=== PATIENT | male | born 1930 ===

== ENCOUNTER 2017-05-12 16:31 | Inpatient (IN) | payer MEDICARE ==
[2017-05-12 17:29] LABS: BASO # 0.1 K/uL (0.0-0.2); BASO % 0.6 % (0.0-2.0); EOS # 0.1 K/uL (0.0-0.7); EOS % 1.2 % (0.0-4.0); HEMATOCRIT 42.5 % (35.0-51.0); LYMPH % 18.2 % (20.0-40.0); MEAN CELL VOLUME 87.8 fl (80.0-94.0); MEAN CORPUSCULAR HEMOGLOBIN 28.8 pg (27.0-31.0); MEAN CORPUSCULAR HGB CONC 32.8 g/dL (33.0-37.0); MEAN PLATELET VOLUME 8.8 fl (7.2-11.7); MONO # 0.7 K/uL (0.0-0.8); MONO % 6.7 % (0.0-10.0); NEUT # 7.9 K/uL (1.8-7.0); NEUT % 73.3 % (50.0-75.0); NRBC % 0.1 % (0.0-0.0); RED CELL DISTRIBUTION WIDTH 15.3 % (11.5-14.5); WHITE BLOOD COUNT 10.7 K/uL (4.8-10.8)
[2017-05-12 17:32] LABS: VENOUS BLOOD GAS BASE EXCESS 6.4 mmol/L (0.0-2.0); VENOUS BLOOD GAS PCO2 77 mmHg (40-60); VENOUS BLOOD PH 7.28 (7.32-7.43)
[2017-05-12] MEDS ORDERED: Albuterol-Ipratrop 3 mg / 0.5 (3 ml) UD INH STA (17:35)
[2017-05-12 17:36] LABS: ALB/GLOB RATIO 1.1 (1.0-2.1); ALKALINE PHOSPHATASE 103 U/L (38-126); ALT/SGPT 26 U/L (21-72); AST/SGOT 34 U/L (17-59); BILIRUBIN,TOTAL 0.4 mg/dl (0.2-1.3); BLOOD UREA NITROGEN 18 mg/dl (9-20); CALCIUM 9.4 mg/dL (8.4-10.2); CARBON DIOXIDE 30 mmol/L (22-30); CHLORIDE 100 mmol/L (98-107); GFR AFRICAN-AMERICAN > 60; GLUCOSE,RANDOM 176 mg/dL (75-110); MAGNESIUM 1.8 MG/DL (1.6-2.3); PHOSPHOROUS 4.4 mg/dl (2.5-4.5); POTASSIUM 4.2 MMOL/L (3.6-5.0); SODIUM 139 mmol/l (132-148); TOTAL PROTEIN 8.5 G/DL (6.3-8.2)
--- NOTE | 2017-05-12 17:43 | ED PDOC ---
HPI: SOB/CHF/COPD Time Seen by Provider: 05/12/17 16:41 Chief Complaint (Nursing): Shortness Of Breath Chief Complaint (Provider): Shortness of Breath History Per: Patient History/Exam Limitations: no limitations Onset/Duration Of Symptoms: Days (x2 weeks) Current Symptoms Are (Timing): Still Present Associated Symptoms: denies: Fever, Chills Additional Complaint(s): Carroll Robertson, an 86 year old male, with a past medical history of chronic obstructive pulmonary disorder, pneumonia and anemia presents to the ED complaining of shortness of breath. Patient denies outright chest pain but does complain of chest tightness. The patient reports that his symptoms began this morning while he was out for a walk. Patient also states that he has had a cough (no hemoptysis) productive of white phlegm for 2 weeks. denies fever and chills but does note some malaise and fatigue. Patient does not see a regular doctor. Past Medical History Reviewed: Historical Data, Nursing Documentation, Vital Signs Vital Signs: Last Vital Signs Temp 99.1 F 05/13/17 12:23 Pulse 67 05/13/17 12:23 Resp 27 H 05/13/17 12:23 BP 124/51 L 05/13/17 12:23 Pulse Ox 98 05/13/17 12:23 - Medical History PMH: Anemia, COPD, Pneumonia - Surgical History Surgical History: No Surg Hx - Family History Family History: States: Unknown Family Hx - Social History Current smoker - smoking cessation education provided: Yes (smokes regularly) Ex-Smoker (has not smoked in the last 12 months): Yes Alcohol: None Drugs: Denies - Home Medications Home Medications: Ambulatory Orders Medication Instructions Recorded No Known Home Med 05/12/17 - Allergies Allergies/Adverse Reactions: Allergies Allergy/AdvReac Type Severity Reaction Status Date / Time No Known Allergies Allergy Verified 05/12/17 16:37 Review of Systems ROS Statement: Except As Marked, All Systems Reviewed And Found Negative Constitutional: Positive for: Malaise, Other (fatigue). Negative for: Fever, Chills Cardiovascular: Negative for: Chest Pain (no chest pain but does note some chest tightness) Respiratory: Positive for: Cough (produtive of white phlegm), Shortness of Breath. Negative for: Hemoptysis Physical Exam - Reviewed Nursing Documentation Reviewed: Yes Vital Signs Reviewed: Yes - Physical Exam Appears: Positive for: Non-toxic, No Acute Distress (appears cachectic and chronically ill) Head Exam: Positive for: ATRAUMATIC, NORMOCEPHALIC Skin: Positive for: Warm, Dry Eye Exam: Positive for: EOMI, PERRL ENT: Positive for: Other (tacky mucus membranes) Neck: Positive for: Painless ROM, Supple Cardiovascular/Chest: Positive for: Chest Non Tender, Tachycardia. Negative for : Murmur Respiratory: Positive for: Decreased Breath Sounds (bilaterally). Negative for : Respiratory Distress Gastrointestinal/Abdominal: Positive for: Soft. Negative for: Tenderness Back: Positive for: Normal Inspection. Negative for: Decreased ROM Extremity: Positive for: Normal ROM. Negative for: Deformity Lymphatic: Negative for: Adenopathy Neurologic/Psych: Positive for: Alert. Negative for: Motor/Sensory Deficits - Laboratory Results Result Diagrams: 05/13/17 04:20 05/13/17 04:20 - ECG ECG Rhythm: Positive for: Normal QRS, Normal ST Segment, Sinus Tachycardia O2 Sat by Pulse Oximetry: 98 (RA) Pulse Ox Interpretation: Normal - Radiology X-Ray Interpretation: Pnemothorax - Progress Re-evaluation Time: 18:30 Condition: Improving,but remains with symptoms (Pt reports that he feels fine, as long as he is not walking.) - Critical Care Total Time (In Min): 30 Documented Critical Care: Time excludes all time spent performint seperately billable procedures Medical Decision Making Medical Decision Makin Initial Impression 86 year old male presenting with shortness of breath Differential: Pneumonia, Bronchitis, COPD exacerbation, PE, Acute coronary syndrome Initial Plan: * Type and Screen * ABG * VBG shock panel * EKG * B-type natriuretic * CMP * Magnesium * Phosphorous * Troponin I * Udip * CBC * PT * PTT * CXR * Albuterol 9ml INH * Solumefrol 125mg IVP * Blood Cu;ture * Peak Flow Pre/Post * Influenza A B * Reevaluation EKG performed: * Sinus Tachycardia at 103bpm * Normal QRS * Normal ST segments Large RIGHT pneumothorax on chest xray. Previous CT (2011) demonstrated apical blebs bilaterally only. NELIDA pt and family findings. Pt continues to report feeling comfortable. NRBM 100 % placed. No signs of tension pneumothorax. NELIDA vice president payer and thoracostomy considered. NELIDA [facility] resident. NELIDA Arnold Hospitalist for intensive care. vice president payer performed RIGHT thoracostomy in ER under my supervision. Pt given IV Versed as anxiolytic. Postprocedure xray demonstrates reinflation of RIGHT lung. - Scribe Attestation Documented by Kendy Lancaster acting as a scribe for Akanksha Gary MD. Provider Attestation: All medical record entries made by the Scribe were at my direction and personally dictated by me. I have reviewed the chart and agree that the record accurately reflects my personal performance of the history, physical exam, medical decision making, and the department course for this patient. I have also personally directed, reviewed, and agree with the discharge instructions and disposition. Disposition - Clinical Impression Clinical Impression: COPD (chronic obstructive pulmonary disease) with acute bronchitis, Pneumothorax Counseled Patient/Family Regarding: Studies Performed, Diagnosis - Disposition Disposition Time: 17:00 Condition: CRITICAL - Pt Status Changed To: Hospital Disposition Of: Inpatient - Admit Certification Admit to Inpatient:: After my assessment, the patient will require hospitalization for at least two midnights. This is because of the severity of symptoms shown, intensity of services needed, and/or the medical risk in this patient being treated as an outpatient. - POA Present On Arrival: None
[2017-05-12 18:10] LABS: PARTIAL THROMBOPLASTIN TIME 35.2 Seconds (25.6-37.1)
--- NOTE | 2017-05-12 18:31 | CP.PCM.HP ---
History of Present Illness - History of Present Illness History of Present Illness: 86yo M with no PMHx admitted for pneumothorax. SOB x1 day, started 11AM, no inciting event. Denies wheezing, chest pain, [place]. Stopped smoking 4 years ago. PMHx: NC FHx: NC Meds: checked in [facility] Social hx: ex smoker, denies EtOH/drugs Surgeries: denies Allergies: NKDA PCP: [facility] ED course: * Type and Screen * ABG * VBG shock panel * EKG * B-type natriuretic * CMP * Magnesium * Phosphorous * Troponin I * Udip * CBC * PT * PTT * CXR * Albuterol 9ml INH * Solumefrol 125mg IVP * Blood Cu;ture * Peak Flow Pre/Post * Influenza A B Present on Admission - Present on Admission Any Indicators Present on Admission: No Review of Systems - Review of Systems All systems: reviewed and no additional remarkable complaints except - Respiratory Respiratory: Dyspnea Past Patient History - Past Social History Alcohol: None Drugs: Denies - PULMONARY Hx Chronic Obstructive Pulmonary Disease (COPD): Yes Hx Pneumonia: Yes - HEMATOLOGICAL/ONCOLOGICAL Hx Anemia: Yes - INTEGUMENTARY Other/Comment: shingles a month ago - PSYCHIATRIC Hx Substance Use: No - SURGICAL HISTORY Hx Surgeries: No - ANESTHESIA Hx Anesthesia: No Meds Allergies/Adverse Reactions: Allergies Allergy/AdvReac Type Severity Reaction Status Date / Time No Known Allergies Allergy Verified 05/12/17 16:37 Physical Exam - Constitutional Appears: Non-toxic, No Acute Distress - Head Exam Head Exam: ATRAUMATIC, NORMOCEPHALIC - Eye Exam Eye Exam: Normal appearance - ENT Exam ENT Exam: Mucous Membranes Moist - Neck Exam Neck exam: Positive for: Full Rom, Normal Inspection - Respiratory Exam Respiratory Exam: Decreased Breath Sounds (right side) - Cardiovascular Exam Cardiovascular Exam: REGULAR RHYTHM. absent: Systolic Murmur - GI/Abdominal Exam GI & Abdominal Exam: Normal Bowel Sounds, Soft - Extremities Exam Extremities exam: Positive for: normal inspection. Negative for: pedal edema - Back Exam Back exam: NORMAL INSPECTION. absent: vertebral tenderness - Neurological Exam Neurological exam: Alert, Oriented x3 - Skin Skin Exam: Dry, Warm Results - Vital Signs Recent Vital Signs: Last Vital Signs Temp 99.0 F 05/12/17 16:37 Pulse 96 H 05/12/17 17:46 Resp 26 H 05/12/17 17:46 BP 166/83 H 05/12/17 17:46 Pulse Ox 98 05/12/17 17:55 - Labs Result Diagrams: 05/12/17 17:15 05/12/17 17:00 Labs: Laboratory Results - last 24 hr 05/12/17 05/12/17 05/12/17 17:00 17:00 17:00 WBC RBC Hgb Hct MCV MCH MCHC RDW Plt Count MPV Neut % (Auto) Lymph % (Auto) [place] % (Auto) Eos % (Auto) Baso % (Auto) Neut # Lymph # [place] # Eos # Baso # PT INR APTT pO2 VBG pH VBG pCO2 VBG HCO3 VBG Total CO2 VBG O2 Sat (Calc) VBG Base Excess VBG Potassium Glucose Lactate FiO2 Crit Value Called To Crit Value Called By Crit Value Read Back Blood Gas Notified Time Sodium 139 Potassium 4.2 Chloride 100 Carbon Dioxide 30 Anion Gap 13 BUN 18 Creatinine 0.8 Est GFR ( Amer) > 60 Est GFR (Non-Af Amer) > 60 Random Glucose 176 H Calcium 9.4 Phosphorus 4.4 Magnesium 1.8 Total Bilirubin 0.4 AST 34 ALT 26 Alkaline Phosphatase 103 Troponin I < 0.0120 NT-Pro-B Natriuret Pep 316 Total Protein 8.5 H Albumin 4.5 Globulin 4.1 H Albumin/Globulin Ratio 1.1 Venous Blood Potassium Influenza Typ A,B (EIA) Negative for flu a/b Blood Type O POSITIVE Antibody Screen Negative BBK History Checked No verified bt 05/12/17 05/12/17 05/12/17 17:15 17:15 17:26 WBC 10.7 RBC 4.85 Hgb 13.9 Hct 42.5 MCV 87.8 MCH 28.8 MCHC 32.8 L RDW 15.3 H Plt Count 219 MPV 8.8 Neut % (Auto) 73.3 Lymph % (Auto) 18.2 L [place] % (Auto) 6.7 Eos % (Auto) 1.2 Baso % (Auto) 0.6 Neut # 7.9 H Lymph # 2.0 [place] # 0.7 Eos # 0.1 Baso # 0.1 PT 11.1 INR 1.0 APTT 35.2 pO2 27 L VBG pH 7.28 L VBG pCO2 77 H* VBG HCO3 28.5 VBG Total CO2 38.6 H VBG O2 Sat (Calc) 51.0 VBG Base Excess 6.4 H VBG Potassium 4.7 Glucose 188 H Lactate 2.1 FiO2 40.0 Crit Value Called To Dr shakir pagan Crit Value Called By Onofre Crit Value Read Back Y Blood Gas Notified Time 1730 Sodium 141.0 Potassium Chloride 103.0 Carbon Dioxide Anion Gap BUN Creatinine Est GFR ( Amer) Est GFR (Non-Af Amer) Random Glucose Calcium Phosphorus Magnesium Total Bilirubin AST ALT Alkaline Phosphatase Troponin I NT-Pro-B Natriuret Pep Total Protein Albumin Globulin Albumin/Globulin Ratio Venous Blood Potassium 4.7 Influenza Typ A,B (EIA) Blood Type Antibody Screen BBK History Checked Assessment & Plan - Assessment and Plan (Free Text) Assessment: 86yo M with no PMHx admitted for pneumothorax. pneumothorax CT chest - right tension PTX surgery on board, appreciate input DVT ppx start lovenox 24hr after surgical procedure SCDs for now Decision To Admit - Pt Status Changed To: Hospital Disposition Of: Inpatient - Admit Certification Admit to Inpatient:: After my assessment, the patient will require hospitalization for at least two midnights. This is because of the severity of symptoms shown, intensity of services needed, and/or the medical risk in this patient being treated as an outpatient. - . Bed Request Type: Telemetry Admitting Physician: Adriana Sepulveda
--- NOTE | 2017-05-12 19:42 | CT ---
EXAM: CT Chest Without Intravenous Contrast EXAM DATE/TIME: 05/12/2017 5:51 PM CLINICAL HISTORY: 86 years old, male; Signs and symptoms; Shortness of breath; Additional info: Right sided pneumothorax vs bleb TECHNIQUE: Axial computed tomography images of the chest without intravenous contrast. All CT scans at this facility use one or more dose reduction techniques, viz.: automated exposure control; ma/kV adjustment per patient size (including targeted exams where dose is matched to indication; i.e. head); or iterative reconstruction technique. Coronal and sagittal reformatted images were created and reviewed. COMPARISON: CT CHEST W/CONT 2012-03-25 09:12 FINDINGS: Lungs and pleural spaces: Trachea and main bronchi are patent. There are diffuse emphysematous changes bilaterally. Appearance suggests both paraseptal and centrilobular changes. There is a right tension pneumothorax. There is partial collapse of the right lung. There are areas of pleural-parenchymal scarring in the middle and lower lobes. Partial atelectasis limits evaluation of right lung parenchyma.There is apical pleural-parenchymal thickening bilaterally right greater than left, increased since the prior study. There is an 11 x 5 mm left apical nodular opacity increased since the prior study, image 52 series 601, image 57 series 601. There is medial right upper lobe nodular opacity 3 x 2 cm, image 51 series 601. There is no focal consolidation on the left. There are no effusions. Heart and vasculature: There is mild shift of heart and mediastinal structures to the left. Heart size is normal. There are coronary artery calcifications. There are calcifications in the aorta and great vessels.Aorta and main pulmonary artery are normal in caliber. Thyroid: Thyroid is only partially imaged. Bones/joints: Bony structures are osteopenic. There are degenerative changes. Soft tissues: unremarkable Mediastinum: There are shotty mediastinal nodes.there is an 8 x 10 mm precarinal node. [place] are not optimally evaluated without contrast material. The esophagus is partially distended with air. There is a small hiatal hernia. Upper abdomen: There are no acute abnormalities in the visualized portion of the abdomen. There is a right renal cyst. Pancreas is atrophic with multiple coarse calcifications. There is bilateral adrenal thickening. IMPRESSION: Right tension pneumothorax with partial collapse of the right lung; diffuse emphysematous changes bilaterally, interval increase in size of a left apical nodule; right apical opacity, scarring versus mass, evaluation limited by pneumothorax and partial right lung collapse Additional findings as described above. Preliminary findings were discussed with Akanksha Cruz at 7:28 PM EDT on 05/12/2017.
[2017-05-12] MEDS ORDERED: Midazolam 2 MG/2 ML VIAL IV STA (20:25)
[2017-05-12] MEDS ORDERED: Lidocaine 2% w Epi 1:100,000 Inj IJ ONE (20:25)
--- NOTE | 2017-05-12 20:44 | CP.PCM.HP ---
History of Present Illness - History of Present Illness History of Present Illness: CC: SOB, Chest tightness History via adult daughter translated from [place] HPI: This is an 86 y/o male without any diagnosed medical conditions, but with long Hx of smoking and undiagnosed COPD. Per daughter, he has been having increased coughing for the past several weeks which some increased white sputum. He has also been having worsening SOB. This AM, the symptom of chest tightness and SOB became worse, and nothing seemed to relieve them, so he came in to the ER. He was found to have a R PTX on CXR. Patient denies f/c/n/v/d. Patient has some level of worsening tiredness. ROS: 14 systems reviewed, no findings MHx: COPD, PTX SHx: None Allergies: NKDA Medications: None Family Hx: Patient cannot provide any relevant findings Social Hx: Lives alone, but daughter nearby, still smokes, no EtOH Surrogate: Daughter, listed in chart Present on Admission - Present on Admission Any Indicators Present on Admission: No Past Patient History - Past Social History Alcohol: None Drugs: Denies - PULMONARY Hx Chronic Obstructive Pulmonary Disease (COPD): Yes Hx Pneumonia: Yes - HEMATOLOGICAL/ONCOLOGICAL Hx Anemia: Yes - INTEGUMENTARY Other/Comment: shingles a month ago - PSYCHIATRIC Hx Substance Use: No - SURGICAL HISTORY Hx Surgeries: No - ANESTHESIA Hx Anesthesia: No Meds Allergies/Adverse Reactions: Allergies Allergy/AdvReac Type Severity Reaction Status Date / Time No Known Allergies Allergy Verified 05/12/17 16:37 Physical Exam - Constitutional Appears: No Acute Distress - Head Exam Head Exam: ATRAUMATIC, NORMOCEPHALIC - Eye Exam Eye Exam: EOMI - ENT Exam ENT Exam: Mucous Membranes Moist - Neck Exam Neck exam: Positive for: Full Rom - Respiratory Exam Respiratory Exam: Decreased Breath Sounds, NORMAL BREATHING PATTERN Additional comments: Diminished b/s in R base - Cardiovascular Exam Cardiovascular Exam: REGULAR RHYTHM, +S1, +S2 - GI/Abdominal Exam GI & Abdominal Exam: Normal Bowel Sounds, Soft - Extremities Exam Extremities exam: Positive for: full ROM, normal inspection - Neurological Exam Neurological exam: Alert, CN II-XII Intact, Oriented x3 - Psychiatric Exam Psychiatric exam: Normal Affect, Normal Mood - Skin Skin Exam: Dry, Warm Results - Vital Signs Recent Vital Signs: Last Vital Signs Temp 97.6 F 05/12/17 19:07 Pulse 101 H 05/12/17 19:54 Resp 20 05/12/17 19:54 BP 156/78 H 05/12/17 19:54 Pulse Ox 98 05/12/17 20:25 - Labs Result Diagrams: 05/12/17 17:15 05/12/17 17:00 Labs: Laboratory Results - last 24 hr 05/12/17 05/12/17 05/12/17 17:00 17:00 17:00 WBC RBC Hgb Hct MCV MCH MCHC RDW Plt Count MPV Neut % (Auto) Lymph % (Auto) [place] % (Auto) Eos % (Auto) Baso % (Auto) Neut # Lymph # [place] # Eos # Baso # PT INR APTT pO2 VBG pH VBG pCO2 VBG HCO3 VBG Total CO2 VBG O2 Sat (Calc) VBG Base Excess VBG Potassium Glucose Lactate FiO2 Crit Value Called To Crit Value Called By Crit Value Read Back Blood Gas Notified Time Sodium 139 Potassium 4.2 Chloride 100 Carbon Dioxide 30 Anion Gap 13 BUN 18 Creatinine 0.8 Est GFR ( Amer) > 60 Est GFR (Non-Af Amer) > 60 Random Glucose 176 H Calcium 9.4 Phosphorus 4.4 Magnesium 1.8 Total Bilirubin 0.4 AST 34 ALT 26 Alkaline Phosphatase 103 Troponin I < 0.0120 NT-Pro-B Natriuret Pep 316 Total Protein 8.5 H Albumin 4.5 Globulin 4.1 H Albumin/Globulin Ratio 1.1 Venous Blood Potassium Influenza Typ A,B (EIA) Negative for flu a/b Blood Type O POSITIVE Antibody Screen Negative BBK History Checked No verified bt 05/12/17 05/12/17 05/12/17 17:15 17:15 17:26 WBC 10.7 RBC 4.85 Hgb 13.9 Hct 42.5 MCV 87.8 MCH 28.8 MCHC 32.8 L RDW 15.3 H Plt Count 219 MPV 8.8 Neut % (Auto) 73.3 Lymph % (Auto) 18.2 L [place] % (Auto) 6.7 Eos % (Auto) 1.2 Baso % (Auto) 0.6 Neut # 7.9 H Lymph # 2.0 [place] # 0.7 Eos # 0.1 Baso # 0.1 PT 11.1 INR 1.0 APTT 35.2 pO2 27 L VBG pH 7.28 L VBG pCO2 77 H* VBG HCO3 28.5 VBG Total CO2 38.6 H VBG O2 Sat (Calc) 51.0 VBG Base Excess 6.4 H VBG Potassium 4.7 Glucose 188 H Lactate 2.1 FiO2 40.0 Crit Value Called To Dr shakir pagan Crit Value Called By Onofre Crit Value Read Back Y Blood Gas Notified Time 1730 Sodium 141.0 Potassium Chloride 103.0 Carbon Dioxide Anion Gap BUN Creatinine Est GFR ( Amer) Est GFR (Non-Af Amer) Random Glucose Calcium Phosphorus Magnesium Total Bilirubin AST ALT Alkaline Phosphatase Troponin I NT-Pro-B Natriuret Pep Total Protein Albumin Globulin Albumin/Globulin Ratio Venous Blood Potassium 4.7 Influenza Typ A,B (EIA) Blood Type Antibody Screen BBK History Checked - Imaging and Cardiology Chest x-ray Status: Image reviewed by me, Report reviewed by me Additional comment: R sided PTX CT scan - chest Status: Image reviewed by me, Report reviewed by me (R PTx, evidence of COPD) Assessment & Plan (1) Pneumothorax Assessment and Plan: 86 y/o male with previously undiagnosed COPD who comes in with a R PTX in setting increased coughing/likely COPD exac. -Will admit to ICU -Surgical consult for possible chest tube placement -Given increasing cough/sputum, will cover with azithromycin IV at least for now -Can consider steroids if worsening symptoms of COPD, duonebs as necessary -SCDs for DVT prophylaxis Status: Acute (2) COPD (chronic obstructive pulmonary disease) with acute bronchitis Status: Acute (3) DVT prophylaxis Status: Acute
--- NOTE | 2017-05-12 20:47 | RAD ---
HISTORY: Shortness of breath. COMPARISON: May 12, 2017. FINDINGS: LUNGS: Collapse right lung. PLEURA: Large right pneumothorax without significant shift of mediastinal structures to the contralateral side of tension pneumothorax. CARDIOVASCULAR: No radiographic findings to suggest acute or significant cardiovascular disease. OSSEOUS STRUCTURES: No significant abnormalities. VISUALIZED UPPER ABDOMEN: Normal. OTHER FINDINGS: None. IMPRESSION: Large state pneumothorax at least 50% of right lung volume. No appreciable shift of mediastinal structures. Pneumothorax better appreciated on recent CT completed at 18:46.
[2017-05-12] MEDS ORDERED: Azithromycin 500 MG in Sodium Chloride 0.9% 250 ML IVPB STA (21:02)
[2017-05-12] MEDS ORDERED: Azithromycin 500 MG IV IVPB ONE (21:25)
[2017-05-12] MEDS ORDERED: Influenza Vaccine 18yr & older 0.5 ML/45 MCG SYR IM ONE (23:34)
[2017-05-12 23:38] VITALS: BMI 15.6
[2017-05-12] MEDS ORDERED: Pneumococcal 23-Valent Vaccine IM ONE (23:45)
--- NOTE | 2017-05-13 05:14 | CP.PCM.CON ---
History of Present Illness - History of Present Illness History of Present Illness: Cardiothoracic surgery consult for Dr. Mcclendon Consulted for: right pneumothorax Patient is a poor historian with history of poor clinical follow up Patient is an 86M with PMH of emphysematous disease as seen on CT scan from 2017 who presented to the ED with acute worsening of SOB in past 24 hours. Patient states that he has been having symptoms of a respiratory flu and non- productive cough for pas few months and that yesterday patient had acute worsening of SOB. Patient denies any chest pain, back pain, fevers, chills, abdominal pain, nausea, or vomiting. Patient denies any falls or trauma to the right chest. Patient denies any PMH of lung disease or any home medications and does not follow up with a primary doctor. Patient lives in a [facility] Review of Systems - Review of Systems Review of Systems: 12 point ROS reviewed and no significant findings except as stated in the HPI - Constitutional Constitutional: As Per HPI - Cardiovascular Cardiovascular: As Per HPI, Dyspnea - Respiratory Respiratory: As Per HPI. absent: Hemoptysis - Gastrointestinal Gastrointestinal: As Per HPI. absent: Abdominal Pain, Cramping, Diarrhea, Nausea, Vomiting - Genitourinary Genitourinary: absent: Change in Urinary Stream, Difficulty Urinating, Dysuria - Integumentary Integumentary: Rash, Skin Pain (hip) Past Patient History - Past Medical History & Family History Past Medical History?: Yes - Past Social History Smoking Status: 2 cigarett Drugs: Denies - CARDIAC Hx Cardiac Disorders: No - PULMONARY Hx Respiratory Disorders: Yes Hx Chronic Obstructive Pulmonary Disease (COPD): Yes Hx Pneumonia: Yes - NEUROLOGICAL Hx Neurological Disorder: No - HEENT Hx HEENT Problems: No - RENAL Hx Chronic Kidney Disease: No - ENDOCRINE/METABOLIC Hx Endocrine Disorders: No - HEMATOLOGICAL/ONCOLOGICAL Hx Blood Disorders: Yes Hx AIDS: No Hx Anemia: Yes Hx Human Immunodeficiency Virus (HIV): No - INTEGUMENTARY Hx Dermatological Problems: Yes Other/Comment: shingles a month ago - MUSCULOSKELETAL/RHEUMATOLOGICAL Hx Musculoskeletal Disorders: No Hx Falls: No - GASTROINTESTINAL Hx Gastrointestinal Disorders: No Other/Comment: never had surgery - GENITOURINARY/GYNECOLOGICAL Hx Genitourinary Disorders: No - PSYCHIATRIC Hx Psychophysiologic Disorder: No Hx Substance Use: No - SURGICAL HISTORY Hx Surgeries: No - ANESTHESIA Hx Anesthesia: No Meds Allergies/Adverse Reactions: Allergies Allergy/AdvReac Type Severity Reaction Status Date / Time No Known Allergies Allergy Verified 05/12/17 16:37 - Medications Medications: Current Medications Azithromycin 500 mg/ Sodium (Chloride) 250 mls @ 250 mls/hr IVPB DAILY HEIDY PRN Reason: Protocol Morphine Sulfate (Morphine) 4 mg IVP Q4 PRN PRN Reason: Pain, severe (8-10) Morphine Sulfate (Morphine) 2 mg IVP Q4 PRN PRN Reason: Pain, moderate (4-7) Physical Exam - Constitutional Appears: Non-toxic, No Acute Distress - Head Exam Head Exam: ATRAUMATIC, NORMOCEPHALIC - Eye Exam Eye Exam: Normal appearance. absent: Conjunctival injection, Scleral icterus - ENT Exam ENT Exam: Mucous Membranes Moist, Normal Oropharynx - Respiratory Exam Respiratory Exam: Accessory Muscle Use, Decreased Breath Sounds (right lung all burgess). absent: Chest Wall Tenderness, Rales, Rhonchi, Wheezes, Respiratory Distress Additional comments: decreased chest wall expansion on the right - Cardiovascular Exam Cardiovascular Exam: Tachycardia - GI/Abdominal Exam GI & Abdominal Exam: Soft. absent: Distended, Tenderness - Extremities Exam Extremities exam: Positive for: pedal pulses present. Negative for: calf tenderness, pedal edema - Back Exam Back exam: absent: CVA tenderness (L), CVA tenderness (R) - Neurological Exam Neurological exam: Alert, Oriented x3 - Psychiatric Exam Psychiatric exam: Normal Affect, Normal Mood - Skin Skin Exam: Dry, Normal Color, Warm Results - Vital Signs Recent Vital Signs: Last Vital Signs Temp 98.3 F 05/13/17 00:00 Pulse 73 05/13/17 02:00 Resp 21 05/13/17 02:00 BP 136/68 05/13/17 02:00 Pulse Ox 100 05/13/17 02:00 - Labs Result Diagrams: 05/12/17 17:15 05/12/17 17:00 Labs: Laboratory Results - last 24 hr 05/12/17 05/12/17 05/12/17 17:00 17:00 17:00 WBC RBC Hgb Hct MCV MCH MCHC RDW Plt Count MPV Neut % (Auto) Lymph % (Auto) [place] % (Auto) Eos % (Auto) Baso % (Auto) Neut # Lymph # [place] # Eos # Baso # PT INR APTT pO2 VBG pH VBG pCO2 VBG HCO3 VBG Total CO2 VBG O2 Sat (Calc) VBG Base Excess VBG Potassium Glucose Lactate FiO2 Crit Value Called To Crit Value Called By Crit Value Read Back Blood Gas Notified Time Sodium 139 Potassium 4.2 Chloride 100 Carbon Dioxide 30 Anion Gap 13 BUN 18 Creatinine 0.8 Est GFR ( Amer) > 60 Est GFR (Non-Af Amer) > 60 Random Glucose 176 H Calcium 9.4 Phosphorus 4.4 Magnesium 1.8 Total Bilirubin 0.4 AST 34 ALT 26 Alkaline Phosphatase 103 Troponin I < 0.0120 NT-Pro-B Natriuret Pep 316 Total Protein 8.5 H Albumin 4.5 Globulin 4.1 H Albumin/Globulin Ratio 1.1 Venous Blood Potassium Influenza Typ A,B (EIA) Negative for flu a/b Blood Type O POSITIVE Antibody Screen Negative BBK History Checked No verified bt 05/12/17 05/12/17 05/12/17 17:15 17:15 17:26 WBC 10.7 RBC 4.85 Hgb 13.9 Hct 42.5 MCV 87.8 MCH 28.8 MCHC 32.8 L RDW 15.3 H Plt Count 219 MPV 8.8 Neut % (Auto) 73.3 Lymph % (Auto) 18.2 L [place] % (Auto) 6.7 Eos % (Auto) 1.2 Baso % (Auto) 0.6 Neut # 7.9 H Lymph # 2.0 [place] # 0.7 Eos # 0.1 Baso # 0.1 PT 11.1 INR 1.0 APTT 35.2 pO2 27 L VBG pH 7.28 L VBG pCO2 77 H* VBG HCO3 28.5 VBG Total CO2 38.6 H VBG O2 Sat (Calc) 51.0 VBG Base Excess 6.4 H VBG Potassium 4.7 Glucose 188 H Lactate 2.1 FiO2 40.0 Crit Value Called To Dr shakir pagan Crit Value Called By Onofre Crit Value Read Back Y Blood Gas Notified Time 1730 Sodium 141.0 Potassium Chloride 103.0 Carbon Dioxide Anion Gap BUN Creatinine Est GFR ( Amer) Est GFR (Non-Af Amer) Random Glucose Calcium Phosphorus Magnesium Total Bilirubin AST ALT Alkaline Phosphatase Troponin I NT-Pro-B Natriuret Pep Total Protein Albumin Globulin Albumin/Globulin Ratio Venous Blood Potassium 4.7 Influenza Typ A,B (EIA) Blood Type Antibody Screen BBK History Checked - Imaging and Cardiology CT scan - chest Status: Image reviewed by me, Report reviewed by me Assessment & Plan - Assessment and Plan (Free Text) Assessment: 86M with right pneumothorax Plan: -right large bore chest tube placed in the ED with no fluid drainage. Proper position and re-expansion of the lung demonstrated on CXR. Small air leak present. Patient tolerated well -CT chest with IV contrast in the AM to re-evaluate for pulmonary pathology -repeat CBC/CMP/ABG in the AM -Admit to ICU for further monitoring -Strict I's and O's -IV abx -Regular diet -Serial exams -Out of bed to chair Discussed with Dr. Mcclendon, further recommendations per him Debbie Brock PGY2 Chest Tube Insertion - Chest Tube Placement Indication: Pneumothorax Consent Obtained: Written Procedural Sedation: Midazolam Procedure Description: Prepped W/Betadine (prepped with chloroprep), Sterile Drape Applied, Local Anes Used: (1% lidocaine with epi) Incision Completed And Tube Inserted At: rib 4-5 intercostal space right anterior axillary line Post Insertion Procedure(s): Tube Sutured To Chest Wall, CXR Completed To Confirm Placement, Tube Connected To Suction (mild air leak noted)
[2017-05-13 05:38] LABS: HEMATOCRIT 36.5 % (35.0-51.0); MEAN CELL VOLUME 87.5 fl (80.0-94.0); MEAN CORPUSCULAR HEMOGLOBIN 28.3 pg (27.0-31.0); MEAN CORPUSCULAR HGB CONC 32.4 g/dL (33.0-37.0); RED CELL DISTRIBUTION WIDTH 14.9 % (11.5-14.5); WHITE BLOOD COUNT 13.4 K/uL (4.8-10.8)
[2017-05-13 05:48] LABS: ALB/GLOB RATIO 1.1 (1.0-2.1); ALKALINE PHOSPHATASE 97 U/L (38-126); ALT/SGPT 28 U/L (21-72); AST/SGOT 33 U/L (17-59); BILIRUBIN,TOTAL 0.5 mg/dl (0.2-1.3); BLOOD UREA NITROGEN 18 mg/dl (9-20); CALCIUM 9.1 mg/dL (8.4-10.2); CARBON DIOXIDE 31 mmol/L (22-30); CHLORIDE 105 mmol/L (98-107); GFR AFRICAN-AMERICAN > 60; GLUCOSE,RANDOM 128 mg/dL (75-110); POTASSIUM 4.7 MMOL/L (3.6-5.0); SODIUM 142 mmol/l (132-148); TOTAL PROTEIN 7.4 G/DL (6.3-8.2)
--- NOTE | 2017-05-13 07:00 | RAD ---
HISTORY: post thorocostomy COMPARISON: No prior. FINDINGS: LUNGS: Re-expanded right lung. PLEURA: Trace pneumothorax. CARDIOVASCULAR: Normal. OSSEOUS STRUCTURES: No significant abnormalities. VISUALIZED UPPER ABDOMEN: Normal. OTHER FINDINGS: None. IMPRESSION: Near complete re-expansion of the right lung. Chest tube in satisfactory position in the right pleural space.
--- NOTE | 2017-05-13 07:08 | RAD ---
HISTORY: Chest tube placement. Technique: Single view portable semi erect @ 05:26. COMPARISON: No prior. FINDINGS: LUNGS: No active pulmonary disease. PLEURA: No appreciable pneumothorax. Stable position of chest tube in the right pleural space. CARDIOVASCULAR: No radiographic findings to suggest acute or significant cardiovascular disease. OSSEOUS STRUCTURES: No significant abnormalities. VISUALIZED UPPER ABDOMEN: Normal. OTHER FINDINGS: New subcutaneous emphysema identified. IMPRESSION: Satisfactory position of chest tube within the right pleural space. No demonstrable pneumothorax. New subcutaneous emphysema.
[2017-05-13] MEDS: Azithromycin 500 MG in Sodium Chloride 0.9% 250 ML IVPB SCH (08:45)
[2017-05-13 09:01] LABS: ABG ALLEN TEST YES; ARTERIAL BLOOD GAS HCO3 29.7 mmol/L (21-28); ARTERIAL BLOOD GAS O2 CAPACITY 16.7 mL/dL (16-24); ARTERIAL BLOOD GAS O2 CONTENT 16.5 ML/dL (15-23); ARTERIAL BLOOD GAS PH 7.42 (7.35-7.45); ARTERIAL BLOOD GAS PO2 85 mm/Hg (80-100); ARTERIAL BLOOD HGB O2 SAT 95.2 % (95.0-98.0); CARBOXYHEMOGLOBIN 1.9 % (0.5-1.5); METHEMOGLOBIN 1.9 % (0.0-3.0)
--- NOTE | 2017-05-13 09:08 | CP.PCM.PN ---
Subjective - Date & Time of Evaluation Date of Evaluation: 05/13/17 Time of Evaluation: 09:06 - Subjective Subjective: 86 YO Male admitted for R pneumothorax on chest Xray S: Pt was admitted yesterday, s/p chest tube placement in R thorax. No acute overnight events. Pt breathing comfortably with 2L NC. Pt states that he feels alot better then when he came to the hospital. He no longer has the chest tightness and SOB. He endorses pain around the chest tube site. Denies chest pain, dyspnea, palpitations, chills, fever, n/v/d/c. Idea[employer] used for translation, [id number] Objective - Vital Signs/Intake and Output Vital Signs (last 24 hours): Temp Pulse Resp BP Pulse Ox 99.1 F 67 27 H 126/57 L 99 05/13/17 08:27 05/13/17 08:27 05/13/17 08:27 05/13/17 08:27 05/13/17 08:27 Intake and Output: 05/13/17 05/13/17 06:59 18:59 Intake Total 250 250 Output Total 400 Balance -150 250 - Medications Medications: Current Medications Azithromycin 500 mg/ Sodium (Chloride) 250 mls @ 250 mls/hr IVPB DAILY HEIDY PRN Reason: Protocol Last Admin: 05/13/17 08:45 Dose: 250 mls/hr Morphine Sulfate (Morphine) 4 mg IVP Q4 PRN PRN Reason: Pain, severe (8-10) Morphine Sulfate (Morphine) 2 mg IVP Q4 PRN PRN Reason: Pain, moderate (4-7) - Labs Labs: 05/13/17 04:20 05/13/17 04:20 PT 11.1 Seconds (9.8-13.1) 05/12/17 17:15 INR 1.0 (0.9-1.2) 05/12/17 17:15 APTT 35.2 Seconds (25.6-37.1) 05/12/17 17:15 - Constitutional Appears: No Acute Distress, Cachectic, Other (looks his age) - Head Exam Head Exam: ATRAUMATIC, NORMAL INSPECTION - Eye Exam Eye Exam: EOMI, Normal appearance - Neck Exam Neck Exam: Full ROM - Respiratory Exam Respiratory Exam: Clear to Ausculation Bilateral, Rhonchi (b/l ), Wheezes ( inspiratory wheezing b/l on lower lobes), NORMAL BREATHING PATTERN - Cardiovascular Exam Cardiovascular Exam: REGULAR RHYTHM, +S1, +S2 Additional comments: chest tube site is clean and intact. No drainage noted. There is subcutaneous emphysema noted in area around the chest tube insertion site. - GI/Abdominal Exam GI & Abdominal Exam: Soft, Normal Bowel Sounds. absent: Tenderness - Extremities Exam Extremities Exam: Full ROM, Normal Inspection. absent: Calf Tenderness - Neurological Exam Neurological Exam: Awake, Oriented x3 - Psychiatric Exam Psychiatric exam: Normal Affect, Normal Mood - Skin Skin Exam: Dry, Intact, Normal Color Assessment and Plan - Assessment and Plan (Free Text) Assessment: 86 YO male with hx of COPD and anemia is admitted for Rt pneumothorax on chest xray. 1. Rt Pneumothorax -Chest Xray in ED showed large right sided pneumothorax >50% volume with no shift of mediastinum. Finding was confirmed by CT. -s/p chest tube placement -xray confirms placement of chest tube, and re-expansion of the Rt lung chest xray 05/13, satisfactory position of chest tube within right pleural space. No demonstrable pneumothorax. New subcutaneous emphysema. -will keep chest tube in place, on suction -continue morphine for pain -follow surgery recs for chest tube management -continue to monitor 2. Acute COPD exacerbation -extensive smoking hx, 70+yrs with 2ppd -2L nc, pt breathing comfortably 100% O2 -continue azithromycin per ICU -douneb treatment as needed -nicotine patch -continue to monitor 3. Leukocytosis -10.7-->13.4 -acute phase reactant, likely 2/2 steroid administration in ED -on abx, afebrile -continue to monitor 4. Normocytic Anemia -stable -no identifiable source of bleeding -continue to monitor 5. DVT prop -lovonox sc -scds
--- NOTE | 2017-05-13 09:16 | CP.PCM.PN ---
Subjective - Date & Time of Evaluation Date of Evaluation: 05/13/17 Time of Evaluation: 08:00 - Subjective Subjective: CT Surgery Pt S&E, NAEO. Pt denies pain and SOB. no other complaints. Objective - Vital Signs/Intake and Output Vital Signs (last 24 hours): Temp Pulse Resp BP Pulse Ox 99.1 F 67 27 H 126/57 L 99 05/13/17 08:27 05/13/17 08:27 05/13/17 08:27 05/13/17 08:27 05/13/17 08:27 Intake and Output: 05/13/17 05/13/17 06:59 18:59 Intake Total 250 250 Output Total 400 Balance -150 250 - Medications Medications: Current Medications Azithromycin 500 mg/ Sodium (Chloride) 250 mls @ 250 mls/hr IVPB DAILY HEIDY PRN Reason: Protocol Last Admin: 05/13/17 08:45 Dose: 250 mls/hr Morphine Sulfate (Morphine) 4 mg IVP Q4 PRN PRN Reason: Pain, severe (8-10) Morphine Sulfate (Morphine) 2 mg IVP Q4 PRN PRN Reason: Pain, moderate (4-7) - Labs Labs: 05/13/17 04:20 05/13/17 04:20 PT 11.1 Seconds (9.8-13.1) 05/12/17 17:15 INR 1.0 (0.9-1.2) 05/12/17 17:15 APTT 35.2 Seconds (25.6-37.1) 05/12/17 17:15 - Constitutional Appears: Non-toxic, No Acute Distress - Head Exam Head Exam: ATRAUMATIC, NORMOCEPHALIC - Eye Exam Eye Exam: EOMI. absent: Scleral icterus - Respiratory Exam Respiratory Exam: NORMAL BREATHING PATTERN. absent: Respiratory Distress Additional comments: Chest tube in place, + air leak, no liquid drainage - GI/Abdominal Exam GI & Abdominal Exam: Soft. absent: Distended - Neurological Exam Neurological Exam: Alert, Awake - Skin Skin Exam: Dry, Warm Assessment and Plan - Assessment and Plan (Free Text) Assessment: 86M with right pneumothorax, s/p chest tube Plan: Follow up CT Continue chest tube to suction, monitor outputs. OOB to Chair as able. Monitor Subcutaneous emphysema D/W Dr. Delphine Downs PGy4
--- NOTE | 2017-05-13 10:35 | CP.CCUPN ---
<Iam Gan - Last Filed: 05/13/17 11:48> CCU Subjective - Physician Review Subjective (Free Text): 05/13/17 10:32 Patient seen and examined at bedside. Patient NAD, denies pain, and laying in bed comfortably. Physical therapy saw patient. Patient tolerating PO and voiding freely. Patient has right sided chest tube that is on suction with nothing draining. Patient feels better and denies headaches, chest pain, SOB, abdominal pain, nausea, vomiting, calf pain, or fever. Critical Care Time Spent (in minutes): 35 CCU Objective - Vital Signs / Intake & Output Vital Signs (Last 4 hours): Vital Signs Temp Pulse Resp BP Pulse Ox 05/13/17 08:27 99.1 F 67 27 H 126/57 L 99 Intake and Output (Last 8hrs): Intake & Output 05/12/17 05/13/17 05/13/17 22:59 06:59 14:59 Intake Total 250 250 Output Total 400 Balance 250 -400 250 Weight 100 lb 91 lb Intake: Intake, Piggyback 250 250 Oral 0 Output: Chest Tube Drainage 0 Right Mid-Axillary Chest 0 Urine 400 Urine, Voided 400 Other: # Voids Urine, Voided 2 - Physical Exam Head: Positive for: Atraumatic, Normocephalic Pupils: Positive for: PERRL Extroacular Muscles: Positive for: EOMI Conjunctiva: Positive for: Normal Neck: Positive for: Normal Range of Motion Respiratory/Chest: Positive for: Wheezes, Rhonchi. Negative for: Respiratory Distress, Accessory Muscle Use Cardiovascular: Positive for: Regular Rate and Rhythm, Normal S1, S2. Negative for: Tachycardic Abdomen: Positive for: Normal Bowel Sounds. Negative for: Tenderness, Distention Upper Extremity: Positive for: Normal ROM. Negative for: Edema, Tenderness Lower Extremity: Negative for: Edema, CALF TENDERNESS, Tenderness Neurological: Positive for: GCS=15, CN II-XII Intact, Speech Normal Skin: Positive for: Warm, Dry, Normal Color. Negative for: Rashes Psychiatric: Positive for: Alert, Oriented x 3 - Medications Active Medications: Active Medications Generic Name Dose Route Start Last Admin Trade Name Freq PRN Reason Stop Dose Admin Enoxaparin Sodium 40 mg 05/13/17 09:30 Lovenox SC DAILY HEIDY Protocol Azithromycin 500 mg/ Sodium 250 mls @ 250 mls/hr 05/13/17 09:00 05/13/17 08: 45 Chloride IVPB 250 mls/hr DAILY HEIDY Administration Protocol Morphine Sulfate 4 mg 05/12/17 21:41 Morphine IVP Q4 PRN Pain, severe (8-10) Morphine Sulfate 2 mg 05/12/17 21:41 Morphine IVP Q4 PRN Pain, moderate (4-7) Nicotine 1 patch 05/13/17 10:15 Nicoderm Cq TD DAILY HEIDY - Patient Studies Lab Studies: Lab Studies 05/13/17 05/13/17 05/13/17 Range/Units 08:50 04:20 04:20 WBC 13.4 H (4.8-10.8) K/uL RBC 4.17 L (4.40-5.90) Mil/uL Hgb 11.8 L D (12.0-18.0) g/dL Hct 36.5 (35.0-51.0) % MCV 87.5 (80.0-94.0) fl MCH 28.3 (27.0-31.0) pg MCHC 32.4 L (33.0-37.0) g/dL RDW 14.9 H (11.5-14.5) % Plt Count 182 (130-400) K/uL MPV (7.2-11.7) fl Neut % (Auto) (50.0-75.0) % Lymph % (Auto) (20.0-40.0) % Whitley % (Auto) (0.0-10.0) % Eos % (Auto) (0.0-4.0) % Baso % (Auto) (0.0-2.0) % Neut # (1.8-7.0) K/uL Lymph # (1.0-4.3) K/uL Whitley # (0.0-0.8) K/uL Eos # (0.0-0.7) K/uL Baso # (0.0-0.2) K/uL PT (9.8-13.1) Seconds INR (0.9-1.2) APTT (25.6-37.1) Seconds pCO2 49 H (35-45) mm/Hg pO2 85 (30-55) mm/Hg HCO3 29.7 H (21-28) mmol/L ABG pH 7.42 (7.35-7.45) ABG Total CO2 33.3 H (22-28) mmol/L ABG O2 Saturation 99.0 H (95-98) % ABG O2 Content 16.5 (15-23) ML/dL ABG Base Excess 6.2 H (-2.0-3.0) mmol/L ABG Hemoglobin 12.3 (11.7-17.4) g/dL ABG Carboxyhemoglobin 1.9 H (0.5-1.5) % POC ABG HHb (Measured) 1.0 (0.0-5.0) % ABG Methemoglobin 1.9 (0.0-3.0) % ABG O2 Capacity 16.7 (16-24) mL/dL Az Test Yes VBG pH (7.32-7.43) VBG pCO2 (40-60) mmHg VBG HCO3 mmol/L VBG Total CO2 (22-28) mmol/L VBG O2 Sat (Calc) (40-65) % VBG Base Excess (0.0-2.0) mmol/L VBG Potassium (3.6-5.2) mmol/L A-a O2 Difference 53.0 mm/Hg Hgb O2 Saturation 95.2 (95.0-98.0) % Glucose (75-110) mg/dL Lactate (0.7-2.1) mmol/L FiO2 28.0 % Crit Value Called To Crit Value Called By Crit Value Read Back Blood Gas Notified Time Sodium 142 (132-148) mmol/l Potassium 4.7 (3.6-5.0) MMOL/L Chloride 105 (98-107) mmol/L Carbon Dioxide 31 H (22-30) mmol/L Anion Gap 11 (10-20) BUN 18 (9-20) mg/dl Creatinine 0.8 (0.8-1.5) mg/dL Est GFR ( Amer) > 60 Est GFR (Non-Af Amer) > 60 POC Glucose (mg/dL) (65-110) mg/dL Random Glucose 128 H (75-110) mg/dL Calcium 9.1 (8.4-10.2) mg/dL Phosphorus (2.5-4.5) mg/dl Magnesium (1.6-2.3) MG/DL Total Bilirubin 0.5 (0.2-1.3) mg/dl AST 33 (17-59) U/L ALT 28 (21-72) U/L Alkaline Phosphatase 97 (38-126) U/L Troponin I (0.00-0.120) ng/mL NT-Pro-B Natriuret Pep (0-900) pg/ml Total Protein 7.4 (6.3-8.2) G/DL Albumin 3.8 (3.5-5.0) g/dL Globulin 3.6 (2.2-3.9) gm/dL Albumin/Globulin Ratio 1.1 (1.0-2.1) Venous Blood Potassium (3.6-5.2) mmol/L Influenza Typ A,B (EIA) (NEGATIVE) Blood Type Antibody Screen BBK History Checked 05/12/17 05/12/17 05/12/17 Range/Units 17:26 17:15 17:15 WBC 10.7 (4.8-10.8) K/uL RBC 4.85 (4.40-5.90) Mil/uL Hgb 13.9 (12.0-18.0) g/dL Hct 42.5 (35.0-51.0) % MCV 87.8 (80.0-94.0) fl MCH 28.8 (27.0-31.0) pg MCHC 32.8 L (33.0-37.0) g/dL RDW 15.3 H (11.5-14.5) % Plt Count 219 (130-400) K/uL MPV 8.8 (7.2-11.7) fl Neut % (Auto) 73.3 (50.0-75.0) % Lymph % (Auto) 18.2 L (20.0-40.0) % Whitley % (Auto) 6.7 (0.0-10.0) % Eos % (Auto) 1.2 (0.0-4.0) % Baso % (Auto) 0.6 (0.0-2.0) % Neut # 7.9 H (1.8-7.0) K/uL Lymph # 2.0 (1.0-4.3) K/uL Whitley # 0.7 (0.0-0.8) K/uL Eos # 0.1 (0.0-0.7) K/uL Baso # 0.1 (0.0-0.2) K/uL PT 11.1 (9.8-13.1) Seconds INR 1.0 (0.9-1.2) APTT 35.2 (25.6-37.1) Seconds pCO2 (35-45) mm/Hg pO2 27 L (30-55) mm/Hg HCO3 (21-28) mmol/L ABG pH (7.35-7.45) ABG Total CO2 (22-28) mmol/L ABG O2 Saturation (95-98) % ABG O2 Content (15-23) ML/dL ABG Base Excess (-2.0-3.0) mmol/L ABG Hemoglobin (11.7-17.4) g/dL ABG Carboxyhemoglobin (0.5-1.5) % POC ABG HHb (Measured) (0.0-5.0) % ABG Methemoglobin (0.0-3.0) % ABG O2 Capacity (16-24) mL/dL Az Test VBG pH 7.28 L (7.32-7.43) VBG pCO2 77 H* (40-60) mmHg VBG HCO3 28.5 mmol/L VBG Total CO2 38.6 H (22-28) mmol/L VBG O2 Sat (Calc) 51.0 (40-65) % VBG Base Excess 6.4 H (0.0-2.0) mmol/L VBG Potassium 4.7 (3.6-5.2) mmol/L A-a O2 Difference mm/Hg Hgb O2 Saturation (95.0-98.0) % Glucose 188 H (75-110) mg/dL Lactate 2.1 (0.7-2.1) mmol/L FiO2 40.0 % Crit Value Called To Dr shakir pagan Crit Value Called By Onofre Crit Value Read Back Y Blood Gas Notified Time 1730 Sodium 141.0 (132-148) mmol/l Potassium (3.6-5.0) MMOL/L Chloride 103.0 (98-107) mmol/L Carbon Dioxide (22-30) mmol/L Anion Gap (10-20) BUN (9-20) mg/dl Creatinine (0.8-1.5) mg/dL Est GFR ( Amer) Est GFR (Non-Af Amer) POC Glucose (mg/dL) (65-110) mg/dL Random Glucose (75-110) mg/dL Calcium (8.4-10.2) mg/dL Phosphorus (2.5-4.5) mg/dl Magnesium (1.6-2.3) MG/DL Total Bilirubin (0.2-1.3) mg/dl AST (17-59) U/L ALT (21-72) U/L Alkaline Phosphatase (38-126) U/L Troponin I (0.00-0.120) ng/mL NT-Pro-B Natriuret Pep (0-900) pg/ml Total Protein (6.3-8.2) G/DL Albumin (3.5-5.0) g/dL Globulin (2.2-3.9) gm/dL Albumin/Globulin Ratio (1.0-2.1) Venous Blood Potassium 4.7 (3.6-5.2) mmol/L Influenza Typ A,B (EIA) (NEGATIVE) Blood Type Antibody Screen BBK History Checked 05/12/17 05/12/17 05/12/17 Range/Units 17:00 17:00 17:00 WBC (4.8-10.8) K/uL RBC (4.40-5.90) Mil/uL Hgb (12.0-18.0) g/dL Hct (35.0-51.0) % MCV (80.0-94.0) fl MCH (27.0-31.0) pg MCHC (33.0-37.0) g/dL RDW (11.5-14.5) % Plt Count (130-400) K/uL MPV (7.2-11.7) fl Neut % (Auto) (50.0-75.0) % Lymph % (Auto) (20.0-40.0) % Whitley % (Auto) (0.0-10.0) % Eos % (Auto) (0.0-4.0) % Baso % (Auto) (0.0-2.0) % Neut # (1.8-7.0) K/uL Lymph # (1.0-4.3) K/uL Whitley # (0.0-0.8) K/uL Eos # (0.0-0.7) K/uL Baso # (0.0-0.2) K/uL PT (9.8-13.1) Seconds INR (0.9-1.2) APTT (25.6-37.1) Seconds pCO2 (35-45) mm/Hg pO2 (30-55) mm/Hg HCO3 (21-28) mmol/L ABG pH (7.35-7.45) ABG Total CO2 (22-28) mmol/L ABG O2 Saturation (95-98) % ABG O2 Content (15-23) ML/dL ABG Base Excess (-2.0-3.0) mmol/L ABG Hemoglobin (11.7-17.4) g/dL ABG Carboxyhemoglobin (0.5-1.5) % POC ABG HHb (Measured) (0.0-5.0) % ABG Methemoglobin (0.0-3.0) % ABG O2 Capacity (16-24) mL/dL Az Test VBG pH (7.32-7.43) VBG pCO2 (40-60) mmHg VBG HCO3 mmol/L VBG Total CO2 (22-28) mmol/L VBG O2 Sat (Calc) (40-65) % VBG Base Excess (0.0-2.0) mmol/L VBG Potassium (3.6-5.2) mmol/L A-a O2 Difference mm/Hg Hgb O2 Saturation (95.0-98.0) % Glucose (75-110) mg/dL Lactate (0.7-2.1) mmol/L FiO2 % Crit Value Called To Crit Value Called By Crit Value Read Back Blood Gas Notified Time Sodium 139 (132-148) mmol/l Potassium 4.2 (3.6-5.0) MMOL/L Chloride 100 (98-107) mmol/L Carbon Dioxide 30 (22-30) mmol/L Anion Gap 13 (10-20) BUN 18 (9-20) mg/dl Creatinine 0.8 (0.8-1.5) mg/dL Est GFR ( Amer) > 60 Est GFR (Non-Af Amer) > 60 POC Glucose (mg/dL) (65-110) mg/dL Random Glucose 176 H (75-110) mg/dL Calcium 9.4 (8.4-10.2) mg/dL Phosphorus 4.4 (2.5-4.5) mg/dl Magnesium 1.8 (1.6-2.3) MG/DL Total Bilirubin 0.4 (0.2-1.3) mg/dl AST 34 (17-59) U/L ALT 26 (21-72) U/L Alkaline Phosphatase 103 (38-126) U/L Troponin I < 0.0120 (0.00-0.120) ng/mL NT-Pro-B Natriuret Pep 316 (0-900) pg/ml Total Protein 8.5 H (6.3-8.2) G/DL Albumin 4.5 (3.5-5.0) g/dL Globulin 4.1 H (2.2-3.9) gm/dL Albumin/Globulin Ratio 1.1 (1.0-2.1) Venous Blood Potassium (3.6-5.2) mmol/L Influenza Typ A,B (EIA) Negative for flu a/b (NEGATIVE) Blood Type O POSITIVE Antibody Screen Negative BBK History Checked No verified bt 05/12/17 Range/Units 16:52 WBC (4.8-10.8) K/uL RBC (4.40-5.90) Mil/uL Hgb (12.0-18.0) g/dL Hct (35.0-51.0) % MCV (80.0-94.0) fl MCH (27.0-31.0) pg MCHC (33.0-37.0) g/dL RDW (11.5-14.5) % Plt Count (130-400) K/uL MPV (7.2-11.7) fl Neut % (Auto) (50.0-75.0) % Lymph % (Auto) (20.0-40.0) % Whitley % (Auto) (0.0-10.0) % Eos % (Auto) (0.0-4.0) % Baso % (Auto) (0.0-2.0) % Neut # (1.8-7.0) K/uL Lymph # (1.0-4.3) K/uL Whitley # (0.0-0.8) K/uL Eos # (0.0-0.7) K/uL Baso # (0.0-0.2) K/uL PT (9.8-13.1) Seconds INR (0.9-1.2) APTT (25.6-37.1) Seconds pCO2 (35-45) mm/Hg pO2 (30-55) mm/Hg HCO3 (21-28) mmol/L ABG pH (7.35-7.45) ABG Total CO2 (22-28) mmol/L ABG O2 Saturation (95-98) % ABG O2 Content (15-23) ML/dL ABG Base Excess (-2.0-3.0) mmol/L ABG Hemoglobin (11.7-17.4) g/dL ABG Carboxyhemoglobin (0.5-1.5) % POC ABG HHb (Measured) (0.0-5.0) % ABG Methemoglobin (0.0-3.0) % ABG O2 Capacity (16-24) mL/dL Az Test VBG pH (7.32-7.43) VBG pCO2 (40-60) mmHg VBG HCO3 mmol/L VBG Total CO2 (22-28) mmol/L VBG O2 Sat (Calc) (40-65) % VBG Base Excess (0.0-2.0) mmol/L VBG Potassium (3.6-5.2) mmol/L A-a O2 Difference mm/Hg Hgb O2 Saturation (95.0-98.0) % Glucose (75-110) mg/dL Lactate (0.7-2.1) mmol/L FiO2 % Crit Value Called To Crit Value Called By Crit Value Read Back Blood Gas Notified Time Sodium (132-148) mmol/l Potassium (3.6-5.0) MMOL/L Chloride (98-107) mmol/L Carbon Dioxide (22-30) mmol/L Anion Gap (10-20) BUN (9-20) mg/dl Creatinine (0.8-1.5) mg/dL Est GFR ( Amer) Est GFR (Non-Af Amer) POC Glucose (mg/dL) 168 H (65-110) mg/dL Random Glucose (75-110) mg/dL Calcium (8.4-10.2) mg/dL Phosphorus (2.5-4.5) mg/dl Magnesium (1.6-2.3) MG/DL Total Bilirubin (0.2-1.3) mg/dl AST (17-59) U/L ALT (21-72) U/L Alkaline Phosphatase (38-126) U/L Troponin I (0.00-0.120) ng/mL NT-Pro-B Natriuret Pep (0-900) pg/ml Total Protein (6.3-8.2) G/DL Albumin (3.5-5.0) g/dL Globulin (2.2-3.9) gm/dL Albumin/Globulin Ratio (1.0-2.1) Venous Blood Potassium (3.6-5.2) mmol/L Influenza Typ A,B (EIA) (NEGATIVE) Blood Type Antibody Screen BBK History Checked Laboratory Results - last 24 hr 05/12/17 05/12/17 05/12/17 16:52 17:00 17:00 WBC RBC Hgb Hct MCV MCH MCHC RDW Plt Count MPV Neut % (Auto) Lymph % (Auto) Whitley % (Auto) Eos % (Auto) Baso % (Auto) Neut # Lymph # Whitley # Eos # Baso # PT INR APTT pCO2 pO2 HCO3 ABG pH ABG Total CO2 ABG O2 Saturation ABG O2 Content ABG Base Excess ABG Hemoglobin ABG Carboxyhemoglobin POC ABG HHb (Measured) ABG Methemoglobin ABG O2 Capacity Az Test VBG pH VBG pCO2 VBG HCO3 VBG Total CO2 VBG O2 Sat (Calc) VBG Base Excess VBG Potassium A-a O2 Difference Hgb O2 Saturation Glucose Lactate FiO2 Crit Value Called To Crit Value Called By Crit Value Read Back Blood Gas Notified Time Sodium 139 Potassium 4.2 Chloride 100 Carbon Dioxide 30 Anion Gap 13 BUN 18 Creatinine 0.8 Est GFR ( Amer) > 60 Est GFR (Non-Af Amer) > 60 POC Glucose (mg/dL) 168 H Random Glucose 176 H Calcium 9.4 Phosphorus 4.4 Magnesium 1.8 Total Bilirubin 0.4 AST 34 ALT 26 Alkaline Phosphatase 103 Troponin I < 0.0120 NT-Pro-B Natriuret Pep 316 Total Protein 8.5 H Albumin 4.5 Globulin 4.1 H Albumin/Globulin Ratio 1.1 Venous Blood Potassium Influenza Typ A,B (EIA) Negative for flu a/b Blood Type Antibody Screen BBK History Checked 05/12/17 05/12/17 05/12/17 17:00 17:15 17:15 WBC 10.7 RBC 4.85 Hgb 13.9 Hct 42.5 MCV 87.8 MCH 28.8 MCHC 32.8 L RDW 15.3 H Plt Count 219 MPV 8.8 Neut % (Auto) 73.3 Lymph % (Auto) 18.2 L Whitley % (Auto) 6.7 Eos % (Auto) 1.2 Baso % (Auto) 0.6 Neut # 7.9 H Lymph # 2.0 Whitley # 0.7 Eos # 0.1 Baso # 0.1 PT 11.1 INR 1.0 APTT 35.2 pCO2 pO2 HCO3 ABG pH ABG Total CO2 ABG O2 Saturation ABG O2 Content ABG Base Excess ABG Hemoglobin ABG Carboxyhemoglobin POC ABG HHb (Measured) ABG Methemoglobin ABG O2 Capacity Az Test VBG pH VBG pCO2 VBG HCO3 VBG Total CO2 VBG O2 Sat (Calc) VBG Base Excess VBG Potassium A-a O2 Difference Hgb O2 Saturation Glucose Lactate FiO2 Crit Value Called To Crit Value Called By Crit Value Read Back Blood Gas Notified Time Sodium Potassium Chloride Carbon Dioxide Anion Gap BUN Creatinine Est GFR ( Amer) Est GFR (Non-Af Amer) POC Glucose (mg/dL) Random Glucose Calcium Phosphorus Magnesium Total Bilirubin AST ALT Alkaline Phosphatase Troponin I NT-Pro-B Natriuret Pep Total Protein Albumin Globulin Albumin/Globulin Ratio Venous Blood Potassium Influenza Typ A,B (EIA) Blood Type O POSITIVE Antibody Screen Negative BBK History Checked No verified bt 05/12/17 05/13/17 05/13/17 17:26 04:20 04:20 WBC 13.4 H RBC 4.17 L Hgb 11.8 L D Hct 36.5 MCV 87.5 MCH 28.3 MCHC 32.4 L RDW 14.9 H Plt Count 182 MPV Neut % (Auto) Lymph % (Auto) Whitley % (Auto) Eos % (Auto) Baso % (Auto) Neut # Lymph # Whitley # Eos # Baso # PT INR APTT pCO2 pO2 27 L HCO3 ABG pH ABG Total CO2 ABG O2 Saturation ABG O2 Content ABG Base Excess ABG Hemoglobin ABG Carboxyhemoglobin POC ABG HHb (Measured) ABG Methemoglobin ABG O2 Capacity Az Test VBG pH 7.28 L VBG pCO2 77 H* VBG HCO3 28.5 VBG Total CO2 38.6 H VBG O2 Sat (Calc) 51.0 VBG Base Excess 6.4 H VBG Potassium 4.7 A-a O2 Difference Hgb O2 Saturation Glucose 188 H Lactate 2.1 FiO2 40.0 Crit Value Called To Dr shakir pagan Crit Value Called By Onofre Crit Value Read Back Y Blood Gas Notified Time 1730 Sodium 141.0 142 Potassium 4.7 Chloride 103.0 105 Carbon Dioxide 31 H Anion Gap 11 BUN 18 Creatinine 0.8 Est GFR ( Amer) > 60 Est GFR (Non-Af Amer) > 60 POC Glucose (mg/dL) Random Glucose 128 H Calcium 9.1 Phosphorus Magnesium Total Bilirubin 0.5 AST 33 ALT 28 Alkaline Phosphatase 97 Troponin I NT-Pro-B Natriuret Pep Total Protein 7.4 Albumin 3.8 Globulin 3.6 Albumin/Globulin Ratio 1.1 Venous Blood Potassium 4.7 Influenza Typ A,B (EIA) Blood Type Antibody Screen BBK History Checked 05/13/17 08:50 WBC RBC Hgb Hct MCV MCH MCHC RDW Plt Count MPV Neut % (Auto) Lymph % (Auto) Whitley % (Auto) Eos % (Auto) Baso % (Auto) Neut # Lymph # Whitley # Eos # Baso # PT INR APTT pCO2 49 H pO2 85 HCO3 29.7 H ABG pH 7.42 ABG Total CO2 33.3 H ABG O2 Saturation 99.0 H ABG O2 Content 16.5 ABG Base Excess 6.2 H ABG Hemoglobin 12.3 ABG Carboxyhemoglobin 1.9 H POC ABG HHb (Measured) 1.0 ABG Methemoglobin 1.9 ABG O2 Capacity 16.7 Az Test Yes VBG pH VBG pCO2 VBG HCO3 VBG Total CO2 VBG O2 Sat (Calc) VBG Base Excess VBG Potassium A-a O2 Difference 53.0 Hgb O2 Saturation 95.2 Glucose Lactate FiO2 28.0 Crit Value Called To Crit Value Called By Crit Value Read Back Blood Gas Notified Time Sodium Potassium Chloride Carbon Dioxide Anion Gap BUN Creatinine Est GFR ( Amer) Est GFR (Non-Af Amer) POC Glucose (mg/dL) Random Glucose Calcium Phosphorus Magnesium Total Bilirubin AST ALT Alkaline Phosphatase Troponin I NT-Pro-B Natriuret Pep Total Protein Albumin Globulin Albumin/Globulin Ratio Venous Blood Potassium Influenza Typ A,B (EIA) Blood Type Antibody Screen BBK History Checked EKG/Cardiology Studies: Cardiology / EKG Studies 05/12/17 16:52 ELECTROCARDIOGRAM Stat Comment: Mode Of Transportation: Reason For Exam: sob Review of Systems - Review of Systems All systems: reviewed and no additional remarkable complaints except - Constitutional Constitutional: absent: Fever, Chills, Sweats - EENT Eyes: absent: Change in Vision - Cardiovascular Cardiovascular: absent: Chest Pain, Dyspnea, Edema, Palpitations - Respiratory Respiratory: absent: Cough, Dyspnea, Hemoptysis, Wheezing - Gastrointestinal Gastrointestinal: absent: Abdominal Pain, Nausea, Vomiting - Genitourinary Genitourinary: absent: Dysuria - Musculoskeletal Musculoskeletal: absent: Numbness, Tingling - Integumentary Integumentary: absent: Rash - Neurological Neurological: absent: Dizziness, Headaches Critical Care Progress Note - Nutrition Nutrition: Nutrition Category Date Time Status Regular Diet [DIET] Diets 05/13/17 Breakfast Active Assessment/Plan - Assessment and Plan (Free Text) Assessment: 86 y/o man w/ pmh of COPD and anemia presented w/ SOB. Patient in ICU for right pneumothorax. Plan: Right Pneumothorax - presented w/ SOB and chest tightness - in ED CXR showed large right sided pneumothorax >50% volume but no shift of mediastinum - CXR findings better appreciated and confirmed on chest CT w/o contrast - s/p chest tube placement - repeat CXR confirms placement, and re-expansion of the right lung - CXR this AM 05/13: satisfactory position of chest tube within right pleural space. No demonstrable pneumothorax. New subcutaneous emphysema. - maintain chest tube in place, currently on suction - follow up repeat chest CT w/o contrast - c/w morphine 2mg Q4 IV prn for moderate pain - c/w morphine 4mg Q4 IV prn for severe pain - surgery consult, Dr. Akers, recommendations appreciated - continue to monitor Acute COPD exacerbation - continues to smoke - extensive smoking hx, 70+yrs with 2ppd - saturating 98% on 2L NC - breathing comfortably - azithromycin 500 mg IV daily day 1 - douneb 3mL INH Q4 prn - Nicoderm CQ 1 patch TID daily - continue to monitor Leukocytosis - WBC 10.7-->13.4 - acute phase reactant, likely 2/2 steroid administration in ED - on azithromycin - afebrile - continue to monitor Normocytic Anemia - stable - denies hemoptysis, hematuria, hematochezia, or melena - continue to monitor prophylactic measures - lovonox 40 mg SC daily - scds <[email or web address] M - Last Filed: 05/13/17 14:43> CCU Objective - Vital Signs / Intake & Output Vital Signs (Last 4 hours): Vital Signs Temp Pulse Resp BP Pulse Ox 05/13/17 13:40 98 05/13/17 12:23 99.1 F 67 27 H 124/51 L 98 Intake and Output (Last 8hrs): Intake & Output 05/12/17 05/13/17 05/13/17 22:59 06:59 14:59 Intake Total 250 250 Output Total 400 300 Balance 250 -400 -50 Weight 100 lb 91 lb Intake: Intake, Piggyback 250 250 Oral 0 Output: Chest Tube Drainage 0 Right Mid-Axillary Chest 0 Urine 400 300 Urine, Voided 400 300 Other: # Voids Urine, Voided 2 - Medications Active Medications: Active Medications Generic Name Dose Route Start Last Admin Trade Name Freq PRN Reason Stop Dose Admin Albuterol/Ipratropium 3 ml 05/13/17 10:55 Duoneb 3 Mg/0.5 Mg (3 Ml) Ud INH RQ4 PRN Shortness of Breath Enoxaparin Sodium 40 mg 05/13/17 09:30 Lovenox SC DAILY HEIDY Protocol Azithromycin 500 mg/ Sodium 250 mls @ 250 mls/hr 05/13/17 09:00 05/13/17 08: 45 Chloride IVPB 250 mls/hr DAILY HEIDY Administration Protocol Morphine Sulfate 4 mg 05/12/17 21:41 Morphine IVP Q4 PRN Pain, severe (8-10) Morphine Sulfate 2 mg 05/12/17 21:41 Morphine IVP Q4 PRN Pain, moderate (4-7) Nicotine 1 patch 05/13/17 10:15 05/13/17 12:03 Nicoderm Cq TD 1 patch DAILY HEIDY Administration - Patient Studies Lab Studies: Lab Studies 05/13/17 05/13/17 05/13/17 Range/Units 08:50 07:30 04:20 WBC (4.8-10.8) K/uL RBC (4.40-5.90) Mil/uL Hgb (12.0-18.0) g/dL Hct (35.0-51.0) % MCV (80.0-94.0) fl MCH (27.0-31.0) pg MCHC (33.0-37.0) g/dL RDW (11.5-14.5) % Plt Count (130-400) K/uL MPV (7.2-11.7) fl Neut % (Auto) (50.0-75.0) % Lymph % (Auto) (20.0-40.0) % Whitley % (Auto) (0.0-10.0) % Eos % (Auto) (0.0-4.0) % Baso % (Auto) (0.0-2.0) % Neut # (1.8-7.0) K/uL Lymph # (1.0-4.3) K/uL Whitley # (0.0-0.8) K/uL Eos # (0.0-0.7) K/uL Baso # (0.0-0.2) K/uL PT (9.8-13.1) Seconds INR (0.9-1.2) APTT (25.6-37.1) Seconds pCO2 49 H (35-45) mm/Hg pO2 85 (30-55) mm/Hg HCO3 29.7 H (21-28) mmol/L ABG pH 7.42 (7.35-7.45) ABG Total CO2 33.3 H (22-28) mmol/L ABG O2 Saturation 99.0 H (95-98) % ABG O2 Content 16.5 (15-23) ML/dL ABG Base Excess 6.2 H (-2.0-3.0) mmol/L ABG Hemoglobin 12.3 (11.7-17.4) g/dL ABG Carboxyhemoglobin 1.9 H (0.5-1.5) % POC ABG HHb (Measured) 1.0 (0.0-5.0) % ABG Methemoglobin 1.9 (0.0-3.0) % ABG O2 Capacity 16.7 (16-24) mL/dL Az Test Yes VBG pH (7.32-7.43) VBG pCO2 (40-60) mmHg VBG HCO3 mmol/L VBG Total CO2 (22-28) mmol/L VBG O2 Sat (Calc) (40-65) % VBG Base Excess (0.0-2.0) mmol/L VBG Potassium (3.6-5.2) mmol/L A-a O2 Difference 53.0 mm/Hg Hgb O2 Saturation 95.2 (95.0-98.0) % Glucose (75-110) mg/dL Lactate (0.7-2.1) mmol/L FiO2 28.0 % Crit Value Called To Crit Value Called By Crit Value Read Back Blood Gas Notified Time Sodium 142 (132-148) mmol/l Potassium 4.7 (3.6-5.0) MMOL/L Chloride 105 (98-107) mmol/L Carbon Dioxide 31 H (22-30) mmol/L Anion Gap 11 (10-20) BUN 18 (9-20) mg/dl Creatinine 0.8 (0.8-1.5) mg/dL Est GFR ( Amer) > 60 Est GFR (Non-Af Amer) > 60 POC Glucose (mg/dL) (65-110) mg/dL Random Glucose 128 H (75-110) mg/dL Calcium 9.1 (8.4-10.2) mg/dL Phosphorus (2.5-4.5) mg/dl Magnesium (1.6-2.3) MG/DL Total Bilirubin 0.5 (0.2-1.3) mg/dl AST 33 (17-59) U/L ALT 28 (21-72) U/L Alkaline Phosphatase 97 (38-126) U/L Troponin I (0.00-0.120) ng/mL NT-Pro-B Natriuret Pep (0-900) pg/ml Total Protein 7.4 (6.3-8.2) G/DL Albumin 3.8 (3.5-5.0) g/dL Globulin 3.6 (2.2-3.9) gm/dL Albumin/Globulin Ratio 1.1 (1.0-2.1) Venous Blood Potassium (3.6-5.2) mmol/L Influenza Typ A,B (EIA) (NEGATIVE) Blood Type Blood Type Confirm O POSITIVE Antibody Screen BBK History Checked 05/13/17 05/12/17 05/12/17 Range/Units 04:20 17:26 17:15 WBC 13.4 H 10.7 (4.8-10.8) K/uL RBC 4.17 L 4.85 (4.40-5.90) Mil/uL Hgb 11.8 L D 13.9 (12.0-18.0) g/dL Hct 36.5 42.5 (35.0-51.0) % MCV 87.5 87.8 (80.0-94.0) fl MCH 28.3 28.8 (27.0-31.0) pg MCHC 32.4 L 32.8 L (33.0-37.0) g/dL RDW 14.9 H 15.3 H (11.5-14.5) % Plt Count 182 219 (130-400) K/uL MPV 8.8 (7.2-11.7) fl Neut % (Auto) 73.3 (50.0-75.0) % Lymph % (Auto) 18.2 L (20.0-40.0) % Whitley % (Auto) 6.7 (0.0-10.0) % Eos % (Auto) 1.2 (0.0-4.0) % Baso % (Auto) 0.6 (0.0-2.0) % Neut # 7.9 H (1.8-7.0) K/uL Lymph # 2.0 (1.0-4.3) K/uL Whitley # 0.7 (0.0-0.8) K/uL Eos # 0.1 (0.0-0.7) K/uL Baso # 0.1 (0.0-0.2) K/uL PT (9.8-13.1) Seconds INR (0.9-1.2) APTT (25.6-37.1) Seconds pCO2 (35-45) mm/Hg pO2 27 L (30-55) mm/Hg HCO3 (21-28) mmol/L ABG pH (7.35-7.45) ABG Total CO2 (22-28) mmol/L ABG O2 Saturation (95-98) % ABG O2 Content (15-23) ML/dL ABG Base Excess (-2.0-3.0) mmol/L ABG Hemoglobin (11.7-17.4) g/dL ABG Carboxyhemoglobin (0.5-1.5) % POC ABG HHb (Measured) (0.0-5.0) % ABG Methemoglobin (0.0-3.0) % ABG O2 Capacity (16-24) mL/dL Az Test VBG pH 7.28 L (7.32-7.43) VBG pCO2 77 H* (40-60) mmHg VBG HCO3 28.5 mmol/L VBG Total CO2 38.6 H (22-28) mmol/L VBG O2 Sat (Calc) 51.0 (40-65) % VBG Base Excess 6.4 H (0.0-2.0) mmol/L VBG Potassium 4.7 (3.6-5.2) mmol/L A-a O2 Difference mm/Hg Hgb O2 Saturation (95.0-98.0) % Glucose 188 H (75-110) mg/dL Lactate 2.1 (0.7-2.1) mmol/L FiO2 40.0 % Crit Value Called To Dr shakir pagan Crit Value Called By Crit Value Read Back Y Blood Gas Notified Time 1730 Sodium 141.0 (132-148) mmol/l Potassium (3.6-5.0) MMOL/L Chloride 103.0 (98-107) mmol/L Carbon Dioxide (22-30) mmol/L Anion Gap (10-20) BUN (9-20) mg/dl Creatinine (0.8-1.5) mg/dL Est GFR ( Amer) Est GFR (Non-Af Amer) POC Glucose (mg/dL) (65-110) mg/dL Random Glucose (75-110) mg/dL Calcium (8.4-10.2) mg/dL Phosphorus (2.5-4.5) mg/dl Magnesium (1.6-2.3) MG/DL Total Bilirubin (0.2-1.3) mg/dl AST (17-59) U/L ALT (21-72) U/L Alkaline Phosphatase (38-126) U/L Troponin I (0.00-0.120) ng/mL NT-Pro-B Natriuret Pep (0-900) pg/ml Total Protein (6.3-8.2) G/DL Albumin (3.5-5.0) g/dL Globulin (2.2-3.9) gm/dL Albumin/Globulin Ratio (1.0-2.1) Venous Blood Potassium 4.7 (3.6-5.2) mmol/L Influenza Typ A,B (EIA) (NEGATIVE) Blood Type Blood Type Confirm Antibody Screen BBK History Checked 05/12/17 05/12/17 05/12/17 Range/Units 17:15 17:00 17:00 WBC (4.8-10.8) K/uL RBC (4.40-5.90) Mil/uL Hgb (12.0-18.0) g/dL Hct (35.0-51.0) % MCV (80.0-94.0) fl MCH (27.0-31.0) pg MCHC (33.0-37.0) g/dL RDW (11.5-14.5) % Plt Count (130-400) K/uL MPV (7.2-11.7) fl Neut % (Auto) (50.0-75.0) % Lymph % (Auto) (20.0-40.0) % [place] % (Auto) (0.0-10.0) % Eos % (Auto) (0.0-4.0) % Baso % (Auto) (0.0-2.0) % Neut # (1.8-7.0) K/uL Lymph # (1.0-4.3) K/uL [place] # (0.0-0.8) K/uL Eos # (0.0-0.7) K/uL Baso # (0.0-0.2) K/uL PT 11.1 (9.8-13.1) Seconds INR 1.0 (0.9-1.2) APTT 35.2 (25.6-37.1) Seconds pCO2 (35-45) mm/Hg pO2 (30-55) mm/Hg HCO3 (21-28) mmol/L ABG pH (7.35-7.45) ABG Total CO2 (22-28) mmol/L ABG O2 Saturation (95-98) % ABG O2 Content (15-23) ML/dL ABG Base Excess (-2.0-3.0) mmol/L ABG Hemoglobin (11.7-17.4) g/dL ABG Carboxyhemoglobin (0.5-1.5) % POC ABG HHb (Measured) (0.0-5.0) % ABG Methemoglobin (0.0-3.0) % ABG O2 Capacity (16-24) mL/dL Az Test VBG pH (7.32-7.43) VBG pCO2 (40-60) mmHg VBG HCO3 mmol/L VBG Total CO2 (22-28) mmol/L VBG O2 Sat (Calc) (40-65) % VBG Base Excess (0.0-2.0) mmol/L VBG Potassium (3.6-5.2) mmol/L A-a O2 Difference mm/Hg Hgb O2 Saturation (95.0-98.0) % Glucose (75-110) mg/dL Lactate (0.7-2.1) mmol/L FiO2 % Crit Value Called To Crit Value Called By Crit Value Read Back Blood Gas Notified Time Sodium (132-148) mmol/l Potassium (3.6-5.0) MMOL/L Chloride (98-107) mmol/L Carbon Dioxide (22-30) mmol/L Anion Gap (10-20) BUN (9-20) mg/dl Creatinine (0.8-1.5) mg/dL Est GFR ( Amer) Est GFR (Non-Af Amer) POC Glucose (mg/dL) (65-110) mg/dL Random Glucose (75-110) mg/dL Calcium (8.4-10.2) mg/dL Phosphorus (2.5-4.5) mg/dl Magnesium (1.6-2.3) MG/DL Total Bilirubin (0.2-1.3) mg/dl AST (17-59) U/L ALT (21-72) U/L Alkaline Phosphatase (38-126) U/L Troponin I (0.00-0.120) ng/mL NT-Pro-B Natriuret Pep (0-900) pg/ml Total Protein (6.3-8.2) G/DL Albumin (3.5-5.0) g/dL Globulin (2.2-3.9) gm/dL Albumin/Globulin Ratio (1.0-2.1) Venous Blood Potassium (3.6-5.2) mmol/L Influenza Typ A,B (EIA) Negative for flu a/b (NEGATIVE) Blood Type O POSITIVE Blood Type Confirm Antibody Screen Negative BBK History Checked No verified bt 05/12/17 05/12/17 Range/Units 17:00 16:52 WBC (4.8-10.8) K/uL RBC (4.40-5.90) Mil/uL Hgb (12.0-18.0) g/dL Hct (35.0-51.0) % MCV (80.0-94.0) fl MCH (27.0-31.0) pg MCHC (33.0-37.0) g/dL RDW (11.5-14.5) % Plt Count (130-400) K/uL MPV (7.2-11.7) fl Neut % (Auto) (50.0-75.0) % Lymph % (Auto) (20.0-40.0) % [place] % (Auto) (0.0-10.0) % Eos % (Auto) (0.0-4.0) % Baso % (Auto) (0.0-2.0) % Neut # (1.8-7.0) K/uL Lymph # (1.0-4.3) K/uL [place] # (0.0-0.8) K/uL Eos # (0.0-0.7) K/uL Baso # (0.0-0.2) K/uL PT (9.8-13.1) Seconds INR (0.9-1.2) APTT (25.6-37.1) Seconds pCO2 (35-45) mm/Hg pO2 (30-55) mm/Hg HCO3 (21-28) mmol/L ABG pH (7.35-7.45) ABG Total CO2 (22-28) mmol/L ABG O2 Saturation (95-98) % ABG O2 Content (15-23) ML/dL ABG Base Excess (-2.0-3.0) mmol/L ABG Hemoglobin (11.7-17.4) g/dL ABG Carboxyhemoglobin (0.5-1.5) % POC ABG HHb (Measured) (0.0-5.0) % ABG Methemoglobin (0.0-3.0) % ABG O2 Capacity (16-24) mL/dL Az Test VBG pH (7.32-7.43) VBG pCO2 (40-60) mmHg VBG HCO3 mmol/L VBG Total CO2 (22-28) mmol/L VBG O2 Sat (Calc) (40-65) % VBG Base Excess (0.0-2.0) mmol/L VBG Potassium (3.6-5.2) mmol/L A-a O2 Difference mm/Hg Hgb O2 Saturation (95.0-98.0) % Glucose (75-110) mg/dL Lactate (0.7-2.1) mmol/L FiO2 % Crit Value Called To Crit Value Called By Crit Value Read Back Blood Gas Notified Time Sodium 139 (132-148) mmol/l Potassium 4.2 (3.6-5.0) MMOL/L Chloride 100 (98-107) mmol/L Carbon Dioxide 30 (22-30) mmol/L Anion Gap 13 (10-20) BUN 18 (9-20) mg/dl Creatinine 0.8 (0.8-1.5) mg/dL Est GFR ( Amer) > 60 Est GFR (Non-Af Amer) > 60 POC Glucose (mg/dL) 168 H (65-110) mg/dL Random Glucose 176 H (75-110) mg/dL Calcium 9.4 (8.4-10.2) mg/dL Phosphorus 4.4 (2.5-4.5) mg/dl Magnesium 1.8 (1.6-2.3) MG/DL Total Bilirubin 0.4 (0.2-1.3) mg/dl AST 34 (17-59) U/L ALT 26 (21-72) U/L Alkaline Phosphatase 103 (38-126) U/L Troponin I < 0.0120 (0.00-0.120) ng/mL NT-Pro-B Natriuret Pep 316 (0-900) pg/ml Total Protein 8.5 H (6.3-8.2) G/DL Albumin 4.5 (3.5-5.0) g/dL Globulin 4.1 H (2.2-3.9) gm/dL Albumin/Globulin Ratio 1.1 (1.0-2.1) Venous Blood Potassium (3.6-5.2) mmol/L Influenza Typ A,B (EIA) (NEGATIVE) Blood Type Blood Type Confirm Antibody Screen BBK History Checked Laboratory Results - last 24 hr 05/12/17 05/12/17 05/12/17 16:52 17:00 17:00 WBC RBC Hgb Hct MCV MCH MCHC RDW Plt Count MPV Neut % (Auto) Lymph % (Auto) [place] % (Auto) Eos % (Auto) Baso % (Auto) Neut # Lymph # [place] # Eos # Baso # PT INR APTT pCO2 pO2 HCO3 ABG pH ABG Total CO2 ABG O2 Saturation ABG O2 Content ABG Base Excess ABG Hemoglobin ABG Carboxyhemoglobin POC ABG HHb (Measured) ABG Methemoglobin ABG O2 Capacity Az Test VBG pH VBG pCO2 VBG HCO3 VBG Total CO2 VBG O2 Sat (Calc) VBG Base Excess VBG Potassium A-a O2 Difference Hgb O2 Saturation Glucose Lactate FiO2 Crit Value Called To Crit Value Called By Crit Value Read Back Blood Gas Notified Time Sodium 139 Potassium 4.2 Chloride 100 Carbon Dioxide 30 Anion Gap 13 BUN 18 Creatinine 0.8 Est GFR ( Amer) > 60 Est GFR (Non-Af Amer) > 60 POC Glucose (mg/dL) 168 H Random Glucose 176 H Calcium 9.4 Phosphorus 4.4 Magnesium 1.8 Total Bilirubin 0.4 AST 34 ALT 26 Alkaline Phosphatase 103 Troponin I < 0.0120 NT-Pro-B Natriuret Pep 316 Total Protein 8.5 H Albumin 4.5 Globulin 4.1 H Albumin/Globulin Ratio 1.1 Venous Blood Potassium Influenza Typ A,B (EIA) Negative for flu a/b Blood Type Blood Type Confirm Antibody Screen BBK History Checked 05/12/17 05/12/17 05/12/17 17:00 17:15 17:15 WBC 10.7 RBC 4.85 Hgb 13.9 Hct 42.5 MCV 87.8 MCH 28.8 MCHC 32.8 L RDW 15.3 H Plt Count 219 MPV 8.8 Neut % (Auto) 73.3 Lymph % (Auto) 18.2 L [place] % (Auto) 6.7 Eos % (Auto) 1.2 Baso % (Auto) 0.6 Neut # 7.9 H Lymph # 2.0 [place] # 0.7 Eos # 0.1 Baso # 0.1 PT 11.1 INR 1.0 APTT 35.2 pCO2 pO2 HCO3 ABG pH ABG Total CO2 ABG O2 Saturation ABG O2 Content ABG Base Excess ABG Hemoglobin ABG Carboxyhemoglobin POC ABG HHb (Measured) ABG Methemoglobin ABG O2 Capacity Az Test VBG pH VBG pCO2 VBG HCO3 VBG Total CO2 VBG O2 Sat (Calc) VBG Base Excess VBG Potassium A-a O2 Difference Hgb O2 Saturation Glucose Lactate FiO2 Crit Value Called To Crit Value Called By Crit Value Read Back Blood Gas Notified Time Sodium Potassium Chloride Carbon Dioxide Anion Gap BUN Creatinine Est GFR ( Amer) Est GFR (Non-Af Amer) POC Glucose (mg/dL) Random Glucose Calcium Phosphorus Magnesium Total Bilirubin AST ALT Alkaline Phosphatase Troponin I NT-Pro-B Natriuret Pep Total Protein Albumin Globulin Albumin/Globulin Ratio Venous Blood Potassium Influenza Typ A,B (EIA) Blood Type O POSITIVE Blood Type Confirm Antibody Screen Negative BBK History Checked No verified bt 05/12/17 05/13/17 05/13/17 17:26 04:20 04:20 WBC 13.4 H RBC 4.17 L Hgb 11.8 L D Hct 36.5 MCV 87.5 MCH 28.3 MCHC 32.4 L RDW 14.9 H Plt Count 182 MPV Neut % (Auto) Lymph % (Auto) [place] % (Auto) Eos % (Auto) Baso % (Auto) Neut # Lymph # [place] # Eos # Baso # PT INR APTT pCO2 pO2 27 L HCO3 ABG pH ABG Total CO2 ABG O2 Saturation ABG O2 Content ABG Base Excess ABG Hemoglobin ABG Carboxyhemoglobin POC ABG HHb (Measured) ABG Methemoglobin ABG O2 Capacity Az Test VBG pH 7.28 L VBG pCO2 77 H* VBG HCO3 28.5 VBG Total CO2 38.6 H VBG O2 Sat (Calc) 51.0 VBG Base Excess 6.4 H VBG Potassium 4.7 A-a O2 Difference Hgb O2 Saturation Glucose 188 H Lactate 2.1 FiO2 40.0 Crit Value Called To Dr shakir pagan Crit Value Called By Onofre Crit Value Read Back Y Blood Gas Notified Time 1730 Sodium 141.0 142 Potassium 4.7 Chloride 103.0 105 Carbon Dioxide 31 H Anion Gap 11 BUN 18 Creatinine 0.8 Est GFR ( Amer) > 60 Est GFR (Non-Af Amer) > 60 POC Glucose (mg/dL) Random Glucose 128 H Calcium 9.1 Phosphorus Magnesium Total Bilirubin 0.5 AST 33 ALT 28 Alkaline Phosphatase 97 Troponin I NT-Pro-B Natriuret Pep Total Protein 7.4 Albumin 3.8 Globulin 3.6 Albumin/Globulin Ratio 1.1 Venous Blood Potassium 4.7 Influenza Typ A,B (EIA) Blood Type Blood Type Confirm Antibody Screen BBK History Checked 05/13/17 05/13/17 07:30 08:50 WBC RBC Hgb Hct MCV MCH MCHC RDW Plt Count MPV Neut % (Auto) Lymph % (Auto) [place] % (Auto) Eos % (Auto) Baso % (Auto) Neut # Lymph # [place] # Eos # Baso # PT INR APTT pCO2 49 H pO2 85 HCO3 29.7 H ABG pH 7.42 ABG Total CO2 33.3 H ABG O2 Saturation 99.0 H ABG O2 Content 16.5 ABG Base Excess 6.2 H ABG Hemoglobin 12.3 ABG Carboxyhemoglobin 1.9 H POC ABG HHb (Measured) 1.0 ABG Methemoglobin 1.9 ABG O2 Capacity 16.7 Az Test Yes VBG pH VBG pCO2 VBG HCO3 VBG Total CO2 VBG O2 Sat (Calc) VBG Base Excess VBG Potassium A-a O2 Difference 53.0 Hgb O2 Saturation 95.2 Glucose Lactate FiO2 28.0 Crit Value Called To Crit Value Called By Crit Value Read Back Blood Gas Notified Time Sodium Potassium Chloride Carbon Dioxide Anion Gap BUN Creatinine Est GFR ( Amer) Est GFR (Non-Af Amer) POC Glucose (mg/dL) Random Glucose Calcium Phosphorus Magnesium Total Bilirubin AST ALT Alkaline Phosphatase Troponin I NT-Pro-B Natriuret Pep Total Protein Albumin Globulin Albumin/Globulin Ratio Venous Blood Potassium Influenza Typ A,B (EIA) Blood Type Blood Type Confirm O POSITIVE Antibody Screen BBK History Checked EKG/Cardiology Studies: Cardiology / EKG Studies 05/12/17 16:52 ELECTROCARDIOGRAM Stat Comment: Mode Of Transportation: Reason For Exam: sob Critical Care Progress Note - Nutrition Nutrition: Nutrition Category Date Time Status Regular Diet [DIET] Diets 05/13/17 Breakfast Active Attending/Attestation - Attestation I have personally seen and examined this patient.: Yes I have fully participated in the care of the patient.: Yes I have reviewed all pertinent clinical information: Yes Notes (Text): 05/13/17 14:24 The patient was Seen/interviewed and examined by me at the bedside during ICU round, Medical records reviewed and Management issues were discussed and formulated with the house staff. I have reviewed all the relevant clinical, laboratory, hemodynamic, radiographic data and medications Pain issues, skin care, head of the bed elevation, glycemic control were addressed. I concur with resident's assessment and plan of care as transcribed in Dr. Gan note. Mr Carroll Robertson is 86 years old active smoker male with PMHx of chronic obstructive pulmonary disorder, pneumonia and anemia who presents to the Emergency department 05/12 with complaint of shortness of breath and chest tigtness. Found to have spontaneous Right Pneumothorax, now S/p chest tube placement, Continue current management, CT to suction, pain management with PRN morphine, BD nebs, PO Zithromax PFT, ABG on RA, DVT PPX with Lovenox Full code Scheduled for Chest CT with contrast today. 05/13/17 14:41
--- NOTE | 2017-05-13 10:54 | CARD ---
APPROVED REPORT EKG Measurement Heart [id number] <Conclusion> Sinus tachycardia with premature atrial complexes Otherwise normal ECG
[2017-05-13] MEDS ORDERED: Albuterol-Ipratrop 3 mg / 0.5 (3 ml) UD INH PRN (10:55)
[2017-05-13] MEDS: Enoxaparin 40 mg Syringe SC SCH (12:03)
--- NOTE | 2017-05-13 12:57 | CP.PCM.CON ---
History of Present Illness - History of Present Illness History of Present Illness: Reason for consultation: Right pneumothorax. Requested by Dr. Brock. Pt s/e. Progress note reviewed. No able to review imaging studies due to technical glitch. 86 yo male retired [employer], smoker(1/2ppd from 6 to 71), hx of one block dyspnea and emphysema, presented to ER on Friday because of an increased to sob. Imaging studies showed right pneumothorax. A chest tube was inserted in the ER, stabilized the pt clinically, and followup cxr showed a complete reexpansion of the right lung, initially some air leak but air leak has since stopped. Asymptomatic and appears comfortable now. He is scheduled for a dedicated ct of chest with contrast to assess pathology and establish a future plan for treatment. For now, continue chest tube to continuous suction at 20cm H2O. a/p: 1. Right pneumothorax . 2. Emphysema. 3. Chest tube to continuous suction at 20 cm H2O. [address] with contrast today. 5. PFTs and ABG on room air. 6. Daily cxr. Past Patient History - Past Medical History & Family History Past Medical History?: Yes - Past Social History Smoking Status: 2 cigarett Drugs: Denies - CARDIAC Hx Cardiac Disorders: No - PULMONARY Hx Respiratory Disorders: Yes Hx Chronic Obstructive Pulmonary Disease (COPD): Yes Hx Pneumonia: Yes - NEUROLOGICAL Hx Neurological Disorder: No - HEENT Hx HEENT Problems: No - RENAL Hx Chronic Kidney Disease: No - ENDOCRINE/METABOLIC Hx Endocrine Disorders: No - HEMATOLOGICAL/ONCOLOGICAL Hx Blood Disorders: Yes Hx AIDS: No Hx Anemia: Yes Hx Human Immunodeficiency Virus (HIV): No - INTEGUMENTARY Hx Dermatological Problems: Yes Other/Comment: shingles a month ago - MUSCULOSKELETAL/RHEUMATOLOGICAL Hx Musculoskeletal Disorders: No Hx Falls: No - GASTROINTESTINAL Hx Gastrointestinal Disorders: No Other/Comment: never had surgery - GENITOURINARY/GYNECOLOGICAL Hx Genitourinary Disorders: No - PSYCHIATRIC Hx Psychophysiologic Disorder: No Hx Substance Use: No - SURGICAL HISTORY Hx Surgeries: No - ANESTHESIA Hx Anesthesia: No Meds Allergies/Adverse Reactions: Allergies Allergy/AdvReac Type Severity Reaction Status Date / Time No Known Allergies Allergy Verified 05/12/17 16:37 - Medications Medications: Current Medications Albuterol/Ipratropium (Duoneb 3 Mg/0.5 Mg (3 Ml) Ud) 3 ml INH RQ4 PRN PRN Reason: Shortness of Breath Enoxaparin Sodium (Lovenox) 40 mg SC DAILY HEIDY PRN Reason: Protocol Azithromycin 500 mg/ Sodium (Chloride) 250 mls @ 250 mls/hr IVPB DAILY HEIDY PRN Reason: Protocol Last Admin: 05/13/17 08:45 Dose: 250 mls/hr Morphine Sulfate (Morphine) 4 mg IVP Q4 PRN PRN Reason: Pain, severe (8-10) Morphine Sulfate (Morphine) 2 mg IVP Q4 PRN PRN Reason: Pain, moderate (4-7) Nicotine (Nicoderm Cq) 1 patch TD DAILY [facility] Last Admin: 05/13/17 12:03 Dose: 1 patch Results - Vital Signs Recent Vital Signs: Last Vital Signs Temp 99.1 F 05/13/17 12:23 Pulse 67 05/13/17 12:23 Resp 27 H 05/13/17 12:23 BP 124/51 L 05/13/17 12:23 Pulse Ox 98 05/13/17 12:23 - Labs Result Diagrams: 05/14/17 04:35 05/14/17 04:35 Labs: Laboratory Results - last 24 hr 05/12/17 05/12/17 05/12/17 16:52 17:00 17:00 WBC RBC Hgb Hct MCV MCH MCHC RDW Plt Count MPV Neut % (Auto) Lymph % (Auto) [place] % (Auto) Eos % (Auto) Baso % (Auto) Neut # Lymph # [place] # Eos # Baso # PT INR APTT pCO2 pO2 HCO3 ABG pH ABG Total CO2 ABG O2 Saturation ABG O2 Content ABG Base Excess ABG Hemoglobin ABG Carboxyhemoglobin POC ABG HHb (Measured) ABG Methemoglobin ABG O2 Capacity Az Test VBG pH VBG pCO2 VBG HCO3 VBG Total CO2 VBG O2 Sat (Calc) VBG Base Excess VBG Potassium A-a O2 Difference Hgb O2 Saturation Glucose Lactate FiO2 Crit Value Called To Crit Value Called By Crit Value Read Back Blood Gas Notified Time Sodium 139 Potassium 4.2 Chloride 100 Carbon Dioxide 30 Anion Gap 13 BUN 18 Creatinine 0.8 Est GFR ( Amer) > 60 Est GFR (Non-Af Amer) > 60 POC Glucose (mg/dL) 168 H Random Glucose 176 H Calcium 9.4 Phosphorus 4.4 Magnesium 1.8 Total Bilirubin 0.4 AST 34 ALT 26 Alkaline Phosphatase 103 Troponin I < 0.0120 NT-Pro-B Natriuret Pep 316 Total Protein 8.5 H Albumin 4.5 Globulin 4.1 H Albumin/Globulin Ratio 1.1 Venous Blood Potassium Influenza Typ A,B (EIA) Negative for flu a/b Blood Type Blood Type Confirm Antibody Screen BBK History Checked 05/12/17 05/12/17 05/12/17 17:00 17:15 17:15 WBC 10.7 RBC 4.85 Hgb 13.9 Hct 42.5 MCV 87.8 MCH 28.8 MCHC 32.8 L RDW 15.3 H Plt Count 219 MPV 8.8 Neut % (Auto) 73.3 Lymph % (Auto) 18.2 L [place] % (Auto) 6.7 Eos % (Auto) 1.2 Baso % (Auto) 0.6 Neut # 7.9 H Lymph # 2.0 [place] # 0.7 Eos # 0.1 Baso # 0.1 PT 11.1 INR 1.0 APTT 35.2 pCO2 pO2 HCO3 ABG pH ABG Total CO2 ABG O2 Saturation ABG O2 Content ABG Base Excess ABG Hemoglobin ABG Carboxyhemoglobin POC ABG HHb (Measured) ABG Methemoglobin ABG O2 Capacity Az Test VBG pH VBG pCO2 VBG HCO3 VBG Total CO2 VBG O2 Sat (Calc) VBG Base Excess VBG Potassium A-a O2 Difference Hgb O2 Saturation Glucose Lactate FiO2 Crit Value Called To Crit Value Called By Crit Value Read Back Blood Gas Notified Time Sodium Potassium Chloride Carbon Dioxide Anion Gap BUN Creatinine Est GFR ( Amer) Est GFR (Non-Af Amer) POC Glucose (mg/dL) Random Glucose Calcium Phosphorus Magnesium Total Bilirubin AST ALT Alkaline Phosphatase Troponin I NT-Pro-B Natriuret Pep Total Protein Albumin Globulin Albumin/Globulin Ratio Venous Blood Potassium Influenza Typ A,B (EIA) Blood Type O POSITIVE Blood Type Confirm Antibody Screen Negative BBK History Checked No verified bt 05/12/17 05/13/17 05/13/17 17:26 04:20 04:20 WBC 13.4 H RBC 4.17 L Hgb 11.8 L D Hct 36.5 MCV 87.5 MCH 28.3 MCHC 32.4 L RDW 14.9 H Plt Count 182 MPV Neut % (Auto) Lymph % (Auto) [place] % (Auto) Eos % (Auto) Baso % (Auto) Neut # Lymph # [place] # Eos # Baso # PT INR APTT pCO2 pO2 27 L HCO3 ABG pH ABG Total CO2 ABG O2 Saturation ABG O2 Content ABG Base Excess ABG Hemoglobin ABG Carboxyhemoglobin POC ABG HHb (Measured) ABG Methemoglobin ABG O2 Capacity Az Test VBG pH 7.28 L VBG pCO2 77 H* VBG HCO3 28.5 VBG Total CO2 38.6 H VBG O2 Sat (Calc) 51.0 VBG Base Excess 6.4 H VBG Potassium 4.7 A-a O2 Difference Hgb O2 Saturation Glucose 188 H Lactate 2.1 FiO2 40.0 Crit Value Called To Dr shakir pagan Crit Value Called By Onofre Crit Value Read Back Y Blood Gas Notified Time 1730 Sodium 141.0 142 Potassium 4.7 Chloride 103.0 105 Carbon Dioxide 31 H Anion Gap 11 BUN 18 Creatinine 0.8 Est GFR ( Amer) > 60 Est GFR (Non-Af Amer) > 60 POC Glucose (mg/dL) Random Glucose 128 H Calcium 9.1 Phosphorus Magnesium Total Bilirubin 0.5 AST 33 ALT 28 Alkaline Phosphatase 97 Troponin I NT-Pro-B Natriuret Pep Total Protein 7.4 Albumin 3.8 Globulin 3.6 Albumin/Globulin Ratio 1.1 Venous Blood Potassium 4.7 Influenza Typ A,B (EIA) Blood Type Blood Type Confirm Antibody Screen BBK History Checked 05/13/17 05/13/17 07:30 08:50 WBC RBC Hgb Hct MCV MCH MCHC RDW Plt Count MPV Neut % (Auto) Lymph % (Auto) [place] % (Auto) Eos % (Auto) Baso % (Auto) Neut # Lymph # [place] # Eos # Baso # PT INR APTT pCO2 49 H pO2 85 HCO3 29.7 H ABG pH 7.42 ABG Total CO2 33.3 H ABG O2 Saturation 99.0 H ABG O2 Content 16.5 ABG Base Excess 6.2 H ABG Hemoglobin 12.3 ABG Carboxyhemoglobin 1.9 H POC ABG HHb (Measured) 1.0 ABG Methemoglobin 1.9 ABG O2 Capacity 16.7 Az Test Yes VBG pH VBG pCO2 VBG HCO3 VBG Total CO2 VBG O2 Sat (Calc) VBG Base Excess VBG Potassium A-a O2 Difference 53.0 Hgb O2 Saturation 95.2 Glucose Lactate FiO2 28.0 Crit Value Called To Crit Value Called By Crit Value Read Back Blood Gas Notified Time Sodium Potassium Chloride Carbon Dioxide Anion Gap BUN Creatinine Est GFR ( Amer) Est GFR (Non-Af Amer) POC Glucose (mg/dL) Random Glucose Calcium Phosphorus Magnesium Total Bilirubin AST ALT Alkaline Phosphatase Troponin I NT-Pro-B Natriuret Pep Total Protein Albumin Globulin Albumin/Globulin Ratio Venous Blood Potassium Influenza Typ A,B (EIA) Blood Type Blood Type Confirm O POSITIVE Antibody Screen BBK History Checked
[2017-05-13] MEDS ORDERED: Sodium Chloride 0.9% 50 ML IV ONE (14:20)
[2017-05-13] MEDS ORDERED: Iohexol 300 100 ML IJ ONE (14:20)
--- NOTE | 2017-05-13 15:28 | CT ---
PROCEDURE: CT Chest with contrast HISTORY: emphysema, s/p right chest tube for pneumothorax COMPARISON: May 12, 2017. CT thorax performed 18:49 TECHNIQUE: Contiguous axial images were obtained through the chest with intravenous contrast enhancement. Sagittal and coronal reconstructions were performed. IV contrast: 95 cc Omnipaque 300 Radiation dose (DLP): 144.77 mGy-cm. This CT exam was performed using one or more of the following dose reduction techniques: Automated exposure control, adjustment of the mA and/or kV according to patient size, and/or use of iterative reconstruction technique. FINDINGS: LUNGS: Near complete re-expansion of the right lung following chest tube placement for tension pneumothorax. Severe underlying emphysematous changes and biapical scarring and associated underlying bullous change MEDIASTINUM: Unremarkable thoracic aorta. No aneurysm or dissection. Normal sized heart. Main pulmonary artery unremarkable. No vascular congestion. No lymphadenopathy. PLEURA: Residual basilar pneumothorax. Trace right apical pneumothorax. BONES: No fracture. No destructive lesion. UPPER ABDOMEN: Grossly unremarkable. OTHER FINDINGS: 1. Status post chest tube placement with near complete re-expansion of the right lung and only tiny basilar pneumothorax and apical pneumothorax. Re-expanded right lung reveals the extent and severity of underlying emphysematous changes, biapical scarring and a masslike process in the right upper lobe. 2. Mild subcutaneous emphysematous change. IMPRESSION: Unremarkable contrast enhanced CT of the chest.
[2017-05-13 15:50] LABS: ABG ALLEN TEST YES; ARTERIAL BLOOD GAS HCO3 30.5 mmol/L (21-28); ARTERIAL BLOOD GAS O2 CAPACITY 15.5 mL/dL (16-24); ARTERIAL BLOOD GAS O2 CONTENT 15.4 ML/dL (15-23); ARTERIAL BLOOD GAS PO2 89 mm/Hg (80-100); ARTERIAL BLOOD HGB O2 SAT 95.5 % (95.0-98.0); CARBOXYHEMOGLOBIN 1.9 % (0.5-1.5); HHB 0.9 % (0.0-5.0); METHEMOGLOBIN 1.8 % (0.0-3.0)
[2017-05-14 05:20] LABS: BLOOD UREA NITROGEN 18 mg/dl (9-20); CALCIUM 8.9 mg/dL (8.4-10.2); CARBON DIOXIDE 32 mmol/L (22-30); CHLORIDE 101 mmol/L (98-107); GFR AFRICAN-AMERICAN > 60; GLUCOSE,RANDOM 89 mg/dL (75-110); POTASSIUM 4.2 MMOL/L (3.6-5.0); SODIUM 138 mmol/l (132-148)
[2017-05-14 05:28] LABS: HEMATOCRIT 35.7 % (35.0-51.0); MEAN CELL VOLUME 87.1 fl (80.0-94.0); MEAN CORPUSCULAR HEMOGLOBIN 28.5 pg (27.0-31.0); MEAN CORPUSCULAR HGB CONC 32.7 g/dL (33.0-37.0); WHITE BLOOD COUNT 10.8 K/uL (4.8-10.8)
--- NOTE | 2017-05-14 08:33 | RAD ---
HISTORY: f/u pneumothorax COMPARISON: Multiple serial examinations preceding the most recent study: May 13, 2017. FINDINGS: LUNGS: Near complete re-expansion of the right lung. PLEURA: Stable position of chest tube in the right pleural space. CARDIOVASCULAR: No radiographic findings to suggest acute or significant cardiovascular disease. OSSEOUS STRUCTURES: No significant abnormalities. VISUALIZED UPPER ABDOMEN: Normal. OTHER FINDINGS: Stable subcutaneous emphysema. IMPRESSION: No significant interval change compared to the prior examination(s).
[2017-05-14] MEDS: Enoxaparin 40 mg Syringe SC SCH (08:55)
[2017-05-14] MEDS: Azithromycin 500 MG in Sodium Chloride 0.9% 250 ML IVPB SCH (08:56)
--- NOTE | 2017-05-14 09:29 | CP.PCM.PN ---
Subjective - Date & Time of Evaluation Date of Evaluation: 05/14/17 Time of Evaluation: 08:30 - Subjective Subjective: S: Patient seen and examined today sitting en chair breathing comfortably with 2L NC, s/p chest tube placement in R thorax. No acute overnight events. He states feeling well, no longer has the chest tightness and SOB, only states pain around the chest tube site. Denies chest pain, dyspnea, palpitations, chills, fever, n/v/d/c. Objective - Vital Signs/Intake and Output Vital Signs (last 24 hours): Temp Pulse Resp BP Pulse Ox 98.3 F 79 27 H 123/66 100 05/14/17 08:00 05/14/17 08:00 05/14/17 08:00 05/14/17 08:00 05/14/17 08:00 Intake and Output: 05/14/17 05/14/17 06:59 18:59 Intake Total 520 Output Total 670 Balance -150 - Medications Medications: Current Medications Albuterol/Ipratropium (Duoneb 3 Mg/0.5 Mg (3 Ml) Ud) 3 ml INH RQ4 PRN PRN Reason: Shortness of Breath Enoxaparin Sodium (Lovenox) 40 mg SC DAILY [facility]IDY PRN Reason: Protocol Last Admin: 05/14/17 08:55 Dose: 40 mg Azithromycin 500 mg/ Sodium (Chloride) 250 mls @ 250 mls/hr IVPB DAILY [facility]IDY PRN Reason: Protocol Last Admin: 05/14/17 08:56 Dose: 250 mls/hr Morphine Sulfate (Morphine) 4 mg IVP Q4 PRN PRN Reason: Pain, severe (8-10) Morphine Sulfate (Morphine) 2 mg IVP Q4 PRN PRN Reason: Pain, moderate (4-7) Nicotine (Nicoderm Cq) 1 patch TD DAILY [facility] Last Admin: 05/14/17 08:56 Dose: 1 patch - Labs Labs: 05/14/17 04:35 05/14/17 04:35 PT 11.1 Seconds (9.8-13.1) 05/12/17 17:15 INR 1.0 (0.9-1.2) 05/12/17 17:15 APTT 35.2 Seconds (25.6-37.1) 05/12/17 17:15 - Constitutional Appears: No Acute Distress, Cachectic - Head Exam Head Exam: NORMAL INSPECTION - Eye Exam Eye Exam: Normal appearance - Neck Exam Neck Exam: Normal Inspection - Respiratory Exam Respiratory Exam: absent: Accessory Muscle Use, Chest Wall Tenderness Additional comments: Rhonchi B/L, chest tube site clean, subcutaneous emphysema noted around chest tube site. - Cardiovascular Exam Cardiovascular Exam: REGULAR RHYTHM, +S1, +S2. absent: Murmur - GI/Abdominal Exam GI & Abdominal Exam: Soft, Normal Bowel Sounds. absent: Tenderness - Neurological Exam Neurological Exam: Alert, Awake, Oriented x3 Assessment and Plan - Assessment and Plan (Free Text) Assessment: Assessment: 86 YO male with hx of COPD and anemia is admitted for Rt pneumothorax on chest xray. S/p chest tube placement. 1. Rt Pneumothorax -s/p chest tube placement -xray confirms placement of chest tube, and near complete re-expansion of the Rt lung. chest xray 05/14, stable position of chest tube within right pleural space. near complete re-expansion R lung pneumothorax. Stable subcutaneous emphysema. -keep chest tube in place, on suction -c/ morphine for pain -follow surgery recommens for chest tube management -PFT pending -Echocardiogram ordered -continue to monitor 2. Acute COPD exacerbation -smoker 70+yrs with 2ppd -100% O2 2L nc -c/ azithromycin per ICU -douneb prn -nicotine patch -continue monitor 3. Leukocytosis -improving 10.8 -afebrile -continue monitor 4. Normocytic Anemia -stable, Hbg 11.7 -continue monitor 5. DVT prop -lovonox sc -scds
--- NOTE | 2017-05-14 12:19 | CP.PCM.PN ---
Subjective - Date & Time of Evaluation Date of Evaluation: 05/14/17 Time of Evaluation: 12:10 - Subjective Subjective: Pt s/e. No c/o - wants to go home. chest tube- intermittent tiny pneumothorax. Virtually no drainage. ct chest(05-13-17); small basilar and apical pneumothraces. Needs PFTs, ABGs, and abbreviated CPET ie walking a fligt of stairs to establish strategy for further care and rx, d/w ICU attending and staff. Objective - Vital Signs/Intake and Output Vital Signs (last 24 hours): Temp Pulse Resp BP Pulse Ox 98.3 F 79 27 H 123/66 100 05/14/17 08:00 05/14/17 08:00 05/14/17 08:00 05/14/17 08:00 05/14/17 08:00 Intake and Output: 05/14/17 05/14/17 06:59 18:59 Intake Total 520 Output Total 670 Balance -150 - Medications Medications: Current Medications Albuterol/Ipratropium (Duoneb 3 Mg/0.5 Mg (3 Ml) Ud) 3 ml INH RQ4 PRN PRN Reason: Shortness of Breath Enoxaparin Sodium (Lovenox) 40 mg SC DAILY [facility]IDY PRN Reason: Protocol Last Admin: 05/14/17 08:55 Dose: 40 mg Azithromycin 500 mg/ Sodium (Chloride) 250 mls @ 250 mls/hr IVPB DAILY [facility]Y PRN Reason: Protocol Last Admin: 05/14/17 08:56 Dose: 250 mls/hr Morphine Sulfate (Morphine) 4 mg IVP Q4 PRN PRN Reason: Pain, severe (8-10) Morphine Sulfate (Morphine) 2 mg IVP Q4 PRN PRN Reason: Pain, moderate (4-7) Nicotine (Nicoderm Cq) 1 patch TD DAILY [facility] Last Admin: 05/14/17 08:56 Dose: 1 patch - Labs Labs: 05/14/17 04:35 05/14/17 04:35 PT 11.1 Seconds (9.8-13.1) 05/12/17 17:15 INR 1.0 (0.9-1.2) 05/12/17 17:15 APTT 35.2 Seconds (25.6-37.1) 05/12/17 17:15
--- NOTE | 2017-05-14 13:49 | CP.CCUPN ---
CCU Subjective - Physician Review Subjective (Free Text): Awake and responsive this AM, no overall distress. No fever spikes. Sitting OOB in chair, CT intact to low continuous suction at neg 20 cm, minor air leak noted. Denies any dyspnea at rest, admits to poor appetite and chronic weight loss. Other vitals and I/O's reviewed. ROS: No other pertinent negs or positives on 10+ system review. PMSFH: All Nursing and physician documentation reviewed to date; no new pertinent info noted relevant to current medical problems. CXR: R CT intact, no visible PTX, mild increase in interstitial markings R lung compared to L lung ( my interp). MAJOR PROBLEMS: 1. Acute resp insuff 2 Sponataneous PTX and Bullous Lung Disease and mild chronic hypercarbia 2. Chronic disease anemia 3. Chronic Weight loss/ Anorexia / Failure to thrive. PLAN: 1. Thor Surg team to assess for tolerance to lung reduction surgery given advanced age and cachexia. 2. CT management as per TSurg. 3. PFTs when feasible, check ABG. 4. Stable for transfer to [facility] bed. CCU Objective - Vital Signs / Intake & Output Vital Signs (Last 4 hours): Vital Signs Temp Pulse Resp BP Pulse Ox 05/14/17 12:00 98.1 F 81 27 H 113/76 99 Intake and Output (Last 8hrs): Intake & Output 05/13/17 05/14/17 05/14/17 22:59 06:59 14:59 Intake Total 320 200 Output Total 460 215 Balance -140 -15 Intake: IV 30 Oral 320 170 Output: Chest Tube Drainage 10 15 Right Mid-Axillary Chest 10 15 Urine 450 200 Urine, Voided 450 200 - Physical Exam Head: Positive for: Atraumatic, Normocephalic Pupils: Positive for: PERRL Extroacular Muscles: Positive for: EOMI Conjunctiva: Positive for: Normal Mouth: Positive for: Moist Mucous Membranes Neck: Positive for: Trachea Midline. Negative for: JVD Respiratory/Chest: Positive for: Clear to Auscultation. Negative for: Accessory Muscle Use, Wheezes, Rhonchi Cardiovascular: Positive for: Regular Rate and Rhythm, Normal S1, S2. Negative for: Tachycardic Abdomen: Positive for: Normal Bowel Sounds. Negative for: Tenderness, Distention Upper Extremity: Positive for: Normal ROM. Negative for: Edema, Tenderness Lower Extremity: Negative for: Edema, CALF TENDERNESS, Tenderness Neurological: Positive for: GCS=15, CN II-XII Intact, Speech Normal Skin: Positive for: Warm, Dry, Normal Color. Negative for: Rashes Psychiatric: Positive for: Alert, Oriented x 3 - Medications Active Medications: Active Medications Generic Name Dose Route Start Last Admin Trade Name Freq PRN Reason Stop Dose Admin Albuterol/Ipratropium 3 ml 05/13/17 10:55 Duoneb 3 Mg/0.5 Mg (3 Ml) Ud INH RQ4 PRN Shortness of Breath Enoxaparin Sodium 40 mg 05/13/17 09:30 05/14/17 08:55 Lovenox SC 40 mg DAILY [facility]IDY Administration Protocol Azithromycin 500 mg/ Sodium 250 mls @ 250 mls/hr 05/13/17 09:00 05/14/17 08: 56 Chloride IVPB 250 mls/hr DAILY [facility]IDY Administration Protocol Morphine Sulfate 4 mg 05/12/17 21:41 Morphine IVP Q4 PRN Pain, severe (8-10) Morphine Sulfate 2 mg 05/12/17 21:41 Morphine IVP Q4 PRN Pain, moderate (4-7) Nicotine 1 patch 05/13/17 10:15 05/14/17 08:56 Nicoderm Cq TD 1 patch DAILY HEIDY Administration - Patient Studies Lab Studies: Microbiology Studies 05/12/17 17:00 Blood Culture - Preliminary Blood NO GROWTH AFTER 24 HOURS 05/12/17 16:55 Blood Culture - Preliminary Blood NO GROWTH AFTER 24 HOURS Lab Studies 05/14/17 05/14/17 05/13/17 Range/Units 04:35 04:35 15:43 WBC 10.8 (4.8-10.8) K/uL RBC 4.10 L (4.40-5.90) Mil/uL Hgb 11.7 L (12.0-18.0) g/dL Hct 35.7 (35.0-51.0) % MCV 87.1 (80.0-94.0) fl MCH 28.5 (27.0-31.0) pg MCHC 32.7 L (33.0-37.0) g/dL RDW 15.0 H (11.5-14.5) % Plt Count 172 (130-400) K/uL pCO2 54 H (35-45) mm/Hg pO2 89 (80-100) mm/Hg HCO3 30.5 H (21-28) mmol/L ABG pH 7.40 (7.35-7.45) ABG Total CO2 35.1 H (22-28) mmol/L ABG O2 Saturation 99.1 H (95-98) % ABG O2 Content 15.4 (15-23) ML/dL ABG Base Excess 7.2 H (-2.0-3.0) mmol/L ABG Hemoglobin 11.4 L (11.7-17.4) g/dL ABG Carboxyhemoglobin 1.9 H (0.5-1.5) % POC ABG HHb (Measured) 0.9 (0.0-5.0) % ABG Methemoglobin 1.8 (0.0-3.0) % ABG O2 Capacity 15.5 L (16-24) mL/dL Az Test Yes A-a O2 Difference 43.0 mm/Hg Hgb O2 Saturation 95.5 (95.0-98.0) % FiO2 28.0 % Sodium 138 (132-148) mmol/l Potassium 4.2 (3.6-5.0) MMOL/L Chloride 101 (98-107) mmol/L Carbon Dioxide 32 H (22-30) mmol/L Anion Gap 9 L (10-20) BUN 18 (9-20) mg/dl Creatinine 0.7 L (0.8-1.5) mg/dL Est GFR ( Amer) > 60 Est GFR (Non-Af Amer) > 60 Random Glucose 89 (75-110) mg/dL Calcium 8.9 (8.4-10.2) mg/dL Laboratory Results - last 24 hr 05/13/17 05/14/17 05/14/17 15:43 04:35 04:35 WBC 10.8 RBC 4.10 L Hgb 11.7 L Hct 35.7 MCV 87.1 MCH 28.5 MCHC 32.7 L RDW 15.0 H Plt Count 172 pCO2 54 H pO2 89 HCO3 30.5 H ABG pH 7.40 ABG Total CO2 35.1 H ABG O2 Saturation 99.1 H ABG O2 Content 15.4 ABG Base Excess 7.2 H ABG Hemoglobin 11.4 L ABG Carboxyhemoglobin 1.9 H POC ABG HHb (Measured) 0.9 ABG Methemoglobin 1.8 ABG O2 Capacity 15.5 L Az Test Yes A-a O2 Difference 43.0 Hgb O2 Saturation 95.5 FiO2 28.0 Sodium 138 Potassium 4.2 Chloride 101 Carbon Dioxide 32 H Anion Gap 9 L BUN 18 Creatinine 0.7 L Est GFR ( Amer) > 60 Est GFR (Non-Af Amer) > 60 Random Glucose 89 Calcium 8.9 Review of Systems - Review of Systems All systems: reviewed and no additional remarkable complaints except (as above) Critical Care Progress Note - Nutrition Nutrition: Nutrition Category Date Time Status Regular Diet [DIET] Diets 05/13/17 Breakfast Active
[2017-05-14] MEDS ORDERED: Albuterol 0.083% Inhal Sol (2.5 mg/3 mL) UD ONE (17:34)
[2017-05-14] MEDS ORDERED: Oxycodone/Acetaminophen 5/325 mg Tab PO PRN (18:57)
[2017-05-15 05:17] LABS: HEMATOCRIT 37.3 % (35.0-51.0); MEAN CELL VOLUME 87.3 fl (80.0-94.0); MEAN CORPUSCULAR HEMOGLOBIN 27.8 pg (27.0-31.0); MEAN CORPUSCULAR HGB CONC 31.9 g/dL (33.0-37.0); RED CELL DISTRIBUTION WIDTH 15.1 % (11.5-14.5); WHITE BLOOD COUNT 15.8 K/uL (4.8-10.8)
--- NOTE | 2017-05-15 07:52 | CP.PCM.PN ---
Subjective - Date & Time of Evaluation Date of Evaluation: 05/15/17 Time of Evaluation: 06:45 - Subjective Subjective: Thoracic Surgery Dr. Akers Pt S&E @bedside. NAEO. little to no drainage from CT overnight. Pt has no complaints this AM. tolerating diet. Objective - Vital Signs/Intake and Output Vital Signs (last 24 hours): Temp Pulse Resp BP Pulse Ox 98.3 F 74 17 115/57 L 98 05/15/17 04:00 05/15/17 06:00 05/15/17 06:00 05/15/17 06:00 05/15/17 06:00 Intake and Output: 05/15/17 05/15/17 06:59 18:59 Intake Total 290 Output Total 217 Balance 73 Selected Entries 05/14/17 05/15/17 19:00 06:00 Output, Chest 10 6 Tube Drainage Amount [Right Mid-Axillary Chest] - Medications Medications: Current Medications Albuterol/Ipratropium (Duoneb 3 Mg/0.5 Mg (3 Ml) Ud) 3 ml INH RQ4 PRN PRN Reason: Shortness of Breath Enoxaparin Sodium (Lovenox) 40 mg SC DAILY [facility]IDY PRN Reason: Protocol Last Admin: 05/14/17 08:55 Dose: 40 mg Azithromycin 500 mg/ Sodium (Chloride) 250 mls @ 250 mls/hr IVPB DAILY [facility]IDY PRN Reason: Protocol Last Admin: 05/14/17 08:56 Dose: 250 mls/hr Morphine Sulfate (Morphine) 4 mg IVP Q4 PRN PRN Reason: Pain, severe (8-10) Morphine Sulfate (Morphine) 2 mg IVP Q4 PRN PRN Reason: Pain, moderate (4-7) Nicotine (Nicoderm Cq) 1 patch TD DAILY [facility] Last Admin: 05/14/17 08:56 Dose: 1 patch Oxycodone/Acetaminophen (Percocet 5/325 Mg Tab) 1 tab PO Q6 PRN PRN Reason: Pain, moderate (4-7) Stop: 05/17/17 18:58 Last Admin: 05/15/17 01:21 Dose: 1 tab Sennosides (Senokot Tab) 17.2 mg PO HS [facility] Last Admin: 05/15/17 07:16 Dose: Not Given - Labs Labs: 05/15/17 04:30 05/14/17 04:35 PT 11.1 Seconds (9.8-13.1) 05/12/17 17:15 INR 1.0 (0.9-1.2) 05/12/17 17:15 APTT 35.2 Seconds (25.6-37.1) 05/12/17 17:15 - Constitutional Appears: Non-toxic, No Acute Distress - Head Exam Head Exam: NORMAL INSPECTION - Eye Exam Eye Exam: Normal appearance - ENT Exam ENT Exam: Mucous Membranes Moist - Respiratory Exam Respiratory Exam: NORMAL BREATHING PATTERN. absent: Accessory Muscle Use, Respiratory Distress Additional comments: RCT in place dressing stained subQ emphysema present - Cardiovascular Exam Cardiovascular Exam: absent: Bradycardia, Tachycardia - GI/Abdominal Exam GI & Abdominal Exam: Soft. absent: Distended, Tenderness - Neurological Exam Neurological Exam: Alert, Awake, Oriented x3 - Psychiatric Exam Psychiatric exam: Normal Affect, Normal Mood - Skin Skin Exam: Dry, Normal Color, Warm Assessment and Plan - Assessment and Plan (Free Text) Assessment: 86 y/o M w/ spontaneous pneumothorax POD# 3 s/p bedside Right chest tube place - PFT performed yesterday revealed severe restrictive ventilatory and diffusion defect - AM CXR w/ negative pneumothorax - keep CT to suction - cont daily CXR - likely bedside drainage of subQ air today - talc pleurodesis vs VATS vs Thoracotomy - pt will need cardiopulmonary stress test prior to surgical decision Pt discussed w/ Dr. Delphine Coyle DO PGY2
--- NOTE | 2017-05-15 08:38 | RAD ---
HISTORY: f/u pneumothorax COMPARISON: 05/14/2017 FINDINGS: LUNGS: No infiltrate. PLEURA: No pneumothorax. Right apical chest tube, unchanged. Subcutaneous emphysema seen over both chest henley extending towards neck, right greater than left. No evidence of pleural effusion CARDIOVASCULAR: Normal. OSSEOUS STRUCTURES: No significant abnormalities. VISUALIZED UPPER ABDOMEN: Normal. OTHER FINDINGS: None. IMPRESSION: Right apical chest tube. No pneumothorax. Subcutaneous emphysema.
[2017-05-15] MEDS: Enoxaparin 40 mg Syringe SC SCH (09:40)
[2017-05-15] MEDS: Azithromycin 500 MG in Sodium Chloride 0.9% 250 ML IVPB SCH (09:40)
[2017-05-15 09:52] LABS: BLOOD UREA NITROGEN 21 mg/dl (9-20); CALCIUM 8.7 mg/dL (8.4-10.2); CARBON DIOXIDE 35 mmol/L (22-30); CHLORIDE 100 mmol/L (98-107); GFR AFRICAN-AMERICAN > 60; GLUCOSE,RANDOM 140 mg/dL (75-110); POTASSIUM 4.2 MMOL/L (3.6-5.0); SODIUM 141 mmol/l (132-148)
--- NOTE | 2017-05-15 09:54 | RAD ---
HISTORY: reevaluate penuothorax; COMPARISON: 05/14/2017 at 4:31 a.m. FINDINGS: LUNGS: No infiltrate. Lungs are hyperinflated with flattening of the diaphragm. PLEURA: Right apical chest tube unchanged in position. No pneumothorax identified. Subcutaneous emphysema seen about the right lateral chest wall extending into the right side of the neck. CARDIOVASCULAR: Normal. OSSEOUS STRUCTURES: No significant abnormalities. VISUALIZED UPPER ABDOMEN: Normal. OTHER FINDINGS: None. IMPRESSION: Right apical chest tube. No pneumothorax. Subcutaneous emphysema over right lateral chest wall. Pulmonary hyperinflation.
--- NOTE | 2017-05-15 10:36 | CP.CCUPN ---
CCU Subjective - Physician Review Subjective (Free Text): Awake and responsive this AM, no overall distress. No fever spikes. had complained of wound pain and given Percocet @4AM overnight, otherwise no distress. CT intact, on suction, + air leak noted and MOUNTER [employer] INSTRUMENTS now prominent over R chest / abdomen and spreading to left chest. Denies any dyspnea, palpitations, or anginal pain. Other vitals and I/O's reviewed. ROS: No other pertinent negs or positives on 10+ system review. PMSFH: All Nursing and physician documentation reviewed to date; no new pertinent info noted relevant to current medical problems. CXR: + MOUNTER [employer] INSTRUMENTS; R CT intact, no visible PTX, increase in interstitial markings R lung compared to L lung ( my interp). MAJOR PROBLEMS: 1. Acute resp insuff 2 Spontaneous PTX and Bullous Lung Disease and mild chronic hypercarbia 2. Chronic disease anemia 3. Chronic Weight loss/ Anorexia / Failure to thrive. PLAN: 1. Thor Surg team to assess for tolerance to lung reduction surgery given advanced age and cachexia. He did undergo PFT testing yesterday and limited exercise tolerance testing by walking the entire length of the ICU hallway twice with fair tolerance. 2. CT management as per TSurg. 3. Last ABGs done on 05/13/17 reflect mild, compensated Hypercarbia. 4. Leukocytosis noted today, on no abx coverage. Discuss with primary team and TSurg regarding empiric coverage CCU Objective - Vital Signs / Intake & Output Vital Signs (Last 4 hours): Vital Signs Temp Pulse Resp BP Pulse Ox 05/15/17 08:16 98.0 F 75 22 116/64 97 Intake and Output (Last 8hrs): Intake & Output 05/14/17 05/15/17 05/15/17 22:59 06:59 14:59 Intake Total 180 110 Output Total 411 206 Balance -231 -96 Intake: IV 10 10 Oral 170 100 Output: Chest Tube Drainage 10 6 Right Mid-Axillary Chest 10 6 Urine 400 200 Urine, Voided 400 200 Urine/Stool Mix 1 Other: # Bowel Movements 1 - Physical Exam Head: Positive for: Atraumatic, Normocephalic Pupils: Positive for: PERRL Extroacular Muscles: Positive for: EOMI Conjunctiva: Positive for: Normal Mouth: Positive for: Moist Mucous Membranes Neck: Positive for: Trachea Midline. Negative for: JVD Respiratory/Chest: Positive for: Clear to Auscultation. Negative for: Accessory Muscle Use, Wheezes, Rhonchi Cardiovascular: Positive for: Regular Rate and Rhythm, Normal S1, S2. Negative for: Tachycardic Abdomen: Positive for: Normal Bowel Sounds. Negative for: Tenderness, Distention Upper Extremity: Positive for: Normal ROM. Negative for: Edema, Tenderness Lower Extremity: Negative for: Edema, CALF TENDERNESS, Tenderness Neurological: Positive for: GCS=15, CN II-XII Intact, Speech Normal Skin: Positive for: Warm, Dry, Normal Color. Negative for: Rashes Psychiatric: Positive for: Alert, Oriented x 3 - Medications Active Medications: Active Medications Generic Name Dose Route Start Last Admin Trade Name Freq PRN Reason Stop Dose Admin Albuterol/Ipratropium 3 ml 05/13/17 10:55 Duoneb 3 Mg/0.5 Mg (3 Ml) Ud INH RQ4 PRN Shortness of Breath Enoxaparin Sodium 40 mg 05/13/17 09:30 05/15/17 09:40 Lovenox SC 40 mg DAILY [facility]IDY Administration Protocol Azithromycin 500 mg/ Sodium 250 mls @ 250 mls/hr 05/13/17 09:00 05/15/17 09: 40 Chloride IVPB 250 mls/hr DAILY [facility]IDY Administration Protocol Morphine Sulfate 4 mg 05/12/17 21:41 Morphine IVP Q4 PRN Pain, severe (8-10) Morphine Sulfate 2 mg 05/12/17 21:41 Morphine IVP Q4 PRN Pain, moderate (4-7) Nicotine 1 patch 05/13/17 10:15 05/15/17 09:40 Nicoderm Cq TD 1 patch DAILY HEIDY Administration Oxycodone/Acetaminophen 1 tab 05/14/17 18:57 05/15/17 01:21 Percocet 5/325 Mg Tab PO 05/17/17 18:58 1 tab Q6 PRN Administration Pain, moderate (4-7) Sennosides 17.2 mg 05/14/17 22:00 05/15/17 07:16 Senokot Tab PO Not Given HS HEIDY - Patient Studies Lab Studies: Microbiology Studies 05/12/17 17:00 Blood Culture - Preliminary Blood NO GROWTH AFTER 48 HOURS 05/12/17 16:55 Blood Culture - Preliminary Blood NO GROWTH AFTER 48 HOURS 05/12/17 03:45 MRSA Culture (Admit) - Final Nose MRSA NOT DETECTED Lab Studies 05/15/17 05/15/17 Range/Units 09:15 04:30 WBC 15.8 H (4.8-10.8) K/uL RBC 4.27 L (4.40-5.90) Mil/uL Hgb 11.9 L (12.0-18.0) g/dL Hct 37.3 (35.0-51.0) % MCV 87.3 (80.0-94.0) fl MCH 27.8 (27.0-31.0) pg MCHC 31.9 L (33.0-37.0) g/dL RDW 15.1 H (11.5-14.5) % Plt Count 178 (130-400) K/uL Sodium 141 (132-148) mmol/l Potassium 4.2 (3.6-5.0) MMOL/L Chloride 100 (98-107) mmol/L Carbon Dioxide 35 H (22-30) mmol/L Anion Gap 10 (10-20) BUN 21 H (9-20) mg/dl Creatinine 0.7 L (0.8-1.5) mg/dL Est GFR ( Amer) > 60 Est GFR (Non-Af Amer) > 60 Random Glucose 140 H (75-110) mg/dL Calcium 8.7 (8.4-10.2) mg/dL Laboratory Results - last 24 hr 05/15/17 05/15/17 04:30 09:15 WBC 15.8 H RBC 4.27 L Hgb 11.9 L Hct 37.3 MCV 87.3 MCH 27.8 MCHC 31.9 L RDW 15.1 H Plt Count 178 Sodium 141 Potassium 4.2 Chloride 100 Carbon Dioxide 35 H Anion Gap 10 BUN 21 H Creatinine 0.7 L Est GFR ( Amer) > 60 Est GFR (Non-Af Amer) > 60 Random Glucose 140 H Calcium 8.7 Review of Systems - Review of Systems All systems: reviewed and no additional remarkable complaints except (as above.) Critical Care Progress Note - Nutrition Nutrition: Nutrition Category Date Time Status Regular Diet [DIET] Diets 05/13/17 Breakfast Active
[2017-05-15] MEDS ORDERED: Albuterol 0.083% Inhal Sol (2.5 mg/3 mL) UD INH PRN (12:18)
--- NOTE | 2017-05-15 12:42 | CP.PCM.PN ---
Subjective - Date & Time of Evaluation Date of Evaluation: 05/15/17 Time of Evaluation: 08:00 - Subjective Subjective: Patient seen and examined today at bed side breathing comfortably with 2L NC. Reports severe pain last night around chest tube site, pain resolves with pain meds. Today he states feeling well, no longer has chest pain, also reports low appetite which he said is a normal pattern on him. Today denies chest pain, dyspnea, palpitations, chills, fever, nausea, vomiting. Had BM this morning. Objective - Vital Signs/Intake and Output Vital Signs (last 24 hours): Temp Pulse Resp BP Pulse Ox 98.6 F 98 H 22 106/51 L 97 05/15/17 12:00 05/15/17 12:00 05/15/17 12:00 05/15/17 12:00 05/15/17 12:00 Intake and Output: 05/15/17 05/15/17 06:59 18:59 Intake Total 290 Output Total 217 Balance 73 - Medications Medications: Current Medications Albuterol Sulfate (Albuterol 0.083% Inhal Magdalene (2.5 Mg/3 Ml) Ud) 2.5 mg INH RQ4 PRN PRN Reason: Shortness of Breath Albuterol/Ipratropium (Duoneb 3 Mg/0.5 Mg (3 Ml) Ud) 3 ml INH RQID HEIDY Enoxaparin Sodium (Lovenox) 40 mg SC DAILY [facility]IDY PRN Reason: Protocol Last Admin: 05/15/17 09:40 Dose: 40 mg Azithromycin 500 mg/ Sodium (Chloride) 250 mls @ 250 mls/hr IVPB DAILY [facility]IDY PRN Reason: Protocol Last Admin: 05/15/17 09:40 Dose: 250 mls/hr Morphine Sulfate (Morphine) 4 mg IVP Q4 PRN PRN Reason: Pain, severe (8-10) Morphine Sulfate (Morphine) 2 mg IVP Q4 PRN PRN Reason: Pain, moderate (4-7) Nicotine (Nicoderm Cq) 1 patch TD DAILY [facility] Last Admin: 05/15/17 09:40 Dose: 1 patch Oxycodone/Acetaminophen (Percocet 5/325 Mg Tab) 1 tab PO Q6 PRN PRN Reason: Pain, moderate (4-7) Stop: 05/17/17 18:58 Last Admin: 05/15/17 01:21 Dose: 1 tab Sennosides (Senokot Tab) 17.2 mg PO HS [facility]IDY Last Admin: 05/15/17 07:16 Dose: Not Given - Labs Labs: 05/15/17 04:30 05/15/17 09:15 PT 11.1 Seconds (9.8-13.1) 05/12/17 17:15 INR 1.0 (0.9-1.2) 05/12/17 17:15 APTT 35.2 Seconds (25.6-37.1) 05/12/17 17:15 - Constitutional Appears: No Acute Distress, Cachectic - Head Exam Head Exam: NORMAL INSPECTION - Eye Exam Eye Exam: Normal appearance - Respiratory Exam Respiratory Exam: absent: Accessory Muscle Use Additional comments: B/L scattered rhonchi, Chest tube site dressing clean, subcutaneous emphysema extending towards both chest henley and neck. - Cardiovascular Exam Cardiovascular Exam: REGULAR RHYTHM, +S1, +S2 - GI/Abdominal Exam GI & Abdominal Exam: Soft, Normal Bowel Sounds. absent: Tenderness - Extremities Exam Extremities Exam: Full ROM. absent: Calf Tenderness - Neurological Exam Neurological Exam: Alert, Awake, Oriented x3 - Psychiatric Exam Psychiatric exam: Normal Mood Assessment and Plan - Assessment and Plan (Free Text) Assessment: 86 YO male with hx of COPD and anemia is admitted for Rt pneumothorax on chest xray. S/p chest tube placement day 3. 1. Rt Pneumothorax -s/p chest tube placement day 3. -Chest xray 05/15, stable position of chest tube within right pleural space. no pneumothorax. Subcutaneous emphysema over both chest henley extending to the neck, right greater than left. -c/ morphine for pain -follow surgery recommens for chest tube management -PFT done yesterday: revealed severe restrictive ventilatory and diffusion defect. -Echocardiogram pending -Thor Surgery pending evaluation for talc pleurodesis vs VATS vs Thoracotomy. -continue to monitor -PT recommends TCU vs home with services if family can assist. 2. Acute COPD exacerbation -smoker 70+yrs with 2ppd -100% O2 2L nc -c/ azithromycin per ICU -douneb prn -nicotine patch -continue monitor 3. Leukocytosis -increased from yesterday: WBC 10.8 -WBC: 15.8 -afebrile -procalcitonin ordered -lactic acid ordered -continue monitor 4. Normocytic Anemia -stable, Hbg 11.9 -continue monitor 5. DVT prop -lovonox sc -scds
--- NOTE | 2017-05-15 12:43 | CP.PCM.PN ---
Subjective - Date & Time of Evaluation Date of Evaluation: 05/15/17 Time of Evaluation: 12:24 - Subjective Subjective: pt s/e. No c/o FEV1=0.77 37% of predicted. DLCO=21% of predicted. [id number] sat Satisfactory. Discussed with Yohannes Rene Kozel and residents on ICU round this am and concluded: 1. Follow subq emphysema and residual pneumothrax with daily cxr. 2. chest ct on Friday and connect to Heimllich valve on Friday provided subq emphysema and pneumo are stabilized. and d/c home with the valve. 3. Stair climbing test today. 4. PFTs- high risk candidate for resective procedure. 5. Will consider talc pleurodesis or resective surgery if air leak continues. 6. I will be happy to follow the pt in the clinic with you in terms of management of the Heimlich valve. Objective - Vital Signs/Intake and Output Vital Signs (last 24 hours): Temp Pulse Resp BP Pulse Ox 98.6 F 98 H 22 106/51 L 97 05/15/17 12:00 05/15/17 12:00 05/15/17 12:00 05/15/17 12:00 05/15/17 12:00 Intake and Output: 05/15/17 05/15/17 06:59 18:59 Intake Total 290 Output Total 217 Balance 73 - Medications Medications: Current Medications Albuterol Sulfate (Albuterol 0.083% Inhal Magdalene (2.5 Mg/3 Ml) Ud) 2.5 mg INH RQ4 PRN PRN Reason: Shortness of Breath Albuterol/Ipratropium (Duoneb 3 Mg/0.5 Mg (3 Ml) Ud) 3 ml INH RQID HEIDY Enoxaparin Sodium (Lovenox) 40 mg SC DAILY HEIDY PRN Reason: Protocol Last Admin: 05/15/17 09:40 Dose: 40 mg Azithromycin 500 mg/ Sodium (Chloride) 250 mls @ 250 mls/hr IVPB DAILY HEIDY PRN Reason: Protocol Last Admin: 05/15/17 09:40 Dose: 250 mls/hr Morphine Sulfate (Morphine) 4 mg IVP Q4 PRN PRN Reason: Pain, severe (8-10) Morphine Sulfate (Morphine) 2 mg IVP Q4 PRN PRN Reason: Pain, moderate (4-7) Nicotine (Nicoderm Cq) 1 patch TD DAILY HEIDY Last Admin: 05/15/17 09:40 Dose: 1 patch Oxycodone/Acetaminophen (Percocet 5/325 Mg Tab) 1 tab PO Q6 PRN PRN Reason: Pain, moderate (4-7) Stop: 05/17/17 18:58 Last Admin: 05/15/17 01:21 Dose: 1 tab Sennosides (Senokot Tab) 17.2 mg PO HS [facility] Last Admin: 05/15/17 07:16 Dose: Not Given - Labs Labs: 05/15/17 04:30 05/15/17 09:15 PT 11.1 Seconds (9.8-13.1) 05/12/17 17:15 INR 1.0 (0.9-1.2) 05/12/17 17:15 APTT 35.2 Seconds (25.6-37.1) 05/12/17 17:15
--- NOTE | 2017-05-15 12:44 | CP.PCM.CON ---
History of Present Illness - History of Present Illness History of Present Illness: Requested to see this 86 year old male who was admitted with spontaneous pneumothorax. He has a long history of cigarette use and has significant bullous emphysematous changes on imaging. He had been complaining of cough and shortness of breath which brought him to the emergency room. There was no history of hemoptysis and he was not taking medications at the time of admission. He denied any prior lung disease diagnosis in the past. After thoracostomy tube insertion he did have re-expansion of the right lung, but continued to have an air leak noted in the PleuEvac. He has smoked for many years Past Patient History - Past Medical History & Family History Past Medical History?: Yes - Past Social History Smoking Status: Light Smoker < 10 Cigarettes Daily Alcohol: None Drugs: Denies Home Situation {Lives}: Alone - CARDIAC Hx Cardiac Disorders: No - PULMONARY Hx Chronic Obstructive Pulmonary Disease (COPD): Yes (no prior diagnosis) Hx Pneumonia: Yes - NEUROLOGICAL Hx Neurological Disorder: No - HEENT Hx HEENT Problems: No - RENAL Hx Chronic Kidney Disease: No - ENDOCRINE/METABOLIC Hx Endocrine Disorders: No - HEMATOLOGICAL/ONCOLOGICAL Hx Anemia: Yes Hx Human Immunodeficiency Virus (HIV): No - INTEGUMENTARY Hx Dermatological Problems: Yes Other/Comment: shingles a month ago - MUSCULOSKELETAL/RHEUMATOLOGICAL Hx Musculoskeletal Disorders: No Hx Falls: No - GASTROINTESTINAL Hx Gastrointestinal Disorders: No Other/Comment: never had surgery - GENITOURINARY/GYNECOLOGICAL Hx Genitourinary Disorders: No - PSYCHIATRIC Hx Psychophysiologic Disorder: No Hx Substance Use: No - SURGICAL HISTORY Hx Surgeries: No - ANESTHESIA Hx Anesthesia: No Meds Allergies/Adverse Reactions: Allergies Allergy/AdvReac Type Severity Reaction Status Date / Time No Known Allergies Allergy Verified 05/12/17 16:37 - Medications Medications: Current Medications Albuterol Sulfate (Albuterol 0.083% Inhal Magdalene (2.5 Mg/3 Ml) Ud) 2.5 mg INH RQ4 PRN PRN Reason: Shortness of Breath Albuterol/Ipratropium (Duoneb 3 Mg/0.5 Mg (3 Ml) Ud) 3 ml INH RQID HEIDY Enoxaparin Sodium (Lovenox) 40 mg SC DAILY HEIDY PRN Reason: Protocol Last Admin: 05/15/17 09:40 Dose: 40 mg Azithromycin 500 mg/ Sodium (Chloride) 250 mls @ 250 mls/hr IVPB DAILY HEIDY PRN Reason: Protocol Last Admin: 05/15/17 09:40 Dose: 250 mls/hr Morphine Sulfate (Morphine) 4 mg IVP Q4 PRN PRN Reason: Pain, severe (8-10) Morphine Sulfate (Morphine) 2 mg IVP Q4 PRN PRN Reason: Pain, moderate (4-7) Nicotine (Nicoderm Cq) 1 patch TD DAILY [facility] Last Admin: 05/15/17 09:40 Dose: 1 patch Oxycodone/Acetaminophen (Percocet 5/325 Mg Tab) 1 tab PO Q6 PRN PRN Reason: Pain, moderate (4-7) Stop: 05/17/17 18:58 Last Admin: 05/15/17 01:21 Dose: 1 tab Sennosides (Senokot Tab) 17.2 mg PO HS [facility] Last Admin: 05/15/17 07:16 Dose: Not Given Physical Exam - Additional Findings Additional findings: Thin male seated up in bed, not in acute distress. No dependant edema, no cyanosis or clubbing. No palpable lymphadenopathy. Pharynx is pink and moist w/o exudate. Neck is supple and trachea midline. No JVD. Surgical dressing with thoracostomy tube on the right connected to PleurEvac. ++subcutaneous emphysema, hyper-resonant percussion bilaterally. Both hemidiaphragms are displaced caudally. Breath sounds are present bilaterally, diminished, difficult to auscultate on right because of subcut air. Faint expiratory wheezing appreciated bilaterally. Scattered sonorous rhonchi in lower lobes. Herart sounds are distant. Results - Vital Signs Recent Vital Signs: Last Vital Signs Temp 98.6 F 05/15/17 12:00 Pulse 98 H 05/15/17 12:00 Resp 22 05/15/17 12:00 BP 106/51 L 05/15/17 12:00 Pulse Ox 97 05/15/17 12:00 - Labs Result Diagrams: 05/30/17 04:47 05/30/17 04:47 Labs: Laboratory Results - last 24 hr 05/15/17 05/15/17 04:30 09:15 WBC 15.8 H RBC 4.27 L Hgb 11.9 L Hct 37.3 MCV 87.3 MCH 27.8 MCHC 31.9 L RDW 15.1 H Plt Count 178 Sodium 141 Potassium 4.2 Chloride 100 Carbon Dioxide 35 H Anion Gap 10 BUN 21 H Creatinine 0.7 L Est GFR ( Amer) > 60 Est GFR (Non-Af Amer) > 60 Random Glucose 140 H Calcium 8.7 Assessment & Plan - Assessment and Plan (Free Text) Assessment: Spontaneous pneumothorax. Severe bullous lung disease. Paraseptal emphysema. Re-expansion successful with thoracostomy tube insertion. Persistent air leak with small residual pneumothorax secondary to underlying severe bullous disease. Agree with present management and tentative plan for placement of a Heimlich valve as long as there is no further collapse of the lung while using water seal. Eventual closure of the air leak is very likely and full re-expansion of the lung is anticipated. Potential for pneumothorax on the contralateral side is high considering the degree of chronic lung disease. Maximize treatment for air trapping to help resolve persistent air leak using ipratropium/albuterol on a regular schedule. Consider using short term low doses of hydrocortisone in an attempt to help reduce tendency for air trapping. - Date & Time Date: 05/15/17 Time: 12:44
--- NOTE | 2017-05-15 14:21 | RAD ---
PROCEDURE: CHEST RADIOGRAPH, 1 VIEW HISTORY: CT to water seal; reasses for pneumothorax COMPARISON: 05/15/2017 at 4:35 a.m. FINDINGS: LUNGS: No infiltrate. PLEURA: Right apical chest tube unchanged in position. No pneumothorax. No pleural effusion. Subcutaneous emphysema over right lateral chest wall extending to neck. CARDIOVASCULAR: Normal. OSSEOUS STRUCTURES: No significant abnormalities. VISUALIZED UPPER ABDOMEN: Normal. OTHER FINDINGS: None. IMPRESSION: No pneumothorax.
[2017-05-15] MEDS: Albuterol-Ipratrop 3 mg / 0.5 (3 ml) UD INH SCH ×2 (15:47→19:25)
[2017-05-15] MEDS: HYDROCORTISONE IV SCH (20:53)
[2017-05-15] MEDS: SODIUM CHLORIDE 0.9% IV SCH (20:53)
[2017-05-16 05:17] LABS: HEMATOCRIT 35.6 % (35.0-51.0); MEAN CELL VOLUME 86.1 fl (80.0-94.0); MEAN CORPUSCULAR HEMOGLOBIN 28.1 pg (27.0-31.0); MEAN CORPUSCULAR HGB CONC 32.6 g/dL (33.0-37.0); PLATELET COUNT 183 K/uL (130-400); RED CELL DISTRIBUTION WIDTH 15.1 % (11.5-14.5); WHITE BLOOD COUNT 18.4 K/uL (4.8-10.8)
[2017-05-16 05:24] LABS: ALKALINE PHOSPHATASE 82 U/L (38-126); ALT/SGPT 25 U/L (21-72); AST/SGOT 23 U/L (17-59); BILIRUBIN,TOTAL 0.6 mg/dl (0.2-1.3); BLOOD UREA NITROGEN 19 mg/dl (9-20); CARBON DIOXIDE 33 mmol/L (22-30); CHLORIDE 101 mmol/L (98-107); GFR AFRICAN-AMERICAN > 60; GLUCOSE,RANDOM 124 mg/dL (75-110); POTASSIUM 4.1 MMOL/L (3.6-5.0); SODIUM 142 mmol/l (132-148); TOTAL PROTEIN 7.3 G/DL (6.3-8.2)
[2017-05-16] MEDS: Albuterol-Ipratrop 3 mg / 0.5 (3 ml) UD INH SCH ×4 (07:26→19:11)
--- NOTE | 2017-05-16 07:43 | CP.CCUPN ---
CCU Subjective - Physician Review Subjective (Free Text): Uneventful overnight, NAILER OPERATOR appears to have lessened. Awake and responsive this AM , no overall distress. No fever spikes. CT intact, off suction, to water seal. Denies any dyspnea, palpitations, or anginal pain. Other vitals and I/O's reviewed. ROS: No other pertinent negs or positives on 10+ system review. PMSFH: All Nursing and physician documentation reviewed to date; no new pertinent info noted relevant to current medical problems. CXR: + NAILER OPERATOR has diminished; R CT intact, no visible PTX, increase in interstitial markings R lung compared to L lung ( my interp). MAJOR PROBLEMS: 1. Acute resp insuff 2 Spontaneous PTX and Bullous Lung Disease and mild chronic hypercarbia 2. Chronic disease anemia 3. Chronic Weight loss/ Anorexia / Failure to thrive. PLAN: 1. Mgmt as per TSurg. Awaiting resolution of NAILER OPERATOR and re-assessment in a few days with repeat CT Chest. 2. Preliminary objective testing with ambulation, PFTs, ABGs show poor tolerance and candidacy for any lung reduction surgery to prevent further episodes of spontaneous PTX. 3. Leukocytosis and sterids noted, has been on Azithromycin. 4. Stable for Tele bed at least. CCU Objective - Vital Signs / Intake & Output Vital Signs (Last 4 hours): Vital Signs Temp Pulse Resp BP Pulse Ox 05/16/17 06:00 93 H 26 H 132/92 H 98 05/16/17 04:00 98.1 F 91 H 26 H 124/81 96 Intake and Output (Last 8hrs): Intake & Output 05/15/17 05/16/17 05/16/17 22:59 06:59 14:59 Intake Total 85 0 Output Total 155 2 Balance -70 -2 Weight 91 lb 4.8 oz Intake: IV 10 0 Intake, Piggyback 50 Oral 25 0 Output: Chest Tube Drainage 5 2 Right Mid-Axillary Chest 5 2 Urine 150 0 Urine, Voided 150 0 - Physical Exam Head: Positive for: Atraumatic, Normocephalic Pupils: Positive for: PERRL Extroacular Muscles: Positive for: EOMI Conjunctiva: Positive for: Normal Mouth: Positive for: Moist Mucous Membranes Neck: Positive for: Trachea Midline. Negative for: JVD Respiratory/Chest: Positive for: Clear to Auscultation. Negative for: Accessory Muscle Use, Wheezes, Rhonchi Cardiovascular: Positive for: Regular Rate and Rhythm, Normal S1, S2. Negative for: Tachycardic Abdomen: Positive for: Normal Bowel Sounds. Negative for: Tenderness, Distention Upper Extremity: Positive for: Normal ROM. Negative for: Edema, Tenderness Lower Extremity: Negative for: Edema, CALF TENDERNESS, Tenderness Neurological: Positive for: GCS=15, CN II-XII Intact, Speech Normal Skin: Positive for: Warm, Dry, Normal Color. Negative for: Rashes Psychiatric: Positive for: Alert, Oriented x 3 - Medications Active Medications: Active Medications Generic Name Dose Route Start Last Admin Trade Name Freq PRN Reason Stop Dose Admin Albuterol Sulfate 2.5 mg 05/15/17 12:18 Albuterol 0.083% Inhal Magdalene (2.5 Mg/3 Ml) Ud INH RQ4 PRN Shortness of Breath Albuterol/Ipratropium 3 ml 05/15/17 16:00 05/16/17 07:26 Duoneb 3 Mg/0.5 Mg (3 Ml) Ud INH 3 ml RQID HEIDY Administration Enoxaparin Sodium 40 mg 05/13/17 09:30 05/15/17 09:40 Lovenox SC 40 mg DAILY HEIDY Administration Protocol Azithromycin 500 mg/ Sodium 250 mls @ 250 mls/hr 05/13/17 09:00 05/15/17 09: 40 Chloride IVPB 250 mls/hr DAILY HEIDY Administration Protocol Hydrocortisone Sodium 50 mls @ 50 mls/hr 05/15/17 21:00 05/15/17 20:53 Succinate 50 mg/ Sodium IV 50 mls/hr Chloride Q12 HEIDY Administration Morphine Sulfate 4 mg 05/12/17 21:41 Morphine IVP Q4 PRN Pain, severe (8-10) Morphine Sulfate 2 mg 05/12/17 21:41 Morphine IVP Q4 PRN Pain, moderate (4-7) Nicotine 1 patch 05/13/17 10:15 05/15/17 09:40 Nicoderm Cq TD 1 patch DAILY HEIDY Administration Oxycodone/Acetaminophen 1 tab 05/14/17 18:57 05/15/17 01:21 Percocet 5/325 Mg Tab PO 05/17/17 18:58 1 tab Q6 PRN Administration Pain, moderate (4-7) Sennosides 17.2 mg 05/14/17 22:00 05/15/17 22:00 Senokot Tab PO 17.2 mg HS HEIDY Administration - Patient Studies Lab Studies: Microbiology Studies 05/12/17 17:00 Blood Culture - Preliminary Blood NO GROWTH AFTER 3 DAYS 05/12/17 16:55 Blood Culture - Preliminary Blood NO GROWTH AFTER 3 DAYS Lab Studies 05/16/17 05/16/17 05/15/17 Range/Units 04:50 04:50 12:15 WBC 18.4 H (4.8-10.8) K/uL RBC 4.14 L (4.40-5.90) Mil/uL Hgb 11.6 L (12.0-18.0) g/dL Hct 35.6 (35.0-51.0) % MCV 86.1 (80.0-94.0) fl MCH 28.1 (27.0-31.0) pg MCHC 32.6 L (33.0-37.0) g/dL RDW 15.1 H (11.5-14.5) % Plt Count 183 (130-400) K/uL Sodium 142 (132-148) mmol/l Potassium 4.1 (3.6-5.0) MMOL/L Chloride 101 (98-107) mmol/L Carbon Dioxide 33 H (22-30) mmol/L Anion Gap 12 (10-20) BUN 19 (9-20) mg/dl Creatinine 0.7 L (0.8-1.5) mg/dL Est GFR ( Amer) > 60 Est GFR (Non-Af Amer) > 60 Random Glucose 124 H (75-110) mg/dL Lactic Acid 1.3 (0.7-2.1) MMOL/L Calcium 9.0 (8.4-10.2) mg/dL Total Bilirubin 0.6 (0.2-1.3) mg/dl AST 23 (17-59) U/L ALT 25 (21-72) U/L Alkaline Phosphatase 82 (38-126) U/L Total Protein 7.3 (6.3-8.2) G/DL Albumin 3.7 (3.5-5.0) g/dL Globulin 3.6 (2.2-3.9) gm/dL Albumin/Globulin Ratio 1.0 (1.0-2.1) Procalcitonin (0.19-0.49) NG/ML 05/15/17 05/15/17 Range/Units 12:00 09:15 WBC (4.8-10.8) K/uL RBC (4.40-5.90) Mil/uL Hgb (12.0-18.0) g/dL Hct (35.0-51.0) % MCV (80.0-94.0) fl MCH (27.0-31.0) pg MCHC (33.0-37.0) g/dL RDW (11.5-14.5) % Plt Count (130-400) K/uL Sodium 141 (132-148) mmol/l Potassium 4.2 (3.6-5.0) MMOL/L Chloride 100 (98-107) mmol/L Carbon Dioxide 35 H (22-30) mmol/L Anion Gap 10 (10-20) BUN 21 H (9-20) mg/dl Creatinine 0.7 L (0.8-1.5) mg/dL Est GFR ( Amer) > 60 Est GFR (Non-Af Amer) > 60 Random Glucose 140 H (75-110) mg/dL Lactic Acid (0.7-2.1) MMOL/L Calcium 8.7 (8.4-10.2) mg/dL Total Bilirubin (0.2-1.3) mg/dl AST (17-59) U/L ALT (21-72) U/L Alkaline Phosphatase (38-126) U/L Total Protein (6.3-8.2) G/DL Albumin (3.5-5.0) g/dL Globulin (2.2-3.9) gm/dL Albumin/Globulin Ratio (1.0-2.1) Procalcitonin < 0.05 L (0.19-0.49) NG/ML Laboratory Results - last 24 hr 05/15/17 05/15/17 05/15/17 09:15 12:00 12:15 WBC RBC Hgb Hct MCV MCH MCHC RDW Plt Count Sodium 141 Potassium 4.2 Chloride 100 Carbon Dioxide 35 H Anion Gap 10 BUN 21 H Creatinine 0.7 L Est GFR ( Amer) > 60 Est GFR (Non-Af Amer) > 60 Random Glucose 140 H Lactic Acid 1.3 Calcium 8.7 Total Bilirubin AST ALT Alkaline Phosphatase Total Protein Albumin Globulin Albumin/Globulin Ratio Procalcitonin < 0.05 L 05/16/17 05/16/17 04:50 04:50 WBC 18.4 H RBC 4.14 L Hgb 11.6 L Hct 35.6 MCV 86.1 MCH 28.1 MCHC 32.6 L RDW 15.1 H Plt Count 183 Sodium 142 Potassium 4.1 Chloride 101 Carbon Dioxide 33 H Anion Gap 12 BUN 19 Creatinine 0.7 L Est GFR ( Amer) > 60 Est GFR (Non-Af Amer) > 60 Random Glucose 124 H Lactic Acid Calcium 9.0 Total Bilirubin 0.6 AST 23 ALT 25 Alkaline Phosphatase 82 Total Protein 7.3 Albumin 3.7 Globulin 3.6 Albumin/Globulin Ratio 1.0 Procalcitonin Review of Systems - Review of Systems All systems: reviewed and no additional remarkable complaints except (as above) Critical Care Progress Note - Nutrition Nutrition: Nutrition Category Date Time Status Regular Diet [DIET] Diets 05/13/17 Breakfast Active
--- NOTE | 2017-05-16 07:49 | CP.PCM.PN ---
Subjective - Date & Time of Evaluation Date of Evaluation: 05/16/17 Time of Evaluation: 06:45 - Subjective Subjective: Thoracic Surgery Dr. Akers Pt S&E @bedside. Pt had step testing in PT yesterday. Per PT note, desaturated to 87% after 20 steps but recovered to 95% w/in 1 minute. NAEO. no complaints this morning. denies F/C, SOB. (R) chest tube on water seal. Objective - Vital Signs/Intake and Output Vital Signs (last 24 hours): Temp Pulse Resp BP Pulse Ox 98.1 F 93 H 26 H 132/92 H 98 05/16/17 04:00 05/16/17 06:00 05/16/17 06:00 05/16/17 06:00 05/16/17 06:00 Intake and Output: 05/16/17 05/16/17 06:59 18:59 Intake Total 85 Output Total 152 Balance -67 - Medications Medications: Current Medications Albuterol Sulfate (Albuterol 0.083% Inhal Magdalene (2.5 Mg/3 Ml) Ud) 2.5 mg INH RQ4 PRN PRN Reason: Shortness of Breath Albuterol/Ipratropium (Duoneb 3 Mg/0.5 Mg (3 Ml) Ud) 3 ml INH RQID HEIDY Last Admin: 05/16/17 07:26 Dose: 3 ml Enoxaparin Sodium (Lovenox) 40 mg SC DAILY HEIDY PRN Reason: Protocol Last Admin: 05/15/17 09:40 Dose: 40 mg Azithromycin 500 mg/ Sodium (Chloride) 250 mls @ 250 mls/hr IVPB DAILY HEIDY PRN Reason: Protocol Last Admin: 05/15/17 09:40 Dose: 250 mls/hr Hydrocortisone Sodium Succinate 50 mg/ Sodium Chloride 50 mls @ 50 mls/hr IV Q12 HEIDY Last Admin: 05/15/17 20:53 Dose: 50 mls/hr Morphine Sulfate (Morphine) 4 mg IVP Q4 PRN PRN Reason: Pain, severe (8-10) Morphine Sulfate (Morphine) 2 mg IVP Q4 PRN PRN Reason: Pain, moderate (4-7) Nicotine (Nicoderm Cq) 1 patch TD DAILY [facility] Last Admin: 05/15/17 09:40 Dose: 1 patch Oxycodone/Acetaminophen (Percocet 5/325 Mg Tab) 1 tab PO Q6 PRN PRN Reason: Pain, moderate (4-7) Stop: 05/17/17 18:58 Last Admin: 05/15/17 01:21 Dose: 1 tab Sennosides (Senokot Tab) 17.2 mg PO HS HEIDY Last Admin: 05/15/17 22:00 Dose: 17.2 mg - Labs Labs: 05/16/17 04:50 05/16/17 04:50 PT 11.1 Seconds (9.8-13.1) 05/12/17 17:15 INR 1.0 (0.9-1.2) 05/12/17 17:15 APTT 35.2 Seconds (25.6-37.1) 05/12/17 17:15 - Constitutional Appears: Non-toxic, No Acute Distress - Head Exam Head Exam: NORMAL INSPECTION - Eye Exam Eye Exam: Normal appearance - ENT Exam ENT Exam: Mucous Membranes Moist - Respiratory Exam Respiratory Exam: NORMAL BREATHING PATTERN. absent: Accessory Muscle Use, Respiratory Distress Additional comments: (R) chest tube in place dressing c.d.i - Cardiovascular Exam Cardiovascular Exam: absent: Bradycardia, Tachycardia - GI/Abdominal Exam GI & Abdominal Exam: Soft. absent: Distended, Tenderness - Neurological Exam Neurological Exam: Alert, Awake, Oriented x3 - Psychiatric Exam Psychiatric exam: Normal Affect, Normal Mood - Skin Skin Exam: Dry, Normal Color, Warm Assessment and Plan - Assessment and Plan (Free Text) Assessment: 86 y/o M w/ subQ emphysema and improved (R) pneumothorax POD#4 s/p bedside (R) Chest tube placement - daily CXR - cont RCT to water seal - monitor vitals - repeat Chest CT planned for Friday pending stable CXR - Further recs per Dr. Delphine Coyle DO PGY2
--- NOTE | 2017-05-16 08:21 | CP.PCM.PN ---
Subjective - Date & Time of Evaluation Date of Evaluation: 05/16/17 Time of Evaluation: 07:40 - Subjective Subjective: Patient seen and examined at bed side this morning, no acute overnight events, reports feeling well, sleeping well throught night. States poor appetite. Denies sob ,chest pain, palpitations, fever, chills, nausea, vomiting. Objective - Vital Signs/Intake and Output Vital Signs (last 24 hours): Temp Pulse Resp BP Pulse Ox 98.3 F 104 H 29 H 133/91 H 96 05/16/17 08:00 05/16/17 08:00 05/16/17 08:00 05/16/17 08:00 05/16/17 08:00 Intake and Output: 05/16/17 05/16/17 06:59 18:59 Intake Total 85 Output Total 152 Balance -67 - Medications Medications: Current Medications Albuterol Sulfate (Albuterol 0.083% Inhal Magdalene (2.5 Mg/3 Ml) Ud) 2.5 mg INH RQ4 PRN PRN Reason: Shortness of Breath Albuterol/Ipratropium (Duoneb 3 Mg/0.5 Mg (3 Ml) Ud) 3 ml INH RQID [facility] Last Admin: 05/16/17 07:26 Dose: 3 ml Enoxaparin Sodium (Lovenox) 40 mg SC DAILY HEIDY PRN Reason: Protocol Last Admin: 05/15/17 09:40 Dose: 40 mg Azithromycin 500 mg/ Sodium (Chloride) 250 mls @ 250 mls/hr IVPB DAILY HEIDY PRN Reason: Protocol Last Admin: 05/15/17 09:40 Dose: 250 mls/hr Hydrocortisone Sodium Succinate 50 mg/ Sodium Chloride 50 mls @ 50 mls/hr IV Q12 [facility] Last Admin: 05/15/17 20:53 Dose: 50 mls/hr Morphine Sulfate (Morphine) 4 mg IVP Q4 PRN PRN Reason: Pain, severe (8-10) Morphine Sulfate (Morphine) 2 mg IVP Q4 PRN PRN Reason: Pain, moderate (4-7) Nicotine (Nicoderm Cq) 1 patch TD DAILY [facility] Last Admin: 05/15/17 09:40 Dose: 1 patch Oxycodone/Acetaminophen (Percocet 5/325 Mg Tab) 1 tab PO Q6 PRN PRN Reason: Pain, moderate (4-7) Stop: 05/17/17 18:58 Last Admin: 05/15/17 01:21 Dose: 1 tab Sennosides (Senokot Tab) 17.2 mg PO HS HEIDY Last Admin: 05/15/17 22:00 Dose: 17.2 mg - Labs Labs: 05/16/17 04:50 05/16/17 04:50 PT 11.1 Seconds (9.8-13.1) 05/12/17 17:15 INR 1.0 (0.9-1.2) 05/12/17 17:15 APTT 35.2 Seconds (25.6-37.1) 05/12/17 17:15 - Constitutional Appears: Well, No Acute Distress - Head Exam Head Exam: NORMAL INSPECTION - Eye Exam Eye Exam: Normal appearance - ENT Exam ENT Exam: Mucous Membranes Moist - Respiratory Exam Respiratory Exam: absent: Accessory Muscle Use Additional comments: Scattered rhonchi b/l, chest tube dressing clean, TILE AND MARBLE SETTER over both chest wall extending toward neck, no chest wall tenderness. - Cardiovascular Exam Cardiovascular Exam: Tachycardia, REGULAR RHYTHM, +S1, +S2 - GI/Abdominal Exam GI & Abdominal Exam: Soft, Normal Bowel Sounds. absent: Tenderness, Organomegaly - Extremities Exam Extremities Exam: absent: Calf Tenderness - Neurological Exam Neurological Exam: Alert, Oriented x3 - Skin Skin Exam: Dry, Intact, Warm Assessment and Plan - Assessment and Plan (Free Text) Assessment: 86 YO male with hx of COPD and anemia is admitted for Rt pneumothorax on chest xray. S/p chest tube placement day 4. 1. Rt Pneumothorax -likely secondary to bubble rupture -Chest tube on water seal. -Chest xray 05/16, stable position of chest tube within right pleural space. No pneumothorax. No pleural effusion. Subcutaneous emphysema along both chest henley towards to the neck. -c/ morphine for pain -follow surgery recommens for chest tube management -PFT revealed severe restrictive ventilatory and diffusion defect. -Thor Surgery recommends connect to Heimllich valve on Friday. -Pt is a high risk candidate for surgery but possibility of surgery is not r/o yet. -Repeat chest CT planned for Friday. -continue to monitor subq emphysema with daily cxr. -Echocardiogram pending 2. Acute COPD exacerbation, newly diagnosed -smoker 70+yrs with 2ppd -100% O2 2L nc -c/ azithromycin daily per ICU -douneb prn -nicotine patch -Pulmonology Dr Horowitz on board, appreciated recommendations. -continue monitor 3. Leukocytosis -increased from yesterday -WBC: 18.4 -afebrile -procalcitonin wnl -lactic acid wnl -continue monitor 4. Normocytic Anemia -stable, Hbg 11.6 -continue monitor 5. DVT prop -lovonox sc -scds
--- NOTE | 2017-05-16 08:48 | RAD ---
HISTORY: f/u pneumothorax COMPARISON: 05/15/2017 FINDINGS: LUNGS: There is stable position of the right chest tube directed towards the apex. The lungs are well inflated. PLEURA: No significant pleural effusion identified, no pneumothorax apparent. CARDIOVASCULAR: The heart is normal in size. Atherosclerotic aortic arch calcifications are present. OSSEOUS STRUCTURES: No significant abnormalities. VISUALIZED UPPER ABDOMEN: Normal. OTHER FINDINGS: There is extensive soft tissue emphysema along the right lower neck and chest wall. IMPRESSION: No definite evidence of pneumothorax. Extensive right-sided soft tissue emphysema along the right lateral chest wall and lower neck.
[2017-05-16] MEDS: Enoxaparin 40 mg Syringe SC SCH (08:56)
[2017-05-16] MEDS: HYDROCORTISONE IV SCH (08:57)
[2017-05-16] MEDS: SODIUM CHLORIDE 0.9% IV SCH (08:57)
[2017-05-16] MEDS: Azithromycin 500 MG in Sodium Chloride 0.9% 250 ML IVPB SCH (08:58)
--- NOTE | 2017-05-16 09:46 | CARD ---
APPROVED REPORT EXAM: Two-dimensional and M-mode echocardiogram with Doppler and color Doppler. Other Information Quality : FairRhythm : NSR Technically limited study due to Poor Window INDICATION Chest Pain 2D DIMENSIONS IVSd0.64 (0.7-1.1cm)LVDd4.33 (3.9-5.9cm) PWd0.80 (0.7-1.1cm)IVSs0.57 (0.8-1.2cm) LVDs2.94 (2.5-4.0cm)FS (%) 32.2 % PWs1.02 (0.8-1.2cm) Mitral Valve E/A ratio0.0 TDI E/Lateral E'0.0E/Medial E'0.0 LEFT VENTRICLE The left ventricle is normal in size. There is normal left ventricular wall thickness. The left ventricular function is normal. The left ventricular ejection fraction is - 65%.. There is normal LV segmental wall motion. The patient is in atrial fibrillation. No left ventricle thrombus noted on this study. There is no ventricular septal defect visualized. There is no left ventricular aneurysm. There is no mass noted in the left ventricle. RIGHT VENTRICLE The right ventricle is normal size. There is normal right ventricular wall thickness. The right ventricular systolic function is normal. ATRIA The left atrium size is normal. There is no thrombus suspected in the left atrium. The right atrium is mildly dilated. The interatrial septum is intact with no evidence for an atrial septal defect. AORTIC VALVE The aortic valve is mildly thickened. There is mild aortic regurgitation. There is no aortic valvular stenosis. MITRAL VALVE The mitral valve leaflets are mildly thickened. There is no evidence of mitral valve prolapse. There is no mitral valve stenosis. Mitral regurgitation is mild. TRICUSPID VALVE The tricuspid valve is normal in structure. There is mild tricuspid regurgitation. There is no tricuspid valve prolapse or vegetation. There is no tricuspid valve stenosis. PULMONIC VALVE The pulmonic valve is not well visualized. Doppler studies of the left ventricle were not performed. GREAT VESSELS The aortic root is normal in size. The IVC is normal in size and collapses >50% with inspiration. PERICARDIAL EFFUSION The pericardium appears normal. There is no pleural effusion. <Conclusion> The study is of suboptimal quality. The left ventricle is normal in size and wall thickness. The left ventricular function is normal with a LVEF of - 65%. The right atrium is mildly dilated. The aortic valve is mildly thickened and there is mild aortic regurgitation. The mitral valve is mildly thickened and there is mild mitral regurgitation. The tricuspid valve is normal and there is mild tricuspid regurgitation.
--- NOTE | 2017-05-16 10:38 | CP.PCM.PN ---
Subjective - Date & Time of Evaluation Date of Evaluation: 05/16/17 Time of Evaluation: 10:35 - Subjective Subjective: The patient was seen on rounds in the intensive care unit's morning. He was presently seated in a bedside chair, comfortably. He claims to feel well this morning and offers no complaints of breathing difficulty. Chest tube remains in place connected to Pleur-evac using water seal and no suction presently. No air leak is noted on spontaneous respiration with good fluctuation of the intrapleural pressures. A small amount of air is noted to leak when the patient is asked to cough. Subcutaneous emphysema appears to be diminished from the day before. There is mild hyperresonance to percussion bilaterally with displacement of the hemidiaphragms caudally.Expansion is present bilaterally, slightly reduced on the right. Breath sounds are diminished but present bilaterally without audible wheezing or prolongation of the expiratory phase. Sibilant rhonchi which were present yesterday are no longer heard today. Rare sonorous rhonchi are heard in the lower lobes. Rare dry rales are heard in the lower lobes as well. Heart sounds are distant and the rhythm is regular. No central or peripheral cyanosis. Mild elevation of the white blood cell count is noted today which may be secondary to the initiation of steroids. This medication will be discontinued after today's evening dose. Objective - Vital Signs/Intake and Output Vital Signs (last 24 hours): Temp Pulse Resp BP Pulse Ox 98.3 F 104 H 29 H 133/91 H 96 05/16/17 08:00 05/16/17 08:00 05/16/17 08:00 05/16/17 08:00 05/16/17 08:00 Intake and Output: 05/15/17 05/16/17 23:59 11:59 Intake Total 85 0 Output Total 155 102 Balance -70 -102 - Medications Medications: Current Medications Albuterol Sulfate (Albuterol 0.083% Inhal Magdalene (2.5 Mg/3 Ml) Ud) 2.5 mg INH RQ4 PRN PRN Reason: Shortness of Breath Albuterol/Ipratropium (Duoneb 3 Mg/0.5 Mg (3 Ml) Ud) 3 ml INH RQID [facility] Last Admin: 05/16/17 07:26 Dose: 3 ml Enoxaparin Sodium (Lovenox) 40 mg SC DAILY [facility] PRN Reason: Protocol Last Admin: 05/16/17 08:56 Dose: 40 mg Hydrocortisone Sodium Succinate (Solu-Cortef) 50 mg IV Q12 [facility] Azithromycin 500 mg/ Sodium (Chloride) 250 mls @ 250 mls/hr IVPB DAILY [facility] PRN Reason: Protocol Last Admin: 05/16/17 08:58 Dose: 250 mls/hr Morphine Sulfate (Morphine) 4 mg IVP Q4 PRN PRN Reason: Pain, severe (8-10) Morphine Sulfate (Morphine) 2 mg IVP Q4 PRN PRN Reason: Pain, moderate (4-7) Nicotine (Nicoderm Cq) 1 patch TD DAILY [facility] Last Admin: 05/16/17 08:56 Dose: 1 patch Oxycodone/Acetaminophen (Percocet 5/325 Mg Tab) 1 tab PO Q6 PRN PRN Reason: Pain, moderate (4-7) Stop: 05/17/17 18:58 Last Admin: 05/15/17 01:21 Dose: 1 tab Sennosides (Senokot Tab) 17.2 mg PO HS [facility] Last Admin: 05/15/17 22:00 Dose: 17.2 mg - Labs Labs: 05/16/17 04:50 05/16/17 04:50 PT 11.1 Seconds (9.8-13.1) 05/12/17 17:15 INR 1.0 (0.9-1.2) 05/12/17 17:15 APTT 35.2 Seconds (25.6-37.1) 05/12/17 17:15
[2017-05-16 10:40] LABS: EOSINOPHIL 1 % (0-7); GIANT PLATELETS PRESENT; LARGE PLATELETS PRESENT; NEUTROPHIL 93 % (42-75); TOTAL CELLS COUNTED 100
--- NOTE | 2017-05-16 12:53 | CP.PCM.PN ---
Subjective - Date & Time of Evaluation Date of Evaluation: 05/16/17 Time of Evaluation: 12:41 - Subjective Subjective: Pt s/e. No c/o. AvSS. [id number](? steroids) chest tube-No air leaks and scanty drainage. cxr-No pnemo and SQ emphysema diminished. Step climing test yesterday-able to climb up 28 steps in 15 minutes-desaturated to 83 recovered back to normal after one minute of rest-this is equivalent to Vo2Max(maximum O2 consumption) of less than 10 ml/Kg/Min,+ FEV1,37% DLCO. 21% of predicted + PCO2, 47-55 seem to suggest that he is to be treated alternative methods other than surgery. a/p: Contine current care. Heimlich valve on Friday. Objective - Vital Signs/Intake and Output Vital Signs (last 24 hours): Temp Pulse Resp BP Pulse Ox 97.8 F 103 H 26 H 124/66 96 05/16/17 12:00 05/16/17 12:00 05/16/17 12:00 05/16/17 12:00 05/16/17 12:00 Intake and Output: 05/16/17 05/16/17 06:59 18:59 Intake Total 85 50 Output Total 152 400 Balance -67 -350 - Medications Medications: Current Medications Albuterol Sulfate (Albuterol 0.083% Inhal Magdalene (2.5 Mg/3 Ml) Ud) 2.5 mg INH RQ4 PRN PRN Reason: Shortness of Breath Albuterol/Ipratropium (Duoneb 3 Mg/0.5 Mg (3 Ml) Ud) 3 ml INH RQID [facility] Last Admin: 05/16/17 11:25 Dose: 3 ml Enoxaparin Sodium (Lovenox) 40 mg SC DAILY [facility] PRN Reason: Protocol Last Admin: 05/16/17 08:56 Dose: 40 mg Hydrocortisone Sodium Succinate (Solu-Cortef) 50 mg IV Q12 [facility] Stop: 05/16/17 23:59 Azithromycin 500 mg/ Sodium (Chloride) 250 mls @ 250 mls/hr IVPB DAILY [facility] PRN Reason: Protocol Last Admin: 05/16/17 08:58 Dose: 250 mls/hr Morphine Sulfate (Morphine) 4 mg IVP Q4 PRN PRN Reason: Pain, severe (8-10) Morphine Sulfate (Morphine) 2 mg IVP Q4 PRN PRN Reason: Pain, moderate (4-7) Nicotine (Nicoderm Cq) 1 patch TD DAILY [facility] Last Admin: 05/16/17 08:56 Dose: 1 patch Oxycodone/Acetaminophen (Percocet 5/325 Mg Tab) 1 tab PO Q6 PRN PRN Reason: Pain, moderate (4-7) Stop: 05/17/17 18:58 Last Admin: 05/15/17 01:21 Dose: 1 tab Sennosides (Senokot Tab) 17.2 mg PO HS [facility] Last Admin: 05/15/17 22:00 Dose: 17.2 mg - Labs Labs: 05/16/17 04:50 05/16/17 04:50 PT 11.1 Seconds (9.8-13.1) 05/12/17 17:15 INR 1.0 (0.9-1.2) 05/12/17 17:15 APTT 35.2 Seconds (25.6-37.1) 05/12/17 17:15
[2017-05-17 06:43] LABS: BASO % 0.1 % (0.0-2.0); HEMATOCRIT 35.5 % (35.0-51.0); LYMPH # 0.6 K/uL (1.0-4.3); LYMPH % 3.6 % (20.0-40.0); MEAN CELL VOLUME 87.1 fl (80.0-94.0); MEAN CORPUSCULAR HEMOGLOBIN 28.4 pg (27.0-31.0); MEAN CORPUSCULAR HGB CONC 32.5 g/dL (33.0-37.0); MEAN PLATELET VOLUME 8.7 fl (7.2-11.7); MONO # 0.9 K/uL (0.0-0.8); MONO % 5.3 % (0.0-10.0); NEUT # 16.2 K/uL (1.8-7.0); PLATELET COUNT 201 K/uL (130-400); RED CELL DISTRIBUTION WIDTH 15.1 % (11.5-14.5); WHITE BLOOD COUNT 17.8 K/uL (4.8-10.8)
[2017-05-17 06:54] LABS: BLOOD UREA NITROGEN 21 mg/dl (9-20); CALCIUM 9.2 mg/dL (8.4-10.2); CARBON DIOXIDE 33 mmol/L (22-30); CHLORIDE 102 mmol/L (98-107); GFR AFRICAN-AMERICAN > 60; GLUCOSE,RANDOM 125 mg/dL (75-110); POTASSIUM 3.9 MMOL/L (3.6-5.0); SODIUM 142 mmol/l (132-148)
[2017-05-17] MEDS: Albuterol-Ipratrop 3 mg / 0.5 (3 ml) UD INH SCH ×2 (07:27→11:15)
[2017-05-17] MEDS: Enoxaparin 40 mg Syringe SC SCH (09:27)
--- NOTE | 2017-05-17 10:35 | CP.PCM.PN ---
Subjective - Date & Time of Evaluation Date of Evaluation: 05/17/17 Time of Evaluation: 08:30 - Subjective Subjective: Surgery- Dr. Akers Patient seen and examined at bedside this morning. No acute events overnight. Transferred from ICU to [facility]. Chest tube to gravity. Denies fevers, chills, nausea, vomiting, diarrhea. Dressing changed at bedside Objective - Vital Signs/Intake and Output Vital Signs (last 24 hours): Temp Pulse Resp BP Pulse Ox 98.1 F 69 18 147/72 94 L 05/17/17 08:00 05/17/17 08:00 05/17/17 08:00 05/17/17 08:00 05/17/17 08:00 Intake and Output: 05/17/17 05/17/17 06:59 18:59 Intake Total 200 Output Total 355 Balance -155 - Medications Medications: Current Medications Albuterol Sulfate (Albuterol 0.083% Inhal Magdalene (2.5 Mg/3 Ml) Ud) 2.5 mg INH RQ4 PRN PRN Reason: Shortness of Breath Albuterol/Ipratropium (Duoneb 3 Mg/0.5 Mg (3 Ml) Ud) 3 ml INH RQID [facility] Last Admin: 05/17/17 07:27 Dose: 3 ml Enoxaparin Sodium (Lovenox) 40 mg SC DAILY [facility] PRN Reason: Protocol Last Admin: 05/17/17 09:27 Dose: 40 mg Azithromycin 500 mg/ Sodium (Chloride) 250 mls @ 250 mls/hr IVPB DAILY [facility] PRN Reason: Protocol Last Admin: 05/16/17 08:58 Dose: 250 mls/hr Morphine Sulfate (Morphine) 4 mg IVP Q4 PRN PRN Reason: Pain, severe (8-10) Morphine Sulfate (Morphine) 2 mg IVP Q4 PRN PRN Reason: Pain, moderate (4-7) Nicotine (Nicoderm Cq) 1 patch TD DAILY [facility] Last Admin: 05/17/17 09:28 Dose: 1 patch Oxycodone/Acetaminophen (Percocet 5/325 Mg Tab) 1 tab PO Q6 PRN PRN Reason: Pain, moderate (4-7) Stop: 05/17/17 18:58 Last Admin: 05/15/17 01:21 Dose: 1 tab Sennosides (Senokot Tab) 17.2 mg PO [facility] Last Admin: 05/16/17 21:31 Dose: 17.2 mg - Labs Labs: 05/17/17 05:30 05/17/17 05:30 PT 11.1 Seconds (9.8-13.1) 05/12/17 17:15 INR 1.0 (0.9-1.2) 05/12/17 17:15 APTT 35.2 Seconds (25.6-37.1) 05/12/17 17:15 - Constitutional Appears: Non-toxic, No Acute Distress - Eye Exam Eye Exam: EOMI. absent: Scleral icterus - ENT Exam ENT Exam: Mucous Membranes Moist - Respiratory Exam Respiratory Exam: Chest Wall Tenderness, Decreased Breath Sounds, NORMAL BREATHING PATTERN. absent: Accessory Muscle Use, Respiratory Distress - Cardiovascular Exam Cardiovascular Exam: +S1, +S2. absent: Bradycardia, Tachycardia - GI/Abdominal Exam GI & Abdominal Exam: Soft. absent: Distended, Firm, Guarding, Rigid, Tenderness - Extremities Exam Extremities Exam: absent: Calf Tenderness - Neurological Exam Neurological Exam: Alert, Awake, Oriented x3 - Skin Skin Exam: Normal Color, Warm Assessment and Plan - Assessment and Plan (Free Text) Assessment: 86M w/ subQ emphysema and improved (R) pneumothorax s/p bedside (R) Chest tube placement POD#5 Plan: daily CXR RCT to water seal vitals check repeat Chest CT planned for Friday pending stable CXR Heimlich valve vs pleurodesis this week Further recs per Dr. Delphine Odell PGY1
[2017-05-17 11:05] LABS: NEUTROPHIL 88 % (42-75); TOTAL CELLS COUNTED 100
[2017-05-17] MEDS: Azithromycin 500 MG in Sodium Chloride 0.9% 250 ML IVPB SCH (11:54)
[2017-05-17] MEDS ORDERED: Ipratropium 0.02% Inhal Soln (0.5 mg/2.5 ml) UD IH SCH (13:00)
--- NOTE | 2017-05-17 13:27 | CP.PCM.PN ---
Subjective - Date & Time of Evaluation Date of Evaluation: 05/17/17 Time of Evaluation: 11:45 - Subjective Subjective: Patient seen and examined at bedside. He appears comfortably lying upright in bed in good spirits. Patient remains on O2 via NC with chest tube to water seal. He has reduced appetite but is tolerating ensure shake meal supplements. Currently patient denies chest pain, sob, abdominal pain, nausea or vomiting. Tachycardia reported, usually after albuterol treatments, which have been reduced to PRN. Objective - Vital Signs/Intake and Output Vital Signs (last 24 hours): Temp Pulse Resp BP Pulse Ox 97.3 F L 114 H 18 124/70 95 05/17/17 13:00 05/17/17 13:00 05/17/17 13:00 05/17/17 13:00 05/17/17 13:00 Intake and Output: 05/17/17 05/17/17 06:59 18:59 Intake Total 200 Output Total 355 Balance -155 - Medications Medications: Current Medications Albuterol Sulfate (Albuterol 0.083% Inhal Magdalene (2.5 Mg/3 Ml) Ud) 2.5 mg INH RQ4 PRN PRN Reason: Shortness of Breath Enoxaparin Sodium (Lovenox) 40 mg SC DAILY [facility] PRN Reason: Protocol Last Admin: 05/17/17 09:27 Dose: 40 mg Azithromycin 500 mg/ Sodium (Chloride) 250 mls @ 250 mls/hr IVPB DAILY [facility] PRN Reason: Protocol Last Admin: 05/17/17 11:54 Dose: 250 mls/hr Ipratropium [place] (Atrovent) 0.5 mg IH RQID [facility] Morphine Sulfate (Morphine) 4 mg IVP Q4 PRN PRN Reason: Pain, severe (8-10) Morphine Sulfate (Morphine) 2 mg IVP Q4 PRN PRN Reason: Pain, moderate (4-7) Nicotine (Nicoderm Cq) 1 patch TD DAILY [facility] Last Admin: 05/17/17 09:28 Dose: 1 patch Oxycodone/Acetaminophen (Percocet 5/325 Mg Tab) 1 tab PO Q6 PRN PRN Reason: Pain, moderate (4-7) Stop: 05/17/17 18:58 Last Admin: 05/15/17 01:21 Dose: 1 tab Sennosides (Senokot Tab) 17.2 mg PO HS [facility] Last Admin: 05/16/17 21:31 Dose: 17.2 mg - Labs Labs: 05/17/17 05:30 05/17/17 05:30 PT 11.1 Seconds (9.8-13.1) 05/12/17 17:15 INR 1.0 (0.9-1.2) 05/12/17 17:15 APTT 35.2 Seconds (25.6-37.1) 05/12/17 17:15 - Constitutional Appears: No Acute Distress - Head Exam Head Exam: ATRAUMATIC - Eye Exam Eye Exam: EOMI, PERRL - ENT Exam ENT Exam: Mucous Membranes Moist - Respiratory Exam Respiratory Exam: absent: Respiratory Distress Additional comments: Right sided chest tube in place to water seal with clean dressings. Minimal tenderness around chest tube site. Subcutaneous emphysema present along right chest wall extending towards the neck which is slightly improved. B/L air entry present, but decreased at left lower lung field. Scattered rhonchi present b/l. - Cardiovascular Exam Cardiovascular Exam: Tachycardia, REGULAR RHYTHM, +S1, +S2 - GI/Abdominal Exam GI & Abdominal Exam: Soft, Normal Bowel Sounds. absent: Distended, Tenderness - Extremities Exam Extremities Exam: Normal Capillary Refill. absent: Calf Tenderness, Pedal Edema - Neurological Exam Neurological Exam: Alert, Awake, Oriented x3 - Psychiatric Exam Psychiatric exam: Normal Affect, Normal Mood - Skin Skin Exam: Dry, Warm Assessment and Plan - Assessment and Plan (Free Text) Assessment: 86 y/o M with newly diagnosed COPD secondary to 70 pack year smoking history admitted for right sided pneumothorax. Patient is s/p chest tube placement on . Currently day 5. Plan: Right-sided Pneumothorax -Likely secondary to ruptured bullae -Chest tube placed on 05/13. Currently on water seal. -Chest xray today reveals stable position of chest tube within right pleural space and no evident pneumothorax or pleural effusion. -PFTs revealed severe restrictive ventilatory and diffusion defect. -Thoracic Surgery following patient and recommend Heimlich valve vs pleurodesis on Friday. -Repeat chest CT planned for Friday. -Continue daily CXR -Percocet prn for pain COPD, newly diagnosed -Associated with 70+ pack year history -O2 via NC -Continue azithromycin daily per ICU -Pulmonology recommendations appreciated by Dr Horowitz -Atrovent QID [facility] -Albuterol PRN Leukocytosis -WBC improved slightly today from 18.4 > 17.8 -Patient remains afebrile -Procalcitonin wnl -Lactic acid wnl -Follow CBC Normocytic Anemia -Stable, Hbg 11.6 -Will monitor DVT prophylaxis -Lovenox 40mg SC daily -SCDs
--- NOTE | 2017-05-17 14:13 | RAD ---
PROCEDURE: CHEST RADIOGRAPH, 1 VIEW HISTORY: pneumothorax follow up COMPARISON: None available. FINDINGS: LUNGS: Clear. PLEURA: Chest tube in place. No gross pneumothorax. Extensive subcutaneous emphysema. CARDIOVASCULAR: Normal. OSSEOUS STRUCTURES: No significant abnormalities. VISUALIZED UPPER ABDOMEN: Normal. OTHER FINDINGS: None. IMPRESSION: Chest tube in place. No gross pneumothorax. Extensive subcutaneous emphysema.
[2017-05-17] MEDS: Ipratropium 0.02% Inhal Soln (0.5 mg/2.5 ml) UD IH SCH ×2 (15:04→19:20)
--- NOTE | 2017-05-18 06:00 | CP.PCM.PN ---
Subjective - Date & Time of Evaluation Date of Evaluation: 05/18/17 Time of Evaluation: 05:00 - Subjective Subjective: Thoracic Surgery Dr. Akers Pt S&E @bedside. NAEO. pt sleeping comfortably. (R) chest tube to water seal. air leak present. no CP, SOB, F/C. Objective - Vital Signs/Intake and Output Vital Signs (last 24 hours): Temp Pulse Resp BP Pulse Ox 98.3 F 64 16 148/76 97 05/18/17 04:12 05/18/17 04:12 05/18/17 04:12 05/18/17 04:12 05/18/17 04:12 Intake and Output: 05/17/17 05/18/17 18:59 05:59 Intake Total 1140 Output Total 710 Balance 430 - Medications Medications: Current Medications Albuterol Sulfate (Albuterol 0.083% Inhal Magdalene (2.5 Mg/3 Ml) Ud) 2.5 mg INH RQ4 PRN PRN Reason: Shortness of Breath Enoxaparin Sodium (Lovenox) 40 mg SC DAILY [facility] PRN Reason: Protocol Last Admin: 05/17/17 09:27 Dose: 40 mg Azithromycin 500 mg/ Sodium (Chloride) 250 mls @ 250 mls/hr IVPB DAILY [facility] PRN Reason: Protocol Last Admin: 05/17/17 11:54 Dose: 250 mls/hr Ipratropium [place] (Atrovent) 0.5 mg IH RQID [facility] Last Admin: 05/17/17 19:20 Dose: 0.5 mg Morphine Sulfate (Morphine) 4 mg IVP Q4 PRN PRN Reason: Pain, severe (8-10) Morphine Sulfate (Morphine) 2 mg IVP Q4 PRN PRN Reason: Pain, moderate (4-7) Nicotine (Nicoderm Cq) 1 patch TD DAILY [facility] Last Admin: 05/17/17 09:28 Dose: 1 patch Sennosides (Senokot Tab) 17.2 mg PO HS [facility] Last Admin: 05/17/17 22:27 Dose: Not Given - Labs Labs: 05/17/17 05:30 05/17/17 05:30 PT 11.1 Seconds (9.8-13.1) 05/12/17 17:15 INR 1.0 (0.9-1.2) 05/12/17 17:15 APTT 35.2 Seconds (25.6-37.1) 05/12/17 17:15 - Constitutional Appears: Non-toxic, No Acute Distress - Head Exam Head Exam: NORMAL INSPECTION - Eye Exam Eye Exam: Normal appearance - ENT Exam ENT Exam: Mucous Membranes Moist - Respiratory Exam Respiratory Exam: NORMAL BREATHING PATTERN. absent: Accessory Muscle Use, Respiratory Distress Additional comments: dressing c/d/i - Cardiovascular Exam Cardiovascular Exam: absent: Bradycardia, Tachycardia - GI/Abdominal Exam GI & Abdominal Exam: absent: Distended - Extremities Exam Extremities Exam: Normal Inspection - Neurological Exam Neurological Exam: Alert, Awake - Psychiatric Exam Psychiatric exam: Normal Affect, Normal Mood - Skin Skin Exam: Dry, Normal Color, Warm Assessment and Plan - Assessment and Plan (Free Text) Assessment: 86 y/o M w/ subQ emphysema and improved (R) pneumothorax s/p bedside (R) Chest tube placement POD#6 - cont daily CXR - cont chest tube to water seal - monitor vitals - repeat Chest CT planned for Friday pending stable CXR - Heimlich valve vs pleurodesis Friday pending CXR/Chest CT results - Further recs per Dr. Delphine Coyle DO PGY2
[2017-05-18] MEDS: Ipratropium 0.02% Inhal Soln (0.5 mg/2.5 ml) UD IH SCH ×4 (07:19→19:54)
[2017-05-18 07:53] LABS: BASO % 0.2 % (0.0-2.0); EOS # 0.4 K/uL (0.0-0.7); EOS % 2.3 % (0.0-4.0); HEMATOCRIT 36.9 % (35.0-51.0); LYMPH # 1.1 K/uL (1.0-4.3); LYMPH % 7.1 % (20.0-40.0); MEAN CELL VOLUME 86.2 fl (80.0-94.0); MEAN CORPUSCULAR HEMOGLOBIN 28.2 pg (27.0-31.0); MEAN CORPUSCULAR HGB CONC 32.7 g/dL (33.0-37.0); MEAN PLATELET VOLUME 8.7 fl (7.2-11.7); MONO # 1.2 K/uL (0.0-0.8); MONO % 7.4 % (0.0-10.0); NEUT # 12.9 K/uL (1.8-7.0); RED CELL DISTRIBUTION WIDTH 15.1 % (11.5-14.5); WHITE BLOOD COUNT 15.5 K/uL (4.8-10.8)
[2017-05-18 07:55] LABS: BLOOD UREA NITROGEN 21 mg/dl (9-20); CALCIUM 9.1 mg/dL (8.4-10.2); CARBON DIOXIDE 30 mmol/L (22-30); CHLORIDE 99 mmol/L (98-107); GFR AFRICAN-AMERICAN > 60; GLUCOSE,RANDOM 73 mg/dL (75-110); POTASSIUM 4.1 MMOL/L (3.6-5.0); SODIUM 135 mmol/l (132-148)
--- NOTE | 2017-05-18 08:13 | CP.PCM.PN ---
Subjective - Date & Time of Evaluation Date of Evaluation: 05/18/17 Time of Evaluation: 07:20 - Subjective Subjective: Patient seen and examined this morning at bedside. No acute overnight event. Patient remains on O2 via NC with chest tube to water seal. Reports feeling well , good sleeping. Denies fever, nausea, vomiting, chills, sob, chest pain, palpitations, no abdominal pain. Had a BM yesterday. Objective - Vital Signs/Intake and Output Vital Signs (last 24 hours): Temp Pulse Resp BP Pulse Ox 98.3 F 64 16 148/76 97 05/18/17 04:12 05/18/17 04:12 05/18/17 04:12 05/18/17 04:12 05/18/17 04:12 Intake and Output: 05/18/17 05/18/17 06:59 18:59 Intake Total Output Total Balance - Medications Medications: Current Medications Albuterol Sulfate (Albuterol 0.083% Inhal Magdalene (2.5 Mg/3 Ml) Ud) 2.5 mg INH RQ4 PRN PRN Reason: Shortness of Breath Enoxaparin Sodium (Lovenox) 40 mg SC DAILY [facility] PRN Reason: Protocol Last Admin: 05/17/17 09:27 Dose: 40 mg Azithromycin 500 mg/ Sodium (Chloride) 250 mls @ 250 mls/hr IVPB DAILY [facility] PRN Reason: Protocol Last Admin: 05/17/17 11:54 Dose: 250 mls/hr Ipratropium [place] (Atrovent) 0.5 mg IH RQID [facility] Last Admin: 05/18/17 07:19 Dose: 0.5 mg Morphine Sulfate (Morphine) 4 mg IVP Q4 PRN PRN Reason: Pain, severe (8-10) Morphine Sulfate (Morphine) 2 mg IVP Q4 PRN PRN Reason: Pain, moderate (4-7) Nicotine (Nicoderm Cq) 1 patch TD DAILY [facility] Last Admin: 05/17/17 09:28 Dose: 1 patch Sennosides (Senokot Tab) 17.2 mg PO HS [facility] Last Admin: 05/17/17 22:27 Dose: Not Given - Labs Labs: 05/18/17 06:00 05/18/17 06:00 PT 11.1 Seconds (9.8-13.1) 10/30/17 17:15 INR 1.0 (0.9-1.2) 05/12/17 17:15 APTT 35.2 Seconds (25.6-37.1) 05/12/17 17:15 - Constitutional Appears: Well, No Acute Distress - Head Exam Head Exam: NORMAL INSPECTION - Eye Exam Eye Exam: EOMI Pupil Exam: PERRL - Neck Exam Neck Exam: Normal Inspection - Respiratory Exam Respiratory Exam: absent: Accessory Muscle Use Additional comments: R sided chest tube in place to water seal, clean dressings. Subcutaneous emphysema present on right chest wall extending towards the neck. B/L air entry present, but decreased at left lower lung field. Scattered rhonchi present b/l. - Cardiovascular Exam Cardiovascular Exam: Tachycardia, REGULAR RHYTHM, +S1, +S2 - GI/Abdominal Exam GI & Abdominal Exam: Distended, Soft, Normal Bowel Sounds. absent: Tenderness - Extremities Exam Extremities Exam: Normal Inspection. absent: Calf Tenderness, Pedal Edema - Neurological Exam Neurological Exam: Alert, Awake, Oriented x3 - Skin Skin Exam: Dry, Warm Assessment and Plan - Assessment and Plan (Free Text) Assessment: 86 y/o M with newly diagnosed COPD secondary to 70 pack year smoking history admitted for right sided pneumothorax. Patient is s/p chest tube placement on . Currently day 6. Plan: Right-sided Pneumothorax -Likely secondary to ruptured bullae -Chest tube placed on water seal. -Chest xray today reveals stable position of chest tube within right pleural space with diffuse subcutaneous emphysema, no definitive pneumothorax. -PFTs revealed severe restrictive ventilatory and diffusion defect. -Thoracic Surgery following patient and recommend Heimlich valve vs pleurodesis on Friday. -Repeat chest CT planned for Friday. -Continue daily CXR -Percocet prn for pain COPD, newly diagnosed -Associated with 70+ pack year history -O2 via NC -Continue azithromycin daily per ICU -Pulmonology recommendations appreciated by Dr Horowitz -Wes SEVERINO HEIDY -Albuterol PRN Leukocytosis -WBC improved slightly today from 17.8 > 15.5 -Patient remains afebrile -Procalcitonin wnl -Lactic acid wnl -Follow CBC Normocytic Anemia, improving -Stable, Hbg 12.1 -Will monitor DVT prophylaxis -Lovenox 40mg SC daily -SCDs
[2017-05-18] MEDS: Azithromycin 500 MG in Sodium Chloride 0.9% 250 ML IVPB SCH (08:38)
[2017-05-18] MEDS: Enoxaparin 40 mg Syringe SC SCH (08:40)
[2017-05-18] MEDS ORDERED: Sodium Chloride 0.9% 1,000 ML IV SCH (11:30)
--- NOTE | 2017-05-18 12:31 | RAD ---
HISTORY: Pneumothorax, chest tube COMPARISON: No prior. FINDINGS: LUNGS: Mild bibasilar interstitial changes. Diffuse pulmonary hyperinflation. PLEURA: Right chest tube in place. No definite pneumothorax. Bilateral pleural thickening. CARDIOVASCULAR: Normal. OSSEOUS STRUCTURES: No significant abnormalities. VISUALIZED UPPER ABDOMEN: Normal. OTHER FINDINGS: Diffuse subcutaneous emphysema. IMPRESSION: Right chest tube in place with diffuse subcutaneous emphysema. No definite pneumothorax
--- NOTE | 2017-05-19 07:34 | CP.PCM.PN ---
Subjective - Date & Time of Evaluation Date of Evaluation: 05/19/17 Time of Evaluation: 07:25 - Subjective Subjective: Patient seen and examined this morning at bedside, no acute overnight events. Patient remains on O2 via NC with chest tube to water seal. Reports feeling well although states poor appetite but is tolerating well ensure supplement. Denies chest pain, sob, abdominal pain, nausea or vomiting. Patient has been tachycardic. Patient for repeat chest CT scan today, tube management depends of results, spoken with Thor surgery resident at bedside. Objective - Vital Signs/Intake and Output Vital Signs (last 24 hours): Temp Pulse Resp BP Pulse Ox 98.3 F 102 H 18 143/72 96 05/19/17 05:26 05/19/17 05:26 05/19/17 05:26 05/19/17 05:26 05/19/17 05:26 Intake and Output: 05/19/17 05/19/17 06:59 18:59 Intake Total 2780 Output Total 513 Balance 2267 - Medications Medications: Current Medications Albuterol Sulfate (Albuterol 0.083% Inhal Magdalene (2.5 Mg/3 Ml) Ud) 2.5 mg INH RQ4 PRN PRN Reason: Shortness of Breath Azithromycin 500 mg/ Sodium (Chloride) 250 mls @ 250 mls/hr IVPB DAILY [facility] PRN Reason: Protocol Last Admin: 05/18/17 08:38 Dose: 250 mls/hr Ipratropium [place] (Atrovent) 0.5 mg IH RQID [facility] Last Admin: 05/18/17 19:54 Dose: 0.5 mg Morphine Sulfate (Morphine) 4 mg IVP Q4 PRN PRN Reason: Pain, severe (8-10) Morphine Sulfate (Morphine) 2 mg IVP Q4 PRN PRN Reason: Pain, moderate (4-7) Nicotine (Nicoderm Cq) 1 patch TD DAILY [facility] Last Admin: 05/18/17 08:39 Dose: 1 patch Sennosides (Senokot Tab) 17.2 mg PO HS [facility] Last Admin: 05/18/17 21:31 Dose: Not Given - Labs Labs: 05/18/17 06:00 05/18/17 06:00 PT 11.1 Seconds (9.8-13.1) 05/12/17 17:15 INR 1.0 (0.9-1.2) 05/12/17 17:15 APTT 35.2 Seconds (25.6-37.1) 05/12/17 17:15 - Constitutional Appears: Well, No Acute Distress - Head Exam Head Exam: NORMAL INSPECTION - Eye Exam Eye Exam: EOMI, PERRL - ENT Exam ENT Exam: Mucous Membranes Moist - Respiratory Exam Respiratory Exam: absent: Chest Wall Tenderness Additional comments: R sided chest tube in place to water seal, clean dressings. Subcutaneous emphysema present on both chest henley, lesser than yesterday. B/L air entry present, but decreased b/l. Scattered rhonchi present b/l. - Cardiovascular Exam Cardiovascular Exam: REGULAR RHYTHM, +S1, +S2 - GI/Abdominal Exam GI & Abdominal Exam: Soft, Normal Bowel Sounds. absent: Distended, Tenderness - Extremities Exam Extremities Exam: Normal Inspection. 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 Patient is s/p chest tube placement on . Currently day 7. Plan: Right-sided Pneumothorax -Likely secondary to ruptured bullae -Chest tube placed on water seal. -Chest xray today reveals stable position of chest tube within right pleural space with diffuse subcutaneous emphysema, no definitive pneumothorax. -Repeat chest CT today: Mild increase in R pneumothorax, minimal R pleural effusion is identified, limited b/l atelectasis, extensive COPD. -Thoracic Surgery following patient recommend pleurodesis at this time possible for tomorrow. -Continue daily CXR -Percocet prn for pain COPD, newly diagnosed -Associated with 70+ pack year history -O2 via NC -Continue azithromycin daily per ICU( current day 7) -PFTs revealed severe restrictive ventilatory and diffusion defect -Pulmonology recommendations appreciated by Dr Horowitz -Wes SEVERINO HEIDY -Albuterol PRN Tachycardia -Unknow cause -s/p 1L NSS -Start cardioselective beta shilo Metoprolol 25mg PO BID due to lung compromise -Close monitoring on telemetry Leukocytosis -WBC improved slightly from 17.8 > 15.5 -Patient remains afebrile -Follow CBC DVT prophylaxis -Stop Lovenox 40mg SC -SCDs
[2017-05-19] MEDS: Ipratropium 0.02% Inhal Soln (0.5 mg/2.5 ml) UD IH SCH ×4 (07:43→19:20)
[2017-05-19] MEDS: Albuterol 0.083% Inhal Sol (2.5 mg/3 mL) UD INH PRN ×3 (07:43→19:20)
[2017-05-19] MEDS: Azithromycin 500 MG in Sodium Chloride 0.9% 250 ML IVPB SCH (08:32)
[2017-05-19] MEDS ORDERED: Enoxaparin 40 mg Syringe SC SCH (09:00)
--- NOTE | 2017-05-19 09:27 | CP.PCM.PN ---
Subjective - Date & Time of Evaluation Date of Evaluation: 05/19/17 Time of Evaluation: 07:00 - Subjective Subjective: Thoracic Surgery Dr. Akers Pt S&E @bedside. SALO. denies CP, SOB, F/C. tolerating diet. Objective - Vital Signs/Intake and Output Vital Signs (last 24 hours): Temp Pulse Resp BP Pulse Ox 97.3 F L 102 H 18 134/69 96 05/19/17 08:00 05/19/17 08:00 05/19/17 08:00 05/19/17 08:00 05/19/17 08:00 Intake and Output: 05/19/17 05/19/17 06:59 18:59 Intake Total 2780 Output Total 513 Balance 2267 - Medications Medications: Current Medications Albuterol Sulfate (Albuterol 0.083% Inhal Magdalene (2.5 Mg/3 Ml) Ud) 2.5 mg INH RQ4 PRN PRN Reason: Shortness of Breath Last Admin: 05/19/17 07:43 Dose: 2.5 mg Enoxaparin Sodium (Lovenox) 40 mg SC DAILY [facility] PRN Reason: Protocol Last Admin: 05/19/17 09:16 Dose: 40 mg Azithromycin 500 mg/ Sodium (Chloride) 250 mls @ 250 mls/hr IVPB DAILY [facility] PRN Reason: Protocol Last Admin: 05/19/17 08:32 Dose: 250 mls/hr Ipratropium [place] (Atrovent) 0.5 mg IH RQID [facility] Last Admin: 05/19/17 07:43 Dose: 0.5 mg Morphine Sulfate (Morphine) 4 mg IVP Q4 PRN PRN Reason: Pain, severe (8-10) Morphine Sulfate (Morphine) 2 mg IVP Q4 PRN PRN Reason: Pain, moderate (4-7) Nicotine (Nicoderm Cq) 1 patch TD DAILY [facility] Last Admin: 05/19/17 08:31 Dose: 1 patch Sennosides (Senokot Tab) 17.2 mg PO HS [facility] Last Admin: 05/18/17 21:31 Dose: Not Given - Labs Labs: 05/18/17 06:00 05/18/17 06:00 PT 11.1 Seconds (9.8-13.1) 05/12/17 17:15 INR 1.0 (0.9-1.2) 05/12/17 17:15 APTT 35.2 Seconds (25.6-37.1) 05/12/17 17:15 - Constitutional Appears: Non-toxic, No Acute Distress - Head Exam Head Exam: NORMAL INSPECTION - Eye Exam Eye Exam: Normal appearance - ENT Exam ENT Exam: Mucous Membranes Moist - Respiratory Exam Respiratory Exam: NORMAL BREATHING PATTERN. absent: Accessory Muscle Use, Respiratory Distress Additional comments: (R) chest tube in place dressing c/d/i subQ emphysema palpable over R chest - Cardiovascular Exam Cardiovascular Exam: absent: Bradycardia, Tachycardia - GI/Abdominal Exam GI & Abdominal Exam: Soft. absent: Distended, Tenderness - Extremities Exam Extremities Exam: Normal Inspection - Neurological Exam Neurological Exam: Alert, Awake, Oriented x3 - Psychiatric Exam Psychiatric exam: Normal Affect, Normal Mood - Skin Skin Exam: Dry, Intact, Normal Color, Warm Assessment and Plan - Assessment and Plan (Free Text) Assessment: 86 y/o M w/ subQ emphysema and improved (R) pneumothorax POD#7 s/p bedside (R) Chest tube placement - f/u Chest CT results today - Heimlich valve vs pleurodesis pending Chest CT results - cont chest tube to water seal - monitor vitals - Further recs per Dr. Delphine Coyle DO PGY2
--- NOTE | 2017-05-19 09:27 | CP.PCM.PN ---
Subjective - Date & Time of Evaluation Date of Evaluation: 05/19/17 Time of Evaluation: 09:27 - Subjective Subjective: Appears comfortable art rest. Continues to have air leak in PleurEvac and increased subcut emphysema. Breath sounds are essentially the same and remain difficult to auscultate on the right anteriorly. Neck remains supple with midline trachea. CT chest to be done today for further eval. May need a second chest tube on the right. Continue on ipratropium for bronchodilation. Objective - Vital Signs/Intake and Output Vital Signs (last 24 hours): Temp Pulse Resp BP Pulse Ox 97.3 F L 102 H 18 134/69 96 05/19/17 08:00 05/19/17 08:00 05/19/17 08:00 05/19/17 08:00 05/19/17 08:00 Intake and Output: 05/18/17 05/19/17 23:59 11:59 Intake Total 2250 530 Output Total 5 508 Balance 2245 22 - Medications Medications: Current Medications Albuterol Sulfate (Albuterol 0.083% Inhal Magdalene (2.5 Mg/3 Ml) Ud) 2.5 mg INH RQ4 PRN PRN Reason: Shortness of Breath Last Admin: 05/19/17 07:43 Dose: 2.5 mg Enoxaparin Sodium (Lovenox) 40 mg SC DAILY [facility] PRN Reason: Protocol Last Admin: 05/19/17 09:16 Dose: 40 mg Azithromycin 500 mg/ Sodium (Chloride) 250 mls @ 250 mls/hr IVPB DAILY [facility] PRN Reason: Protocol Last Admin: 05/19/17 08:32 Dose: 250 mls/hr Ipratropium [place] (Atrovent) 0.5 mg IH RQID [facility] Last Admin: 05/19/17 07:43 Dose: 0.5 mg Morphine Sulfate (Morphine) 4 mg IVP Q4 PRN PRN Reason: Pain, severe (8-10) Morphine Sulfate (Morphine) 2 mg IVP Q4 PRN PRN Reason: Pain, moderate (4-7) Nicotine (Nicoderm Cq) 1 patch TD DAILY [facility] Last Admin: 05/19/17 08:31 Dose: 1 patch Sennosides (Senokot Tab) 17.2 mg PO HS [facility] Last Admin: 05/18/17 21:31 Dose: Not Given - Labs Labs: 05/18/17 06:00 05/18/17 06:00 PT 11.1 Seconds (9.8-13.1) 05/12/17 17:15 INR 1.0 (0.9-1.2) 05/12/17 17:15 APTT 35.2 Seconds (25.6-37.1) 05/12/17 17:15
--- NOTE | 2017-05-19 10:01 | RAD ---
HISTORY: right sided pneumothorax COMPARISON: Single frontal chest radiograph 05/18/2017. FINDINGS: LUNGS: No active pulmonary disease. PLEURA: Right-sided chest tube is unchanged in position with extensive emphysematous changes again seen at the right lateral chest wall extending up to the right supraclavicular fossa and extending over to the left delete supraclavicular fossa and left axilla. No significant pleural effusion identified, no definite pneumothorax apparent. CARDIOVASCULAR: Normal. OSSEOUS STRUCTURES: No significant abnormalities. VISUALIZED UPPER ABDOMEN: Normal. OTHER FINDINGS: None. IMPRESSION: Stable chest radiograph including right-sided chest tube placement. No definite pneumothorax bilaterally. Chest wall and supraclavicular fossa emphysematous changes are unchanged and remain greater at the right than left chest.
[2017-05-19] MEDS ORDERED: Iohexol 300 100 ML IJ ONE (11:07)
[2017-05-19] MEDS ORDERED: Sodium Chloride 0.9% 50 ML IV ONE (11:07)
[2017-05-19] MEDS: Saccharomyces Boulardi 250 mg Cap PO SCH ×2 (12:05→17:51)
--- NOTE | 2017-05-19 12:49 | CT ---
PROCEDURE: CT Chest with contrast HISTORY: eval residual ptx for CT removal COMPARISON: Chest CT with contrast 05/13/2017. TECHNIQUE: Contiguous axial images were obtained through the chest with intravenous contrast enhancement. Sagittal and coronal reconstructions were performed. IV contrast: Omnipaque 300, 95 cc. Radiation dose (DLP): 179.97 mGy-cm. This CT exam was performed using one or more of the following dose reduction techniques: Automated exposure control, adjustment of the mA and/or kV according to patient size, and/or use of iterative reconstruction technique. FINDINGS: LUNGS: Right-sided chest tube is identified placed terminating just proximal to the apex, retracted slightly as compared to prior chest CT 05/13/2017. Minimal right pneumothorax is slightly increased anteriorly and laterally at the mid to superior right lung zones and has also increased at the medial right base. Emphysematous changes at the right chest wall have also increased and extend over into the left chest wall anteriorly and at the level of the left axilla as well. Supraclavicular fossae emphysematous changes are identified increased bilaterally. No left pneumothorax. Extensive COPD changes are again seen bilaterally with interval bilateral dependent atelectasis identified. MEDIASTINUM: Mediastinum appears stable occluding cardiac size. No interval lymphadenopathy is appreciated. No mediastinal emphysema. The thoracic aorta and main pulmonary are flow tract remain normal in caliber. PLEURA: Trace right pleural effusion identified with pneumothorax at the right as discussed above. No left pleural effusion. BONES: No fracture. No destructive lesion. UPPER ABDOMEN: Small right renal cyst is again identified with the stomach now collapsed. OTHER FINDINGS: None. IMPRESSION: 1. Mild increase in right pneumothorax with right chest to minimally withdrawn with the tip still approaching the right apex once again. Minimal right pleural effusion is identified in the dependent right thoracic cavity. 2. Limited bilateral dependent atelectasis favored over infiltrates. 3. Extensive COPD changes are again appreciated. Findings were reviewed and discussed with Dr. Hernández 05/19/2017 11:35 a.m..
--- NOTE | 2017-05-19 13:58 | CP.PCM.PN ---
Subjective - Date & Time of Evaluation Date of Evaluation: 05/19/17 Time of Evaluation: 13:35 - Subjective Subjective: The pt s/e. No sob or complaints. Chest tube only tiny air leak on coughing. Chest tube has been on water seal x3 days with f/u daily chest xray to prepare him for Heimlich valve attachment. Cxr has been normal and pt has been asymptomatic. However, evaluation today revealed: SQ emphysema ,upper chest bilaterally(markedly increased) on Px. CT chest: Increased pneumo apex(where chest tube is positioned) and increased basilar pneumothorax. Massive SQ emphysema bilat R>>L. New left SQ emphysema It appears the pt needs more effective evacuation of air particularly from the basilar area. Plan to insert another chest tube and talc slurry pleurodesis in OR under fluroscopic guidance under local + Iv sedation tomorrow. d/w Drs. Willett, Carlos Manuel, and Adriana. I have also discussed with the pt's daughter about the procedure, complications such as persistent air leak after the procedure and possibility of , who accepted surgery without reservation. Objective - Vital Signs/Intake and Output Vital Signs (last 24 hours): Temp Pulse Resp BP Pulse Ox 98.4 F 107 H 20 144/63 97 05/19/17 12:35 05/19/17 12:35 05/19/17 12:35 05/19/17 12:35 05/19/17 12:35 Intake and Output: 05/19/17 05/19/17 06:59 18:59 Intake Total 2780 Output Total 513 Balance 2267 - Medications Medications: Current Medications Albuterol Sulfate (Albuterol 0.083% Inhal Magdalene (2.5 Mg/3 Ml) Ud) 2.5 mg INH RQ4 PRN PRN Reason: Shortness of Breath Last Admin: 05/19/17 07:43 Dose: 2.5 mg Azithromycin 500 mg/ Sodium (Chloride) 250 mls @ 250 mls/hr IVPB DAILY [facility] PRN Reason: Protocol Last Admin: 05/19/17 08:32 Dose: 250 mls/hr Ipratropium [place] (Atrovent) 0.5 mg IH RQID [facility] Last Admin: 05/19/17 11:23 Dose: Not Given Metoprolol Tartrate (Lopressor) 25 mg PO Q12 [facility] Morphine Sulfate (Morphine) 4 mg IVP Q4 PRN PRN Reason: Pain, severe (8-10) Morphine Sulfate (Morphine) 2 mg IVP Q4 PRN PRN Reason: Pain, moderate (4-7) Nicotine (Nicoderm Cq) 1 patch TD DAILY [facility] Last Admin: 05/19/17 08:31 Dose: 1 patch Saccharomyces Boulardii (Florastor) 250 mg PO BID [facility] Last Admin: 05/19/17 12:05 Dose: 250 mg Sennosides (Senokot Tab) 17.2 mg PO [facility] Last Admin: 05/18/17 21:31 Dose: Not Given - Labs Labs: 05/18/17 06:00 05/18/17 06:00 PT 11.1 Seconds (9.8-13.1) 05/12/17 17:15 INR 1.0 (0.9-1.2) 05/12/17 17:15 APTT 35.2 Seconds (25.6-37.1) 05/12/17 17:15
--- NOTE | 2017-05-19 21:57 | CARD ---
APPROVED REPORT EKG Measurement Heart [id number] CT [id number] <Conclusion> Sinus tachycardia with premature supraventricular complexes Otherwise normal ECG
[2017-05-20 05:34] LABS: BASO % 0.1 % (0.0-2.0); EOS # 0.1 K/uL (0.0-0.7); EOS % 0.3 % (0.0-4.0); HEMATOCRIT 33.2 % (35.0-51.0); LYMPH # 0.5 K/uL (1.0-4.3); LYMPH % 3.3 % (20.0-40.0); MEAN CELL VOLUME 86.6 fl (80.0-94.0); MEAN CORPUSCULAR HEMOGLOBIN 28.4 pg (27.0-31.0); MEAN CORPUSCULAR HGB CONC 32.8 g/dL (33.0-37.0); MEAN PLATELET VOLUME 7.8 fl (7.2-11.7); MONO # 1.2 K/uL (0.0-0.8); MONO % 7.5 % (0.0-10.0); NEUT # 14.6 K/uL (1.8-7.0); NEUT % 88.8 % (50.0-75.0); WHITE BLOOD COUNT 16.4 K/uL (4.8-10.8)
[2017-05-20 06:01] LABS: ALB/GLOB RATIO 0.9 (1.0-2.1); ALKALINE PHOSPHATASE 71 U/L (38-126); ALT/SGPT 29 U/L (21-72); AST/SGOT 29 U/L (17-59); BILIRUBIN,TOTAL 0.5 mg/dl (0.2-1.3); BLOOD UREA NITROGEN 25 mg/dl (9-20); CARBON DIOXIDE 31 mmol/L (22-30); CHLORIDE 104 mmol/L (98-107); GFR AFRICAN-AMERICAN > 60; GLUCOSE,RANDOM 126 mg/dL (75-110); POTASSIUM 3.8 MMOL/L (3.6-5.0); SODIUM 142 mmol/l (132-148); TOTAL PROTEIN 6.6 G/DL (6.3-8.2)
[2017-05-20 06:18] LABS: PARTIAL THROMBOPLASTIN TIME 31.3 Seconds (25.6-37.1)
[2017-05-20] MEDS: Ipratropium 0.02% Inhal Soln (0.5 mg/2.5 ml) UD IH SCH ×4 (07:28→19:50)
--- NOTE | 2017-05-20 07:36 | CP.PCM.PN ---
Subjective - Date & Time of Evaluation Date of Evaluation: 05/20/17 Time of Evaluation: 07:27 - Subjective Subjective: Patient seen and examined this morning at bedside lying comfortable on bed, no acute overnight events, remains on O2 via NC with chest tube to water seal. Reports feeling well, good sleeping through night. Denies fever, nausea, vomiting, chills, chest pain, palpitations, sob. Had a BM yesterday. Spoke with him about pleurodesis probably for today he understand and agree with procedure. Objective - Vital Signs/Intake and Output Vital Signs (last 24 hours): Temp Pulse Resp BP Pulse Ox 98.5 F 93 H 16 136/71 95 05/20/17 05:16 05/20/17 05:16 05/20/17 05:16 05/20/17 05:16 05/20/17 05:16 - Medications Medications: Current Medications Albuterol Sulfate (Albuterol 0.083% Inhal Magdalene (2.5 Mg/3 Ml) Ud) 2.5 mg INH RQ4 PRN PRN Reason: Shortness of Breath Last Admin: 05/19/17 19:20 Dose: 2.5 mg Azithromycin 500 mg/ Sodium (Chloride) 250 mls @ 250 mls/hr IVPB DAILY [facility] PRN Reason: Protocol Last Admin: 05/19/17 08:32 Dose: 250 mls/hr Dextrose/Sodium Chloride (Dextrose 5%-0.9% Ns 500 Ml) 500 mls @ 80 mls/hr IV .Q6H15M [facility] Stop: 05/21/17 03:44 Last Admin: 05/20/17 06:03 Dose: 80 mls/hr Ipratropium [place] (Atrovent) 0.5 mg IH RQID [facility] Last Admin: 05/19/17 19:20 Dose: 0.5 mg Metoprolol Tartrate (Lopressor) 25 mg PO Q12 [facility] Last Admin: 05/19/17 21:38 Dose: 25 mg Morphine Sulfate (Morphine) 4 mg IVP Q4 PRN PRN Reason: Pain, severe (8-10) Morphine Sulfate (Morphine) 2 mg IVP Q4 PRN PRN Reason: Pain, moderate (4-7) Nicotine (Nicoderm Cq) 1 patch TD DAILY [facility] Last Admin: 05/19/17 08:31 Dose: 1 patch Saccharomyces Boulardii (Florastor) 250 mg PO BID [facility] Last Admin: 05/19/17 17:51 Dose: 250 mg Sennosides (Senokot Tab) 17.2 mg PO HS [facility] Last Admin: 05/19/17 21:38 Dose: 17.2 mg - Labs Labs: 05/20/17 04:15 05/20/17 04:15 PT 13.5 Seconds (9.8-13.1) H 05/20/17 04:15 INR 1.2 (0.9-1.2) 05/20/17 04:15 APTT 31.3 Seconds (25.6-37.1) 05/20/17 04:15 - Constitutional Appears: Well, No Acute Distress - Head Exam Head Exam: NORMAL INSPECTION - Eye Exam Eye Exam: EOMI, PERRL - Respiratory Exam Additional comments: R sided chest tube in place connected to water seal, dressing clean. Subcutaneous emphysema present on both chest henley, R>L, improving from yesterday. Decreased breath sound b/l. Scattered rhonchi present b/l. - Cardiovascular Exam Cardiovascular Exam: Tachycardia, REGULAR RHYTHM, +S1, +S2 - GI/Abdominal Exam GI & Abdominal Exam: Soft, Normal Bowel Sounds. 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 Patient is s/p chest tube placement on . Currently day 8. Will going today for second chest tube placement and talc pleurodesis. Plan: Right-sided Pneumothorax -Likely secondary to ruptured bullae -Chest tube placed on water seal. -Chest xray from yesterday reveals stable position of chest tube within right pleural space with diffuse subcutaneous emphysema, no definitive pneumothorax. -Repeat chest CT: Mild increase in R pneumothorax, minimal R pleural effusion is identified, limited b/l atelectasis, extensive COPD. -Thoracic Surgery on board, recommendations appreciated. -Patient will go for talc pleurodesis today. -Hydromorphone 0.5mg IV q4h prn for pain -Continue daily CXR COPD, newly diagnosed -Associated with 70+ pack year history -O2 via NC 2L/min -Continue azithromycin daily per ICU( current day 8) -Pulmonology recommendations appreciated by Dr Horowitz -Wes QID HEIDY -Albuterol PRN Tachycardia -Unknow cause -s/p 1L NSS last night -continue with cardioselective beta shilo Metoprolol 25mg PO BID due to lung compromise -Close monitoring on telemetry Leukocytosis -WBC improved slightly from 17.8>16.6 -Patient remains afebrile -Follow CBC DVT prophylaxis -Hold Lovenox 40mg SC until procedure done -SCDs
[2017-05-20] MEDS: Saccharomyces Boulardi 250 mg Cap PO SCH (09:20)
[2017-05-20] MEDS: Azithromycin 500 MG in Sodium Chloride 0.9% 250 ML IVPB SCH (10:14)
--- NOTE | 2017-05-20 11:07 | CP.PCM.PN ---
Subjective - Date & Time of Evaluation Date of Evaluation: 05/20/17 Time of Evaluation: 08:30 - Subjective Subjective: This case was discussed yesterday afternoon with the thoracic surgeon after CT scan of the thorax was completed. There appears to be further increase in the amount of pneumothorax on the right while the patient's chest tube was in place and connected to water seal. There was also increase the amount of subcutaneous emphysema noted. The patient himself did not appear to be in any further distress. Plan was to have a second chest tube insertion done in the OR today with an attempted talc pleurodesis. On exam the patient appears comfortable while at rest. Yesterday's CT scan as well as chest x-ray were reviewed. Patient's vital signs remained stable. The chest tube remains connected to water seal with no evidence of any ongoing air leak. Breath sounds are diminished bilaterally especially so on the right. No audible wheezing is appreciated. Auscultation is difficult because of the subcutaneous emphysema. Plan for insertion of second thoracostomy tube today. Objective - Vital Signs/Intake and Output Vital Signs (last 24 hours): Temp Pulse Resp BP Pulse Ox 97.9 F 93 H 18 136/71 96 05/20/17 07:38 05/20/17 09:21 05/20/17 07:38 05/20/17 09:21 05/20/17 07:38 Intake and Output: 05/19/17 05/20/17 23:59 11:59 Intake Total 1050 Output Total 20 Balance 1030 - Medications Medications: Current Medications Albuterol Sulfate (Albuterol 0.083% Inhal Magdalene (2.5 Mg/3 Ml) Ud) 2.5 mg INH RQ4 PRN PRN Reason: Shortness of Breath Last Admin: 05/19/17 19:20 Dose: 2.5 mg Hydromorphone HCl (Dilaudid) 0.25 mg IVP Q4H PRN PRN Reason: Pain, moderate (4-7) Hydromorphone HCl (Dilaudid) 0.5 mg IVP Q4H PRN PRN Reason: Pain, severe (8-10) Azithromycin 500 mg/ Sodium (Chloride) 250 mls @ 250 mls/hr IVPB DAILY [facility] PRN Reason: Protocol Last Admin: 05/20/17 10:14 Dose: 250 mls/hr Dextrose/Sodium Chloride (Dextrose 5%-0.9% Ns 500 Ml) 500 mls @ 80 mls/hr IV .Q6H15M [facility] Stop: 05/21/17 03:44 Last Admin: 05/20/17 10:20 Dose: 80 mls/hr Ipratropium [place] (Atrovent) 0.5 mg IH RQID [facility] Last Admin: 05/20/17 07:28 Dose: 0.5 mg Metoprolol Tartrate (Lopressor) 25 mg PO Q12 [facility] Last Admin: 05/20/17 09:21 Dose: 25 mg Nicotine (Nicoderm Cq) 1 patch TD DAILY [facility] Last Admin: 05/20/17 09:22 Dose: Not Given Saccharomyces Boulardii (Florastor) 250 mg PO BID [facility] Last Admin: 05/20/17 09:20 Dose: 250 mg Sennosides (Senokot Tab) 17.2 mg PO HS [facility] Last Admin: 05/19/17 21:38 Dose: 17.2 mg - Labs Labs: 05/20/17 04:15 05/20/17 04:15 PT 13.5 Seconds (9.8-13.1) H 05/20/17 04:15 INR 1.2 (0.9-1.2) 05/20/17 04:15 APTT 31.3 Seconds (25.6-37.1) 05/20/17 04:15
--- NOTE | 2017-05-20 13:13 | CP.PCM.PN ---
Subjective - Date & Time of Evaluation Date of Evaluation: 05/20/17 Time of Evaluation: 13:11 - Subjective Subjective: Pt s/e. No complaints. Clinically stable. For a talc slurry pleurodesis and chest tube insertion today. Objective - Vital Signs/Intake and Output Vital Signs (last 24 hours): Temp Pulse Resp BP Pulse Ox 97.8 F 92 H 20 117/69 98 05/20/17 11:45 05/20/17 11:45 05/20/17 11:45 05/20/17 11:45 05/20/17 11:45 - Medications Medications: Current Medications Albuterol Sulfate (Albuterol 0.083% Inhal [place]dalene (2.5 Mg/3 Ml) Ud) 2.5 mg INH RQ4 PRN PRN Reason: Shortness of Breath Last Admin: 05/19/17 19:20 Dose: 2.5 mg Hydromorphone HCl (Dilaudid) 0.25 mg IVP Q4H PRN PRN Reason: Pain, moderate (4-7) Hydromorphone HCl (Dilaudid) 0.5 mg IVP Q4H PRN PRN Reason: Pain, severe (8-10) Azithromycin 500 mg/ Sodium (Chloride) 250 mls @ 250 mls/hr IVPB DAILY [facility] PRN Reason: Protocol Last Admin: 05/20/17 10:14 Dose: 250 mls/hr Dextrose/Sodium Chloride (Dextrose 5%-0.9% Ns 500 Ml) 500 mls @ 80 mls/hr IV .Q6H15M [facility] Stop: 05/21/17 03:44 Last Admin: 05/20/17 10:20 Dose: 80 mls/hr Ipratropium [place] (Atrovent) 0.5 mg IH RQID [facility] Last Admin: 05/20/17 11:04 Dose: 0.5 mg Metoprolol Tartrate (Lopressor) 25 mg PO Q12 [facility] Last Admin: 05/20/17 09:21 Dose: 25 mg Nicotine (Nicoderm Cq) 1 patch TD DAILY [facility] Last Admin: 05/20/17 09:22 Dose: Not Given Saccharomyces Boulardii (Florastor) 250 mg PO BID [facility] Last Admin: 05/20/17 09:20 Dose: 250 mg Sennosides (Senokot Tab) 17.2 mg PO HS [facility] Last Admin: 05/19/17 21:38 Dose: 17.2 mg - Labs Labs: 05/20/17 04:15 05/20/17 04:15 PT 13.5 Seconds (9.8-13.1) H 05/20/17 04:15 INR 1.2 (0.9-1.2) 05/20/17 04:15 APTT 31.3 Seconds (25.6-37.1) 05/20/17 04:15
[2017-05-20] MEDS ORDERED: Lidocaine 1% Inj (20ml) ONE ×2 (13:22→13:37)
[2017-05-20] MEDS ORDERED: ceFAZolin IV 1 gm in Dextrose 1 GM/50 ML BAG IVPB ONE (13:22)
[2017-05-20] MEDS ORDERED: Bupivacaine 0.5% Inj(30mL) ONE ×2 (13:22→13:45)
[2017-05-20] MEDS ORDERED: Etomidate 20 mg/10ml Inj IV ONE (14:17)
[2017-05-20] MEDS ORDERED: Esmolol 100 mg/10ml Inj IV ONE (14:32)
[2017-05-20] MEDS ORDERED: Sodium Chloride 0.9% 500 ML IV ONE (14:50)
[2017-05-20] MEDS ORDERED: Lidocaine 0.5% PF (50 ml) Inj INJ ONE (15:00)
[2017-05-20] MEDS: STERILE TALC PL ONE ×2 (15:52→16:51)
[2017-05-20] MEDS ORDERED: Bacitracin OINT 15GM TOP ONE (16:10)
[2017-05-20] MEDS ORDERED: Bacitracin Ointment 30 GM TUBE ONE (16:23)
--- NOTE | 2017-05-20 16:38 | PCM.SURG1 ---
Surgeon's Initial Post Op Note - Surgeon's Notes Surgeon: Dr. Akers Air Bag Stripper: Dr. Coyle PGY2 Type of Anesthesia: IV Sedation, Local Pre-Operative Diagnosis: refractory right pneumothorax Operative Findings: see dictation Post-Operative Diagnosis: same Operation Performed: right chest tube placement x2, talc pleurodesis Specimen/Specimens Removed: right chest tube tip C/S Estimated Blood Loss: EBL {In ML}: 5 Blood Products Given: N/A Drains Used: Chest Tubes Post-Op Condition: Fair Date of Surgery/Procedure: 05/20/17 Time of Surgery/Procedure: 14:50
[2017-05-20] MEDS ORDERED: HYDROmorphone 0.5 mg/0.5 ml ISec IVP PRN (17:13)
[2017-05-20] MEDS ORDERED: Sodium Chloride 0.9% 1,000 ML IV SCH (17:15)
[2017-05-20 17:19] LABS: ABG ALLEN TEST YES; ARTERIAL BLOOD GAS O2 CAPACITY 15.7 mL/dL (16-24); ARTERIAL BLOOD GAS O2 CONTENT 15.7 ML/dL (15-23); ARTERIAL BLOOD GAS PH 7.32 (7.35-7.45); ARTERIAL BLOOD GAS PO2 354 mm/Hg (80-100); ARTERIAL BLOOD HGB O2 SAT 97.1 % (95.0-98.0); CARBOXYHEMOGLOBIN 1.5 % (0.5-1.5); HHB -0.3 % (0.0-5.0); METHEMOGLOBIN 1.8 % (0.0-3.0)
--- NOTE | 2017-05-20 17:40 | RAD ---
PROCEDURE: Intraoperative Fluoroscopy. HISTORY: FLUOROSCOPY FINDINGS: Fluoroscopic assistance was provided for repositioning of chest tube in the right pleural space.. Please refer to the operative report
--- NOTE | 2017-05-20 18:31 | RAD ---
HISTORY: post op COMPARISON: May 19, 2017. FINDINGS: LUNGS: No discrete, acute infiltrates. PLEURA: Additional chest tube identified in right pleural space. Previously identified chest tube appears to have been advanced and the tip is now in the apex of the right cindi thorax. CARDIOVASCULAR: No radiographic findings to suggest acute or significant cardiovascular disease. OSSEOUS STRUCTURES: No significant abnormalities. VISUALIZED UPPER ABDOMEN: Normal. OTHER FINDINGS: Stable subcutaneous emphysema IMPRESSION: Status post repositioning of existing chest tube and addition of 2nd chest tube in the right pleural space. Otherwise no interval change
--- NOTE | 2017-05-20 18:34 | CP.CCUPN ---
CCU Subjective - Physician Review Events Since Last Encounter (Free Text): 05/20/17 18:32 post-op hypercarbia and monitoring, patient was retaining CO2, started on BIPAP. Underwent apical chest tube replacement and basilar chest tube placement , with talc pleurodesis. CCU Objective - Vital Signs / Intake & Output Vital Signs (Last 4 hours): Vital Signs Temp Pulse Resp BP Pulse Ox 05/20/17 18:05 81 18 101/53 L 98 05/20/17 17:50 97.8 F 88 18 105/57 L 97 05/20/17 17:35 86 18 96/54 L 100 05/20/17 17:20 97.5 F L 75 18 105/56 L 100 05/20/17 17:05 96.6 F L 76 18 111/60 100 05/20/17 16:50 79 18 126/75 100 05/20/17 16:35 96.4 F L 82 17 118/68 100 Intake and Output (Last 8hrs): Intake & Output 05/20/17 05/20/17 05/20/17 06:59 14:59 22:59 Intake Total 350 Balance 350 Intake: IV 350 - Physical Exam Head: Positive for: Atraumatic, Normocephalic Pupils: Positive for: PERRL Extroacular Muscles: Positive for: EOMI Conjunctiva: Positive for: Normal Mouth: Positive for: Moist Mucous Membranes Neck: Positive for: Trachea Midline. Negative for: JVD Respiratory/Chest: Positive for: Clear to Auscultation. Negative for: Accessory Muscle Use, Wheezes, Rhonchi Cardiovascular: Positive for: Regular Rate and Rhythm, Normal S1, S2. Negative for: Tachycardic Abdomen: Positive for: Normal Bowel Sounds. Negative for: Tenderness, Distention Upper Extremity: Positive for: Normal ROM. Negative for: Edema, Tenderness Lower Extremity: Negative for: Edema, CALF TENDERNESS, Tenderness Neurological: Positive for: CN II-XII Intact, Speech Normal Skin: Positive for: Warm, Dry, Normal Color. Negative for: Rashes Psychiatric: Positive for: Lethargic - Medications Active Medications: Active Medications Generic Name Dose Route Start Last Admin Trade Name Freq PRN Reason Stop Dose Admin Albuterol Sulfate 2.5 mg 05/17/17 13:04 05/19/17 19:20 Albuterol 0.083% Inhal Magdalene (2.5 Mg/3 Ml) Ud INH 2.5 mg RQ4 PRN Administration Shortness of Breath Hydromorphone HCl 0.5 mg 05/20/17 16:39 Dilaudid IVP Q3 PRN Pain, severe (8-10) Hydromorphone HCl 0.25 mg 05/20/17 16:39 Dilaudid IVP Q3 PRN Pain, moderate (4-7) Hydromorphone HCl 0.5 mg 05/20/17 17:13 Dilaudid IVP 05/20/17 19:15 Q15M PRN Pain, severe (8-10) Azithromycin 500 mg/ Sodium 250 mls @ 250 mls/hr 05/13/17 09:00 05/20/17 10: 14 Chloride IVPB 250 mls/hr DAILY HEIDY Administration Protocol Dextrose/Sodium Chloride 500 mls @ 80 mls/hr 05/20/17 03:45 05/20/17 10:20 Dextrose 5%-0.9% Ns 500 Ml IV 05/21/17 03:44 80 mls/hr .Q6H15M HEIDY Administration Sodium Chloride 1,000 mls @ 50 mls/hr 05/20/17 17:15 Sodium Chloride 0.9% IV .Q20H HEIDY Ipratropium [place]comb 0.5 mg 05/17/17 16:00 05/20/17 15:11 Atrovent IH Not Given RQID HEIDY Metoprolol Tartrate 25 mg 05/19/17 12:30 05/20/17 09:21 Lopressor PO 25 mg Q12 HEIDY Administration Nicotine 1 patch 05/13/17 10:15 05/20/17 09:22 Nicoderm Cq TD Not Given DAILY HEIDY Ondansetron HCl 4 mg 05/20/17 17:13 Zofran Inj IVP 05/20/17 19:15 ONCE PRN Nausea/Vomiting Saccharomyces Boulardii 250 mg 05/19/17 09:45 05/20/17 09:20 Florastor PO 250 mg BID HEIDY Administration Sennosides 17.2 mg 05/14/17 22:00 05/19/17 21:38 Senokot Tab PO 17.2 mg HS HEIDY Administration - Patient Studies Lab Studies: Lab Studies 05/20/17 05/20/17 05/20/17 Range/Units 17:04 04:15 04:15 WBC (4.8-10.8) K/uL RBC (4.40-5.90) Mil/uL Hgb (12.0-18.0) g/dL Hct (35.0-51.0) % MCV (80.0-94.0) fl MCH (27.0-31.0) pg MCHC (33.0-37.0) g/dL RDW (11.5-14.5) % Plt Count (130-400) K/uL MPV (7.2-11.7) fl Neut % (Auto) (50.0-75.0) % Lymph % (Auto) (20.0-40.0) % Tripp % (Auto) (0.0-10.0) % Eos % (Auto) (0.0-4.0) % Baso % (Auto) (0.0-2.0) % Neut # (1.8-7.0) K/uL Lymph # (1.0-4.3) K/uL Tripp # (0.0-0.8) K/uL Eos # (0.0-0.7) K/uL Baso # (0.0-0.2) K/uL PT 13.5 H (9.8-13.1) Seconds INR 1.2 (0.9-1.2) APTT 31.3 (25.6-37.1) Seconds pCO2 55 H (35-45) mm/Hg pO2 354 H (80-100) mm/Hg HCO3 26.0 (21-28) mmol/L ABG pH 7.32 L (7.35-7.45) ABG Total CO2 30.0 H (22-28) mmol/L ABG O2 Saturation 100.3 H (95-98) % ABG O2 Content 15.7 (15-23) ML/dL ABG Base Excess 1.4 (-2.0-3.0) mmol/L ABG Hemoglobin 10.8 L (11.7-17.4) g/dL ABG Carboxyhemoglobin 1.5 (0.5-1.5) % POC ABG HHb (Measured) -0.3 L (0.0-5.0) % ABG Methemoglobin 1.8 (0.0-3.0) % ABG O2 Capacity 15.7 L (16-24) mL/dL Az Test Yes A-a O2 Difference 290.0 mm/Hg Hgb O2 Saturation 97.1 (95.0-98.0) % FiO2 100.0 % Sodium (132-148) mmol/l Potassium (3.6-5.0) MMOL/L Chloride (98-107) mmol/L Carbon Dioxide (22-30) mmol/L Anion Gap (10-20) BUN (9-20) mg/dl Creatinine (0.8-1.5) mg/dL Est GFR ( Amer) Est GFR (Non-Af Amer) Random Glucose (75-110) mg/dL Calcium (8.4-10.2) mg/dL Total Bilirubin (0.2-1.3) mg/dl AST (17-59) U/L ALT (21-72) U/L Alkaline Phosphatase (38-126) U/L Total Protein (6.3-8.2) G/DL Albumin (3.5-5.0) g/dL Globulin (2.2-3.9) gm/dL Albumin/Globulin Ratio (1.0-2.1) Blood Type O POSITIVE Antibody Screen Negative BBK History Checked Patient has bt 05/20/17 05/20/17 Range/Units 04:15 04:15 WBC 16.4 H (4.8-10.8) K/uL RBC 3.84 L (4.40-5.90) Mil/uL Hgb 10.9 L (12.0-18.0) g/dL Hct 33.2 L (35.0-51.0) % MCV 86.6 (80.0-94.0) fl MCH 28.4 (27.0-31.0) pg MCHC 32.8 L (33.0-37.0) g/dL RDW 15.0 H (11.5-14.5) % Plt Count 277 (130-400) K/uL MPV 7.8 (7.2-11.7) fl Neut % (Auto) 88.8 H (50.0-75.0) % Lymph % (Auto) 3.3 L (20.0-40.0) % Tripp % (Auto) 7.5 (0.0-10.0) % Eos % (Auto) 0.3 (0.0-4.0) % Baso % (Auto) 0.1 (0.0-2.0) % Neut # 14.6 H (1.8-7.0) K/uL Lymph # 0.5 L (1.0-4.3) K/uL Tripp # 1.2 H (0.0-0.8) K/uL Eos # 0.1 (0.0-0.7) K/uL Baso # 0.0 (0.0-0.2) K/uL PT (9.8-13.1) Seconds INR (0.9-1.2) APTT (25.6-37.1) Seconds pCO2 (35-45) mm/Hg pO2 (80-100) mm/Hg HCO3 (21-28) mmol/L ABG pH (7.35-7.45) ABG Total CO2 (22-28) mmol/L ABG O2 Saturation (95-98) % ABG O2 Content (15-23) ML/dL ABG Base Excess (-2.0-3.0) mmol/L ABG Hemoglobin (11.7-17.4) g/dL ABG Carboxyhemoglobin (0.5-1.5) % POC ABG HHb (Measured) (0.0-5.0) % ABG Methemoglobin (0.0-3.0) % ABG O2 Capacity (16-24) mL/dL Az Test A-a O2 Difference mm/Hg Hgb O2 Saturation (95.0-98.0) % FiO2 % Sodium 142 (132-148) mmol/l Potassium 3.8 (3.6-5.0) MMOL/L Chloride 104 (98-107) mmol/L Carbon Dioxide 31 H (22-30) mmol/L Anion Gap 11 (10-20) BUN 25 H (9-20) mg/dl Creatinine 0.9 (0.8-1.5) mg/dL Est GFR ( Amer) > 60 Est GFR (Non-Af Amer) > 60 Random Glucose 126 H (75-110) mg/dL Calcium 9.0 (8.4-10.2) mg/dL Total Bilirubin 0.5 (0.2-1.3) mg/dl AST 29 (17-59) U/L ALT 29 (21-72) U/L Alkaline Phosphatase 71 (38-126) U/L Total Protein 6.6 (6.3-8.2) G/DL Albumin 3.1 L (3.5-5.0) g/dL Globulin 3.5 (2.2-3.9) gm/dL Albumin/Globulin Ratio 0.9 L (1.0-2.1) Blood Type Antibody Screen BBK History Checked Laboratory Results - last 24 hr 05/20/17 05/20/17 05/20/17 04:15 04:15 04:15 WBC 16.4 H RBC 3.84 L Hgb 10.9 L Hct 33.2 L MCV 86.6 MCH 28.4 MCHC 32.8 L RDW 15.0 H Plt Count 277 MPV 7.8 Neut % (Auto) 88.8 H Lymph % (Auto) 3.3 L Tripp % (Auto) 7.5 Eos % (Auto) 0.3 Baso % (Auto) 0.1 Neut # 14.6 H Lymph # 0.5 L Tripp # 1.2 H Eos # 0.1 Baso # 0.0 PT 13.5 H INR 1.2 APTT 31.3 pCO2 pO2 HCO3 ABG pH ABG Total CO2 ABG O2 Saturation ABG O2 Content ABG Base Excess ABG Hemoglobin ABG Carboxyhemoglobin POC ABG HHb (Measured) ABG Methemoglobin ABG O2 Capacity Az Test A-a O2 Difference Hgb O2 Saturation FiO2 Sodium 142 Potassium 3.8 Chloride 104 Carbon Dioxide 31 H Anion Gap 11 BUN 25 H Creatinine 0.9 Est GFR ( Amer) > 60 Est GFR (Non-Af Amer) > 60 Random Glucose 126 H Calcium 9.0 Total Bilirubin 0.5 AST 29 ALT 29 Alkaline Phosphatase 71 Total Protein 6.6 Albumin 3.1 L Globulin 3.5 Albumin/Globulin Ratio 0.9 L Blood Type Antibody Screen BBK History Checked 05/20/17 05/20/17 04:15 17:04 WBC RBC Hgb Hct MCV MCH MCHC RDW Plt Count MPV Neut % (Auto) Lymph % (Auto) Tripp % (Auto) Eos % (Auto) Baso % (Auto) Neut # Lymph # Tripp # Eos # Baso # PT INR APTT pCO2 55 H pO2 354 H HCO3 26.0 ABG pH 7.32 L ABG Total CO2 30.0 H ABG O2 Saturation 100.3 H ABG O2 Content 15.7 ABG Base Excess 1.4 ABG Hemoglobin 10.8 L ABG Carboxyhemoglobin 1.5 POC ABG HHb (Measured) -0.3 L ABG Methemoglobin 1.8 ABG O2 Capacity 15.7 L Az Test Yes A-a O2 Difference 290.0 Hgb O2 Saturation 97.1 FiO2 100.0 Sodium Potassium Chloride Carbon Dioxide Anion Gap BUN Creatinine Est GFR ( Amer) Est GFR (Non-Af Amer) Random Glucose Calcium Total Bilirubin AST ALT Alkaline Phosphatase Total Protein Albumin Globulin Albumin/Globulin Ratio Blood Type O POSITIVE Antibody Screen Negative BBK History Checked Patient has bt Review of Systems - Review of Systems Systems not reviewed;Unavailable: Altered Mental Status Critical Care Progress Note - Nutrition Nutrition: Nutrition Category Date Time Status NPO Diet [DIET] Diets 05/20/17 Breakfast Active Assessment/Plan (1) Pneumothorax Assessment and plan: 86 y/o male without any diagnosed medical conditions, but with long Hx of smoking and undiagnosed COPD. (05/20/17) Underwent apical chest tube replacement and basilar chest tube placement, with talc pleurodesis. Neuro: altered mental status from hypercarbia Pulm: post-op hypercarbia, starting on BIPAP. Monitor chest tube output. CV: hemodynamically stable. Hem: leucocytosis Renal: no acute issues, will monitor urine output. D5NS@80 Endo: no acute issues GI: NPO while on BIPAP ID: [email or web address]. stopped azithromycin. No obvious source of sepsis. DVT proph - lovenox GI proph - not currently indicated [place] for strict I/O's during acute illness Code status - full code Critical Care Time spent 35 minutes Multi-disciplinary rounds were performed with house staff, nursing, speech therapy, respiratory therapy, pharmacy and nutrition with integrated input from the primary team/attending and other consulting services. The documented time is cumulative and includes review of patient data/exams/labs/chart review and examination of the patient on rounds and throughout the day; time is exclusive of any procedures or teaching time. Current Visit: Yes Status: Acute
[2017-05-20] MEDS ORDERED: Albuterol-Ipratrop 3 mg / 0.5 (3 ml) UD INH PRN (19:14)
[2017-05-20 21:10] LABS: ABG ALLEN TEST YES; ABG MECHANICAL RATE 16; ARTERIAL BLOOD GAS HCO3 25.3 mmol/L (21-28); ARTERIAL BLOOD GAS O2 CAPACITY 15.1 mL/dL (16-24); ARTERIAL BLOOD GAS O2 CONTENT 14.8 ML/dL (15-23); ARTERIAL BLOOD GAS PH 7.38 (7.35-7.45); ARTERIAL BLOOD GAS PO2 79 mm/Hg (80-100); ARTERIAL BLOOD HGB O2 SAT 94.5 % (95.0-98.0); CARBOXYHEMOGLOBIN 1.9 % (0.5-1.5); HHB 1.6 % (0.0-5.0)
[2017-05-20] MEDS ORDERED: Sodium Chloride 3% for Inhalation 4 ML VIAL.NEB IH PRN (23:00)
--- NOTE | 2017-05-21 00:34 | CP.PCM.PN ---
Subjective - Date & Time of Evaluation Date of Evaluation: 05/20/17 Time of Evaluation: 20:50 - Subjective Subjective: POst operative note Patient was seen and examined in ICU unit, s/p Right chest tube placement x 2, Talc Pleurodesis on POD #0. Patient was awake, alert, and oriented x 3 at the time of evaluation. Denies Cp, SOB, N/V or other complains. Patient is on BIPAP. O:Alert, Awake, Oriented x 3 A:86 y/o male with long Hx of smoking and recent diagnosed COPD. S/p Right sided Pneumothorax, On 05/20/17 underwent apical chest tube replacement and basilar chest tube placement, with talc pleurodesis. Stable VS noted on monitor: BP: 141/65, HR: 89/min,O2 sat: 97 %, RR: 24/min. Afebrile Plan: c/w current management in ICU unit -f/u VS and respiratory status Objective - Vital Signs/Intake and Output Vital Signs (last 24 hours): Intake and Output: - Medications Medications: - Labs Labs:
[2017-05-21 05:42] LABS: BASO % 0.2 % (0.0-2.0); EOS % 0.2 % (0.0-4.0); HEMATOCRIT 33.5 % (35.0-51.0); LYMPH # 0.6 K/uL (1.0-4.3); LYMPH % 3.9 % (20.0-40.0); MEAN CELL VOLUME 86.5 fl (80.0-94.0); MEAN CORPUSCULAR HEMOGLOBIN 28.5 pg (27.0-31.0); MEAN CORPUSCULAR HGB CONC 32.9 g/dL (33.0-37.0); MEAN PLATELET VOLUME 7.7 fl (7.2-11.7); MONO # 1.4 K/uL (0.0-0.8); MONO % 9.1 % (0.0-10.0); NEUT # 13.2 K/uL (1.8-7.0); NEUT % 86.6 % (50.0-75.0); PLATELET COUNT 299 K/uL (130-400); RED CELL DISTRIBUTION WIDTH 15.2 % (11.5-14.5); WHITE BLOOD COUNT 15.3 K/uL (4.8-10.8)
[2017-05-21] MEDS: Saccharomyces Boulardi 250 mg Cap PO SCH (05:59)
[2017-05-21 06:36] LABS: ALB/GLOB RATIO 0.9 (1.0-2.1); ALKALINE PHOSPHATASE 66 U/L (38-126); ALT/SGPT 24 U/L (21-72); AST/SGOT 27 U/L (17-59); BILIRUBIN,TOTAL 0.3 mg/dl (0.2-1.3); BLOOD UREA NITROGEN 24 mg/dl (9-20); CALCIUM 8.5 mg/dL (8.4-10.2); CARBON DIOXIDE 28 mmol/L (22-30); CHLORIDE 109 mmol/L (98-107); GFR AFRICAN-AMERICAN > 60; GLUCOSE,RANDOM 174 mg/dL (75-110); POTASSIUM 3.8 MMOL/L (3.6-5.0); SODIUM 146 mmol/l (132-148); TOTAL PROTEIN 6.5 G/DL (6.3-8.2)
[2017-05-21] MEDS: Ipratropium 0.02% Inhal Soln (0.5 mg/2.5 ml) UD IH SCH ×4 (08:11→19:36)
--- NOTE | 2017-05-21 08:40 | CP.PCM.PN ---
Subjective - Date & Time of Evaluation Date of Evaluation: 05/21/17 Time of Evaluation: 08:40 - Subjective Subjective: Had returned to OR with second chest tube inserted and talc pleurodesis. Developed hypercarbic repiratory failure and placed on BiPAP. No apparent air leak seen in Pleur[facility] today. CXR is stable with re-expansion noted, right basilar density probably pleural rxn from talc. Leukocytosis increased w/o any overt sign of infection. Breath sounds are present bilaterally, subcut emphysema slightly decreased. No audible wheezing heard. Continue present management. ID to see as well. Objective - Vital Signs/Intake and Output Vital Signs (last 24 hours): Temp Pulse Resp BP Pulse Ox 98.4 F 96 H 24 120/67 98 05/21/17 05:00 05/21/17 08:11 05/21/17 05:00 05/21/17 05:00 05/21/17 05:00 Intake and Output: 05/20/17 05/21/17 23:59 11:59 Intake Total 450 Balance 450 - Medications Medications: Current Medications Albuterol Sulfate (Albuterol 0.083% Inhal Magdalene (2.5 Mg/3 Ml) Ud) 2.5 mg INH RQ4 PRN PRN Reason: Shortness of Breath Last Admin: 05/19/17 19:20 Dose: 2.5 mg Hydromorphone HCl (Dilaudid) 0.5 mg IVP Q3 PRN PRN Reason: Pain, severe (8-10) Hydromorphone HCl (Dilaudid) 0.25 mg IVP Q3 PRN PRN Reason: Pain, moderate (4-7) Ipratropium [place] (Atrovent) 0.5 mg IH RQID [facility] Last Admin: 05/21/17 08:11 Dose: 0.5 mg Metoprolol Tartrate (Lopressor) 25 mg PO Q12 HEIDY Last Admin: 05/20/17 22:44 Dose: 25 mg Nicotine (Nicoderm Cq) 1 patch TD DAILY [facility] Last Admin: 05/20/17 09:22 Dose: Not Given Sennosides (Senokot Tab) 17.2 mg PO HS [facility] Last Admin: 05/20/17 22:45 Dose: 17.2 mg - Labs Labs: 05/21/17 04:00 05/21/17 06:10 PT 13.5 Seconds (9.8-13.1) H 05/20/17 04:15 INR 1.2 (0.9-1.2) 05/20/17 04:15 APTT 31.3 Seconds (25.6-37.1) 05/20/17 04:15
--- NOTE | 2017-05-21 08:59 | RAD ---
PROCEDURE: CHEST RADIOGRAPH, 1 VIEW HISTORY: right chest tube x2; s/p talc pleurodesis COMPARISON: Multiple serial examinations preceding the most recent study: May 20, 2017. Time of the most recent examination: 16:50 FINDINGS: LUNGS: No significant interval change compared to the prior examination(s). PLEURA: Two chest tubes remain in satisfactory and stable position in the right pleural space. No significant pneumothorax identified. CARDIOVASCULAR: Normal. OSSEOUS STRUCTURES: No significant abnormalities. VISUALIZED UPPER ABDOMEN: Normal. OTHER FINDINGS: Stable subcutaneous emphysema. IMPRESSION: No significant interval change compared to the prior examination(s).
[2017-05-21 09:22] LABS: NEUTROPHIL 84 % (42-75); TOTAL CELLS COUNTED 100
--- NOTE | 2017-05-21 09:51 | CP.PCM.PN ---
Subjective - Date & Time of Evaluation Date of Evaluation: 05/21/17 Time of Evaluation: 06:53 - Subjective Subjective: Patient seen and examined this morning at bedside lying comfortable on bed. No acute overnight event. Patient is in ICU unit, s/p Right chest tube placement x 2 and Talc Pleurodesis on POD #1. Both chest tubes connected to wall suction. Patient tolered fine the procedure. Now on BIPAP. States feeling well, slept good during the night. Denies nausea, vomiting, chest pain, palpitations, sob, no abdominal pain. Afebrile. Objective - Vital Signs/Intake and Output Vital Signs (last 24 hours): Temp Pulse Resp BP Pulse Ox 97 F L 101 H 28 H 117/65 100 05/21/17 08:54 05/21/17 09:01 05/21/17 08:54 05/21/17 09:01 05/21/17 08:54 Intake and Output: 05/21/17 05/21/17 06:59 18:59 Output Total 50 Balance -50 - Medications Medications: Current Medications Albuterol Sulfate (Albuterol 0.083% Inhal Magdalene (2.5 Mg/3 Ml) Ud) 2.5 mg INH RQ4 PRN PRN Reason: Shortness of Breath Last Admin: 05/19/17 19:20 Dose: 2.5 mg Hydromorphone HCl (Dilaudid) 0.5 mg IVP Q3 PRN PRN Reason: Pain, severe (8-10) Hydromorphone HCl (Dilaudid) 0.25 mg IVP Q3 PRN PRN Reason: Pain, moderate (4-7) Ipratropium [place] (Atrovent) 0.5 mg IH RQID [facility] Last Admin: 05/21/17 08:11 Dose: 0.5 mg Metoprolol Tartrate (Lopressor) 25 mg PO Q12 HEIDY Last Admin: 05/21/17 09:01 Dose: 25 mg Nicotine (Nicoderm Cq) 1 patch TD DAILY [facility] Last Admin: 05/21/17 09:02 Dose: 1 patch Sennosides (Senokot Tab) 17.2 mg PO HS [facility] Last Admin: 05/20/17 22:45 Dose: 17.2 mg - Labs Labs: 05/21/17 04:00 05/21/17 06:10 PT 13.5 Seconds (9.8-13.1) H 05/20/17 04:15 INR 1.2 (0.9-1.2) 05/20/17 04:15 APTT 31.3 Seconds (25.6-37.1) 05/20/17 04:15 - Constitutional Appears: Well, No Acute Distress - Head Exam Head Exam: NORMAL INSPECTION - Eye Exam Eye Exam: EOMI, PERRL - Respiratory Exam Respiratory Exam: Clear to Ausculation Bilateral, NORMAL BREATHING PATTERN Additional comments: R sided chest tube x2 in place connected to wall suction, dressing clean. Subcutaneous emphysema present on both chest henley, Stable. Decreased breath sound b/l. - Cardiovascular Exam Cardiovascular Exam: REGULAR RHYTHM, +S1, +S2 - GI/Abdominal Exam GI & Abdominal Exam: Soft, Normal Bowel Sounds. absent: Distended, Tenderness - Extremities Exam Extremities Exam: Normal Inspection. absent: Calf Tenderness, Pedal Edema - Neurological Exam Neurological Exam: Alert, Awake, Oriented x3 - Psychiatric Exam Psychiatric exam: Normal Mood - Skin Skin Exam: Dry, Warm Assessment and Plan - Assessment and Plan (Free Text) Assessment: 86 y/o M with newly diagnosed COPD secondary to 70 pack year smoking history admitted for right sided pneumothorax. Patient is s/p chest tube placement on . Currently day 9. Underwent for second chest tube placement and talc pleurodesis yesterday (POD 1).Patient in ICU, on BIPAP. Plan: Right-sided Pneumothorax -Likely secondary to ruptured bullae -Chest tube placed x2 yesterday -Talc pleurodesis POD 1. Patient tolerated well the procedure. -Chest xray: stable position of both chest tubes within right pleural space, no definitive pneumothorax. Stable AGILE QA TESTER. -Thoracic Surgery by Dr Akers on board, recommendations appreciated. -Hydromorphone 0.5mg IV q4h prn for pain -Continue daily CXR -PT evaluation appreciated. COPD, newly diagnosed -Associated with 70+ pack year history -O2 via NC 2L/min -Continue azithromycin daily per ICU( current day 8) -Pulmonology recommendations appreciated by Dr Horowitz -Wes QID HEIDY -Albuterol PRN Tachycardia -Unknown cause -continue with cardioselective beta shilo Metoprolol 25mg PO BID due to lung compromise -Close monitoring Leukocytosis -WBC improved slightly from 17.8>15.3 -Patient remains afebrile -Follow CBC -ID consult appreciated DVT prophylaxis -Restart Lovenox 30mg SC daily -SCDs
[2017-05-21] MEDS: Albuterol 0.083% Inhal Sol (2.5 mg/3 mL) UD INH PRN (11:20)
--- NOTE | 2017-05-21 11:42 | CP.PCM.PN ---
Subjective - Date & Time of Evaluation Date of Evaluation: 05/21/17 Time of Evaluation: 10:10 - Subjective Subjective: Thoracic Surgery Dr. Akers Pt S&E @bedside. Pt underwent (R) chest tube placement x2 and talc pleurodesis yesterday. pt tolerated the procedure well w/ no complications. Pt transferred to the ICU post-op for close monitoring. NAEO. Today, pt has no complaints. denies N/V, F/C, SOB, CP. pain well controlled. chest tubes on suction. Objective - Vital Signs/Intake and Output Vital Signs (last 24 hours): Temp Pulse Resp BP Pulse Ox 97 F L 79 29 H 103/56 L 98 05/21/17 08:54 05/21/17 10:11 05/21/17 10:11 05/21/17 10:11 05/21/17 10:11 Intake and Output: 05/21/17 05/21/17 06:59 18:59 Output Total 50 Balance -50 - Medications Medications: Current Medications Albuterol Sulfate (Albuterol 0.083% Inhal Magdalene (2.5 Mg/3 Ml) Ud) 2.5 mg INH RQ4 PRN PRN Reason: Shortness of Breath Last Admin: 05/21/17 11:20 Dose: 2.5 mg Hydromorphone HCl (Dilaudid) 0.5 mg IVP Q3 PRN PRN Reason: Pain, severe (8-10) Hydromorphone HCl (Dilaudid) 0.25 mg IVP Q3 PRN PRN Reason: Pain, moderate (4-7) Ipratropium [place] (Atrovent) 0.5 mg IH RQID [facility] Last Admin: 05/21/17 11:19 Dose: 0.5 mg Metoprolol Tartrate (Lopressor) 25 mg PO Q12 [facility] Last Admin: 05/21/17 09:01 Dose: 25 mg Nicotine (Nicoderm Cq) 1 patch TD DAILY [facility] Last Admin: 05/21/17 09:02 Dose: 1 patch Sennosides (Senokot Tab) 17.2 mg PO HS [facility] Last Admin: 05/20/17 22:45 Dose: 17.2 mg - Labs Labs: 05/21/17 04:00 05/21/17 06:10 PT 13.5 Seconds (9.8-13.1) H 05/20/17 04:15 INR 1.2 (0.9-1.2) 05/20/17 04:15 APTT 31.3 Seconds (25.6-37.1) 05/20/17 04:15 - Constitutional Appears: Non-toxic, No Acute Distress - Head Exam Head Exam: NORMAL INSPECTION - ENT Exam ENT Exam: Mucous Membranes Moist - Respiratory Exam Respiratory Exam: NORMAL BREATHING PATTERN. absent: Accessory Muscle Use, Respiratory Distress Additional comments: dressing c/d/i small air leak present in basilar chest tube no air leak present in apical chest tube improved subQ emphysema - Cardiovascular Exam Cardiovascular Exam: absent: Bradycardia, Tachycardia - GI/Abdominal Exam GI & Abdominal Exam: Soft. absent: Distended, Tenderness - Extremities Exam Additional comments: digital clubbing - Neurological Exam Neurological Exam: Alert, Awake, Oriented x3 - Psychiatric Exam Psychiatric exam: Normal Affect, Normal Mood - Skin Skin Exam: Dry, Intact, Normal Color, Warm Assessment and Plan - Assessment and Plan (Free Text) Assessment: 86 y/o M POD#1 s/p (R) chest tube placement w/ talc pleurodesis - cont RCT x2 to wall suction; record outputs - daily CXR - monitor vitals - cont pain management - ADAT - GI/DVT PPx Pt discussed w/ Dr. Delphine Coyle DO PGY2
--- NOTE | 2017-05-21 12:12 | CP.PCM.PN ---
Subjective - Date & Time of Evaluation Date of Evaluation: 05/21/17 Time of Evaluation: 12:06 - Subjective Subjective: POD#1 Pt S/E. No complaints In good sprit today. cxr-No appreciable pnemothorax. chest tubes: 68/310/ since or/ serosanguingous/ no air leaks. a/p: Satisfactory pod#1. Continue current care. Objective - Vital Signs/Intake and Output Vital Signs (last 24 hours): Temp Pulse Resp BP Pulse Ox 99.3 F 97 H 30 H 112/58 L 97 05/21/17 11:59 05/21/17 11:59 05/21/17 11:59 05/21/17 11:59 05/21/17 11:59 Intake and Output: 05/21/17 05/21/17 06:59 18:59 Output Total 50 Balance -50 - Medications Medications: Current Medications Albuterol Sulfate (Albuterol 0.083% Inhal Magdalene (2.5 Mg/3 Ml) Ud) 2.5 mg INH RQ4 PRN PRN Reason: Shortness of Breath Last Admin: 05/21/17 11:20 Dose: 2.5 mg Hydromorphone HCl (Dilaudid) 0.5 mg IVP Q3 PRN PRN Reason: Pain, severe (8-10) Hydromorphone HCl (Dilaudid) 0.25 mg IVP Q3 PRN PRN Reason: Pain, moderate (4-7) Ipratropium Barnard (Atrovent) 0.5 mg IH RQID [facility] Last Admin: 05/21/17 11:19 Dose: 0.5 mg Metoprolol Tartrate (Lopressor) 25 mg PO Q12 [facility] Last Admin: 05/21/17 09:01 Dose: 25 mg Nicotine (Nicoderm Cq) 1 patch TD DAILY [facility] Last Admin: 05/21/17 09:02 Dose: 1 patch Sennosides (Senokot Tab) 17.2 mg PO HS [facility] Last Admin: 05/20/17 22:45 Dose: 17.2 mg - Labs Labs: 05/21/17 04:00 05/21/17 06:10 PT 13.5 Seconds (9.8-13.1) H 05/20/17 04:15 INR 1.2 (0.9-1.2) 05/20/17 04:15 APTT 31.3 Seconds (25.6-37.1) 05/20/17 04:15
[2017-05-21] MEDS: Enoxaparin 30 mg Syringe SC SCH (16:09)
--- NOTE | 2017-05-21 18:15 | CP.PCM.PN ---
Subjective - Date & Time of Evaluation Date of Evaluation: 05/21/17 Time of Evaluation: 18:13 - Subjective Subjective: I D NOTE FIRST POST OPDAY HAS LEUKOCYTOSIS HAS CHEST TUBES RX :ZOSYN Objective - Vital Signs/Intake and Output Vital Signs (last 24 hours): Temp Pulse Resp BP Pulse Ox 98.6 F 110 H 20 109/57 L 95 05/21/17 16:00 05/21/17 18:00 05/21/17 18:00 05/21/17 18:00 05/21/17 18:00 Intake and Output: 05/21/17 05/21/17 06:59 18:59 Intake Total 1240 Output Total 315 Balance 925 - Medications Medications: Current Medications Albuterol Sulfate (Albuterol 0.083% Inhal Magdalene (2.5 Mg/3 Ml) Ud) 2.5 mg INH RQ4 PRN PRN Reason: Shortness of Breath Last Admin: 05/21/17 11:20 Dose: 2.5 mg Enoxaparin Sodium (Lovenox) 30 mg SC DAILY [facility] PRN Reason: Protocol Last Admin: 05/21/17 16:09 Dose: 30 mg Hydromorphone HCl (Dilaudid) 0.5 mg IVP Q3 PRN PRN Reason: Pain, severe (8-10) Hydromorphone HCl (Dilaudid) 0.25 mg IVP Q3 PRN PRN Reason: Pain, moderate (4-7) Piperacillin Sod/Tazobactam (Sod 3.375 gm/ Sodium Chloride) 100 mls @ 100 mls/ hr IVPB Q8H [facility] PRN Reason: Protocol Ipratropium [place] (Atrovent) 0.5 mg IH RQID [facility] Last Admin: 05/21/17 15:35 Dose: 0.5 mg Metoprolol Tartrate (Lopressor) 25 mg PO Q12 [facility] Last Admin: 05/21/17 09:01 Dose: 25 mg Nicotine (Nicoderm Cq) 1 patch TD DAILY [facility] Last Admin: 05/21/17 09:02 Dose: 1 patch Sennosides (Senokot Tab) 17.2 mg PO HS [facility] Last Admin: 05/20/17 22:45 Dose: 17.2 mg - Labs Labs: 05/21/17 04:00 05/21/17 06:10 PT 13.5 Seconds (9.8-13.1) H 05/20/17 04:15 INR 1.2 (0.9-1.2) 05/20/17 04:15 APTT 31.3 Seconds (25.6-37.1) 05/20/17 04:15
[2017-05-21] MEDS: Piperacillin/Tazobact 3.375 GM in Sodium Chloride 0.9% 100 ML IVPB SCH (18:24)
[2017-05-22] MEDS: Piperacillin/Tazobact 3.375 GM in Sodium Chloride 0.9% 100 ML IVPB SCH ×3 (01:30→17:49)
[2017-05-22 05:53] LABS: BASO % 0.3 % (0.0-2.0); EOS % 0.3 % (0.0-4.0); HEMATOCRIT 31.9 % (35.0-51.0); LYMPH % 5.8 % (20.0-40.0); MEAN CELL VOLUME 86.8 fl (80.0-94.0); MEAN CORPUSCULAR HEMOGLOBIN 28.5 pg (27.0-31.0); MEAN CORPUSCULAR HGB CONC 32.8 g/dL (33.0-37.0); MEAN PLATELET VOLUME 7.4 fl (7.2-11.7); MONO # 1.2 K/uL (0.0-0.8); MONO % 7.4 % (0.0-10.0); NEUT # 14.4 K/uL (1.8-7.0); NEUT % 86.2 % (50.0-75.0); WHITE BLOOD COUNT 16.7 K/uL (4.8-10.8)
[2017-05-22] MEDS ORDERED: Oxycodone/Acetaminophen 5/325 mg Tab PO PRN (06:44)
[2017-05-22 06:59] LABS: ALB/GLOB RATIO 0.9 (1.0-2.1); ALKALINE PHOSPHATASE 66 U/L (38-126); ALT/SGPT 26 U/L (21-72); AST/SGOT 31 U/L (17-59); BILIRUBIN,TOTAL 0.4 mg/dl (0.2-1.3); BLOOD UREA NITROGEN 22 mg/dl (9-20); CALCIUM 8.7 mg/dL (8.4-10.2); CARBON DIOXIDE 26 mmol/L (22-30); CHLORIDE 110 mmol/L (98-107); GFR AFRICAN-AMERICAN > 60; GLUCOSE,RANDOM 101 mg/dL (75-110); POTASSIUM 3.4 MMOL/L (3.6-5.0); SODIUM 147 mmol/l (132-148); TOTAL PROTEIN 6.3 G/DL (6.3-8.2)
[2017-05-22] MEDS ORDERED: Potassium Chloride 20 mEq/15 ml LIQ UD PO ONE (07:41)
--- NOTE | 2017-05-22 07:42 | CP.PCM.PN ---
Subjective - Date & Time of Evaluation Date of Evaluation: 05/22/17 Time of Evaluation: 07:42 - Subjective Subjective: Patient seen and examined this morning at bedside lying comfortable on bed. Breathing comfortable on NC O2 2L/min. No acute overnight event. Patient is in ICU unit, s/p right chest tube placement x 2 and Talc Pleurodesis on POD #2. Both chest tubes connected to wall suction. States feeling well, slept good during the night. Denies nausea, vomiting, chest pain, palpitations, sob, no abdominal pain. Afebrile. Objective - Vital Signs/Intake and Output Vital Signs (last 24 hours): Temp Pulse Resp BP Pulse Ox 98.1 F 83 23 124/63 100 05/22/17 04:00 05/22/17 06:00 05/22/17 06:00 05/22/17 06:00 05/22/17 06:00 Intake and Output: 05/22/17 05/22/17 06:59 18:59 Intake Total 225 Output Total 453 Balance -228 - Medications Medications: Current Medications Albuterol Sulfate (Albuterol 0.083% Inhal Magdalene (2.5 Mg/3 Ml) Ud) 2.5 mg INH RQ4 PRN PRN Reason: Shortness of Breath Last Admin: 05/21/17 11:20 Dose: 2.5 mg Docusate Sodium (Colace) 100 mg PO BID [facility] Enoxaparin Sodium (Lovenox) 30 mg SC DAILY [facility] PRN Reason: Protocol Last Admin: 05/21/17 16:09 Dose: 30 mg Hydromorphone HCl (Dilaudid) 0.25 mg IVP Q3 PRN PRN Reason: Pain, moderate (4-7) Piperacillin Sod/Tazobactam (Sod 3.375 gm/ Sodium Chloride) 100 mls @ 100 mls/ hr IVPB Q8H [facility] PRN Reason: Protocol Last Admin: 05/22/17 01:30 Dose: 100 mls/hr Ipratropium [place] (Atrovent) 0.5 mg IH RQID [facility] Last Admin: 05/21/17 19:36 Dose: 0.5 mg Metoprolol Tartrate (Lopressor) 25 mg PO Q12 [facility] Last Admin: 05/21/17 21:32 Dose: 25 mg Nicotine (Nicoderm Cq) 1 patch TD DAILY [facility] Last Admin: 05/21/17 09:02 Dose: 1 patch Oxycodone/Acetaminophen (Percocet 5/325 Mg Tab) 1 tab PO Q4 PRN PRN Reason: Pain, moderate (4-7) Stop: 05/25/17 06:45 Potassium Chloride (Potassium Chloride Oral Soln) 20 meq PO ONCE ONE Stop: 05/22/17 07:42 Sennosides (Senokot Tab) 17.2 mg PO HS [facility] Last Admin: 05/21/17 21:32 Dose: 17.2 mg - Labs Labs: 05/22/17 04:20 05/22/17 04:20 PT 13.5 Seconds (9.8-13.1) H 05/20/17 04:15 INR 1.2 (0.9-1.2) 05/20/17 04:15 APTT 31.3 Seconds (25.6-37.1) 05/20/17 04:15 Assessment and Plan - Assessment and Plan (Free Text) Assessment: 86 y/o M with 70 pack year smoking history was admitted for right sided pneumothorax. 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 Patient is s/p chest tube placement on 05/13/17. Currently day 10. Underwent for second chest tube placement and talc pleurodesis POD 2. Patient is in ICU. Plan: Right-sided Pneumothorax -Likely secondary to ruptured bullae -Chest tube placed x2 connected to wall suction. -Talc pleurodesis POD 2. -Chest xray: stable position of both chest tubes within right pleural space, no definitive pneumothorax. Stable [facility] GRINDER. -Thoracic Surgery by Dr Akers on board, recommendations appreciated. -Hydromorphone 0.5mg IV q4h prn for pain -Continue daily CXR -Chest CT tomorrow -PT evaluation appreciated. COPD, newly diagnosed -Associated with 70+ pack year history -O2 via NC 2L/min -D/C azithromycin daily (total of 8 days) -Pulmonology on board by Dr Horowitz, recommendations appreciated -Atrovent QID [facility] -Albuterol PRN Tachycardia -Unknown cause -continue with cardioselective beta shilo Metoprolol 25mg PO BID due to lung compromise -Close monitoring Leukocytosis -WBC 16.7 -Afebrile -Follow CBC -ID consult appreciated by Dr Manocchio -Start Zosyn 3.375mg IV q8h (started 05/21 -day 2) -Blood culture 05/20 no growth -Wound culture 05/20 no growth -MRSA culture 05/16 and 05/20 not detected -Urine culture 05/21 no growth DVT prophylaxis -Lovenox 30mg SC daily -SCDs
--- NOTE | 2017-05-22 07:48 | CP.PCM.PN ---
Subjective - Date & Time of Evaluation Date of Evaluation: 05/22/17 Time of Evaluation: 06:50 - Subjective Subjective: Thoracic Surgery- Dr. Akers Patient seen and examined at bedside this morning. no acute events overnight. RCT x2 on suction. no air leak detected. Denies fevers, chills, chest pain, nausea, vomiting, diarrhea. No BM for 3days. Objective - Vital Signs/Intake and Output Vital Signs (last 24 hours): Temp Pulse Resp BP Pulse Ox 98.1 F 83 23 124/63 100 05/22/17 04:00 05/22/17 06:00 05/22/17 06:00 05/22/17 06:00 05/22/17 06:00 Intake and Output: 05/22/17 05/22/17 06:59 18:59 Intake Total 225 Output Total 453 Balance -228 - Medications Medications: Current Medications Albuterol Sulfate (Albuterol 0.083% Inhal Magdalene (2.5 Mg/3 Ml) Ud) 2.5 mg INH RQ4 PRN PRN Reason: Shortness of Breath Last Admin: 05/21/17 11:20 Dose: 2.5 mg Docusate Sodium (Colace) 100 mg PO BID [facility] Enoxaparin Sodium (Lovenox) 30 mg SC DAILY [facility] PRN Reason: Protocol Last Admin: 05/21/17 16:09 Dose: 30 mg Hydromorphone HCl (Dilaudid) 0.25 mg IVP Q3 PRN PRN Reason: Pain, moderate (4-7) Piperacillin Sod/Tazobactam (Sod 3.375 gm/ Sodium Chloride) 100 mls @ 100 mls/ hr IVPB Q8H [facility] PRN Reason: Protocol Last Admin: 05/22/17 01:30 Dose: 100 mls/hr Ipratropium [place] (Atrovent) 0.5 mg IH RQID [facility] Last Admin: 05/21/17 19:36 Dose: 0.5 mg Metoprolol Tartrate (Lopressor) 25 mg PO Q12 [facility] Last Admin: 05/21/17 21:32 Dose: 25 mg Nicotine (Nicoderm Cq) 1 patch TD DAILY [facility] Last Admin: 05/21/17 09:02 Dose: 1 patch Oxycodone/Acetaminophen (Percocet 5/325 Mg Tab) 1 tab PO Q4 PRN PRN Reason: Pain, moderate (4-7) Stop: 05/25/17 06:45 Potassium Chloride (Potassium Chloride Oral Soln) 20 meq PO ONCE ONE Stop: 05/22/17 07:42 Sennosides (Senokot Tab) 17.2 mg PO HS [facility] Last Admin: 05/21/17 21:32 Dose: 17.2 mg - Labs Labs: 05/22/17 04:20 05/22/17 04:20 PT 13.5 Seconds (9.8-13.1) H 05/20/17 04:15 INR 1.2 (0.9-1.2) 05/20/17 04:15 APTT 31.3 Seconds (25.6-37.1) 05/20/17 04:15 - Constitutional Appears: Non-toxic, No Acute Distress - Head Exam Head Exam: ATRAUMATIC - Eye Exam Eye Exam: EOMI. absent: Scleral icterus Pupil Exam: PERRL - ENT Exam ENT Exam: Mucous Membranes Moist - Respiratory Exam Respiratory Exam: Chest Wall Tenderness, NORMAL BREATHING PATTERN. absent: Accessory Muscle Use, Respiratory Distress Additional comments: RCT x2. serosang drainage from inferior tube. - Cardiovascular Exam Cardiovascular Exam: +S1, +S2. absent: Bradycardia, Tachycardia - GI/Abdominal Exam GI & Abdominal Exam: Soft. absent: Distended, Firm, Guarding, Rigid, Tenderness - Back Exam Back Exam: NORMAL INSPECTION - Neurological Exam Neurological Exam: Alert, Awake, Oriented x3 - Skin Skin Exam: Normal Color, Warm Assessment and Plan - Assessment and Plan (Free Text) Assessment: 86M Right Chest Tube x2 s/p (R) CT x2 chest tube placement w/ talc pleurodesis POD#2 Plan: - RCT x2 on suction; record outputs - daily CXR - plan for CT scan tomorrow - start on colace BID - cont pain management - ADAT - GI/DVT PPx - further recs per Dr. Delphine Odell PGY1
[2017-05-22] MEDS: Enoxaparin 30 mg Syringe SC SCH (08:16)
[2017-05-22] MEDS: Ipratropium 0.02% Inhal Soln (0.5 mg/2.5 ml) UD IH SCH ×4 (08:40→19:33)
[2017-05-22] MEDS: Albuterol 0.083% Inhal Sol (2.5 mg/3 mL) UD INH PRN (08:40)
[2017-05-22] MEDS ORDERED: HYDROmorphone 0.5 mg/0.5 ml ISec IVP PRN (10:53)
--- NOTE | 2017-05-22 12:03 | RAD ---
HISTORY: right chest tube x2; s/p talc pleurodesis COMPARISON: Numerous prior chest x-rays recent performed 05/21/17 TECHNIQUE: Chest, one view. FINDINGS: Numerous external wires and leads obscure evaluation of the underlying parenchyma. LUNGS: No significant interval change compared to most recent prior study. PLEURA: Stable appearance with 2 right-sided chest tubes evident. CARDIOVASCULAR: Heart size appear stable. Atherosclerotic calcifications of the aorta. OSSEOUS STRUCTURES: Degenerative changes. VISUALIZED UPPER ABDOMEN: Unremarkable. OTHER FINDINGS: Extensive subcutaneous emphysema. IMPRESSION: No significant interval change. See above.
--- NOTE | 2017-05-22 13:02 | CP.PCM.PN ---
Subjective - Date & Time of Evaluation Date of Evaluation: 05/22/17 Time of Evaluation: 11:00 - Subjective Subjective: The patient appears comfortable lying in bed with supplemental nasal oxygen. 2 chest tubes are in place in the right hemithorax connected to Pleur-evac's. No air leak is evidenced in either Pleur-evac. Serosanguineous fluid is seen in one Pleur-evac draining approximately 268 mL's since placement of the chest tube yesterday. Chest x-ray appears relatively unchanged from the day prior. There appears to be decreasing the amount of subcutaneous emphysema noted on the same. No pneumothorax is seen on the plain film. Vital signs have remained stable although he is mildly tachypneic. His oxygen saturation is greater than or equal to 93% consistently. He has remained afebrile. There is some persistent leukocytosis noted at 16,000. Urine cultures unremarkable, repeat blood culture is negative, sputum Gram stain appears to reflect oral secretions. He has been seen by infectious disease and Zosyn has been started to cover potential nosocomial infection. Subcutaneous emphysema has decreased significantly. Mild hyperresonance to percussion is noted bilaterally. No intercostal retractions. Neck is supple and trachea is midline. No neck vein distention. Present sounds are present bilaterally, diminished. Breath sounds on the right are somewhat difficult to auscultate because of the residual subcutaneous emphysema. No audible wheezing is appreciated. No bronchial breathing or egophony. The heart sounds are distant and rhythm is regular. Continue his same manner for today and consider possibly using water seal only tomorrow. Follow-up CT scan will then be performed to evaluate for recurrence of pneumothorax. Continue to monitor vital signs as well as leukocytosis. Objective - Vital Signs/Intake and Output Vital Signs (last 24 hours): Temp Pulse Resp BP Pulse Ox 98.9 F 113 H 29 H 120/57 L 100 05/22/17 12:00 05/22/17 12:00 05/22/17 12:00 05/22/17 12:00 05/22/17 12:00 Intake and Output: 05/22/17 05/22/17 11:59 23:59 Intake Total 225 Output Total 453 Balance -228 - Medications Medications: Current Medications Albuterol Sulfate (Albuterol 0.083% Inhal Magdalene (2.5 Mg/3 Ml) Ud) 2.5 mg INH RQ4 PRN PRN Reason: Shortness of Breath Last Admin: 05/22/17 08:40 Dose: 2.5 mg Docusate Sodium (Colace) 100 mg PO BID [facility] Last Admin: 05/22/17 08:19 Dose: 100 mg Enoxaparin Sodium (Lovenox) 30 mg SC DAILY [facility] PRN Reason: Protocol Last Admin: 05/22/17 08:16 Dose: 30 mg Hydromorphone HCl (Dilaudid) 0.25 mg IVP Q3 PRN PRN Reason: Pain, severe (8-10) Piperacillin Sod/Tazobactam (Sod 3.375 gm/ Sodium Chloride) 100 mls @ 100 mls/ hr IVPB Q8H [facility] PRN Reason: Protocol Last Admin: 05/22/17 09:18 Dose: 100 mls/hr Ipratropium [place] (Atrovent) 0.5 mg IH RQID [facility] Last Admin: 05/22/17 11:59 Dose: 0.5 mg Metoprolol Tartrate (Lopressor) 25 mg PO Q12 [facility] Last Admin: 05/22/17 08:16 Dose: 25 mg Nicotine (Nicoderm Cq) 1 patch TD DAILY [facility] Last Admin: 05/22/17 08:16 Dose: 1 patch Oxycodone/Acetaminophen (Percocet 5/325 Mg Tab) 1 tab PO Q4 PRN PRN Reason: Pain, moderate (4-7) Stop: 05/25/17 06:45 Sennosides (Senokot Tab) 17.2 mg PO HS [facility] Last Admin: 05/21/17 21:32 Dose: 17.2 mg - Labs Labs: 05/22/17 04:20 05/22/17 04:20 PT 13.5 Seconds (9.8-13.1) H 05/20/17 04:15 INR 1.2 (0.9-1.2) 05/20/17 04:15 APTT 31.3 Seconds (25.6-37.1) 05/20/17 04:15
[2017-05-23] MEDS: Piperacillin/Tazobact 3.375 GM in Sodium Chloride 0.9% 100 ML IVPB SCH ×3 (01:10→17:37)
[2017-05-23 05:26] LABS: BASO % 0.2 % (0.0-2.0); EOS # 0.3 K/uL (0.0-0.7); EOS % 1.8 % (0.0-4.0); HEMATOCRIT 30.4 % (35.0-51.0); LYMPH # 0.9 K/uL (1.0-4.3); LYMPH % 6.1 % (20.0-40.0); MEAN CELL VOLUME 86.5 fl (80.0-94.0); MEAN CORPUSCULAR HEMOGLOBIN 28.1 pg (27.0-31.0); MEAN CORPUSCULAR HGB CONC 32.5 g/dL (33.0-37.0); MEAN PLATELET VOLUME 7.4 fl (7.2-11.7); MONO # 1.1 K/uL (0.0-0.8); MONO % 7.7 % (0.0-10.0); NEUT # 12.4 K/uL (1.8-7.0); NEUT % 84.2 % (50.0-75.0); RED CELL DISTRIBUTION WIDTH 14.7 % (11.5-14.5); WHITE BLOOD COUNT 14.7 K/uL (4.8-10.8)
[2017-05-23 05:29] LABS: ALB/GLOB RATIO 0.9 (1.0-2.1); ALKALINE PHOSPHATASE 78 U/L (38-126); ALT/SGPT 29 U/L (21-72); AST/SGOT 27 U/L (17-59); BILIRUBIN,TOTAL 0.4 mg/dl (0.2-1.3); BLOOD UREA NITROGEN 21 mg/dl (9-20); CALCIUM 8.7 mg/dL (8.4-10.2); CARBON DIOXIDE 28 mmol/L (22-30); CHLORIDE 109 mmol/L (98-107); GFR AFRICAN-AMERICAN > 60; GLUCOSE,RANDOM 101 mg/dL (75-110); POTASSIUM 3.2 MMOL/L (3.6-5.0); SODIUM 145 mmol/l (132-148); TOTAL PROTEIN 6.3 G/DL (6.3-8.2)
--- NOTE | 2017-05-23 08:33 | CP.PCM.PN ---
Subjective - Date & Time of Evaluation Date of Evaluation: 05/23/17 Time of Evaluation: 08:31 - Subjective Subjective: CT Sx: Dr Akers Pt S&E in ICU. No acute events overnight. Resting comfortably, pain well controlled, respirations easy and un-labored. CT 40/90 output, no air leak CXR shows no residual pneumo Objective - Vital Signs/Intake and Output Vital Signs (last 24 hours): Temp Pulse Resp BP Pulse Ox 98.6 F 107 H 21 117/76 94 L 05/23/17 06:00 05/23/17 06:00 05/23/17 06:00 05/23/17 06:00 05/23/17 06:00 Intake and Output: 05/23/17 05/23/17 06:59 18:59 Intake Total 160 Output Total 490 Balance -330 - Medications Medications: Current Medications Albuterol Sulfate (Albuterol 0.083% Inhal Magdalene (2.5 Mg/3 Ml) Ud) 2.5 mg INH RQ4 PRN PRN Reason: Shortness of Breath Last Admin: 05/22/17 08:40 Dose: 2.5 mg Docusate Sodium (Colace) 100 mg PO BID [facility] Last Admin: 05/22/17 17:49 Dose: 100 mg Enoxaparin Sodium (Lovenox) 30 mg SC DAILY [facility] PRN Reason: Protocol Last Admin: 05/22/17 08:16 Dose: 30 mg Hydromorphone HCl (Dilaudid) 0.25 mg IVP Q3 PRN PRN Reason: Pain, severe (8-10) Piperacillin Sod/Tazobactam (Sod 3.375 gm/ Sodium Chloride) 100 mls @ 100 mls/ hr IVPB Q8H [facility] PRN Reason: Protocol Last Admin: 05/23/17 01:10 Dose: 100 mls/hr Ipratropium [place] (Atrovent) 0.5 mg IH RQID [facility] Last Admin: 05/22/17 19:33 Dose: 0.5 mg Metoprolol Tartrate (Lopressor) 25 mg PO Q12 [facility] Last Admin: 05/22/17 21:27 Dose: 25 mg Nicotine (Nicoderm Cq) 1 patch TD DAILY [facility] Last Admin: 05/22/17 08:16 Dose: 1 patch Oxycodone/Acetaminophen (Percocet 5/325 Mg Tab) 1 tab PO Q4 PRN PRN Reason: Pain, moderate (4-7) Stop: 05/25/17 06:45 Potassium Chloride (Potassium Chloride Oral Soln) 20 meq PO Q2 [facility] Stop: 05/23/17 12:01 Sennosides (Senokot Tab) 17.2 mg PO HS [facility] Last Admin: 05/22/17 21:27 Dose: 17.2 mg - Labs Labs: 05/23/17 04:20 05/23/17 04:20 PT 13.5 Seconds (9.8-13.1) H 05/20/17 04:15 INR 1.2 (0.9-1.2) 05/20/17 04:15 APTT 31.3 Seconds (25.6-37.1) 05/20/17 04:15 - Constitutional Appears: Non-toxic, No Acute Distress - Eye Exam Eye Exam: Normal appearance - Respiratory Exam Respiratory Exam: absent: Accessory Muscle Use, Respiratory Distress - Cardiovascular Exam Cardiovascular Exam: REGULAR RHYTHM. absent: Tachycardia Additional comments: CT incisions c/d/i - GI/Abdominal Exam GI & Abdominal Exam: Soft. absent: Distended, Tenderness - Neurological Exam Neurological Exam: Alert, Awake, Oriented x3 - Psychiatric Exam Psychiatric exam: Normal Affect, Normal Mood Assessment and Plan - Assessment and Plan (Free Text) Assessment: 86M with pneumothorax POD#3 s/p CT insertion x 2 w/ talc pleurodesis Plan: continue IS use CT w/ IV contrast today further mgmt of chest tube pending CT results K replaced Ok to transfer to telemetry d/w Dr Delphine Wright, PGY3
[2017-05-23] MEDS: Ipratropium 0.02% Inhal Soln (0.5 mg/2.5 ml) UD IH SCH ×4 (08:39→19:41)
--- NOTE | 2017-05-23 08:42 | CP.PCM.PN ---
Subjective - Date & Time of Evaluation Date of Evaluation: 05/23/17 Time of Evaluation: 08:42 - Subjective Subjective: The patient was seen on morning rounds in the intensive care unit. Both chest tubes remain attached to Pleur-evac's with negative suction. No air leak is seen in either Pleur-evac. Chest x-ray today shows good expansion bilaterally and decreased subcutaneous emphysema. No residual pneumothorax is seen. No infiltrates. Vital signs remained stable although he is mildly tachycardic at the time of examination. He continues to be afebrile. His lab work is stable. Cutaneous emphysema is decreased on examination. Hyperresonance to percussion is noted bilaterally. Breast sounds are diminished bilaterally. Few scattered sonorous rhonchi are heard in both lungs. Rare dry to medium rales are heard in the lower lobes. No audible wheezing. Expiratory phase does appear to be slightly prolonged. Heart sounds are distant and the rhythm is regular. Tachycardic at 110 bpm. Sinus tachycardia with multiple APCs on the monitor. No central or peripheral cyanosis. Neck is supple and trachea remains midline. No neck vein distention. Awaiting repeat CT scan of the thorax for later today. Patient will likely be taken off suction and maintained on waterseal only as per surgery. Continue current medical regimen unchanged. Objective - Vital Signs/Intake and Output Vital Signs (last 24 hours): Temp Pulse Resp BP Pulse Ox 98.6 F 107 H 21 117/76 94 L 05/23/17 06:00 05/23/17 06:00 05/23/17 06:00 05/23/17 06:00 05/23/17 06:00 Intake and Output: 05/22/17 05/23/17 23:59 11:59 Intake Total 980 100 Output Total 644 290 Balance 336 -190 - Medications Medications: Current Medications Albuterol Sulfate (Albuterol 0.083% Inhal Magdalene (2.5 Mg/3 Ml) Ud) 2.5 mg INH RQ4 PRN PRN Reason: Shortness of Breath Last Admin: 05/22/17 08:40 Dose: 2.5 mg Docusate Sodium (Colace) 100 mg PO BID [facility] Last Admin: 05/22/17 17:49 Dose: 100 mg Enoxaparin Sodium (Lovenox) 30 mg SC DAILY [facility] PRN Reason: Protocol Last Admin: 05/22/17 08:16 Dose: 30 mg Hydromorphone HCl (Dilaudid) 0.25 mg IVP Q3 PRN PRN Reason: Pain, severe (8-10) Piperacillin Sod/Tazobactam (Sod 3.375 gm/ Sodium Chloride) 100 mls @ 100 mls/ hr IVPB Q8H [facility] PRN Reason: Protocol Last Admin: 05/23/17 01:10 Dose: 100 mls/hr Ipratropium [place] (Atrovent) 0.5 mg IH RQID [facility] Last Admin: 05/23/17 08:39 Dose: 0.5 mg Metoprolol Tartrate (Lopressor) 25 mg PO Q12 [facility] Last Admin: 05/22/17 21:27 Dose: 25 mg Nicotine (Nicoderm Cq) 1 patch TD DAILY [facility] Last Admin: 05/22/17 08:16 Dose: 1 patch Oxycodone/Acetaminophen (Percocet 5/325 Mg Tab) 1 tab PO Q4 PRN PRN Reason: Pain, moderate (4-7) Stop: 05/25/17 06:45 Potassium Chloride (Potassium Chloride Oral Soln) 20 meq PO Q2 [facility] Stop: 05/23/17 12:01 Sennosides (Senokot Tab) 17.2 mg PO HS [facility] Last Admin: 05/22/17 21:27 Dose: 17.2 mg - Labs Labs: 05/23/17 04:20 05/23/17 04:20 PT 13.5 Seconds (9.8-13.1) H 05/20/17 04:15 INR 1.2 (0.9-1.2) 05/20/17 04:15 APTT 31.3 Seconds (25.6-37.1) 05/20/17 04:15
[2017-05-23] MEDS: Potassium Chloride 20 mEq/15 ml LIQ UD PO SCH ×3 (09:31→14:57)
[2017-05-23] MEDS: Enoxaparin 30 mg Syringe SC SCH (09:33)
--- NOTE | 2017-05-23 11:30 | CP.PCM.PN ---
Subjective - Date & Time of Evaluation Date of Evaluation: 05/23/17 Time of Evaluation: 06:45 - Subjective Subjective: Patient seen and examined this morning at bedside lying comfortable on bed. Breathing comfortable on NC O2 2L/min. No acute overnight event. Patient continue in ICU unit, s/p right chest tube placement x 2 and Talc Pleurodesis on POD #3. Both chest tubes are connected to wall suction. Patient states feeling well, slept good during the night. Denies nausea, vomiting, chest pain, palpitations, sob, no abdominal pain. Afebrile. Last BM 2 days ago. Objective - Vital Signs/Intake and Output Vital Signs (last 24 hours): Temp Pulse Resp BP Pulse Ox 97.7 F 103 H 22 138/78 100 05/23/17 08:00 05/23/17 09:32 05/23/17 08:00 05/23/17 09:32 05/23/17 08:00 Intake and Output: 05/23/17 05/23/17 06:59 18:59 Intake Total 160 Output Total 490 Balance -330 - Medications Medications: Current Medications Albuterol Sulfate (Albuterol 0.083% Inhal Magdalene (2.5 Mg/3 Ml) Ud) 2.5 mg INH RQ4 PRN PRN Reason: Shortness of Breath Last Admin: 05/22/17 08:40 Dose: 2.5 mg Docusate Sodium (Colace) 100 mg PO BID [facility] Last Admin: 05/23/17 09:31 Dose: 100 mg Enoxaparin Sodium (Lovenox) 30 mg SC DAILY [facility] PRN Reason: Protocol Last Admin: 05/23/17 09:33 Dose: 30 mg Hydromorphone HCl (Dilaudid) 0.25 mg IVP Q3 PRN PRN Reason: Pain, severe (8-10) Piperacillin Sod/Tazobactam (Sod 3.375 gm/ Sodium Chloride) 100 mls @ 100 mls/ hr IVPB Q8H [facility] PRN Reason: Protocol Last Admin: 05/23/17 09:28 Dose: 100 mls/hr Ipratropium [place] (Atrovent) 0.5 mg IH RQID [facility] Last Admin: 05/23/17 08:39 Dose: 0.5 mg Metoprolol Tartrate (Lopressor) 25 mg PO Q12 [facility] Last Admin: 05/23/17 09:32 Dose: 25 mg Nicotine (Nicoderm Cq) 1 patch TD DAILY [facility] Last Admin: 05/23/17 09:33 Dose: 1 patch Oxycodone/Acetaminophen (Percocet 5/325 Mg Tab) 1 tab PO Q4 PRN PRN Reason: Pain, moderate (4-7) Stop: 05/25/17 06:45 Potassium Chloride (Potassium Chloride Oral Soln) 20 meq PO Q2 [facility] Stop: 05/23/17 12:01 Last Admin: 05/23/17 11:25 Dose: 20 meq Sennosides (Senokot Tab) 17.2 mg PO HS [facility] Last Admin: 05/22/17 21:27 Dose: 17.2 mg - Labs Labs: 05/23/17 04:20 05/23/17 04:20 PT 13.5 Seconds (9.8-13.1) H 05/20/17 04:15 INR 1.2 (0.9-1.2) 05/20/17 04:15 APTT 31.3 Seconds (25.6-37.1) 05/20/17 04:15 - Constitutional Appears: No Acute Distress, Cachectic - Head Exam Head Exam: NORMAL INSPECTION - Eye Exam Eye Exam: EOMI, PERRL - Respiratory Exam Respiratory Exam: Clear to Ausculation Bilateral. absent: Accessory Muscle Use Additional comments: R sided chest tube x2 in place connected to wall suction, dressing clean. Subcutaneous emphysema present on both chest henley, Stable. Decreased breath sound b/l. - Cardiovascular Exam Cardiovascular Exam: Tachycardia, REGULAR RHYTHM, +S1, +S2. absent: Murmur - GI/Abdominal Exam GI & Abdominal Exam: Soft, Normal Bowel Sounds. absent: Distended, Tenderness - Extremities Exam Extremities Exam: absent: Calf Tenderness, Pedal Edema - Neurological Exam Neurological Exam: Alert, Awake, Oriented x3 - Psychiatric Exam Psychiatric exam: Normal Mood - Skin Skin Exam: Dry, Warm Assessment and Plan - Assessment and Plan (Free Text) Assessment: 86 y/o M with 70 pack year smoking history was admitted for right sided pneumothorax. 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 Patient is s/p chest tube placement on 05/13/17. Currently day 11. Underwent for second chest tube placement and talc pleurodesis POD 3. Patient continue in ICU, probably transferred to telemetry today. Plan: Right-sided Pneumothorax, stable -Likely secondary to ruptured bullae -Chest tube placed x2 connected to wall suction. -Talc pleurodesis POD 3. -Chest xray: stable position of both chest tubes within right pleural space, no definitive pneumothorax. Stable MICA MINER BLASTING.(no acute changes from yesterday) -Thoracic Surgery by Dr Akers on board, recommendations appreciated. -Chest tubes management based on CT results today -Hydromorphone 0.5mg IV q4h prn for pain -Continue daily CXR -PT evaluation appreciated; KILLIAN recommended. COPD, newly diagnosed -Associated with 70+ pack year history -O2 via NC 2L/min -Pulmonology on board by Dr Horowitz, recommendations appreciated -Atrovent QID HEIDY -Albuterol PRN Tachycardia, persistent -Unknown cause -continue with cardioselective beta shilo Metoprolol 25mg PO BID due to lung compromise -Close monitoring -Cardiology consult appreciated Leukocytosis -WBC 14.7 -Afebrile -Follow CBC -ID consult appreciated by Dr Lehman -Start Zosyn 3.375mg IV q8h (started 05/21 -day 3) -Blood culture 05/20 no growth -Wound culture 05/20 no growth -MRSA culture 05/16 and 05/20 not detected -Urine culture 05/21 no growth DVT prophylaxis -Lovenox 30mg SC daily -SCDs
--- NOTE | 2017-05-23 11:32 | RAD ---
PROCEDURE: CHEST RADIOGRAPH, 1 VIEW HISTORY: right chest tube x2; s/p talc pleurodesis COMPARISON: Comparison chest 05/22/2017 comparison also made with CT chest dated 05/19/2017 FINDINGS: LUNGS: Re- demonstrated are 2 in situ right-sided chest tubes. . Hazy appearance of the right lung likely due to some combination of pleural thickening and/or effusion as well as overlying subcutaneous emphysema. These changes limit evaluation for residual pneumothorax. . Significant emphysematous changes again seen. PLEURA: No pneumothorax or pleural fluid seen. CARDIOVASCULAR: Normal. OSSEOUS STRUCTURES: No significant abnormalities. VISUALIZED UPPER ABDOMEN: Normal. OTHER FINDINGS: None. IMPRESSION: Re- demonstrated are 2 in situ right-sided chest tubes. . Hazy appearance of the right lung likely due to some combination of pleural thickening and/or effusion as well as overlying subcutaneous emphysema. These changes limit evaluation for residual pneumothorax. . Significant emphysematous changes again seen.
--- NOTE | 2017-05-23 13:23 | CT ---
PROCEDURE: CT Chest without contrast HISTORY: eval ptx/subcutaneous emphysema COMPARISON: 05/19/2017 TECHNIQUE: Contiguous axial images were obtained through the chest without intravenous contrast enhancement. Sagittal and coronal reconstructions were performed. Radiation dose (DLP): 212 mGy-cm. This CT exam was performed using one or more of the following dose reduction techniques: Automated exposure control, adjustment of the mA and/or kV according to patient size, and/or use of iterative reconstruction technique. FINDINGS: LUNGS: A 2nd chest tube is seen adjacent to the heart. The right apical chest tube is unchanged in position. There is a decrease in the amount of subcutaneous edema in the chest wall. This is now only seen on the right side and previously was seen bilaterally. There is a new alveolar infiltrate in the right lower lobe. There is also a new small pleural effusion. A minimal infiltrate and effusion is also seen at the left lung base. This has shown improvement. There is no visible pneumothorax MEDIASTINUM: Unremarkable thoracic aorta. No aneurysm. Normal sized heart. Main pulmonary artery unremarkable. No vascular congestion. No lymphadenopathy. PLEURA: Small pleural effusions right greater than left BONES: No fracture. No destructive lesion. UPPER ABDOMEN: Grossly unremarkable. OTHER FINDINGS: None. IMPRESSION: Resolved pneumothorax with [address]. Decreased subcutaneous emphysema. New alveolar infiltrate and effusion at the right lung base.
--- NOTE | 2017-05-23 14:01 | CP.PCM.PN ---
Subjective - Date & Time of Evaluation Date of Evaluation: 05/23/17 Time of Evaluation: 13:55 - Subjective Subjective: pt s/e. No c./o. chest tubes: 4/ 120/24hours serosanguinous-No air leak. ct-Resolved pneuno, right basilar effusion(mirela) and bibasilar inftiltrastes- improving. a/p: Resolved pneumothorax. diminshed SQ emphysema. Continue chest tubes to suction ujtil Friday, will clamp tubes, discontinue chest tubes on Friday provided all parameters are ok, and plan to d /c home . on Friday. dw Dr Peña. Objective - Vital Signs/Intake and Output Vital Signs (last 24 hours): Temp Pulse Resp BP Pulse Ox 97.9 F 97 H 24 126/78 100 05/23/17 12:00 05/23/17 12:00 05/23/17 12:00 05/23/17 12:00 05/23/17 12:00 Intake and Output: 05/23/17 05/23/17 06:59 18:59 Intake Total 160 Output Total 490 Balance -330 - Medications Medications: Current Medications Albuterol Sulfate (Albuterol 0.083% Inhal Magdalene (2.5 Mg/3 Ml) Ud) 2.5 mg INH RQ4 PRN PRN Reason: Shortness of Breath Last Admin: 05/22/17 08:40 Dose: 2.5 mg Docusate Sodium (Colace) 100 mg PO BID [facility] Last Admin: 05/23/17 09:31 Dose: 100 mg Enoxaparin Sodium (Lovenox) 30 mg SC DAILY [facility] PRN Reason: Protocol Last Admin: 05/23/17 09:33 Dose: 30 mg Hydromorphone HCl (Dilaudid) 0.25 mg IVP Q3 PRN PRN Reason: Pain, severe (8-10) Piperacillin Sod/Tazobactam (Sod 3.375 gm/ Sodium Chloride) 100 mls @ 100 mls/ hr IVPB Q8H [facility] PRN Reason: Protocol Last Admin: 05/23/17 09:28 Dose: 100 mls/hr Ipratropium [place] (Atrovent) 0.5 mg IH RQID [facility] Last Admin: 05/23/17 11:37 Dose: 0.5 mg Metoprolol Tartrate (Lopressor) 25 mg PO Q12 [facility] Last Admin: 05/23/17 09:32 Dose: 25 mg Nicotine (Nicoderm Cq) 1 patch TD DAILY [facility] Last Admin: 05/23/17 09:33 Dose: 1 patch Oxycodone/Acetaminophen (Percocet 5/325 Mg Tab) 1 tab PO Q4 PRN PRN Reason: Pain, moderate (4-7) Stop: 05/25/17 06:45 Sennosides (Senokot Tab) 17.2 mg PO HS [facility] Last Admin: 05/22/17 21:27 Dose: 17.2 mg - Labs Labs: 05/23/17 04:20 05/23/17 04:20 PT 13.5 Seconds (9.8-13.1) H 05/20/17 04:15 INR 1.2 (0.9-1.2) 05/20/17 04:15 APTT 31.3 Seconds (25.6-37.1) 05/20/17 04:15
[2017-05-24] MEDS: Piperacillin/Tazobact 3.375 GM in Sodium Chloride 0.9% 100 ML IVPB SCH ×3 (01:11→17:19)
[2017-05-24 06:18] LABS: HEMATOCRIT 31.3 % (35.0-51.0); MEAN CELL VOLUME 87.2 fl (80.0-94.0); MEAN CORPUSCULAR HEMOGLOBIN 28.4 pg (27.0-31.0); MEAN CORPUSCULAR HGB CONC 32.6 g/dL (33.0-37.0); WHITE BLOOD COUNT 12.8 K/uL (4.8-10.8)
[2017-05-24 06:29] LABS: ALB/GLOB RATIO 0.8 (1.0-2.1); ALKALINE PHOSPHATASE 65 U/L (38-126); ALT/SGPT 25 U/L (21-72); AST/SGOT 28 U/L (17-59); BILIRUBIN,TOTAL 0.4 mg/dl (0.2-1.3); BLOOD UREA NITROGEN 19 mg/dl (9-20); CARBON DIOXIDE 33 mmol/L (22-30); CHLORIDE 109 mmol/L (98-107); GFR AFRICAN-AMERICAN > 60; GLUCOSE,RANDOM 97 mg/dL (75-110); SODIUM 149 mmol/l (132-148); TOTAL PROTEIN 6.5 G/DL (6.3-8.2)
[2017-05-24 06:31] LABS: POTASSIUM 3.7 MMOL/L (3.6-5.0)
--- NOTE | 2017-05-24 08:10 | CP.PCM.PN ---
Subjective - Date & Time of Evaluation Date of Evaluation: 05/24/17 Time of Evaluation: 08:06 - Subjective Subjective: CT Sx: Dr Akers Pt S&E. NAEO. Resting comfortably. No sob, chest pain, fevers or chills. using IS. No air leak noted Objective - Vital Signs/Intake and Output Vital Signs (last 24 hours): Temp Pulse Resp BP Pulse Ox 97.7 F 98 H 26 H 126/73 97 05/24/17 08:00 05/24/17 08:00 05/24/17 08:00 05/24/17 08:00 05/24/17 08:00 Intake and Output: 05/24/17 05/24/17 06:59 18:59 Intake Total 170 Output Total 510 Balance -340 - Medications Medications: Current Medications Albuterol Sulfate (Albuterol 0.083% Inhal Magdalene (2.5 Mg/3 Ml) Ud) 2.5 mg INH RQ4 PRN PRN Reason: Shortness of Breath Last Admin: 05/22/17 08:40 Dose: 2.5 mg Docusate Sodium (Colace) 100 mg PO BID [facility] Last Admin: 05/23/17 17:07 Dose: Not Given Enoxaparin Sodium (Lovenox) 30 mg SC DAILY [facility] PRN Reason: Protocol Last Admin: 05/23/17 09:33 Dose: 30 mg Hydromorphone HCl (Dilaudid) 0.25 mg IVP Q3 PRN PRN Reason: Pain, severe (8-10) Piperacillin Sod/Tazobactam (Sod 3.375 gm/ Sodium Chloride) 100 mls @ 100 mls/ hr IVPB Q8H [facility] PRN Reason: Protocol Last Admin: 05/24/17 01:11 Dose: 100 mls/hr Ipratropium [place] (Atrovent) 0.5 mg IH RQID [facility] Last Admin: 05/23/17 19:41 Dose: 0.5 mg Metoprolol Tartrate (Lopressor) 25 mg PO Q12 [facility] Last Admin: 05/23/17 20:50 Dose: 25 mg Nicotine (Nicoderm Cq) 1 patch TD DAILY [facility] Last Admin: 05/23/17 09:33 Dose: 1 patch Oxycodone/Acetaminophen (Percocet 5/325 Mg Tab) 1 tab PO Q4 PRN PRN Reason: Pain, moderate (4-7) Stop: 05/25/17 06:45 Sennosides (Senokot Tab) 17.2 mg PO HS [facility] Last Admin: 05/23/17 21:00 Dose: 17.2 mg - Labs Labs: 05/24/17 05:30 05/24/17 05:30 PT 13.5 Seconds (9.8-13.1) H 05/20/17 04:15 INR 1.2 (0.9-1.2) 05/20/17 04:15 APTT 31.3 Seconds (25.6-37.1) 05/20/17 04:15 - Constitutional Appears: Non-toxic, No Acute Distress - Respiratory Exam Respiratory Exam: absent: Accessory Muscle Use, Respiratory Distress Additional comments: CT x 2 - no air leak noted, physiologic output - Cardiovascular Exam Cardiovascular Exam: REGULAR RHYTHM. absent: Tachycardia - Neurological Exam Neurological Exam: Alert, Awake, Oriented x3 - Psychiatric Exam Psychiatric exam: Normal Affect, Normal Mood - Skin Skin Exam: Normal Color, Warm Assessment and Plan - Assessment and Plan (Free Text) Assessment: 86M s/p CT x 2 w/ talc pleurodesis Plan: no ptx noted on CT yesterday continue CT to suction - will plan for clamp trial friday as outlined in Dr Akers 's note yesterday further mgmt per ICU d/w Dr Delphine Wright, PGY3
[2017-05-24] MEDS: Enoxaparin 30 mg Syringe SC SCH (08:27)
[2017-05-24] MEDS: Ipratropium 0.02% Inhal Soln (0.5 mg/2.5 ml) UD IH SCH ×4 (08:43→19:17)
--- NOTE | 2017-05-24 12:45 | RAD ---
PROCEDURE: CHEST RADIOGRAPH, 1 VIEW HISTORY: right chest tube x2; s/p talc pleurodesis COMPARISON: Comparison made with prior chest radiograph and CTA chest both dated 05/23/2017 FINDINGS: Re- demonstrated are 2 in situ right-sided chest tubes. LUNGS: Hazy appearance of the right cindi thorax again felt to be secondary to pleural thickening and/or effusion as well as right lower lobe atelectasis/consolidation and overlying subcutaneous emphysema. . No obvious residual pneumothorax despite the aforementioned limitations. . Mild left basilar atelectasis with questionable small left effusion and/or pleural thickening. Significant emphysematous changes. Note that all these changes are seen to better advantage on prior CT scan. PLEURA: As above. CARDIOVASCULAR: Normal. OSSEOUS STRUCTURES: No significant abnormalities. VISUALIZED UPPER ABDOMEN: Normal. OTHER FINDINGS: None. IMPRESSION: Re- demonstrated are 2 in situ chest tubes on altered from prior exam. Hazy appearance of the right cindi thorax again felt to be secondary to pleural thickening and/or effusion as well as right lower lobe atelectasis/consolidation and overlying subcutaneous emphysema. . No obvious residual pneumothorax despite the aforementioned limitations. . Mild left basilar atelectasis with questionable small left effusion and/or pleural thickening. Significant emphysematous changes. Note that all these changes are seen to better advantage on prior CT scan.
--- NOTE | 2017-05-24 15:36 | CP.PCM.PN ---
Subjective - Date & Time of Evaluation Date of Evaluation: 05/24/17 Time of Evaluation: 09:30 - Subjective Subjective: Patient seen and examined with attending during rounds. He appears comfortable, sitting upright in his chair using nasal canula, in no acute acute distress. Patient has right sided chest tubes in place to water seal. He denies fevers, chills, chest pain, sob, cough, abdominal pain, nausea or vomiting. Patient continues to report low appetite but has been drinking ensure supplemental shake. Objective - Vital Signs/Intake and Output Vital Signs (last 24 hours): Temp Pulse Resp BP Pulse Ox 97.5 F L 90 27 H 141/55 L 98 05/24/17 12:00 05/24/17 14:00 05/24/17 14:00 05/24/17 14:00 05/24/17 14:00 Intake and Output: 05/24/17 05/24/17 06:59 18:59 Intake Total 170 Output Total 510 Balance -340 - Medications Medications: Current Medications Albuterol Sulfate (Albuterol 0.083% Inhal Magdalene (2.5 Mg/3 Ml) Ud) 2.5 mg INH RQ4 PRN PRN Reason: Shortness of Breath Last Admin: 05/22/17 08:40 Dose: 2.5 mg Docusate Sodium (Colace) 100 mg PO BID [facility] Last Admin: 05/24/17 08:27 Dose: 100 mg Hydromorphone HCl (Dilaudid) 0.25 mg IVP Q3 PRN PRN Reason: Pain, severe (8-10) Piperacillin Sod/Tazobactam (Sod 3.375 gm/ Sodium Chloride) 100 mls @ 100 mls/ hr IVPB Q8H [facility] PRN Reason: Protocol Last Admin: 05/24/17 09:44 Dose: 100 mls/hr Ipratropium [place] (Atrovent) 0.5 mg IH RQID [facility] Last Admin: 05/24/17 12:21 Dose: 0.5 mg Metoprolol Tartrate (Lopressor) 25 mg PO Q12 [facility] Last Admin: 05/24/17 08:27 Dose: 25 mg Nicotine (Nicoderm Cq) 1 patch TD DAILY [facility] Last Admin: 05/24/17 08:28 Dose: 1 patch Oxycodone/Acetaminophen (Percocet 5/325 Mg Tab) 1 tab PO Q4 PRN PRN Reason: Pain, moderate (4-7) Stop: 05/25/17 06:45 Sennosides (Senokot Tab) 17.2 mg PO HS [facility] Last Admin: 05/23/17 21:00 Dose: 17.2 mg - Labs Labs: 05/24/17 05:30 05/24/17 05:30 PT 13.5 Seconds (9.8-13.1) H 05/20/17 04:15 INR 1.2 (0.9-1.2) 05/20/17 04:15 APTT 31.3 Seconds (25.6-37.1) 05/20/17 04:15 - Constitutional Appears: No Acute Distress, Cachectic - Head Exam Head Exam: ATRAUMATIC - Eye Exam Eye Exam: EOMI, PERRL - ENT Exam ENT Exam: Mucous Membranes Moist - Neck Exam Additional comments: Bilateral air entry present with scattered rhonchii audible in all lung burgess. No signs of respiratory distress. Subcutaneous emphysema is present along the right anterior chest wall, which is improved from prior assessment. Right sided- chest tubes x2, in place with dressings clean and dry. - Cardiovascular Exam Cardiovascular Exam: REGULAR RHYTHM, RRR, +S1, +S2 - GI/Abdominal Exam GI & Abdominal Exam: Soft, Normal Bowel Sounds. absent: Distended, Tenderness - Extremities Exam Extremities Exam: absent: Calf Tenderness, Pedal Edema - Neurological Exam Neurological Exam: Alert, Awake, Oriented x3 - Psychiatric Exam Psychiatric exam: Normal Affect, Normal Mood - Skin Skin Exam: Dry, Warm Assessment and Plan - Assessment and Plan (Free Text) Assessment: Patient is an 86 y/o M with 70 pack year smoking history and newly diagnosed COPD, admitted for right sided pneumothorax likely secondary to ruptured bleb. Patient is s/p chest tube placement on 05/13/17, (Current day 12). He underwent talc pleurodesis with second chest tube placement on 05/21/17 (Current POD #4). Plan: Right-sided Pneumothorax -Likely secondary to ruptured bleb -S/p chest tube placement on 05/13/17, (Current Day 12) -S/p talc pleurodesis with second chest tube placement on 05/21/17 (Current POD # 4) -Chest tubes to water seal -Chest xray shows stable position of both chest tubes within right pleural space -Subcutaneous emphysema improving -Thoracic surgery by Dr Akers on board, recommendations appreciated -Hydromorphone 0.5mg IV q4h prn for pain -Continue daily CXR -PT evaluation appreciated; KILLIAN recommended -Patient stable for transfer to telemetry, orders placed COPD, newly diagnosed -Associated with 70+ pack year history -O2 via NC 2L/min -Pulmonology consulted with Dr Horowitz, recommendations appreciated -Atrovent QID HEIDY -Albuterol PRN Tachycardia, persistent -Undetermined etiology -Well controlled at this time -Continue with cardioselective beta shilo Metoprolol 25mg PO BID due to existing COPD Leukocytosis -WBC trending downward 14.7 > 12.8 -Afebrile -ID consult appreciated by Dr Lehman -Continue Zosyn 3.375mg IV q8h (Started 05/21, Current Day 4) -Blood culture 05/20 no growth -Wound culture 05/20 no growth -MRSA culture 05/16 and 05/20 not detected -Urine culture 05/21 no growth DVT prophylaxis -Lovenox 30mg SC daily -SCDs
--- NOTE | 2017-05-24 20:38 | PN ---
DATE: 05/24/2017 LOCATION: Patient in ICU bed 421. TIME SPENT: 35 minutes. SUBJECTIVE: The patient is seen and examined at the bedside. Events since admission reviewed. Past medical, surgical, and social history noted. An 86-year-old male, chronic smoker of more than 70-pack year of smoking, admitted with spontaneous right pneumothorax, preceded by persistent cough. Chest x-ray and CT chest showed chronic obstructive pulmonary disease with hyperinflated lungs and pneumothorax seen by CT surgery, placed chest tube insertion, underwent pleurodesis. Remains on chest tube connected to Pleur-Evac, connected to low wall suction. Overnight, remains less short of breath, afebrile. No chest pain or palpitation. Repeat chest x-ray showed resolution of subcutaneous emphysema and expansion of both lungs. This morning, out of bed to chair. No distress noted. Less short of breath compared to baseline. No cough and chest pain. PHYSICAL EXAMINATION: CURRENT VITAL SIGNS: Temperature 97.7; heart rate 93, regular; respiratory rate 26, blood pressure 126/73. Mean arterial pressure 90. HEAD, EYES, EARS, NOSE AND THROAT: Pupils are reactive. Conjunctivae pink. Sclerae white. NECK: Supple. Trachea is central. CHEST: Bilateral breath sounds. Chest tube x2 intact on the right. Reduced subcutaneous emphysema, no air leak. ABDOMEN: Bowel sounds present. Soft. Liver and spleen not palpable. Bladder not distended. EXTREMITIES: Trace edema. NEUROLOGIC: Nonfocal. CURRENT MEDICATIONS: Include albuterol 3 mL q.4. p.r.n. for shortness of breath, ipratropium bromide 0.5 mg q.i.d., Lovenox 30 mg subcu daily, Dilaudid 0.25 mg IV q.3. p.r.n. for severe pain, Lopressor 25 mg p.o. q.12., nicotine patch one daily, Percocet 5/325 mg 1 tablet q.4. p.r.n. for pain, Zosyn 3.375 g IV q.8 hours. IMPRESSION: 1. Pulmonary: Chronic obstructive pulmonary disease, on ipratropium bromide. 2. Spontaneous pneumothorax, right chest, status post chest tube insertion and pleurodesis seen by CT surgery. Recommendations noted. Continue low wall suction until Friday, then to dc suction repeat chest x-ray on Friday. Percocet and hydromorphone as needed for pain. 3. Cardiac: Tachycardia improved, on metoprolol 25 mg p.o. q.12. 4. Gastrointestinal: No issues noted. Renal function remains stable. No electrolyte abnormalities noted. Hypoalbuminemia, improved on increased nutritional intake. Probably related to chronic obstructive pulmonary disease and reduced intake. 5. Neuro: Alert, oriented to name, place, and time. 6. History of nicotine dependence. Continue on nicotine patch. 7. Deep venous thrombosis prophylaxis with Lovenox. Closely monitor for further recurrence of pneumothorax. Aleksander Jimenez MD MTDD
--- NOTE | 2017-05-24 21:24 | CON ---
CARDIOLOGY CONSULTATION REASON FOR CONSULTATION: Sinus tachycardia and occasional atrial ectopy. HISTORY OF PRESENT ILLNESS: The patient is an 86-year-old male, who has advanced chronic obstructive lung disease and presented with right spontaneous pneumothorax, underwent chest tube placement and subsequently pleurodesis and was noted to have sinus tachycardia after minimal exertion with occasional APCs. No reported atrial fibrillation. The patient denies any history of heart attack in the past. SOCIAL HISTORY: The patient is a former smoker. MEDICATIONS: Albuterol inhaler q. 4 hours, Atrovent inhaler q.i.d, Colace 100 mg twice a day, Lopressor 25 mg twice a day, Dilaudid 0.25 mg intravenously q. 3 hours p.r.n., Lovenox 30 mg subcutaneous daily, NicoDerm patch, Zosyn 3.375 g intravenously q. 8 hours. REVIEW OF SYSTEMS: No reported ventricular tachycardia, no reported atrial fibrillation, no reported hypotension, no reported dizziness or syncope. PHYSICAL EXAMINATION: GENERAL: The patient is an elderly male, who does not appear to be in acute distress. VITAL SIGNS: Blood pressure 146/76, heart rate 89, temperature 97.5, respirations 24. HEENT: Pale conjunctivae. CHEST: Right basilar rhonchi. HEART: S1 and S2 regular. ABDOMEN: Soft. EXTREMITIES: No edema. LABORATORY DATA: Hemoglobin and hematocrit 10.2 and 31.3, white count 12.8, platelet count 351,000. SMA-7: Sodium 149, potassium 3.7, chloride 109, CO2 of 33, glucose 97, BUN 19, creatinine 0.9. INR is 1.2, PTT 31.3. Chest CT scan done yesterday revealed resolved pneumothorax with two chest tubes in place, decreased subcutaneous emphysema, new alveolar infiltrate and effusion of the right lung base. Most recent EKG from 05/19/2017 revealed sinus tachycardia with APCs at rate 116. The other EKG on 05/12 revealed sinus tachycardia with APCs at rate of 103. Echocardiography study revealed ejection fraction estimated at 65%, mild mitral and mild tricuspid insufficiency. Blood cultures are negative . ASSESSMENT: 1. Sinus tachycardia most likely physiologic to the patient's current respiratory condition. 2. Advanced chronic obstructive pulmonary disease status post spontaneous right pneumothorax. 3. Status post right pleurodesis. 5. Mild anemia. RECOMMENDATIONS: Continue current Lopressor 25 mg twice a day, IV Zosyn 3.375 g IV q. 8 hours, subcutaneous Lovenox 30 mg once a day, albuterol and Atrovent nebulizers. No specific cardiac workup is indicated at this time. Ori Fitzpatrick MD
[2017-05-25] MEDS: Piperacillin/Tazobact 3.375 GM in Sodium Chloride 0.9% 100 ML IVPB SCH ×3 (01:19→16:59)
[2017-05-25 06:52] LABS: HEMATOCRIT 31.6 % (35.0-51.0); MEAN CELL VOLUME 86.9 fl (80.0-94.0); MEAN CORPUSCULAR HEMOGLOBIN 28.4 pg (27.0-31.0); MEAN CORPUSCULAR HGB CONC 32.7 g/dL (33.0-37.0); RED CELL DISTRIBUTION WIDTH 15.1 % (11.5-14.5); WHITE BLOOD COUNT 11.9 K/uL (4.8-10.8)
[2017-05-25 07:02] LABS: BLOOD UREA NITROGEN 20 mg/dl (9-20); CALCIUM 8.8 mg/dL (8.4-10.2); CARBON DIOXIDE 33 mmol/L (22-30); CHLORIDE 106 mmol/L (98-107); GFR AFRICAN-AMERICAN > 60; GLUCOSE,RANDOM 84 mg/dL (75-110); POTASSIUM 3.7 MMOL/L (3.6-5.0); SODIUM 148 mmol/l (132-148)
[2017-05-25] MEDS: Ipratropium 0.02% Inhal Soln (0.5 mg/2.5 ml) UD IH SCH ×4 (08:02→19:35)
--- NOTE | 2017-05-25 09:01 | CP.PCM.PN ---
Subjective - Date & Time of Evaluation Date of Evaluation: 05/25/17 Time of Evaluation: 07:55 - Subjective Subjective: CT Surgery Pt S&E, NAEO. Denies SOB, chest pain, fevers or chills. Using IS. No air leak noted Objective - Vital Signs/Intake and Output Vital Signs (last 24 hours): Temp Pulse Resp BP Pulse Ox 99.4 F 107 H 27 H 139/69 98 05/25/17 08:00 05/25/17 08:00 05/25/17 08:00 05/25/17 08:00 05/25/17 08:00 Intake and Output: 05/25/17 05/25/17 06:59 18:59 Intake Total 300 Balance 300 - Medications Medications: Current Medications Albuterol Sulfate (Albuterol 0.083% Inhal Magdalene (2.5 Mg/3 Ml) Ud) 2.5 mg INH RQ4 PRN PRN Reason: Shortness of Breath Last Admin: 05/22/17 08:40 Dose: 2.5 mg Docusate Sodium (Colace) 100 mg PO BID [facility] Last Admin: 05/24/17 17:17 Dose: 100 mg Enoxaparin Sodium (Lovenox) 30 mg SC DAILY [facility] PRN Reason: Protocol Hydromorphone HCl (Dilaudid) 0.25 mg IVP Q3 PRN PRN Reason: Pain, severe (8-10) Piperacillin Sod/Tazobactam (Sod 3.375 gm/ Sodium Chloride) 100 mls @ 100 mls/ hr IVPB Q8H [facility] PRN Reason: Protocol Last Admin: 05/25/17 01:19 Dose: 100 mls/hr Ipratropium [place] (Atrovent) 0.5 mg IH RQID [facility] Last Admin: 05/25/17 08:02 Dose: 0.5 mg Metoprolol Tartrate (Lopressor) 25 mg PO Q12 [facility] Last Admin: 05/24/17 21:10 Dose: 25 mg Nicotine (Nicoderm Cq) 1 patch TD DAILY [facility] Last Admin: 05/24/17 08:28 Dose: 1 patch Sennosides (Senokot Tab) 17.2 mg PO HS [facility] Last Admin: 05/24/17 21:12 Dose: 17.2 mg - Labs Labs: 05/25/17 05:30 05/25/17 05:30 PT 13.5 Seconds (9.8-13.1) H 05/20/17 04:15 INR 1.2 (0.9-1.2) 05/20/17 04:15 APTT 31.3 Seconds (25.6-37.1) 05/20/17 04:15 - Constitutional Appears: Non-toxic, No Acute Distress - Head Exam Head Exam: ATRAUMATIC, NORMOCEPHALIC - Respiratory Exam Respiratory Exam: NORMAL BREATHING PATTERN. absent: Respiratory Distress Additional comments: Dressing C/D/I - Neurological Exam Neurological Exam: Alert, Awake - Skin Skin Exam: Dry, Warm Assessment and Plan - Assessment and Plan (Free Text) Assessment: 86M s/p CT x 2 w/ talc pleurodesis Plan: No pneumothorax seen on CXR, F/U read Continue CT to suction, planning for clamp trial friday further mgmt per ICU D/W Dr. Delphine Downs PGY4
[2017-05-25] MEDS: Enoxaparin 30 mg Syringe SC SCH (09:34)
--- NOTE | 2017-05-25 10:30 | RAD ---
PROCEDURE: CHEST RADIOGRAPH, 1 VIEW HISTORY: R pneumothorax follow up COMPARISON: None available. FINDINGS: Re- demonstrated are 2 in situ right-sided chest LUNGS: Re- demonstrated is hazy appearance of the right cnidi thorax secondary to right lower lobe atelectasis/consolidation, pleural thickening, effusion and small amount of residual overlying subcutaneous emphysema. . Note that the subcutaneous emphysema has improved. No obvious residual pneumothorax despite the aforementioned limitations. . . Minimal left basilar atelectasis with questionable small left effusion and/or pleural thickening. Significant emphysematous changes upper lobe predominance PLEURA: As above all CARDIOVASCULAR: Normal. OSSEOUS STRUCTURES: No significant abnormalities. VISUALIZED UPPER ABDOMEN: Normal. OTHER FINDINGS: None. IMPRESSION: Re- demonstrated are 2 in situ right-sided chest tubes. Persistent hazy appearance of the right cindi thorax secondary to right lower lobe atelectasis/consolidation pleural thickening and effusion. Small amount of residual subcutaneous emphysema noted. No obvious residual pneumothorax right-sided seen. Significant emphysematous changes with upper lobe predominance
--- NOTE | 2017-05-25 11:31 | CP.PCM.PN ---
Subjective - Date & Time of Evaluation Date of Evaluation: 05/25/17 Time of Evaluation: 11:25 - Subjective Subjective: Patient seen and examined at bedside today with attending during rounds. He appears breathing comfortable nasal canula O2 2L/min, no overnight events. Patient has right sided chest tubes in place connected to suction. Denies fevers , chills, chest pain, sob, cough, abdominal pain, nausea or vomiting. Patient reports having some difficulty swallowing solid food that improve when he drinks liquids. Objective - Vital Signs/Intake and Output Vital Signs (last 24 hours): Temp Pulse Resp BP Pulse Ox 99.4 F 107 H 27 H 139/69 98 05/25/17 08:00 05/25/17 09:34 05/25/17 08:00 05/25/17 09:34 05/25/17 08:00 Intake and Output: 05/25/17 05/25/17 06:59 18:59 Intake Total 300 220 Balance 300 220 - Medications Medications: Current Medications Albuterol Sulfate (Albuterol 0.083% Inhal Magdalene (2.5 Mg/3 Ml) Ud) 2.5 mg INH RQ4 PRN PRN Reason: Shortness of Breath Last Admin: 05/22/17 08:40 Dose: 2.5 mg Docusate Sodium (Colace) 100 mg PO BID [facility] Last Admin: 05/25/17 09:33 Dose: 100 mg Enoxaparin Sodium (Lovenox) 30 mg SC DAILY [facility] PRN Reason: Protocol Last Admin: 05/25/17 09:34 Dose: 30 mg Piperacillin Sod/Tazobactam (Sod 3.375 gm/ Sodium Chloride) 100 mls @ 100 mls/ hr IVPB Q8H [facility] PRN Reason: Protocol Last Admin: 05/25/17 09:35 Dose: 100 mls/hr Ipratropium [place] (Atrovent) 0.5 mg IH RQID [facility] Last Admin: 05/25/17 11:14 Dose: 0.5 mg Metoprolol Tartrate (Lopressor) 25 mg PO Q12 [facility] Last Admin: 05/25/17 09:34 Dose: 25 mg Nicotine (Nicoderm Cq) 1 patch TD DAILY [facility] Last Admin: 05/25/17 09:34 Dose: 1 patch Sennosides (Senokot Tab) 17.2 mg PO HS [facility] Last Admin: 05/24/17 21:12 Dose: 17.2 mg - Labs Labs: 05/25/17 05:30 05/25/17 05:30 PT 13.5 Seconds (9.8-13.1) H 05/20/17 04:15 INR 1.2 (0.9-1.2) 05/20/17 04:15 APTT 31.3 Seconds (25.6-37.1) 05/20/17 04:15 - Constitutional Appears: No Acute Distress - Head Exam Head Exam: NORMAL INSPECTION - Eye Exam Eye Exam: EOMI, PERRL - Respiratory Exam Additional comments: Bilateral air entry present with scattered rhonchii audible in all lung burgess. Subcutaneous emphysema is present along the right anterior chest wall, which is improved from prior assessment. Right sided-chest tubes x2, in place with dressings clean and dry. - Cardiovascular Exam Cardiovascular Exam: REGULAR RHYTHM, +S1, +S2 - GI/Abdominal Exam GI & Abdominal Exam: Soft, Normal Bowel Sounds. absent: Distended, Tenderness - Extremities Exam Extremities Exam: absent: Calf Tenderness - Neurological Exam Neurological Exam: Alert, Awake, Oriented x3 - Skin Skin Exam: Dry, Warm Assessment and Plan - Assessment and Plan (Free Text) Assessment: 86 y/o M with 70 pack year smoking history and newly diagnosed COPD, admitted for right sided pneumothorax likely secondary to ruptured bleb. Patient is s/p chest tube placement on 05/13/17, (Current day 13). He underwent talc pleurodesis with second chest tube placement on 05/21/17 (Current POD #5). Plan: Right-sided Pneumothorax -Likely secondary to ruptured bleb -S/p chest tube placement on 05/13/17, (Current Day 13) -S/p talc pleurodesis with second chest tube placement on 05/21/17 (Current POD # 5) -Chest tubes to water seal -Chest xray shows stable position of both chest tubes within right pleural space , no pneumothorax. R lower lobe atelectasis/consolidation pleural thickening and effusion. -Subcutaneous emphysema improving -Hydromorphone 0.5mg IV q4h prn for pain -Continue daily CXR -PT evaluation appreciated; KILLIAN recommended -Patient still in ICU, stable for transfer to telemetry, order placed -Thoracic surgery by Dr Akers on board, recommendations appreciated Dysphagia, new -patient states dysphagia is before come to hospital -present with solid food -swallow screen Passed COPD, newly diagnosed -Associated with 70+ pack year history -O2 via NC 2L/min -Pulmonology consulted with Dr Horowitz, recommendations appreciated -Atrovent QID [facility] -Albuterol PRN Tachycardia, persistent -Undetermined etiology -Well controlled at this time -Cardiology consult appreciated by Dr Fitzpatrick -c/w cardioselective beta shilo Metoprolol 25mg PO BID due to existing COPD -no specific cardiac workup indicated at this time Leukocytosis -WBC trending down from 12.8 to 11.9 today -Afebrile -ID consult appreciated by Dr Lehman -Continue Zosyn 3.375mg IV q8h (Started 05/21, Current Day 5) -Blood culture 05/20 no growth -Wound culture 05/20 no growth -MRSA culture 05/16 and 05/20 not detected -Urine culture 05/21 no growth DVT prophylaxis -Lovenox 30mg SC daily -SCDs
--- NOTE | 2017-05-25 15:10 | PN ---
DATE: SUBJECTIVE: Patient denies any chest pain. He is comfortable on nasal O2. No reported ventricular arrhythmia. PHYSICAL EXAMINATION: VITAL SIGNS: Blood pressure 136/80, heart rate 83, sinus rhythm on the monitor; temperature 98.1, respirations 25. HEENT: Normocephalic. CHEST: Minimal bilateral rhonchi. HEART: S1 and S2 regular. ABDOMEN: Soft. EXTREMITIES: No edema. LABORATORY DATA: Hemoglobin and hematocrit 10.3 and 31.6. White count and platelet count are 11.9 and 372 respectively. Today, SMA-7 is within normal limit except for carbon dioxide of 33. Chest x-ray revealed vertical heart and resolved pneumothorax. Two right-sided chest tubes are present. ASSESSMENT: 1. Spontaneous pneumothorax, status post pleurodesis. 2. Chronic obstructive lung disease. 3. Physiologic sinus tachycardia with occasional atrial premature contractions. 4. 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 RECOMMENDATIONS: Continue albuterol and Atrovent inhalers. Continue Lopressor 25 mg twice a day, Lovenox at 30 mg once a daily, Zosyn at 3.375 g intravenous q.8 hours. Two possible clamping of chest tubes. The case was discussed with the patient's daughter at the bedside. In future, nasal O2 at home will be decided by the research soil scientist. Ori Fitzpatrick MD
--- NOTE | 2017-05-25 16:28 | PN ---
CRITICAL CARE PROGRESS NOTE DATE: 05/25/2017 LOCATION: The patient in ICU, bed 421. TIME SPENT: 35 minutes. SUBJECTIVE: The patient is seen and examined at the bedside. Events since admission reviewed. Past medical, surgical and social history noted. An 86-year-old male, chronic smoker, 70 packs a year smoking, admitted with spontaneous pneumothorax, right, status post CT chest tubes times pleurodesis, Pleur-Evac to low wall suction at 20 cm water, remains alert, awake, follows commands appropriate, no distress noted. Denies shortness of breath at rest. Discomfort at the site of the chest tube insertion. No air leak noted. No hemoptysis. PHYSICAL EXAMINATION: VITAL SIGNS: Temperature 99.4, heart rate 107, respiratory rate 27, blood pressure 139/69, on saturation 98% on 2 L nasal cannula, intake 1220, output 404, positive balance 860, weight 93 pounds. HEAD, EARS, EYES, NOSE AND THROAT: Pupils reactive. Conjunctivae pink. Sclerae white. NECK: Supple. CHEST: Bilateral breath sounds. Chest tube x2, intact on the right side. No air leak. No subcutaneous emphysema. ABDOMEN: Bowel sounds present, soft. Liver and spleen not palpable. EXTREMITIES: Trace edema. NEUROLOGIC: Nonfocal. CURRENT MEDICATIONS: Albuterol 3 mL q. 4 p.r.n. for shortness of breath, ipratropium bromide 0.5 mg q.i.d., Lovenox 30 subcu daily, Dilaudid 0.25 mg every q. 3 for severe pain, Lopressor 25 mg p.o. q. 12, nicotine patch 21 mg daily, Percocet 5/325 mg q. 4 p.r.n. for pain, Zosyn 3.375 g IV q. 8. IMPRESSION: 1. PULMONARY: Chronic obstructive pulmonary disease, on ipratropium bromide. 2. Spontaneous pneumothorax, likely ruptured subpleural blebs, status post chest tube and pleurodesis, postoperative day 5. Continue wall suction. 3. CARDIAC: Tachycardia, improved on metoprolol 25 mg q. 12, likely associated pain. 4. GASTROINTESTINAL: No issues noted. 5. Renal function remains stable. 6. No electrolyte abnormality noted. 7. Hypoalbuminemia, improved on increased nutritional intake. 8. NEUROLOGIC: Alert; oriented to name, place and time. 9. Nicotine dependence, continue on nicotine patch. 10. Deep venous thrombosis and gastrointestinal prophylaxis. 11. Closely monitor further recurrence of pneumothorax. 12. Continue regular diet as tolerated. Aleksander Jimenez MD
[2017-05-26] MEDS: Piperacillin/Tazobact 3.375 GM in Sodium Chloride 0.9% 100 ML IVPB SCH ×3 (02:39→17:59)
--- NOTE | 2017-05-26 08:02 | CP.PCM.PN ---
Subjective - Date & Time of Evaluation Date of Evaluation: 05/26/17 Time of Evaluation: 06:45 - Subjective Subjective: Surgery- Dr. Akers Patient seen and examined at bedside this AM. No acute events overnight. +IC + Flatus. Denies Chest pain, Fevers, chills, nausea, vomiting, diarrhea. No air leak detected on chest tube. Objective - Vital Signs/Intake and Output Vital Signs (last 24 hours): Temp Pulse Resp BP Pulse Ox 98.4 F 94 H 18 154/77 H 97 05/26/17 05:00 05/26/17 05:00 05/26/17 05:00 05/26/17 05:00 05/26/17 05:00 - Medications Medications: Current Medications Albuterol Sulfate (Albuterol 0.083% Inhal Magdalene (2.5 Mg/3 Ml) Ud) 2.5 mg INH RQ4 PRN PRN Reason: Shortness of Breath Last Admin: 05/22/17 08:40 Dose: 2.5 mg Docusate Sodium (Colace) 100 mg PO BID [facility] Last Admin: 05/25/17 16:55 Dose: 100 mg Enoxaparin Sodium (Lovenox) 30 mg SC DAILY [facility] PRN Reason: Protocol Last Admin: 05/25/17 09:34 Dose: 30 mg Piperacillin Sod/Tazobactam (Sod 3.375 gm/ Sodium Chloride) 100 mls @ 100 mls/ hr IVPB Q8H [facility] PRN Reason: Protocol Last Admin: 05/26/17 02:39 Dose: 100 mls/hr Ipratropium [place] (Atrovent) 0.5 mg IH RQID [facility] Last Admin: 05/25/17 19:35 Dose: 0.5 mg Metoprolol Tartrate (Lopressor) 25 mg PO Q12 [facility] Last Admin: 05/25/17 22:25 Dose: 25 mg Nicotine (Nicoderm Cq) 1 patch TD DAILY [facility] Last Admin: 05/25/17 09:34 Dose: 1 patch Sennosides (Senokot Tab) 17.2 mg PO HS [facility] Last Admin: 05/25/17 22:26 Dose: 17.2 mg - Labs Labs: 05/25/17 05:30 05/25/17 05:30 PT 13.5 Seconds (9.8-13.1) H 05/20/17 04:15 INR 1.2 (0.9-1.2) 05/20/17 04:15 APTT 31.3 Seconds (25.6-37.1) 05/20/17 04:15 - Constitutional Appears: Non-toxic, No Acute Distress - Head Exam Head Exam: ATRAUMATIC - Eye Exam Eye Exam: EOMI. absent: Scleral icterus - ENT Exam ENT Exam: Mucous Membranes Moist - Respiratory Exam Respiratory Exam: NORMAL BREATHING PATTERN. absent: Accessory Muscle Use, Respiratory Distress Additional comments: Chest tube x2 in place. Dressing C/D/I No air leak detected - Cardiovascular Exam Cardiovascular Exam: +S1, +S2. absent: Bradycardia, Tachycardia - GI/Abdominal Exam GI & Abdominal Exam: Soft. absent: Distended, Firm, Guarding, Rigid, Tenderness - Extremities Exam Extremities Exam: absent: Calf Tenderness - Neurological Exam Neurological Exam: Alert, Awake, Oriented x3 - Psychiatric Exam Psychiatric exam: Normal Affect - Skin Skin Exam: Normal Color, Warm Assessment and Plan - Assessment and Plan (Free Text) Assessment: 86M right chest tube x2 w/ talc pleurodesis POD#6 Plan: - chest tube clamped - f/u CXR at noon today - daily CXR - pending results, possible CT removal tomorrow - medical management per ICU team - Further recs per Dr. Delphine Odell PGY1
[2017-05-26] MEDS: Ipratropium 0.02% Inhal Soln (0.5 mg/2.5 ml) UD IH SCH ×4 (08:03→19:43)
[2017-05-26] MEDS: Enoxaparin 30 mg Syringe SC SCH (10:03)
--- NOTE | 2017-05-26 10:33 | RAD ---
PROCEDURE: CHEST RADIOGRAPH, 1 VIEW HISTORY: Pneumothorax COMPARISON: Portable chest radiograph 05/25/2017. FINDINGS: Two right chest tubes are unchanged in position. LUNGS: No definite acute infiltrate bilaterally. PLEURA: Stable limited right pleural effusion again evident. No left pleural effusion. No pneumothorax bilaterally. Emphysematous soft tissue changes again seen at the right shoulder region and right chest wall laterally. CARDIOVASCULAR: Normal. OSSEOUS STRUCTURES: No significant abnormalities. VISUALIZED UPPER ABDOMEN: Normal. OTHER FINDINGS: None. IMPRESSION: Stable right-sided chest tubes with no pneumothorax identified bilaterally in the interval. Trace right pleural effusion unchanged. No definite acute infiltrate.
--- NOTE | 2017-05-26 11:13 | CP.PCM.PN ---
Subjective - Date & Time of Evaluation Date of Evaluation: 05/26/17 Time of Evaluation: 09:00 - Subjective Subjective: The patient was seen on rounds and telemetry. He appears comfortable in both chest tubes remain in touch to waterseal. Subcutaneous emphysema continues to resolve and is almost gone at this time. Breath sounds are diminished bilaterally with scattered rhonchi. No audible wheezing or bronchial breathing. Expiratory phase is slightly prolonged. Plan is for clamping chest tubes and repeating x-ray in the a.m. Removal of chest tubes will depend on the results of the above. Continue aerosol therapy using ipratropium. Objective - Vital Signs/Intake and Output Vital Signs (last 24 hours): Temp Pulse Resp BP Pulse Ox 98.6 F 104 H 18 141/71 98 05/26/17 08:24 05/26/17 10:03 05/26/17 08:24 05/26/17 10:03 05/26/17 08:24 Intake and Output: 05/25/17 05/26/17 23:59 11:59 Intake Total 100 Output Total 100 Balance 0 - Medications Medications: Current Medications Albuterol Sulfate (Albuterol 0.083% Inhal Magdalene (2.5 Mg/3 Ml) Ud) 2.5 mg INH RQ4 PRN PRN Reason: Shortness of Breath Last Admin: 05/22/17 08:40 Dose: 2.5 mg Docusate Sodium (Colace) 100 mg PO BID [facility] Last Admin: 05/26/17 10:03 Dose: 100 mg Enoxaparin Sodium (Lovenox) 30 mg SC DAILY [facility] PRN Reason: Protocol Last Admin: 05/26/17 10:03 Dose: 30 mg Piperacillin Sod/Tazobactam (Sod 3.375 gm/ Sodium Chloride) 100 mls @ 100 mls/ hr IVPB Q8H [facility] PRN Reason: Protocol Last Admin: 05/26/17 10:04 Dose: 100 mls/hr Ipratropium [place] (Atrovent) 0.5 mg IH RQID [facility] Last Admin: 05/25/17 19:35 Dose: 0.5 mg Metoprolol Tartrate (Lopressor) 25 mg PO Q12 [facility] Last Admin: 05/26/17 10:03 Dose: 25 mg Nicotine (Nicoderm Cq) 1 patch TD DAILY [facility] Last Admin: 05/26/17 10:04 Dose: 1 patch Sennosides (Senokot Tab) 17.2 mg PO HS [facility] Last Admin: 05/25/17 22:26 Dose: 17.2 mg - Labs Labs: 05/25/17 05:30 05/25/17 05:30 PT 13.5 Seconds (9.8-13.1) H 05/20/17 04:15 INR 1.2 (0.9-1.2) 05/20/17 04:15 APTT 31.3 Seconds (25.6-37.1) 05/20/17 04:15
--- NOTE | 2017-05-26 13:50 | PN ---
DATE: SUBJECTIVE: The patient denies any chest pain. PHYSICAL EXAMINATION VITAL SIGNS: Blood pressure 141/71, heart rate 104, temperature 98.6, respirations 18. HEENT: Normocephalic. CHEST: Minimal basal rhonchi. HEART: S1 and S2 regular. EXTREMITIES: Significant muscle wasting. ASSESSMENT: 1. Right-sided pneumothorax, status post chest tube placement and pleurodesis. 2. Occasional atrial ectopy. 3. Chronic obstructive lung disease. RECOMMENDATIONS: Continue current Albuterol inhaler and Atrovent inhaler. Continue Lopressor 25 mg twice a day, Lovenox 30 mg subcutaneous once a day, Zosyn at 3.375 g intravenously q. 8 hours. Ori Fitzpatrick MD
--- NOTE | 2017-05-26 14:09 | RAD ---
PROCEDURE: CHEST RADIOGRAPH, 1 VIEW HISTORY: chest tube clamped- PTX COMPARISON: Multiple serial examinations preceding the most recent study: May 26, 2017. Time of the most recent examination: 08:10 FINDINGS: LUNGS: Stable consolidative changes right lower lobe PLEURA: Stable small right pleural effusion. Two chest tubes remain in satisfactory position right pleural space. She CARDIOVASCULAR: Normal. OSSEOUS STRUCTURES: No significant abnormalities. VISUALIZED UPPER ABDOMEN: Normal. OTHER FINDINGS: Trace subcutaneous emphysema. IMPRESSION: No significant interval change compared to the prior examination(s).
--- NOTE | 2017-05-26 15:18 | CP.PCM.PN ---
Subjective - Date & Time of Evaluation Date of Evaluation: 05/26/17 Time of Evaluation: 07:35 - Subjective Subjective: Patient seen and examined at bedside today. He appears breathing comfortable nasal canula O2 2L/min, no overnight events. Patient has right sided chest tubes in place that were clamped today. Patient is afebrile, denies chills, chest pain, sob, cough, abdominal pain, nausea or vomiting. Patient reports feel better from dysphagia stated yesterday. Objective - Vital Signs/Intake and Output Vital Signs (last 24 hours): Temp Pulse Resp BP Pulse Ox 97.2 F L 79 18 123/77 95 05/26/17 12:29 05/26/17 12:29 05/26/17 12:29 05/26/17 12:29 05/26/17 12:29 - Medications Medications: Current Medications Albuterol Sulfate (Albuterol 0.083% Inhal Magdalene (2.5 Mg/3 Ml) Ud) 2.5 mg INH RQ4 PRN PRN Reason: Shortness of Breath Last Admin: 05/22/17 08:40 Dose: 2.5 mg Docusate Sodium (Colace) 100 mg PO BID [facility] Last Admin: 05/26/17 10:03 Dose: 100 mg Enoxaparin Sodium (Lovenox) 30 mg SC DAILY [facility] PRN Reason: Protocol Last Admin: 05/26/17 10:03 Dose: 30 mg Piperacillin Sod/Tazobactam (Sod 3.375 gm/ Sodium Chloride) 100 mls @ 100 mls/ hr IVPB Q8H [facility] PRN Reason: Protocol Last Admin: 05/26/17 10:04 Dose: 100 mls/hr Ipratropium [place] (Atrovent) 0.5 mg IH RQID [facility] Last Admin: 05/26/17 11:15 Dose: Not Given Metoprolol Tartrate (Lopressor) 25 mg PO Q12 [facility] Last Admin: 05/26/17 10:03 Dose: 25 mg Nicotine (Nicoderm Cq) 1 patch TD DAILY [facility] Last Admin: 05/26/17 10:04 Dose: 1 patch Sennosides (Senokot Tab) 17.2 mg PO HS [facility] Last Admin: 05/25/17 22:26 Dose: 17.2 mg - Labs Labs: 05/25/17 05:30 05/25/17 05:30 PT 13.5 Seconds (9.8-13.1) H 05/20/17 04:15 INR 1.2 (0.9-1.2) 05/20/17 04:15 APTT 31.3 Seconds (25.6-37.1) 05/20/17 04:15 - Constitutional Appears: No Acute Distress, Cachectic - Head Exam Head Exam: NORMAL INSPECTION - Eye Exam Eye Exam: EOMI, PERRL - Respiratory Exam Additional comments: Bilateral air entry present with scattered rhonchii audible in all lung burgess. Subcutaneous emphysema is present along the right anterior chest wall, improving from previous days. Right sided-chest tubes x2, clamped, in place with dressings clean and dry. - Cardiovascular Exam Cardiovascular Exam: Tachycardia, REGULAR RHYTHM, +S1, +S2 - GI/Abdominal Exam GI & Abdominal Exam: Soft, Normal Bowel Sounds. absent: Distended, Tenderness - Extremities Exam Extremities Exam: absent: Calf Tenderness, Pedal Edema - Neurological Exam Neurological Exam: Alert, Awake, Oriented x3 - Psychiatric Exam Psychiatric exam: Normal Mood - Skin Skin Exam: Dry, Warm Assessment and Plan - Assessment and Plan (Free Text) Assessment: 86 yo M with 70 pack year smoking history and newly diagnosed COPD, admitted for right sided pneumothorax likely secondary to ruptured bleb. Patient is s/p chest tube placement on 05/13/17, (Current day 14). He underwent talc pleurodesis with second chest tube placement on 05/21/17 (Current POD #6). Chest tubes clamped today, thoracic surgery recommendations expected. Plan: Right-sided Pneumothorax -Likely secondary to ruptured bleb -S/p chest tube placement on 05/13/17, (Current Day 14) -S/p talc pleurodesis with second chest tube placement on 05/21/17 (Current POD # 6) -Chest tubes clamped today. -Chest xray shows stable position of both chest tubes within right pleural space , no pneumothorax. -Subcutaneous emphysema resolving -Hydromorphone 0.5 mg IV q4h prn for pain -Continue daily CXR -PT evaluation appreciated; KILLIAN recommended -Thoracic surgery by Dr Akers on board, recommendations appreciated Dysphagia, new -present with solid food -swallow screen Passed COPD, newly diagnosed -Associated with 70+ pack year history -O2 via NC 2L/min -Pulmonology consulted with Dr Horowitz, recommendations appreciated -Atrovent QID HEIDY -Albuterol PRN Tachycardia, stable -Undetermined etiology -Well controlled at this time -Cardiology consult appreciated by Dr Fitzpatrick -c/w cardioselective beta shilo Metoprolol 25mg PO BID due to existing COPD -no specific cardiac workup indicated at this time Leukocytosis -WBC trending down from 12.8 to 11.9 -Afebrile -ID consult appreciated by Dr Lehman -Continue Zosyn 3.375mg IV q8h (Started 05/21, Current Day 6) DVT prophylaxis -Lovenox 30mg SC daily -SCDs
--- NOTE | 2017-05-26 15:52 | CP.PCM.PN ---
Subjective - Date & Time of Evaluation Date of Evaluation: 05/26/17 Time of Evaluation: 15:47 - Subjective Subjective: Pt s/e. cxr-No pneumothorax/ chest tubes-negatiave intrapleural pressure. scanty drainage. will clamp tubes today(each with two clamps as close to the entry point of tube as possible) d/w resident. Objective - Vital Signs/Intake and Output Vital Signs (last 24 hours): Temp Pulse Resp BP Pulse Ox 97.2 F L 79 18 123/77 95 05/26/17 12:29 05/26/17 12:29 05/26/17 12:29 05/26/17 12:29 05/26/17 12:29 - Medications Medications: Current Medications Albuterol Sulfate (Albuterol 0.083% Inhal Magdalene (2.5 Mg/3 Ml) Ud) 2.5 mg INH RQ4 PRN PRN Reason: Shortness of Breath Last Admin: 05/22/17 08:40 Dose: 2.5 mg Docusate Sodium (Colace) 100 mg PO BID [facility] Last Admin: 05/26/17 10:03 Dose: 100 mg Enoxaparin Sodium (Lovenox) 30 mg SC DAILY [facility] PRN Reason: Protocol Last Admin: 05/26/17 10:03 Dose: 30 mg Piperacillin Sod/Tazobactam (Sod 3.375 gm/ Sodium Chloride) 100 mls @ 100 mls/ hr IVPB Q8H [facility] PRN Reason: Protocol Last Admin: 05/26/17 10:04 Dose: 100 mls/hr Ipratropium [place] (Atrovent) 0.5 mg IH RQID [facility] Last Admin: 05/26/17 15:44 Dose: 0.5 mg Metoprolol Tartrate (Lopressor) 25 mg PO Q12 [facility] Last Admin: 05/26/17 10:03 Dose: 25 mg Nicotine (Nicoderm Cq) 1 patch TD DAILY [facility] Last Admin: 05/26/17 10:04 Dose: 1 patch Sennosides (Senokot Tab) 17.2 mg PO HS [facility] Last Admin: 05/25/17 22:26 Dose: 17.2 mg - Labs Labs: 05/25/17 05:30 05/25/17 05:30 PT 13.5 Seconds (9.8-13.1) H 05/20/17 04:15 INR 1.2 (0.9-1.2) 05/20/17 04:15 APTT 31.3 Seconds (25.6-37.1) 05/20/17 04:15
[2017-05-27] MEDS: Piperacillin/Tazobact 3.375 GM in Sodium Chloride 0.9% 100 ML IVPB SCH ×3 (01:49→17:34)
--- NOTE | 2017-05-27 07:56 | CP.PCM.PN ---
Subjective - Date & Time of Evaluation Date of Evaluation: 05/27/17 Time of Evaluation: 07:41 - Subjective Subjective: Patient seen and examined this morning at bedside, patient reports feeling good , denies sob, palpitations, chest pain, nausea, vomiting, no abdominal pain. Patient states continue with low appetite but is tolerating well ensure supplementation. Spoken with Surgery resident at bedside plan to remove chest tubes today. Objective - Vital Signs/Intake and Output Vital Signs (last 24 hours): Temp Pulse Resp BP Pulse Ox 97.3 F L 118 H 20 150/67 97 05/27/17 04:44 05/27/17 04:44 05/27/17 04:44 05/27/17 04:44 05/27/17 04:44 - Medications Medications: Current Medications Albuterol Sulfate (Albuterol 0.083% Inhal Magdalene (2.5 Mg/3 Ml) Ud) 2.5 mg INH RQ4 PRN PRN Reason: Shortness of Breath Last Admin: 05/22/17 08:40 Dose: 2.5 mg Docusate Sodium (Colace) 100 mg PO BID [facility] Last Admin: 05/26/17 17:59 Dose: Not Given Enoxaparin Sodium (Lovenox) 30 mg SC DAILY [facility] PRN Reason: Protocol Last Admin: 05/26/17 10:03 Dose: 30 mg Piperacillin Sod/Tazobactam (Sod 3.375 gm/ Sodium Chloride) 100 mls @ 100 mls/ hr IVPB Q8H [facility] PRN Reason: Protocol Last Admin: 05/27/17 01:49 Dose: 100 mls/hr Ipratropium [place] (Atrovent) 0.5 mg IH RQID [facility] Last Admin: 05/26/17 19:43 Dose: 0.5 mg Metoprolol Tartrate (Lopressor) 25 mg PO Q12 [facility] Last Admin: 05/26/17 21:44 Dose: 25 mg Nicotine (Nicoderm Cq) 1 patch TD DAILY [facility] Last Admin: 05/26/17 10:04 Dose: 1 patch Sennosides (Senokot Tab) 17.2 mg PO HS [facility] Last Admin: 05/26/17 21:45 Dose: 17.2 mg - Labs Labs: 05/25/17 05:30 05/25/17 05:30 PT 13.5 Seconds (9.8-13.1) H 05/20/17 04:15 INR 1.2 (0.9-1.2) 05/20/17 04:15 APTT 31.3 Seconds (25.6-37.1) 05/20/17 04:15 - Constitutional Appears: No Acute Distress, Cachectic - Head Exam Head Exam: NORMAL INSPECTION - Eye Exam Eye Exam: EOMI, PERRL - Respiratory Exam Respiratory Exam: NORMAL BREATHING PATTERN Additional comments: Right sided-chest tubes x2, clamped, in place with dressings clean and dry. Fair subcutaneous emphysema on R anterior chest wall, almost resolved. - Cardiovascular Exam Cardiovascular Exam: Tachycardia, REGULAR RHYTHM, +S1, +S2. absent: Murmur - GI/Abdominal Exam GI & Abdominal Exam: Soft, Normal Bowel Sounds. absent: Tenderness - Extremities Exam Extremities Exam: absent: Calf Tenderness - Neurological Exam Neurological Exam: Alert, Awake, Oriented x3 - Skin Skin Exam: Dry, Warm Assessment and Plan - Assessment and Plan (Free Text) Assessment: 86 yo M with 70 pack year smoking history and newly diagnosed COPD, admitted for right sided pneumothorax likely secondary to ruptured bleb. Patient is s/p chest tube placement on 05/13/17, (Current day 15). He underwent talc pleurodesis with second chest tube placement on 05/21/17 (Current POD #7). Chest tubes to be removed today, thoracic surgery recommendations expected. Plan: Right-sided Pneumothorax -Likely secondary to ruptured bleb -S/p chest tube placement on 05/13/17, (Current Day 15) -S/p talc pleurodesis with second chest tube placement on 05/21/17 (Current POD 7 ) -Chest tubes clamped, pending to be removed today -Chest xray shows stable position of both chest tubes within right pleural space , no pneumothorax. -Hydromorphone 0.5 mg IV q4h prn for pain -Continue daily CXR -PT evaluation appreciated; [facility] recommended -Thoracic surgery by Dr Akers on board, recommendations appreciated Dysphagia, new -present with solid food -swallow screen Passed COPD, newly diagnosed -Associated with 70+ pack year history -O2 via NC 2L/min prn if SOB -Pulmonology consulted with Dr Horowitz, recommendations appreciated -Atrovent QID [facility] -Albuterol PRN Tachycardia, stable -Undetermined etiology -Well controlled at this time -Cardiology consult appreciated by Dr Fitzpatrick -c/w cardioselective beta shilo Metoprolol 25mg PO BID due to existing COPD -no specific cardiac workup indicated at this time Leukocytosis -WBC trending down from 12.8 to 11.9 -Afebrile -ID consult appreciated by Dr Lehman -Continue Zosyn 3.375mg IV q8h (Started 05/21, Current Day 7) DVT prophylaxis -Lovenox 30mg SC daily -SCDs
[2017-05-27] MEDS: Ipratropium 0.02% Inhal Soln (0.5 mg/2.5 ml) UD IH SCH ×4 (07:59→19:22)
[2017-05-27] MEDS: Enoxaparin 30 mg Syringe SC SCH (08:47)
--- NOTE | 2017-05-27 11:00 | CP.PCM.PN ---
Subjective - Date & Time of Evaluation Date of Evaluation: 05/27/17 Time of Evaluation: 08:30 - Subjective Subjective: The patient was seen on rounds in the morning. Chest tubes are presently clamped and the patient shows no signs of distress. The neck is supple and trachea is midline. There is minimal subcutaneous emphysema noted. Mild hyperresonance to percussion is equal bilaterally. Breath sounds are diminished bilaterally with scattered rhonchi. Expiratory phase remains mildly prolonged. Chest x-ray this morning was reviewed and there is no evidence of pneumothorax currently. Possible removal of chest tubes today as per surgery. Objective - Vital Signs/Intake and Output Vital Signs (last 24 hours): Temp Pulse Resp BP Pulse Ox 97.8 F 103 H 20 151/68 H 97 05/27/17 08:00 05/27/17 08:47 05/27/17 08:00 05/27/17 08:47 05/27/17 08:00 - Medications Medications: Current Medications Albuterol Sulfate (Albuterol 0.083% Inhal Magdalene (2.5 Mg/3 Ml) Ud) 2.5 mg INH RQ4 PRN PRN Reason: Shortness of Breath Last Admin: 05/22/17 08:40 Dose: 2.5 mg Docusate Sodium (Colace) 100 mg PO BID [facility] Last Admin: 05/27/17 08:55 Dose: Not Given Enoxaparin Sodium (Lovenox) 30 mg SC DAILY [facility] PRN Reason: Protocol Last Admin: 05/27/17 08:47 Dose: 30 mg Piperacillin Sod/Tazobactam (Sod 3.375 gm/ Sodium Chloride) 100 mls @ 100 mls/ hr IVPB Q8H [facility] PRN Reason: Protocol Last Admin: 05/27/17 01:49 Dose: 100 mls/hr Ipratropium [place] (Atrovent) 0.5 mg IH RQID [facility] Last Admin: 05/27/17 07:59 Dose: 0.5 mg Metoprolol Tartrate (Lopressor) 25 mg PO Q12 [facility] Last Admin: 05/27/17 08:47 Dose: 25 mg Nicotine (Nicoderm Cq) 1 patch TD DAILY [facility] Last Admin: 05/27/17 08:47 Dose: 1 patch Sennosides (Senokot Tab) 17.2 mg PO HS [facility] Last Admin: 05/26/17 21:45 Dose: 17.2 mg - Labs Labs: 05/25/17 05:30 05/25/17 05:30 PT 13.5 Seconds (9.8-13.1) H 05/20/17 04:15 INR 1.2 (0.9-1.2) 05/20/17 04:15 APTT 31.3 Seconds (25.6-37.1) 05/20/17 04:15
--- NOTE | 2017-05-27 11:34 | RAD ---
PROCEDURE: CHEST RADIOGRAPH, 1 VIEW HISTORY: chest tube- pneumothorax COMPARISON: Portable chest 05/26/2017. FINDINGS: LUNGS: Right chest tubes unchanged in position with only trace right pleural effusion remaining. No definite pneumothorax or left pleural effusion. Cardiomediastinal silhouette is stable. Trace fluid is seen in the minor fissure which is somewhat elevated. OSSEOUS STRUCTURES: No significant abnormalities. VISUALIZED UPPER ABDOMEN: Normal. OTHER FINDINGS: None. IMPRESSION: Nearly resolved right pleural effusion with 2 right chest tubes in position. No pneumothorax. No definite infiltrate bilaterally or left pleural effusion.
--- NOTE | 2017-05-27 13:15 | CP.PCM.PN ---
Subjective - Date & Time of Evaluation Date of Evaluation: 05/27/17 Time of Evaluation: 13:12 - Subjective Subjective: Pt s/e. No c/o. chest tubes remove. cxr [id number] pneumothrax. d/c home tomorrow after cxr. Dressings to be removed in two days. Sutures to be removed in one week. Objective - Vital Signs/Intake and Output Vital Signs (last 24 hours): Temp Pulse Resp BP Pulse Ox 98.2 F 91 H 18 136/63 94 L 05/27/17 12:00 05/27/17 12:00 05/27/17 12:00 05/27/17 12:00 05/27/17 12:00 - Medications Medications: Current Medications Albuterol Sulfate (Albuterol 0.083% Inhal Magdalene (2.5 Mg/3 Ml) Ud) 2.5 mg INH RQ4 PRN PRN Reason: Shortness of Breath Last Admin: 05/22/17 08:40 Dose: 2.5 mg Docusate Sodium (Colace) 100 mg PO BID [facility] Last Admin: 05/27/17 08:55 Dose: Not Given Enoxaparin Sodium (Lovenox) 30 mg SC DAILY [facility] PRN Reason: Protocol Last Admin: 05/27/17 08:47 Dose: 30 mg Piperacillin Sod/Tazobactam (Sod 3.375 gm/ Sodium Chloride) 100 mls @ 100 mls/ hr IVPB Q8H [facility] PRN Reason: Protocol Last Admin: 05/27/17 01:49 Dose: 100 mls/hr Ipratropium [place] (Atrovent) 0.5 mg IH RQID [facility] Last Admin: 05/27/17 07:59 Dose: 0.5 mg Metoprolol Tartrate (Lopressor) 25 mg PO Q12 [facility] Last Admin: 05/27/17 08:47 Dose: 25 mg Nicotine (Nicoderm Cq) 1 patch TD DAILY [facility] Last Admin: 05/27/17 08:47 Dose: 1 patch Sennosides (Senokot Tab) 17.2 mg PO HS [facility] Last Admin: 05/26/17 21:45 Dose: 17.2 mg - Labs Labs: 05/25/17 05:30 05/25/17 05:30 PT 13.5 Seconds (9.8-13.1) H 05/20/17 04:15 INR 1.2 (0.9-1.2) 05/20/17 04:15 APTT 31.3 Seconds (25.6-37.1) 05/20/17 04:15
--- NOTE | 2017-05-27 13:58 | RAD ---
PROCEDURE: CHEST RADIOGRAPH, 1 VIEW HISTORY: Chest tube removal- Pneumotharx COMPARISON: Portable chest 05/27/2017, 7:10 a.m.. FINDINGS: LUNGS: No definitive infiltrate appreciated bilaterally once again. PLEURA: No interval pneumothorax status post removal of 2 right-sided chest tubes. Trace right pleural effusion is now identified. None is seen at the left. CARDIOVASCULAR: Normal. OSSEOUS STRUCTURES: No significant abnormalities. VISUALIZED UPPER ABDOMEN: Normal. OTHER FINDINGS: None. IMPRESSION: Trace right pleural effusion. Status post removal of 2 right-sided chest tubes. No definite interval pneumothorax. No definitive infiltrate bilaterally.
--- NOTE | 2017-05-27 22:12 | PN ---
SUBJECTIVE: The patient's chest tubes were removed. He denies any chest pain. Sinus rhythm on the monitor. PHYSICAL EXAMINATION: VITAL SIGNS: Blood pressure 162/78, heart rate 95, temperature 97.8, respirations 19. HEENT: Pale conjunctivae. CHEST: Diminished breath sounds over the right base. HEART: S1 and S2 regular. ABDOMEN: Soft. EXTREMITIES: Significant muscle wasting. ASSESSMENT: 1. Chronic obstructive pulmonary disease and spontaneous pneumothorax, status post pleurodesis. 2. Sinus tachycardia which has improved. 3. Mild anemia. RECOMMENDATIONS: Continue current albuterol inhaler. Continue Lopressor 25 mg twice a day. Nicotine patch. Zosyn at 3.375 g intravenous q. 8 hours. Ori Fitzpatrick MD
[2017-05-28] MEDS: Piperacillin/Tazobact 3.375 GM in Sodium Chloride 0.9% 100 ML IVPB SCH ×3 (01:29→17:26)
--- NOTE | 2017-05-28 07:44 | RAD ---
PROCEDURE: CHEST RADIOGRAPH, 1 VIEW HISTORY: eval ptx prior to d/c COMPARISON: Frontal chest radiograph 05/27/2017. FINDINGS: LUNGS: Apical predominant pulmonary fibrosis is again appreciated with no definite airspace disease bilaterally. COPD pattern again evident. PLEURA: Limited right pleural effusion is seen at the right base with none on the left. No pneumothorax bilaterally. CARDIOVASCULAR: Normal. OSSEOUS STRUCTURES: No significant abnormalities. VISUALIZED UPPER ABDOMEN: Normal. OTHER FINDINGS: None. IMPRESSION: COPD pattern again evident including apical predominant fibrosis and bilateral apical lucencies suggesting emphysematous disease. Minimal right pleural effusion again evident. No definite airspace disease bilaterally.
[2017-05-28] MEDS: Ipratropium 0.02% Inhal Soln (0.5 mg/2.5 ml) UD IH SCH ×4 (07:53→19:29)
[2017-05-28] MEDS: Enoxaparin 30 mg Syringe SC SCH (08:36)
--- NOTE | 2017-05-28 10:11 | CP.PCM.PN ---
<Doug Sanon - Last Filed: 05/28/17 10:14> Subjective - Date & Time of Evaluation Date of Evaluation: 05/28/17 Time of Evaluation: 08:00 - Subjective Subjective: Mr. Robertson was seen and examined at bedside. s/p chest tube removal yesterday; Dressing is dry; denies site specific pain Denies overnight events; ambulating Saturating well on room air and occasional NC at 2L. Minimal subcutaneous emphysema; Significantly improved. Trachea midline. Breath sounds clear bilaterally; Non labored breathing. Mild hyperresonance to percussion noted at R upper chest wall. CXR this AM with no acute evidence of pneumothorax Patient is stable from Pulmonary standpoint. D/w Dr. Carlos Manuel Sanon, PGY1 Objective - Vital Signs/Intake and Output Vital Signs (last 24 hours): Temp Pulse Resp BP Pulse Ox 98.3 F 105 H 20 135/85 97 05/28/17 08:38 05/28/17 08:38 05/28/17 08:38 05/28/17 08:38 05/28/17 08:38 - Medications Medications: Current Medications Albuterol Sulfate (Albuterol 0.083% Inhal Magdalene (2.5 Mg/3 Ml) Ud) 2.5 mg INH RQ4 PRN PRN Reason: Shortness of Breath Last Admin: 05/22/17 08:40 Dose: 2.5 mg Docusate Sodium (Colace) 100 mg PO BID [facility] Last Admin: 05/28/17 08:43 Dose: Not Given Enoxaparin Sodium (Lovenox) 30 mg SC DAILY [facility] PRN Reason: Protocol Last Admin: 05/28/17 08:36 Dose: 30 mg Piperacillin Sod/Tazobactam (Sod 3.375 gm/ Sodium Chloride) 100 mls @ 100 mls/ hr IVPB Q8H [facility] PRN Reason: Protocol Last Admin: 05/28/17 09:49 Dose: 100 mls/hr Ipratropium [place] (Atrovent) 0.5 mg IH RQID [facility] Last Admin: 05/28/17 07:53 Dose: 0.5 mg Metoprolol Tartrate (Lopressor) 25 mg PO Q12 [facility] Last Admin: 05/28/17 08:36 Dose: 25 mg Nicotine (Nicoderm Cq) 1 patch TD DAILY [facility] Last Admin: 05/28/17 08:37 Dose: 1 patch Sennosides (Senokot Tab) 17.2 mg PO HS [facility] Last Admin: 05/27/17 21:32 Dose: Not Given - Labs Labs: 05/25/17 05:30 05/25/17 05:30 PT 13.5 Seconds (9.8-13.1) H 05/20/17 04:15 INR 1.2 (0.9-1.2) 05/20/17 04:15 APTT 31.3 Seconds (25.6-37.1) 05/20/17 04:15 <Tonny Horowitz - Last Filed: 05/28/17 11:11> Subjective - Subjective Subjective: Case discussed on rounds. Agree with assessment and patient is likely ready for discharge. Would recommend followup CXR next week. Discussed with ID; will likely be sent home on PO antibiotic. Objective - Vital Signs/Intake and Output Vital Signs (last 24 hours): Temp Pulse Resp BP Pulse Ox 98.3 F 105 H 20 135/85 97 05/28/17 08:38 05/28/17 08:38 05/28/17 08:38 05/28/17 08:38 05/28/17 08:38 - Medications Medications: Current Medications Albuterol Sulfate (Albuterol 0.083% Inhal Magdalene (2.5 Mg/3 Ml) Ud) 2.5 mg INH RQ4 PRN PRN Reason: Shortness of Breath Last Admin: 05/22/17 08:40 Dose: 2.5 mg Docusate Sodium (Colace) 100 mg PO BID [facility] Last Admin: 05/28/17 08:43 Dose: Not Given Enoxaparin Sodium (Lovenox) 30 mg SC DAILY [facility] PRN Reason: Protocol Last Admin: 05/28/17 08:36 Dose: 30 mg Piperacillin Sod/Tazobactam (Sod 3.375 gm/ Sodium Chloride) 100 mls @ 100 mls/ hr IVPB Q8H [facility] PRN Reason: Protocol Last Admin: 05/28/17 09:49 Dose: 100 mls/hr Ipratropium [place] (Atrovent) 0.5 mg IH RQID [facility] Last Admin: 05/28/17 07:53 Dose: 0.5 mg Metoprolol Tartrate (Lopressor) 25 mg PO Q12 [facility] Last Admin: 05/28/17 08:36 Dose: 25 mg Nicotine (Nicoderm Cq) 1 patch TD DAILY [facility] Last Admin: 05/28/17 08:37 Dose: 1 patch Sennosides (Senokot Tab) 17.2 mg PO HS [facility] Last Admin: 05/27/17 21:32 Dose: Not Given - Labs Labs: 05/25/17 05:30 05/25/17 05:30 PT 13.5 Seconds (9.8-13.1) H 05/20/17 04:15 INR 1.2 (0.9-1.2) 05/20/17 04:15 APTT 31.3 Seconds (25.6-37.1) 05/20/17 04:15
--- NOTE | 2017-05-28 11:20 | CP.PCM.PN ---
Subjective - Date & Time of Evaluation Date of Evaluation: 05/28/17 Time of Evaluation: 11:18 - Subjective Subjective: Thoracic Surgery Dr. Akers Pt S&E @bedside. (R) chest tubes removed yesterday. NAEO. Pt has no complaints. denies CP, SOB, F/C, N/V. tolerating diet. Objective - Vital Signs/Intake and Output Vital Signs (last 24 hours): Temp Pulse Resp BP Pulse Ox 98.3 F 105 H 20 135/85 97 05/28/17 08:38 05/28/17 08:38 05/28/17 08:38 05/28/17 08:38 05/28/17 08:38 - Medications Medications: Current Medications Albuterol Sulfate (Albuterol 0.083% Inhal Magdalene (2.5 Mg/3 Ml) Ud) 2.5 mg INH RQ4 PRN PRN Reason: Shortness of Breath Last Admin: 05/22/17 08:40 Dose: 2.5 mg Docusate Sodium (Colace) 100 mg PO BID [facility] Last Admin: 05/28/17 08:43 Dose: Not Given Enoxaparin Sodium (Lovenox) 30 mg SC DAILY [facility] PRN Reason: Protocol Last Admin: 05/28/17 08:36 Dose: 30 mg Piperacillin Sod/Tazobactam (Sod 3.375 gm/ Sodium Chloride) 100 mls @ 100 mls/ hr IVPB Q8H [facility] PRN Reason: Protocol Last Admin: 05/28/17 09:49 Dose: 100 mls/hr Ipratropium [place] (Atrovent) 0.5 mg IH RQID [facility] Last Admin: 05/28/17 11:10 Dose: 0.5 mg Metoprolol Tartrate (Lopressor) 25 mg PO Q12 [facility] Last Admin: 05/28/17 08:36 Dose: 25 mg Nicotine (Nicoderm Cq) 1 patch TD DAILY [facility] Last Admin: 05/28/17 08:37 Dose: 1 patch Sennosides (Senokot Tab) 17.2 mg PO HS [facility] Last Admin: 05/27/17 21:32 Dose: Not Given - Labs Labs: 05/25/17 05:30 05/25/17 05:30 PT 13.5 Seconds (9.8-13.1) H 05/20/17 04:15 INR 1.2 (0.9-1.2) 05/20/17 04:15 APTT 31.3 Seconds (25.6-37.1) 05/20/17 04:15 - Constitutional Appears: Non-toxic, No Acute Distress - Head Exam Head Exam: NORMAL INSPECTION - Eye Exam Eye Exam: Normal appearance - ENT Exam ENT Exam: Mucous Membranes Moist - Respiratory Exam Respiratory Exam: NORMAL BREATHING PATTERN. absent: Accessory Muscle Use, Respiratory Distress Additional comments: dressings c/d/i - Cardiovascular Exam Cardiovascular Exam: absent: Bradycardia, Tachycardia - GI/Abdominal Exam GI & Abdominal Exam: Soft. absent: Distended, Tenderness - Extremities Exam Extremities Exam: Normal Inspection - Neurological Exam Neurological Exam: Alert, Awake, Oriented x3 - Psychiatric Exam Psychiatric exam: Normal Affect, Normal Mood - Skin Skin Exam: Dry, Intact, Normal Color, Warm Assessment and Plan - Assessment and Plan (Free Text) Assessment: 86 y/o M s/p thoracostomy tube placement and removal - AM CXR negative for pneumothorax recurrent - pt cleared for discharge from surgical perspective - Pt is to follow up with Dr. Akers in office in 7 days - Pt should have repeat CXR prior to office visit Pt discussed w/ Dr. Delphine Coyle DO PGY2
--- NOTE | 2017-05-28 14:39 | CP.PCM.PN ---
Subjective - Date & Time of Evaluation Date of Evaluation: 05/28/17 Time of Evaluation: 07:15 - Subjective Subjective: Patient seen and examined this morning at bedside, no acute overnight events, patient is lying bed breathing comfortable on NC 2L, chest tubes were removed yesterday, reports feeling fine today, denies sob, chest pain, palpitations, dizziness. No urinary symptoms, last BM yesterday. Objective - Vital Signs/Intake and Output Vital Signs (last 24 hours): Temp Pulse Resp BP Pulse Ox 97.8 F 98 H 20 146/69 95 05/28/17 12:31 05/28/17 12:31 05/28/17 12:31 05/28/17 12:31 05/28/17 12:31 - Medications Medications: Current Medications Albuterol Sulfate (Albuterol 0.083% Inhal [place]dalene (2.5 Mg/3 Ml) Ud) 2.5 mg INH RQ4 PRN PRN Reason: Shortness of Breath Last Admin: 05/22/17 08:40 Dose: 2.5 mg Docusate Sodium (Colace) 100 mg PO BID [facility] Last Admin: 05/28/17 08:43 Dose: Not Given Enoxaparin Sodium (Lovenox) 30 mg SC DAILY [facility] PRN Reason: Protocol Last Admin: 05/28/17 08:36 Dose: 30 mg Piperacillin Sod/Tazobactam (Sod 3.375 gm/ Sodium Chloride) 100 mls @ 100 mls/ hr IVPB Q8H [facility] PRN Reason: Protocol Last Admin: 05/28/17 09:49 Dose: 100 mls/hr Ipratropium [place] (Atrovent) 0.5 mg IH RQID [facility] Last Admin: 05/28/17 11:10 Dose: 0.5 mg Metoprolol Tartrate (Lopressor) 25 mg PO Q12 [facility] Last Admin: 05/28/17 08:36 Dose: 25 mg Nicotine (Nicoderm Cq) 1 patch TD DAILY [facility] Last Admin: 05/28/17 08:37 Dose: 1 patch Sennosides (Senokot Tab) 17.2 mg PO HS [facility] Last Admin: 05/27/17 21:32 Dose: Not Given - Labs Labs: 05/25/17 05:30 05/25/17 05:30 PT 13.5 Seconds (9.8-13.1) H 05/20/17 04:15 INR 1.2 (0.9-1.2) 05/20/17 04:15 APTT 31.3 Seconds (25.6-37.1) 05/20/17 04:15 - Constitutional Appears: No Acute Distress, Cachectic - Head Exam Head Exam: NORMAL INSPECTION - Eye Exam Eye Exam: EOMI, PERRL - Respiratory Exam Respiratory Exam: Clear to Ausculation Bilateral, NORMAL BREATHING PATTERN. absent: Accessory Muscle Use, Chest Wall Tenderness - Cardiovascular Exam Cardiovascular Exam: Tachycardia, REGULAR RHYTHM, +S1, +S2 - GI/Abdominal Exam GI & Abdominal Exam: Soft, Normal Bowel Sounds. absent: Tenderness - Extremities Exam Extremities Exam: absent: Calf Tenderness - Neurological Exam Neurological Exam: Alert, Awake, Oriented x3 - Psychiatric Exam Psychiatric exam: Normal Affect - Skin Skin Exam: Dry, Warm Assessment and Plan - Assessment and Plan (Free Text) Assessment: 86 yo M with 70 pack year smoking history and newly diagnosed COPD, admitted for right sided pneumothorax likely secondary to ruptured bleb. Patient is s/p chest tube placement on 05/13/17, he underwent talc pleurodesis with second chest tube placement on 05/21/17, Chest tubes were removed yesterday. Patient was evaluated for PT who recommends [facility], pending discharge to [facility]. Plan: Right-sided Pneumothorax, resolved -Likely secondary to ruptured bleb -S/p chest tube placement on 05/13/17 and S/p talc pleurodesis with second chest tube placement on 05/21/17 -Chest tubes removed yesterday -Hydromorphone 0.5 mg IV q4h prn for pain -Thoracic surgery by Dr Akers on board, recommendations appreciated Dysphagia, resolved -swallow screen Passed COPD, newly diagnosed, stable -Associated with 70+ pack year history -O2 via NC 2L/min prn if SOB -Pulmonology consulted with Dr Horowitz, recommendations appreciated -Atrovent QID HEIDY -Albuterol PRN Tachycardia, stable -Undetermined etiology -Well controlled at this time -Cardiology consult appreciated by Dr Fitzpatrick -c/w cardioselective beta shilo Metoprolol 25mg PO BID due to existing COPD -no specific cardiac workup indicated at this time Leukocytosis, improving -WBC trending down from 12.8 to 11.9 -Afebrile -ID consult appreciated by Dr Lehman -Continue Zosyn 3.375mg IV q8h (Started 05/21, Current Day 8) -F/U CBC in AM Deconditioning -Walk test DVT prophylaxis -Lovenox 30mg SC daily
--- NOTE | 2017-05-28 21:11 | PN ---
DATE: SUBJECTIVE: The patient denies any chest pain. No reported ventricular arrhythmia. VITAL SIGNS: Blood pressure 146/69, heart rate 98, temperature 97.8, and respirations 20. LABORATORY DATA: Today's chest x-ray revealed COPD pattern including apical prominent fibrosis and bilateral apical lucencies suggesting emphysematous disease. Minimal right pleural effusion again evident. No definite airspace disease bilaterally. ASSESSMENT: 1. Sinus tachycardia and occasional ectopy on the monitor. 2. Chronic obstructive pulmonary disease. 3. Status post continuous pneumothorax and right-sided pleurodesis. RECOMMENDATIONS: Continue current albuterol inhaler. Continue Lopressor 25 mg twice a day, Lovenox 30 mg once a day, Zosyn at 3.375 g intravenous q. 8 hours. Ori Fitzpatrick MD
[2017-05-29] MEDS: Piperacillin/Tazobact 3.375 GM in Sodium Chloride 0.9% 100 ML IVPB SCH ×3 (01:18→17:40)
[2017-05-29 05:58] LABS: BASO # 0.1 K/uL (0.0-0.2); BASO % 0.5 % (0.0-2.0); EOS # 0.9 K/uL (0.0-0.7); HEMATOCRIT 23.7 % (35.0-51.0); LYMPH # 1.1 K/uL (1.0-4.3); LYMPH % 8.6 % (20.0-40.0); MEAN CELL VOLUME 86.4 fl (80.0-94.0); MEAN CORPUSCULAR HEMOGLOBIN 27.9 pg (27.0-31.0); MEAN CORPUSCULAR HGB CONC 32.3 g/dL (33.0-37.0); MEAN PLATELET VOLUME 7.3 fl (7.2-11.7); MONO # 0.8 K/uL (0.0-0.8); MONO % 6.2 % (0.0-10.0); NEUT # 9.8 K/uL (1.8-7.0); NEUT % 77.7 % (50.0-75.0); PLATELET COUNT 392 K/uL (130-400); WHITE BLOOD COUNT 12.6 K/uL (4.8-10.8)
--- NOTE | 2017-05-29 08:49 | OP ---
PROCEDURE DATE: 05/20/17 PREOPERATIVE DIAGNOSES: 1. Persistent pneumothorax. 2. Persistent subcutaneous emphysema. 3. Status post tube thoracostomy. POSTOPERATIVE DIAGNOSES: 1. Persistent pneumothorax. 2. Persistent subcutaneous emphysema. 3. Status post tube thoracostomy. OPERATION PERFORMED: 1. Mini thoracotomy to lyse adhesions. 2. Tube thoracostomy under fluoroscopic guidance. 3. Talc slurry pleurodesis. 4. Removal of previously placed superior chest tube and insertion of a chest tube. SURGEON: Joel Akers MD EXTENSION ASSOCIATE: *------* TYPE OF ANESTHESIA: Local plus IV sedation. INDICATION FOR SURGERY: The patient was an 86-year-old male with end-stage emphysema, who presented with spontaneous pneumothorax, right. Tube thoracostomy was performed emergently from which the lung became partially reexpanded, and the patient started to have increasing subcutaneous emphysema. The patient was taken to operating room for mini thoracotomy, tubal thoracostomy and talc slurry pleurodesis. OPERATIVE PROCEDURE: The patient was taken to the operating room where under fentanyl sedation, the operative field was prepared and draped in a sterile fashion. After satisfactorily infiltrating the operative site with 0.5% Xylocaine, 4 cm transverse incision was made in the 6th intercostal space centered in mid axillary line and was deep into the pleura. Bleeding points were electrocauterized. Pleural cavity was entered; however, because of dense adhesions, the wound was closed in layers, muscle fascia with continuous 2-0 Vicryl and then skin with continuous 2-0 silk sutures. Next, 2 cm transverse incision was made in the 8th intercostal space in the anterior axillary line, and anterior pneumothorax cavity was readily entered. At this time, curved *------* chest tube was advanced under fluoroscopy guidance first initially inferiorly towards the diaphragm and then curved upward to the mediastinal hilar area. Chest tube was secured in the usual manner with 0 silk sutures after confirming the position of the chest tube under fluoro. Superior chest tube was removed and then new 28-Greek chest tube was inserted again under fluoroscopic guidance, and after satisfactorily confirming the position of this chest tube, chest tube was secured in the usual manner with 0 silk sutures. Each of the tube was next instilled with 3 g of talc and 150 mL of normal saline solution. That was instilled by gravity. After satisfactory instillation of the talc solution, chest tubes were hooked up to Pleur-evac immediately to prevent tension pneumothorax. Sterile dressings were applied and taped in the usual manner. The patient tolerated the procedure very well and was transferred to the recovery room awake with good vital signs. Estimated blood loss was minimum. Sponge, needle and instrument counts were correct. Joel Akers MD
--- NOTE | 2017-05-29 09:25 | CP.PCM.PN ---
Subjective - Date & Time of Evaluation Date of Evaluation: 05/29/17 Time of Evaluation: 07:20 - Subjective Subjective: 86 yo male seen and examined at bedside this AM. Reports no acute overnight events. States he had good night sleep. Pt reports PO intake but small portion which is his baseline intake. Pt reports normal BM. Denies seeing any blood in stool. This morning, nurse reports seeing loose dark color stool. Pt denies any acute overnight event. Denies dizziness, fatigue, chest palpitation, dyspnea or chest pain. Objective - Vital Signs/Intake and Output Vital Signs (last 24 hours): Temp Pulse Resp BP Pulse Ox 98.2 F 94 H 18 102/64 96 05/29/17 08:00 05/29/17 08:00 05/29/17 08:00 05/29/17 08:00 05/29/17 08:00 Intake and Output: 05/29/17 05/29/17 06:59 18:59 Output Total 100 Balance -100 - Medications Medications: Current Medications Albuterol Sulfate (Albuterol 0.083% Inhal Magdalene (2.5 Mg/3 Ml) Ud) 2.5 mg INH RQ4 PRN PRN Reason: Shortness of Breath Last Admin: 05/22/17 08:40 Dose: 2.5 mg Docusate Sodium (Colace) 100 mg PO BID [facility] Last Admin: 05/28/17 16:33 Dose: Not Given Enoxaparin Sodium (Lovenox) 30 mg SC DAILY [facility] PRN Reason: Protocol Last Admin: 05/28/17 08:36 Dose: 30 mg Piperacillin Sod/Tazobactam (Sod 3.375 gm/ Sodium Chloride) 100 mls @ 100 mls/ hr IVPB Q8H [facility] PRN Reason: Protocol Last Admin: 05/29/17 01:18 Dose: 100 mls/hr Ipratropium [place] (Atrovent) 0.5 mg IH RQID [facility] Last Admin: 05/28/17 19:29 Dose: 0.5 mg Metoprolol Tartrate (Lopressor) 25 mg PO Q12 [facility] Last Admin: 05/28/17 21:29 Dose: 25 mg Nicotine (Nicoderm Cq) 1 patch TD DAILY [facility] Last Admin: 05/28/17 08:37 Dose: 1 patch Sennosides (Senokot Tab) 17.2 mg PO HS [facility] Last Admin: 05/28/17 21:28 Dose: Not Given - Labs Labs: 05/29/17 05:45 05/25/17 05:30 PT 13.5 Seconds (9.8-13.1) H 05/20/17 04:15 INR 1.2 (0.9-1.2) 05/20/17 04:15 APTT 31.3 Seconds (25.6-37.1) 05/20/17 04:15 - Constitutional Appears: Non-toxic, No Acute Distress, Other (Thin appearance) - ENT Exam ENT Exam: Mucous Membranes Moist - Respiratory Exam Respiratory Exam: Clear to Ausculation Bilateral, NORMAL BREATHING PATTERN. absent: Accessory Muscle Use, Chest Wall Tenderness, Rhonchi, Wheezes, Respiratory Distress - Cardiovascular Exam Cardiovascular Exam: REGULAR RHYTHM, RRR, +S1, +S2 - GI/Abdominal Exam GI & Abdominal Exam: Soft, Normal Bowel Sounds. absent: Guarding, Tenderness - Extremities Exam Extremities Exam: Normal Capillary Refill. absent: Calf Tenderness - Neurological Exam Neurological Exam: Alert, Awake, Oriented x3 - Skin Skin Exam: Normal Color Assessment and Plan - Assessment and Plan (Free Text) Assessment: 86 yo M with 70 pack year smoking history and newly diagnosed COPD, admitted for right sided pneumothorax likely secondary to ruptured bleb. Patient is s/p chest tube placement on 05/13/17, he underwent talc pleurodesis with second chest tube placement on 05/21/17, Chest tubes were removed on 05/27/17. Hemoglobin dropped to 7.4 today from 10.3 (05/25/17). Plan: 1. Anemia -Likely GI bleeding -H&H: 7.4/22.5 -Type and screen -2 units of PRBC to be given today -Protonix 40 mg IVP -GI consult requested. 2. Right-sided Pneumothorax, resolved -Likely secondary to ruptured bleb -S/p chest tube placement on 05/13/17 and S/p talc pleurodesis with second chest tube placement on 05/21/17 -Chest tubes removed on 05/27/17. -Thoracic surgery by Dr Akers on board, recommendations appreciated 3. Dysphagia, resolved -swallow screen Passed 4. COPD, newly diagnosed, stable -Associated with 70+ pack year history -O2 via NC 2L/min prn if SOB -Pulmonology consulted with Dr Horowitz, recommendations appreciated -Atrovent QID [facility] -Albuterol PRN 5. Tachycardia, stable -Undetermined etiology -Well controlled at this time -Cardiology consult appreciated by Dr Fitzpatrick -c/w cardioselective beta shilo Metoprolol 25mg PO BID due to existing COPD -no specific cardiac workup indicated at this time 6. Leukocytosis -WBC 12.6 -Afebrile -ID consult appreciated by Dr Lehman -Continue Zosyn 3.375mg IV q8h (Started 05/21, Current Day 9) -F/U CBC in AM 7. Deconditioning -Walk test 8. DVT prophylaxis -hold Lovenox 30mg for possible GI bleeding -SCD prn. 9. Diet: NPO
[2017-05-29] MEDS: Enoxaparin 30 mg Syringe SC SCH (09:33)
[2017-05-29 09:41] LABS: EOSINOPHIL 4 % (0-7); NEUTROPHIL 83 % (42-75); TOTAL CELLS COUNTED 100
[2017-05-29 09:42] LABS: LARGE PLATELETS PRESENT
[2017-05-29 10:05] LABS: HEMATOCRIT 22.5 % (35.0-51.0)
--- NOTE | 2017-05-29 10:54 | RAD ---
HISTORY: Effusion, Fluid collection, shortness of breath. COMPARISON: Portable chest 05/28/2017. FINDINGS: LUNGS: COPD and pulmonary fibrotic changes are again seen predominantly at the apices. PLEURA: A minimal right pleural effusion is unchanged. Minimal fluid is seen in the minor fissure once again. None is seen at the left. No pneumothorax bilaterally. CARDIOVASCULAR: Normal. OSSEOUS STRUCTURES: No significant abnormalities. VISUALIZED UPPER ABDOMEN: Normal. OTHER FINDINGS: None. IMPRESSION: Stable minimal right pleural effusion with COPD changes again evident. No definitive pneumothorax. Limited fluid is seen the minor fissure once again.
--- NOTE | 2017-05-29 11:31 | CP.PCM.PN ---
Subjective - Date & Time of Evaluation Date of Evaluation: 05/29/17 Time of Evaluation: 11:28 - Subjective Subjective: Seen on morning rounds. Seated upright in bed. Interim developments reviewed. Case discussed with resident. Has drop in hemoglobin and dark, black BM's (guiac pending). Review of CXR shows stable full expansion of both lungs. Breath sounds are present bilaterally. No further pulmonary interventions contemplated. Objective - Vital Signs/Intake and Output Vital Signs (last 24 hours): Temp Pulse Resp BP Pulse Ox 98.2 F 94 H 18 102/64 96 05/29/17 08:00 05/29/17 09:33 05/29/17 08:00 05/29/17 09:33 05/29/17 08:00 Intake and Output: 05/28/17 05/29/17 23:59 11:59 Intake Total 820 Output Total 900 Balance -80 - Medications Medications: Current Medications Albuterol Sulfate (Albuterol 0.083% Inhal Magdalene (2.5 Mg/3 Ml) Ud) 2.5 mg INH RQ4 PRN PRN Reason: Shortness of Breath Last Admin: 05/22/17 08:40 Dose: 2.5 mg Docusate Sodium (Colace) 100 mg PO BID [facility] Last Admin: 05/29/17 09:32 Dose: Not Given Piperacillin Sod/Tazobactam (Sod 3.375 gm/ Sodium Chloride) 100 mls @ 100 mls/ hr IVPB Q8H [facility] PRN Reason: Protocol Last Admin: 05/29/17 09:34 Dose: 100 mls/hr Ipratropium [place] (Atrovent) 0.5 mg IH RQID [facility] Last Admin: 05/28/17 19:29 Dose: 0.5 mg Metoprolol Tartrate (Lopressor) 25 mg PO Q12 [facility] Last Admin: 05/29/17 09:33 Dose: 25 mg Nicotine (Nicoderm Cq) 1 patch TD DAILY [facility] Last Admin: 05/29/17 09:33 Dose: 1 patch Sennosides (Senokot Tab) 17.2 mg PO HS [facility] Last Admin: 05/28/17 21:28 Dose: Not Given - Labs Labs: 05/29/17 09:50 05/25/17 05:30 PT 13.5 Seconds (9.8-13.1) H 05/20/17 04:15 INR 1.2 (0.9-1.2) 05/20/17 04:15 APTT 31.3 Seconds (25.6-37.1) 05/20/17 04:15
[2017-05-29] MEDS: Ipratropium 0.02% Inhal Soln (0.5 mg/2.5 ml) UD IH SCH ×2 (15:52→19:09)
--- NOTE | 2017-05-29 21:11 | PN ---
DATE: SUBJECTIVE: The patient is currently receiving packed RBC transfusion. He denies any chest pain or shortness of breath. PHYSICAL EXAMINATION: VITAL SIGNS: Blood pressure 103/61, heart rate 99, temperature is 98.6, respiration 18. HEENT: Pale conjunctivae. CHEST: Bilateral rhonchi. HEART: S1, S2 regular. EXTREMITIES: No edema. LABORATORY DATA: Today's hemoglobin and hematocrit is 7.4 and 22.5. Fecal occult blood is positive. Chest x-ray today reports stable minimal right pleural effusion with COPD. No evidence of pneumothorax. ASSESSMENT: 1. Status post pleurodesis for spontaneous pneumothorax. 2. Significant anemia. 3. Frequent atrial ectopy. RECOMMENDATIONS: Continue albuterol inhaler, continue Lopressor 25 mg twice a day, continue Zosyn 3.375 g intravenously q. 8 hours, consider IV Lasix if signs of volume overload such as shortness of breath or basilar crackles after the completion of packed RBC transfusion. Ori Fitzpatrick MD
[2017-05-30] MEDS: Piperacillin/Tazobact 3.375 GM in Sodium Chloride 0.9% 100 ML IVPB SCH ×3 (01:26→17:04)
[2017-05-30 05:52] LABS: BASO # 0.1 K/uL (0.0-0.2); BASO % 0.8 % (0.0-2.0); EOS # 0.7 K/uL (0.0-0.7); EOS % 5.8 % (0.0-4.0); HEMATOCRIT 29.7 % (35.0-51.0); LYMPH # 1.2 K/uL (1.0-4.3); MEAN CELL VOLUME 87.8 fl (80.0-94.0); MEAN PLATELET VOLUME 7.4 fl (7.2-11.7); MONO # 0.9 K/uL (0.0-0.8); MONO % 7.6 % (0.0-10.0); NEUT # 9.1 K/uL (1.8-7.0); NEUT % 75.8 % (50.0-75.0); RED CELL DISTRIBUTION WIDTH 14.9 % (11.5-14.5)
[2017-05-30 06:13] LABS: PARTIAL THROMBOPLASTIN TIME 30.3 Seconds (25.6-37.1)
[2017-05-30 06:16] LABS: ALB/GLOB RATIO 0.9 (1.0-2.1); ALKALINE PHOSPHATASE 44 U/L (38-126); ALT/SGPT 38 U/L (21-72); AST/SGOT 43 U/L (17-59); BILIRUBIN,TOTAL 0.6 mg/dl (0.2-1.3); BLOOD UREA NITROGEN 40 mg/dl (9-20); CALCIUM 8.3 mg/dL (8.4-10.2); CARBON DIOXIDE 32 mmol/L (22-30); CHLORIDE 108 mmol/L (98-107); GFR AFRICAN-AMERICAN > 60; GLUCOSE,RANDOM 90 mg/dL (75-110); POTASSIUM 3.4 MMOL/L (3.6-5.0); SODIUM 145 mmol/l (132-148); TOTAL PROTEIN 5.7 G/DL (6.3-8.2)
[2017-05-30] MEDS ORDERED: Potassium CL 10mEq/100ml 100 ML IVPB SCH (07:45)
--- NOTE | 2017-05-30 08:48 | CP.PCM.PN ---
Subjective - Date & Time of Evaluation Date of Evaluation: 05/30/17 Time of Evaluation: 07:15 - Subjective Subjective: 86 yo male seen and examined at bedside this AM. Pt denies any acute overnight event. Pt had 2 units of PRBC yesterday and H&H is 9.8/29.7 this morning. Pt reports he had dark BM this morning. Denies abdominal pain, nausea, vomiting, fever, chills. Denies dizziness, fatigue, chest palpitation, dyspnea or chest pain. Pt had EGD today which showed large fungating non-circumferential mass w/ oozing bleeding and no stigmata of recent bleeding was found in the gastric antrum. Objective - Vital Signs/Intake and Output Vital Signs (last 24 hours): Temp Pulse Resp BP Pulse Ox 97.8 F 103 H 20 117/65 95 05/30/17 08:00 05/30/17 08:00 05/30/17 08:00 05/30/17 08:00 05/30/17 08:00 - Medications Medications: Current Medications Albuterol Sulfate (Albuterol 0.083% Inhal Magdalene (2.5 Mg/3 Ml) Ud) 2.5 mg INH RQ4 PRN PRN Reason: Shortness of Breath Last Admin: 05/22/17 08:40 Dose: 2.5 mg Docusate Sodium (Colace) 100 mg PO BID [facility] Last Admin: 05/29/17 16:03 Dose: Not Given Piperacillin Sod/Tazobactam (Sod 3.375 gm/ Sodium Chloride) 100 mls @ 100 mls/ hr IVPB Q8H [facility] PRN Reason: Protocol Last Admin: 05/30/17 01:26 Dose: 100 mls/hr Potassium Chloride (Potassium Chloride 10 Meq/100 Ml) 100 mls @ 100 mls/hr IVPB Q1 [facility] Stop: 05/30/17 09:59 Ipratropium [place] (Atrovent) 0.5 mg IH RQID [facility] Last Admin: 05/29/17 19:09 Dose: 0.5 mg Metoprolol Tartrate (Lopressor) 25 mg PO Q12 [facility] Last Admin: 05/29/17 09:33 Dose: 25 mg Nicotine (Nicoderm Cq) 1 patch TD DAILY [facility] Last Admin: 05/29/17 09:33 Dose: 1 patch Sennosides (Senokot Tab) 17.2 mg PO HS [facility] Last Admin: 05/29/17 21:17 Dose: 17.2 mg - Labs Labs: 05/30/17 04:47 05/30/17 04:47 PT 15.6 Seconds (9.8-13.1) H 05/30/17 04:47 INR 1.4 (0.9-1.2) H 05/30/17 04:47 APTT 30.3 Seconds (25.6-37.1) 05/30/17 04:47 - Constitutional Appears: No Acute Distress, Cachectic, Chronically Ill - ENT Exam ENT Exam: Mucous Membranes Moist - Respiratory Exam Respiratory Exam: Clear to Ausculation Bilateral, NORMAL BREATHING PATTERN. absent: Rales, Rhonchi, Wheezes - Cardiovascular Exam Cardiovascular Exam: REGULAR RHYTHM, RRR, +S1, +S2. absent: Gallop - GI/Abdominal Exam GI & Abdominal Exam: Soft, Normal Bowel Sounds. absent: Tenderness - Extremities Exam Extremities Exam: Normal Capillary Refill. absent: Calf Tenderness, Pedal Edema - Psychiatric Exam Psychiatric exam: Normal Affect, Normal Mood - Skin Skin Exam: Normal Color Assessment and Plan - Assessment and Plan (Free Text) Assessment: 86 yo M with 70 pack year smoking history and newly diagnosed COPD, admitted for right sided pneumothorax likely secondary to ruptured bleb. Patient is s/p chest tube placement on 05/13/17, he underwent talc pleurodesis with second chest tube placement on 05/21/17, Chest tubes were removed on 05/27/17. Hemoglobin is 9.8 after 2 units of PRBC. Plan: 1. Anemia -Likely GI bleeding -H&H:9.8/29.7 s/p 2 units of PRBC on 05/29/17. -H&H tomorrow AM. -Continue Protonix 40 mg QD -GI consult appreciated. 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 -Biopsy was taken and f/u biopsy results. -F/u on CT abdomen and pelvis -F/u on CEA and CA 125 2. Right-sided Pneumothorax, resolved -Likely secondary to ruptured bleb -S/p chest tube placement on 05/13/17 and S/p talc pleurodesis with second chest tube placement on 05/21/17 -Chest tubes removed on 05/27/17. -Thoracic surgery by Dr Akers on board, recommendations appreciated 3. Dysphagia, resolved -swallow screen Passed 4. COPD, newly diagnosed, stable -Associated with 70+ pack year history -O2 via NC 2L/min prn if SOB -Pulmonology consulted with Dr Horowitz, recommendations appreciated -Atrovent QID [facility] -Albuterol PRN 5. Tachycardia, stable -Undetermined etiology -Well controlled at this time -Cardiology consult appreciated by Dr Fitzpatrick -resume cardioselective beta shilo Metoprolol 25mg PO BID due to existing COPD -no specific cardiac workup indicated at this time 6. Leukocytosis -WBC 12.6 -Afebrile -ID consult appreciated by Dr Lehman -Continue Zosyn 3.375mg IV q8h (Started 05/21, Current Day 10) -F/U CBC in AM 7. Deconditioning -Walk test 8. DVT prophylaxis -hold Lovenox 30mg for possible GI bleeding -SCD prn. 9. Diet: Regular diet
[2017-05-30] MEDS: Ipratropium 0.02% Inhal Soln (0.5 mg/2.5 ml) UD IH SCH ×4 (08:50→19:22)
[2017-05-30] MEDS ORDERED: Metoprolol 1 mg/ml Inj IVP ONE (09:12)
[2017-05-30] MEDS ORDERED: Sodium Chloride 0.9% 250 ML IV ONE (10:28)
[2017-05-30] MEDS ORDERED: Midazolam 2 MG/2 ML VIAL ONE (10:58)
[2017-05-30] MEDS ORDERED: Iohexol 240 (50 ml) PO ONE ×2 (13:00→16:30)
--- NOTE | 2017-05-30 15:29 | PN ---
DATE: SUBJECTIVE: Patient is currently comfortable in bed on nasal O2. PHYSICAL EXAMINATION VITAL SIGNS: His heart rate on the monitor is 88, blood pressure 117/65, heart rate 97.8, respiration 20. HEENT: Pale conjunctivae. CHEST: Bilateral rhonchi. HEART: S1 and S2 regular. EXTREMITIES: Significant muscle wasting. LABORATORY DATA: Today's hemoglobin and hematocrit are 9.8 and 29.7, white count 12.0, platelet count . Today's potassium is 3.4. ASSESSMENT: 1. Gastrointestinal bleeding, status post packed red blood cells transfusion. 2. Physiologic sinus tachycardia. 3. Mild prerenal azotemia. 4. Hypokalemia. RECOMMENDATIONS: The patient did already receive a total of 20 mEq of IV potassium chloride replacement. The case was discussed with PMD. The patient can undergo upper endoscopy from the cardiac point of view. The option of transferring the patient to ICU and having the endoscopy done at the bedside was also suggested as the patient's current condition on telemetry deteriorate at anytime. Ori Fitzpatrick MD [facility]
--- NOTE | 2017-05-30 17:08 | CP.PCM.CON ---
Past Patient History - Past Medical History & Family History Past Medical History?: Yes - Past Social History Smoking Status: Light Smoker < 10 Cigarettes Daily Alcohol: None Drugs: Denies Home Situation {Lives}: Alone - CARDIAC Hx Cardiac Disorders: No - PULMONARY Hx Chronic Obstructive Pulmonary Disease (COPD): Yes (no prior diagnosis) Hx Pneumonia: Yes - NEUROLOGICAL Hx Neurological Disorder: No - HEENT Hx HEENT Problems: No - RENAL Hx Chronic Kidney Disease: No - ENDOCRINE/METABOLIC Hx Endocrine Disorders: No - HEMATOLOGICAL/ONCOLOGICAL Hx Anemia: Yes Hx Human Immunodeficiency Virus (HIV): No - INTEGUMENTARY Hx Dermatological Problems: Yes Other/Comment: shingles a month ago - MUSCULOSKELETAL/RHEUMATOLOGICAL Hx Musculoskeletal Disorders: No Hx Falls: No - GASTROINTESTINAL Hx Gastrointestinal Disorders: No Other/Comment: never had surgery - GENITOURINARY/GYNECOLOGICAL Hx Genitourinary Disorders: No - PSYCHIATRIC Hx Psychophysiologic Disorder: No Hx Substance Use: No - SURGICAL HISTORY Hx Surgeries: No - ANESTHESIA Hx Anesthesia: No Meds Allergies/Adverse Reactions: Allergies Allergy/AdvReac Type Severity Reaction Status Date / Time No Known Allergies Allergy Verified 05/12/17 16:37 - Medications Medications: Current Medications Albuterol Sulfate (Albuterol 0.083% Inhal Magdalene (2.5 Mg/3 Ml) Ud) 2.5 mg INH RQ4 PRN PRN Reason: Shortness of Breath Last Admin: 05/22/17 08:40 Dose: 2.5 mg Docusate Sodium (Colace) 100 mg PO BID [facility] Last Admin: 05/30/17 16:52 Dose: 100 mg Piperacillin Sod/Tazobactam (Sod 3.375 gm/ Sodium Chloride) 100 mls @ 100 mls/ hr IVPB Q8H [facility] PRN Reason: Protocol Last Admin: 05/30/17 17:04 Dose: 100 mls/hr Potassium Chloride 10 meq/ (Sodium Chloride) 55 mls @ 55 mls/hr IV Q1 [facility] Stop: 05/30/17 18:59 Ipratropium [place] (Atrovent) 0.5 mg IH RQID [facility] Last Admin: 05/30/17 15:28 Dose: 0.5 mg Metoprolol Tartrate (Lopressor) 25 mg PO Q12 [facility] Last Admin: 05/29/17 09:33 Dose: 25 mg Nicotine (Nicoderm Cq) 1 patch TD DAILY [facility] Last Admin: 05/30/17 16:52 Dose: Not Given Pantoprazole Sodium (Protonix Inj) 40 mg IVP DAILY [facility] Last Admin: 05/30/17 14:51 Dose: 40 mg Sennosides (Senokot Tab) 17.2 mg PO HS [facility] Last Admin: 05/29/17 21:17 Dose: 17.2 mg Results - Vital Signs Recent Vital Signs: Last Vital Signs Temp 98 F 05/30/17 15:49 Pulse 105 H 05/30/17 15:49 Resp 20 05/30/17 15:49 BP 119/65 05/30/17 15:49 Pulse Ox 96 05/30/17 15:49 - Labs Result Diagrams: 05/30/17 04:47 05/30/17 04:47 Labs: Laboratory Results - last 24 hr 05/29/17 05/30/17 05/30/17 11:05 04:47 04:47 WBC 12.0 H RBC 3.38 L Hgb 9.8 L D Hct 29.7 L MCV 87.8 MCH 29.0 MCHC 33.0 RDW 14.9 H Plt Count 337 MPV 7.4 Neut % (Auto) 75.8 H Lymph % (Auto) 10.0 L [place] % (Auto) 7.6 Eos % (Auto) 5.8 H Baso % (Auto) 0.8 Neut # 9.1 H Lymph # 1.2 [place] # 0.9 H Eos # 0.7 Baso # 0.1 PT 15.6 H INR 1.4 H APTT 30.3 Sodium Potassium Chloride Carbon Dioxide Anion Gap BUN Creatinine Est GFR ( Amer) Est GFR (Non-Af Amer) Random Glucose Calcium Total Bilirubin AST ALT Alkaline Phosphatase Total Protein Albumin Globulin Albumin/Globulin Ratio Blood Type O POSITIVE Antibody Screen Negative Crossmatch See Detail BBK History Checked Patient has bt 05/30/17 04:47 WBC RBC Hgb Hct MCV MCH MCHC RDW Plt Count MPV Neut % (Auto) Lymph % (Auto) [place] % (Auto) Eos % (Auto) Baso % (Auto) Neut # Lymph # [place] # Eos # Baso # PT INR APTT Sodium 145 Potassium 3.4 L Chloride 108 H Carbon Dioxide 32 H Anion Gap 8 L BUN 40 H Creatinine 1.1 Est GFR ( Amer) > 60 Est GFR (Non-Af Amer) > 60 Random Glucose 90 Calcium 8.3 L Total Bilirubin 0.6 AST 43 ALT 38 Alkaline Phosphatase 44 Total Protein 5.7 L Albumin 2.7 L Globulin 3.0 Albumin/Globulin Ratio 0.9 L Blood Type Antibody Screen Crossmatch BBK History Checked
[2017-05-30] MEDS ORDERED: Iohexol 300 100 ML IJ ONE (17:51)
[2017-05-30] MEDS ORDERED: Sodium Chloride 0.9% 50 ML IV ONE (17:52)
--- NOTE | 2017-05-30 18:54 | CT ---
PROCEDURE: CT Abdomen and Pelvis with contrast HISTORY: GI Bleed, Gastric Mass, Cachexia COMPARISON: None. TECHNIQUE: Contrast dose: 80 mL Omnipaque 300 Radiation dose: Total exam DLP = 223.50 mGy-cm. This CT exam was performed using one or more of the following dose reduction techniques: Automated exposure control, adjustment of the mA and/or kV according to patient size, and/or use of iterative reconstruction technique. FINDINGS: LOWER THORAX: Right lower lobe infiltrate with possible interstitial component. Small pleural fluid collection at right base with thin high attenuation peripheral calcification. Significance unclear. Decreased when compared to 05/23/2017. Trace left pleural effusion. Paraseptal pulmonary emphysema. LIVER: Normal size, contour and attenuation. Nonspecific 5 mm low-attenuation lesion in the lateral segment of the left hepatic lobe. No biliary dilatation. GALLBLADDER AND BILE DUCTS: Unremarkable. PANCREAS: Diffuse punctate calcification consistent with chronic pancreatitis. No mass. No pancreatic ductal dilatation. SPLEEN: Unremarkable. ADRENALS: Bilateral adrenal hypertrophy. No mass. KIDNEYS AND URETERS: Bilateral hydroureteronephrosis. Two small low-density right renal masses, 1.3 cm and 9 mm, likely cysts. Left lower pole 9 mm low-density mass. Recommend correlation with renal ultrasound due to attenuation apparently higher than simple cyst. No renal calculus. VASCULATURE: Unremarkable. No aortic aneurysm. BOWEL: No abnormal bowel loops. No evidence of bowel obstruction. APPENDIX: Not identified. PERITONEUM: Unremarkable. No free fluid. No free air. LYMPH NODES: Unremarkable. No enlarged lymph nodes. BLADDER: Massively distended urinary bladder. REPRODUCTIVE: Prostate, status post TURP. Right hydrocele noted BONES: No acute fracture. OTHER FINDINGS: None. IMPRESSION: Markedly distended urinary bladder with bilateral hydroureteronephrosis. Small bilateral renal masses, likely cysts on right but intermediate attenuation on left. Recommend correlation with renal ultrasound examination. Additional minor findings as above.
--- NOTE | 2017-05-30 22:32 | CON ---
DATE: 05/30/2017 REFERRING PHYSICIAN: Adriana Sepulveda MD REASON FOR CONSULTATION: Anemia. HISTORY OF PRESENT ILLNESS: This is an 86-year-old man with history of longstanding COPD, smoking, had recent pleurodesis. fine. Chest tubes have been removed, day before yesterday had an acute drop in hemoglobin in light of bleeding. No hematemesis or hematochezia. No nausea. No vomiting. No heartburn or reflux. Lying in bed comfortably in no apparent distress. PAST MEDICAL HISTORY: As above. PAST SURGICAL HISTORY: As above. MEDICATIONS: Reviewed. REVIEW OF SYSTEMS: All other systems have been reviewed and are negative apart from the HPI. PHYSICAL EXAMINATION: GENERAL: A pleasant elderly-appearing male lying in bed comfortably, in no apparent distress. VITAL SIGNS: During the hospital, grossly unremarkable. HEENT: Head: Normocephalic, atraumatic. Eyes: Pupils equally reactive to light bilaterally. No conjunctival pallor or icterus. NECK: Supple. Normal range of motion. No lymphadenopathy appreciated. LUNGS: Coarse breath sounds bilaterally. HEART: S1, S2, regular rate and rhythm. No murmurs appreciated. ABDOMEN: Soft, nontender. Bowel sounds present. No rebound, no guarding. RECTAL: Deferred. EXTREMITIES: Pulses felt bilaterally. SKIN: Warm, dry and intact. NEUROLOGIC: A and O x3. LABORATORY DATA: Labs have been reviewed. WBC is 12.0, hemoglobin 9.8, hematocrit 29.7. Hemoglobin dropped as low as 7.4. Platelet count of 337. INR is 1.4. BUN and creatinine are 40/1.1. ASSESSMENT AND PLAN: This is an 86-year-old man with acute drop in hemoglobin. We are recommending getting a Clostridium difficile because he did have loose bowel movements. We will plan for endoscopy as soon as possible. Thank you for the consult. Jeff Bernardo MD/ PhD CC: Adriana Sepulveda MD
[2017-05-31] MEDS: Piperacillin/Tazobact 3.375 GM in Sodium Chloride 0.9% 100 ML IVPB SCH ×2 (02:30→09:21)
[2017-05-31 07:37] LABS: HEMATOCRIT 30.1 % (35.0-51.0)
[2017-05-31] MEDS: Ipratropium 0.02% Inhal Soln (0.5 mg/2.5 ml) UD IH SCH ×4 (07:39→19:23)
[2017-05-31 08:58] LABS: CARCINOEMBRYONIC ANTIGEN 1.9 ng/mL (0-3.0)
--- NOTE | 2017-05-31 11:26 | CP.PCM.PN ---
Subjective - Date & Time of Evaluation Date of Evaluation: 05/31/17 Time of Evaluation: 06:40 - Subjective Subjective: General Surgery- Dr. Jackson Patient seen and examined at bedside this morning. No acute events overnight. patient doing well, tolerating diet, states no abdominal pain. Denies: Fevers, chills, chest pain, shortness of breath, nausea, vomiting, diarrhea. Objective - Vital Signs/Intake and Output Vital Signs (last 24 hours): Temp Pulse Resp BP Pulse Ox 98.2 F 87 18 114/65 98 05/31/17 11:15 05/31/17 11:15 05/31/17 11:15 05/31/17 11:15 05/31/17 11:15 - Medications Medications: Current Medications Albuterol Sulfate (Albuterol 0.083% Inhal Magdalene (2.5 Mg/3 Ml) Ud) 2.5 mg INH RQ4 PRN PRN Reason: Shortness of Breath Last Admin: 05/22/17 08:40 Dose: 2.5 mg Docusate Sodium (Colace) 100 mg PO BID [facility] Last Admin: 05/31/17 08:26 Dose: Not Given Ipratropium [place] (Atrovent) 0.5 mg IH RQID [facility] Last Admin: 05/31/17 07:39 Dose: 0.5 mg Metoprolol Tartrate (Lopressor) 25 mg PO Q12 [facility] Last Admin: 05/31/17 08:26 Dose: 25 mg Nicotine (Nicoderm Cq) 1 patch TD DAILY [facility] Last Admin: 05/31/17 08:29 Dose: Not Given Pantoprazole Sodium (Protonix Inj) 40 mg IVP DAILY [facility] Last Admin: 05/31/17 08:27 Dose: 40 mg Sennosides (Senokot Tab) 17.2 mg PO HS [facility] Last Admin: 05/30/17 21:13 Dose: 17.2 mg - Labs Labs: 05/31/17 06:15 05/30/17 04:47 PT 15.6 Seconds (9.8-13.1) H 05/30/17 04:47 INR 1.4 (0.9-1.2) H 05/30/17 04:47 APTT 30.3 Seconds (25.6-37.1) 05/30/17 04:47 - Constitutional Appears: Non-toxic, No Acute Distress - Eye Exam Eye Exam: EOMI. absent: Scleral icterus - Respiratory Exam Respiratory Exam: NORMAL BREATHING PATTERN. absent: Accessory Muscle Use, Respiratory Distress - Cardiovascular Exam Cardiovascular Exam: +S1, +S2. absent: Bradycardia, Tachycardia - GI/Abdominal Exam GI & Abdominal Exam: Soft. absent: Distended, Firm, Guarding, Rigid, Tenderness - Neurological Exam Neurological Exam: Alert, Awake, Oriented x3 - Psychiatric Exam Psychiatric exam: Normal Affect, Normal Mood - Skin Skin Exam: Intact, Warm Assessment and Plan - Assessment and Plan (Free Text) Assessment: 86M w/ fungating mass on endoscopy Plan: - pending medical clearance; plan for surgery - anti-emetic & pain control PRN - final pathology report pending - discussed with Dr. Jackson surgical attending Alexander Odell PGY1
--- NOTE | 2017-05-31 11:34 | CP.PCM.PN ---
Subjective - Date & Time of Evaluation Date of Evaluation: 05/31/17 Time of Evaluation: 09:00 - Subjective Subjective: Pt. evaluated at bedside sitting up right and smiling. Pt. with no complaints at this time. Pt. reports eating well with no abdominal pain. Pt. denies any any bright red blood per rectum or melena. Pt. also denies any hemoptysis or hematemesis. Objective - Vital Signs/Intake and Output Vital Signs (last 24 hours): Temp Pulse Resp BP Pulse Ox 98.2 F 87 18 114/65 98 05/31/17 11:15 05/31/17 11:15 05/31/17 11:15 05/31/17 11:15 05/31/17 11:15 - Medications Medications: Current Medications Albuterol Sulfate (Albuterol 0.083% Inhal Magdalene (2.5 Mg/3 Ml) Ud) 2.5 mg INH RQ4 PRN PRN Reason: Shortness of Breath Last Admin: 05/22/17 08:40 Dose: 2.5 mg Docusate Sodium (Colace) 100 mg PO BID [facility] Last Admin: 05/31/17 08:26 Dose: Not Given Ipratropium [place] (Atrovent) 0.5 mg IH RQID [facility] Last Admin: 05/31/17 11:23 Dose: 0.5 mg Metoprolol Tartrate (Lopressor) 25 mg PO Q12 [facility] Last Admin: 05/31/17 08:26 Dose: 25 mg Nicotine (Nicoderm Cq) 1 patch TD DAILY [facility] Last Admin: 05/31/17 08:29 Dose: Not Given Pantoprazole Sodium (Protonix Inj) 40 mg IVP DAILY [facility] Last Admin: 05/31/17 08:27 Dose: 40 mg Sennosides (Senokot Tab) 17.2 mg PO HS [facility] Last Admin: 05/30/17 21:13 Dose: 17.2 mg - Labs Labs: 05/31/17 06:15 05/30/17 04:47 PT 15.6 Seconds (9.8-13.1) H 05/30/17 04:47 INR 1.4 (0.9-1.2) H 05/30/17 04:47 APTT 30.3 Seconds (25.6-37.1) 05/30/17 04:47 - Constitutional Appears: Non-toxic, No Acute Distress, Cachectic - Neck Exam Neck Exam: Full ROM - Respiratory Exam Respiratory Exam: Clear to Ausculation Bilateral, NORMAL BREATHING PATTERN Additional comments: + scattered Rhonchi and wheezing appreciated - Cardiovascular Exam Cardiovascular Exam: REGULAR RHYTHM, +S1, +S2 - GI/Abdominal Exam GI & Abdominal Exam: Soft. absent: Tenderness - Extremities Exam Extremities Exam: Normal Capillary Refill - Neurological Exam Neurological Exam: Alert, Awake, Oriented x3 Assessment and Plan - Assessment and Plan (Free Text) Assessment: 86 y.o. male with admitted for pneumothorast s/p pleruodesis now with acute GI bleed s/p 2 units PRBC now with suspicous mass found on endoscopy Anemia due to Upper GI bleed- Acute 1- s/p 2 units PRBC 2- c/w protonix 40mg IV daily 3- GI consulted- Dr. Lomeli 4- Repeat CBC in the a.m. Gastric Mass chronic -EGD showed large fungating non-circumferential mass w/ oozing bleeding and no stigmata of recent bleeding was found in the gastric antrum. 1- sucpicous for carcinoma 2- Await biopsy results 3- GI consulted- Dr. Lomeli 4- General Surgery consulted- Dr. Jackson 5- CT abdomen with PO & I.V. from 05/30/17 no signs of malignancy 6- Tumor markers AFP 2.5 WNL CEA 1.9 WNL CA-19-9 pending CA 125 pending -F/u on CEA and CA 125 Leukocytosis -Continue Zosyn 3.375mg IV q8h (Started 05/21, Current Day 10) -F/U CBC in AM COPD, newly diagnosed, stable -Associated with 70+ pack year history -O2 via NC 2L/min prn if SOB -Pulmonology consulted with Dr Horowitz, recommendations appreciated -Atrovent QID [facility] -Albuterol PRN Right-sided Pneumothorax, resolved -Likely secondary to ruptured bleb -S/p chest tube placement on 05/13/17 and S/p talc pleurodesis with second chest tube placement on 05/21/17 -Chest tubes removed on 05/27/17. -Thoracic surgery by Dr Akers on board, recommendations appreciated Dysphagia, resolved -swallow screen Passed Deconditioning -S/P Walk test -Pt. will need home oxygen DVT prophylaxis -hold Lovenox 30mg for possible GI bleeding -SCD Diet: Regular
--- NOTE | 2017-05-31 15:42 | PN ---
FOLLOWUP DATE: SUBJECTIVE: The patient underwent upper endoscopy yesterday. The findings are consistent with a large fungating non-circumferential mass with oozing bleeding and no stigmata of recent bleeding was found in the gastric antrum. Biopsies were taken. Localized mild inflammation was found on entire exam of stomach. Biopsies were taken. The examined duodenum is normal. The patient denies any chest pain or shortness of breath at this time. PHYSICAL EXAMINATION: VITAL SIGNS: Blood pressure 114/65, heart rate 87, temperature 98.2, respirations 18. HEENT: Pale conjunctivae. CHEST: Clear. HEART: S1 and S2 regular. EXTREMITIES: Significant muscle wasting. LABORATORY DATA: Today's hemoglobin and hematocrit 9.7 and 30.1. Abdomen and pelvic CT scan revealed markedly distended urinary bladder with bilateral hydroureter and hydronephrosis. Small bilateral renal masses, likely cysts on right, but intermediate attenuation on left. Recommended correlation with renal ultrasound. ASSESSMENT: 1. Chronic obstructive lung disease, status post right pleurodesis for spontaneous pneumothorax. 2. Large fungating gastric mass. 3. Sinus tachycardia with frequent atrial ectopy. 4. Anemia. 5. Mild hypokalemia. 6. Bilateral hydroureter and hydronephrosis with bilateral renal cysts. RECOMMENDATIONS: Continue albuterol inhaler. Continue Lopressor 25 mg twice a day, Zosyn at 2.25 g intravenously q. 8 hours. The case was discussed with the patient and daughter. Awaiting medical decisions regarding the gastric mass. Ori Fitzpatrick MD
--- NOTE | 2017-05-31 15:50 | CP.PCM.PN ---
Subjective - Date & Time of Evaluation Date of Evaluation: 05/31/17 Time of Evaluation: 15:48 - Subjective Subjective: I D NOTE SURGICAL NOTE REVIEWED HAS FUNGATING MASS NOTED ON ENDOSCOPY WBC IS STILL 12 CONTINUE IV ZOSYN ,WILL ADD STAPH COVERAGE PREOPERATIVELY if necessary Objective - Vital Signs/Intake and Output Vital Signs (last 24 hours): Temp Pulse Resp BP Pulse Ox 98.2 F 87 18 114/65 98 05/31/17 11:15 05/31/17 11:15 05/31/17 11:15 05/31/17 11:15 05/31/17 11:15 - Medications Medications: Current Medications Albuterol Sulfate (Albuterol 0.083% Inhal Magdalene (2.5 Mg/3 Ml) Ud) 2.5 mg INH RQ4 PRN PRN Reason: Shortness of Breath Last Admin: 05/22/17 08:40 Dose: 2.5 mg Docusate Sodium (Colace) 100 mg PO BID [facility] Last Admin: 05/31/17 08:26 Dose: Not Given Piperacillin Sod/Tazobactam Sod (Zosyn 2.25 Gm Iv Premix) 2.25 gm in 50 mls @ 50 mls/hr IVPB Q8 [facility] PRN Reason: Protocol Ipratropium [place] (Atrovent) 0.5 mg IH RQID [facility] Last Admin: 05/31/17 15:03 Dose: 0.5 mg Metoprolol Tartrate (Lopressor) 25 mg PO Q12 [facility] Last Admin: 05/31/17 08:26 Dose: 25 mg Nicotine (Nicoderm Cq) 1 patch TD DAILY [facility] Last Admin: 05/31/17 08:29 Dose: Not Given Pantoprazole Sodium (Protonix Inj) 40 mg IVP DAILY [facility] Last Admin: 05/31/17 08:27 Dose: 40 mg Sennosides (Senokot Tab) 17.2 mg PO HS [facility] Last Admin: 05/30/17 21:13 Dose: 17.2 mg - Labs Labs: 05/31/17 06:15 05/30/17 04:47 PT 15.6 Seconds (9.8-13.1) H 05/30/17 04:47 INR 1.4 (0.9-1.2) H 05/30/17 04:47 APTT 30.3 Seconds (25.6-37.1) 05/30/17 04:47
[2017-05-31] MEDS: Piperacill/Tazo 2.25gm in Dex 2.25 GM/50 ML BAG IVPB SCH (16:23)
[2017-05-31 16:53] LABS: CA 19-9 35.2 U/mL (0-37)
[2017-06-01] MEDS: Piperacill/Tazo 2.25gm in Dex 2.25 GM/50 ML BAG IVPB SCH ×3 (00:06→16:22)
[2017-06-01 07:30] LABS: HEMATOCRIT 25.9 % (35.0-51.0); MEAN CELL VOLUME 89.2 fl (80.0-94.0); MEAN CORPUSCULAR HEMOGLOBIN 29.2 pg (27.0-31.0); MEAN CORPUSCULAR HGB CONC 32.7 g/dL (33.0-37.0); RED CELL DISTRIBUTION WIDTH 15.2 % (11.5-14.5); WHITE BLOOD COUNT 12.7 K/uL (4.8-10.8)
[2017-06-01] MEDS: Ipratropium 0.02% Inhal Soln (0.5 mg/2.5 ml) UD IH SCH ×4 (08:18→19:29)
--- NOTE | 2017-06-01 08:23 | CP.PCM.PN ---
Subjective - Date & Time of Evaluation Date of Evaluation: 06/01/17 Time of Evaluation: 06:30 - Subjective Subjective: General Surgery- Dr. Jackson Pt S&E at bedside this AM. no acute events overnight. Denies nausea, vomiting, diarrhea, blood in stool, fevers, chills. Objective - Vital Signs/Intake and Output Vital Signs (last 24 hours): Temp Pulse Resp BP Pulse Ox 98.1 F 84 18 120/71 97 06/01/17 08:00 06/01/17 08:00 06/01/17 08:00 06/01/17 08:00 06/01/17 08:00 Intake and Output: 06/01/17 06/01/17 06:59 18:59 Intake Total 290 Balance 290 - Medications Medications: Current Medications Albuterol Sulfate (Albuterol 0.083% Inhal Magdalene (2.5 Mg/3 Ml) Ud) 2.5 mg INH RQ4 PRN PRN Reason: Shortness of Breath Last Admin: 05/22/17 08:40 Dose: 2.5 mg Docusate Sodium (Colace) 100 mg PO BID [facility] Last Admin: 05/31/17 16:13 Dose: Not Given Piperacillin Sod/Tazobactam Sod (Zosyn 2.25 Gm Iv Premix) 2.25 gm in 50 mls @ 50 mls/hr IVPB Q8 [facility] PRN Reason: Protocol Last Admin: 06/01/17 00:06 Dose: 50 mls/hr Ipratropium [place] (Atrovent) 0.5 mg IH RQID [facility] Last Admin: 06/01/17 08:18 Dose: 0.5 mg Metoprolol Tartrate (Lopressor) 25 mg PO Q12 [facility] Last Admin: 05/31/17 22:11 Dose: 25 mg Nicotine (Nicoderm Cq) 1 patch TD DAILY [facility] Last Admin: 05/31/17 08:29 Dose: Not Given Pantoprazole Sodium (Protonix Inj) 40 mg IVP BID [facility] Sennosides (Senokot Tab) 17.2 mg PO HS [facility] Last Admin: 05/31/17 22:11 Dose: Not Given - Labs Labs: 06/01/17 06:10 05/30/17 04:47 PT 15.6 Seconds (9.8-13.1) H 05/30/17 04:47 INR 1.4 (0.9-1.2) H 05/30/17 04:47 APTT 30.3 Seconds (25.6-37.1) 05/30/17 04:47 Assessment and Plan - Assessment and Plan (Free Text) Assessment: 86M w/ gastric fungating mass, pathology still pending Plan: - Plan for OR this week; clearance from Pulm and Cardio pending * all recs appreciated - Monitor H/H - Medical management per primary - discussed w/ surgical attending Alexander Odell PGY1
--- NOTE | 2017-06-01 08:49 | CP.PCM.PN ---
Subjective - Date & Time of Evaluation Date of Evaluation: 06/01/17 Time of Evaluation: 08:49 - Subjective Subjective: Seated upright in bed, eating breakfast. Offers no complaints of cough, sputum or shortness of breath. Vital signs remain stable. Hgb is down to 8.5GM. No nausea, vomiting, abdominal pain. No blood per rectum. Minimal subcut emphysema right anterior chest wall. No dullness on percussion. Breath sounds are markedly diminished bilaterally. No audible wheezing or bronchial breathing. Heart sounds are very distant. Abdomen is soft and non-tender. Pulmonary status is stable. CT findings reflect recent pleurodesis. Continues to receive aerosol treatments with ipratropium. 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 Objective - Vital Signs/Intake and Output Vital Signs (last 24 hours): Temp Pulse Resp BP Pulse Ox 98.1 F 84 18 120/71 97 06/01/17 08:00 06/01/17 08:29 06/01/17 08:00 06/01/17 08:29 06/01/17 08:00 Intake and Output: 05/31/17 06/01/17 23:59 11:59 Intake Total 900 290 Output Total 400 Balance 500 290 - Medications Medications: Current Medications Albuterol Sulfate (Albuterol 0.083% Inhal Magdalene (2.5 Mg/3 Ml) Ud) 2.5 mg INH RQ4 PRN PRN Reason: Shortness of Breath Last Admin: 05/22/17 08:40 Dose: 2.5 mg Docusate Sodium (Colace) 100 mg PO BID [facility] Last Admin: 06/01/17 08:29 Dose: Not Given Piperacillin Sod/Tazobactam Sod (Zosyn 2.25 Gm Iv Premix) 2.25 gm in 50 mls @ 50 mls/hr IVPB Q8 [facility] PRN Reason: Protocol Last Admin: 06/01/17 08:30 Dose: 50 mls/hr Ipratropium [place] (Atrovent) 0.5 mg IH RQID [facility] Last Admin: 06/01/17 08:18 Dose: 0.5 mg Metoprolol Tartrate (Lopressor) 25 mg PO Q12 [facility] Last Admin: 06/01/17 08:29 Dose: 25 mg Nicotine (Nicoderm Cq) 1 patch TD DAILY [facility] Last Admin: 06/01/17 08:30 Dose: Not Given Pantoprazole Sodium (Protonix Inj) 40 mg IVP BID [facility] Last Admin: 06/01/17 08:30 Dose: 40 mg Sennosides (Senokot Tab) 17.2 mg PO HS [facility] Last Admin: 05/31/17 22:11 Dose: Not Given - Labs Labs: 06/01/17 06:10 05/30/17 04:47 PT 15.6 Seconds (9.8-13.1) H 05/30/17 04:47 INR 1.4 (0.9-1.2) H 05/30/17 04:47 APTT 30.3 Seconds (25.6-37.1) 05/30/17 04:47
--- NOTE | 2017-06-01 09:47 | CP.PCM.PN ---
Subjective - Date & Time of Evaluation Date of Evaluation: 06/01/17 Time of Evaluation: 09:05 - Subjective Subjective: Pt seen and examined at bedside this AM. Pt denies any acute overnight event. H& H this AM 8.5/25.9. Denies seeing bright red blood per rectum or melena. Denies abdominal pain, nausea, vomiting, fever, chills. Denies chest pain, dyspnea or cough. Objective - Vital Signs/Intake and Output Vital Signs (last 24 hours): Temp Pulse Resp BP Pulse Ox 98.1 F 86 18 120/71 97 06/01/17 08:00 06/01/17 09:00 06/01/17 08:00 06/01/17 08:29 06/01/17 08:00 Intake and Output: 06/01/17 06/01/17 06:59 18:59 Intake Total 290 Balance 290 - Medications Medications: Current Medications Albuterol Sulfate (Albuterol 0.083% Inhal Magdalene (2.5 Mg/3 Ml) Ud) 2.5 mg INH RQ4 PRN PRN Reason: Shortness of Breath Last Admin: 05/22/17 08:40 Dose: 2.5 mg Docusate Sodium (Colace) 100 mg PO BID [facility] Last Admin: 06/01/17 08:29 Dose: Not Given Piperacillin Sod/Tazobactam Sod (Zosyn 2.25 Gm Iv Premix) 2.25 gm in 50 mls @ 50 mls/hr IVPB Q8 [facility] PRN Reason: Protocol Last Admin: 06/01/17 08:30 Dose: 50 mls/hr Ipratropium [place] (Atrovent) 0.5 mg IH RQID [facility] Last Admin: 06/01/17 08:18 Dose: 0.5 mg Metoprolol Tartrate (Lopressor) 25 mg PO Q12 [facility] Last Admin: 06/01/17 08:29 Dose: 25 mg Nicotine (Nicoderm Cq) 1 patch TD DAILY [facility] Last Admin: 06/01/17 08:30 Dose: Not Given Pantoprazole Sodium (Protonix Inj) 40 mg IVP BID [facility] Last Admin: 06/01/17 08:30 Dose: 40 mg Sennosides (Senokot Tab) 17.2 mg PO HS [facility] Last Admin: 05/31/17 22:11 Dose: Not Given - Labs Labs: 06/01/17 06:10 05/30/17 04:47 PT 15.6 Seconds (9.8-13.1) H 05/30/17 04:47 INR 1.4 (0.9-1.2) H 05/30/17 04:47 APTT 30.3 Seconds (25.6-37.1) 05/30/17 04:47 - Constitutional Appears: Non-toxic, No Acute Distress, Other (Thin appearing) - ENT Exam ENT Exam: Mucous Membranes Moist - Neck Exam Neck Exam: Full ROM, Normal Inspection - Respiratory Exam Respiratory Exam: absent: Chest Wall Tenderness, Wheezes, Respiratory Distress Additional comments: Mild Bibasilar rhonchi - Cardiovascular Exam Cardiovascular Exam: REGULAR RHYTHM, RRR, +S1, +S2. absent: JVD - GI/Abdominal Exam GI & Abdominal Exam: Soft, Normal Bowel Sounds. absent: Tenderness Additional comments: mild distension of lower abdomen. - Extremities Exam Extremities Exam: Normal Capillary Refill. absent: Calf Tenderness, Pedal Edema - Neurological Exam Neurological Exam: Alert, Awake, Oriented x3 - Psychiatric Exam Psychiatric exam: Normal Affect, Normal Mood Assessment and Plan - Assessment and Plan (Free Text) Assessment: 86 yo M was admitted for right sided pneumothorax likely secondary to ruptured bleb. Patient is s/p chest tube placement on 05/13/17, he underwent talc pleurodesis with second chest tube placement on 05/21/17, Chest tubes were removed on 05/27/17. Now with acute GI bleed s/p 2 units PRBC now with suspicous mass on gastric antrum found on EGD Plan: 1. Anemia due to Upper GI bleed- Acute -H&H:8.5/25.9 s/p 2 units of PRBC on 05/29/17. -Repeat CBC tonight -Continue Protonix 40 mg BID. -GI consulted: Dr. Bernardo. 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 -Biopsy was taken and f/u biopsy results. -General Surgery Dr. Jackson on board. -CT abdomen with PO & I.V. from 05/30/17 no signs of malignancy --Tumor markers AFP 2.5 WNL CEA 1.9 WNL CA-19-9 WNL CA 125 : 52 (Elevated) -Family meeting tomorrow with pt's daughter and son at 3 pm. 3. Leukocytosis -WBC 12.7 -Afebrile -ID consult appreciated by Dr Lehman -Continue Zosyn 2.25 mg IV q8h (dose decreased due creatinine clearance) [abx started 05/21, Current Day 12] -F/U CBC in AM 4. Distended Bladder w/ B/L hydroureteronephrosis on CT -CT on 05/30/17 also shows small B/L renal masses likely cysts. -Bladder scan -Straight cath -Urology Consulted. 5. C. difficle antigen positive, Toxin negative. -Asymptomatic. -No treatment needed as per Dr. Bernardo. 6. Right-sided Pneumothorax, resolved -Likely secondary to ruptured bleb -S/p chest tube placement on 05/13/17 and S/p talc pleurodesis with second chest tube placement on 05/21/17 -Chest tubes removed on 05/27/17. -Thoracic surgery by Dr Akers on board, recommendations appreciated 7. COPD, newly diagnosed, stable -Associated with 70+ pack year history -O2 via NC 2L/min prn if SOB -Pulmonology consulted with Dr Horowitz, recommendations appreciated -Atrovent QID HEIDY -Albuterol PRN 8. Dysphagia, resolved -swallow screen Passed 9. Deconditioning -Walk test -will need home oxygen. 10. DVT prophylaxis -hold Lovenox 30mg for possible GI bleeding -SCD prn. 11. Diet: -Regular diet
--- NOTE | 2017-06-01 14:42 | CP.PCM.PN ---
Subjective - Date & Time of Evaluation Date of Evaluation: 06/01/17 Time of Evaluation: 14:38 - Subjective Subjective: 86 year old hisp male with multiple med problems including recent pneumo thorax, copd Gastric tumor cdiff + stool ecam having difficulty voiding bladder scan shows 1000cc pvr pt was straight cathed and found to have 900cc pvr. Suggest insert caldwell further evaluation if and when pt medically stable and can be cleared for cysto. [place] Objective - Vital Signs/Intake and Output Vital Signs (last 24 hours): Temp Pulse Resp BP Pulse Ox 97.6 F 77 18 110/68 93 L 06/01/17 12:21 06/01/17 12:21 06/01/17 12:21 06/01/17 12:21 06/01/17 12:21 Intake and Output: 06/01/17 06/01/17 06:59 18:59 Intake Total 290 Balance 290 - Medications Medications: Current Medications Albuterol Sulfate (Albuterol 0.083% Inhal [place]dal[place] (2.5 Mg/3 Ml) Ud) 2.5 mg INH RQ4 PRN PRN Reason: Shortness of Breath Last Admin: 05/22/17 08:40 Dose: 2.5 mg Docusate Sodium (Colace) 100 mg PO BID [facility] Last Admin: 06/01/17 08:29 Dose: Not Given Piperacillin Sod/Tazobactam Sod (Zosyn 2.25 Gm Iv Premix) 2.25 gm in 50 mls @ 50 mls/hr IVPB Q8 [facility] PRN Reason: Protocol Last Admin: 06/01/17 08:30 Dose: 50 mls/hr Ipratropium [place] (Atrovent) 0.5 mg IH RQID [facility] Last Admin: 06/01/17 11:31 Dose: 0.5 mg Metoprolol Tartrate (Lopressor) 25 mg PO Q12 [facility] Last Admin: 06/01/17 08:29 Dose: 25 mg Nicotine (Nicoderm Cq) 1 patch TD DAILY [facility] Last Admin: 06/01/17 08:30 Dose: Not Given Pantoprazole Sodium (Protonix Inj) 40 mg IVP BID [facility] Last Admin: 06/01/17 08:30 Dose: 40 mg Sennosides (Senokot Tab) 17.2 mg PO HS [facility] Last Admin: 05/31/17 22:11 Dose: Not Given - Labs Labs: 06/01/17 06:10 05/30/17 04:47 PT 15.6 Seconds (9.8-13.1) H 05/30/17 04:47 INR 1.4 (0.9-1.2) H 05/30/17 04:47 APTT 30.3 Seconds (25.6-37.1) 05/30/17 04:47
--- NOTE | 2017-06-01 19:23 | PN ---
DATE: SUBJECTIVE: The patient is comfortable in bed with his daughter at the bedside. Denies any chest pain. No reported arrhythmia. PHYSICAL EXAMINATION: VITAL SIGNS: Blood pressure 110/68, heart rate 77, temperature 97.6, respiration 18. HEENT: Pale conjunctivae. CHEST: Bilateral rhonchi. HEART: S1, S2 regular. EXTREMITIES: No edema. LABORATORY DATA: Hemoglobin and hematocrit 8.5 and 25.9, white count 12.7, and platelet count . ASSESSMENT: 1. Chronic obstructive lung disease. 2. Status post right pleurodesis for spontaneous pneumothorax. 3. Fungating gastric mass. 4. Physiologic sinus tachycardia. 5. Occasional atrial ectopy. 6. Anemia. 7. Patient complains today of bilateral foot stiffness. RECOMMENDATIONS: Continue current albuterol inhaler, continue Lopressor 25 mg twice a day, NicoDerm patch, Zosyn 2.25 g intravenously q. 8 hours. Obtain serum uric acid level as well as BMP in a.m. Ori Fitzpatrick MD
[2017-06-01 20:30] LABS: HEMATOCRIT 24.3 % (35.0-51.0); MEAN CELL VOLUME 88.8 fl (80.0-94.0); MEAN CORPUSCULAR HEMOGLOBIN 29.7 pg (27.0-31.0); MEAN CORPUSCULAR HGB CONC 33.5 g/dL (33.0-37.0); RED CELL DISTRIBUTION WIDTH 14.9 % (11.5-14.5); WHITE BLOOD COUNT 12.2 K/uL (4.8-10.8)
--- NOTE | 2017-06-01 21:18 | CP.PCM.PCO ---
Addendum Addendum: 06/01/17 18:30 Called by RN due to blood tinged urine in caldwell bag. I saw and evaluated the patient, he denies any hx of hematuria. No pain presently. He is lying in bed in no apparent distress. The Caldwell catheter bag filled with blood tinged urine, minimal amount of urine present in bag. This is likely secondary to traumatic insertion of the caldwell catheter. Urine culture was sent Monitor urine output, will reassess. Hg : 8.1, if hematuria continues will likely need blood transfusion. Thee Melendrez, PGY-2
[2017-06-02] MEDS: Piperacill/Tazo 2.25gm in Dex 2.25 GM/50 ML BAG IVPB SCH ×3 (00:04→17:39)
[2017-06-02 05:12] LABS: HEMATOCRIT 25.4 % (35.0-51.0); MEAN CELL VOLUME 89.3 fl (80.0-94.0); MEAN CORPUSCULAR HEMOGLOBIN 29.7 pg (27.0-31.0); MEAN CORPUSCULAR HGB CONC 33.2 g/dL (33.0-37.0); RED CELL DISTRIBUTION WIDTH 15.4 % (11.5-14.5); WHITE BLOOD COUNT 12.7 K/uL (4.8-10.8)
[2017-06-02 05:39] LABS: BLOOD UREA NITROGEN 19 mg/dl (9-20); CALCIUM 7.9 mg/dL (8.4-10.2); CARBON DIOXIDE 34 mmol/L (22-30); CHLORIDE 105 mmol/L (98-107); GFR AFRICAN-AMERICAN > 60; GLUCOSE,RANDOM 93 mg/dL (75-110); SODIUM 144 mmol/l (132-148); URIC ACID 4.3 mg/Dl (3.5-8.5)
[2017-06-02] MEDS ORDERED: Potassium Chloride 20 mEq ER Tab PO ONE (07:03)
--- NOTE | 2017-06-02 07:40 | CP.PCM.PN ---
Subjective - Date & Time of Evaluation Date of Evaluation: 06/02/17 Time of Evaluation: 07:30 - Subjective Subjective: Pt seen and examined at bedside this AM. Had uneventful night. Denies any BM last night or this AM. Tolerating PO intake. Has caldwell Denies abdominal pain, nausea, vomiting, fever, chills. Denies chest pain, dyspnea or cough. Objective - Vital Signs/Intake and Output Vital Signs (last 24 hours): Temp Pulse Resp BP Pulse Ox 98.2 F 80 18 112/56 L 98 06/02/17 05:11 06/02/17 05:11 06/02/17 05:11 06/02/17 05:11 06/02/17 05:11 Intake and Output: 06/02/17 06/02/17 06:59 18:59 Intake Total 850 Output Total 950 Balance -100 - Medications Medications: Current Medications Albuterol Sulfate (Albuterol 0.083% Inhal Magdalene (2.5 Mg/3 Ml) Ud) 2.5 mg INH RQ4 PRN PRN Reason: Shortness of Breath Last Admin: 05/22/17 08:40 Dose: 2.5 mg Docusate Sodium (Colace) 100 mg PO BID [facility] Last Admin: 06/01/17 16:19 Dose: Not Given Piperacillin Sod/Tazobactam Sod (Zosyn 2.25 Gm Iv Premix) 2.25 gm in 50 mls @ 50 mls/hr IVPB Q8 HEIDY PRN Reason: Protocol Last Admin: 06/02/17 00:04 Dose: 50 mls/hr Ipratropium [place] (Atrovent) 0.5 mg IH RQID [facility] Last Admin: 06/01/17 19:29 Dose: 0.5 mg Metoprolol Tartrate (Lopressor) 25 mg PO Q12 [facility] Last Admin: 06/01/17 20:21 Dose: 25 mg Nicotine (Nicoderm Cq) 1 patch TD DAILY [facility] Last Admin: 06/01/17 08:30 Dose: Not Given Pantoprazole Sodium (Protonix Inj) 40 mg IVP BID [facility] Last Admin: 06/01/17 16:22 Dose: 40 mg Sennosides (Senokot Tab) 17.2 mg PO HS [facility] Last Admin: 06/01/17 22:52 Dose: Not Given - Labs Labs: 06/02/17 04:20 06/02/17 04:20 PT 15.6 Seconds (9.8-13.1) H 05/30/17 04:47 INR 1.4 (0.9-1.2) H 05/30/17 04:47 APTT 30.3 Seconds (25.6-37.1) 05/30/17 04:47 - Constitutional Appears: Non-toxic, No Acute Distress, Other (thin appearing) - ENT Exam ENT Exam: Mucous Membranes Moist - Neck Exam Neck Exam: Full ROM, Normal Inspection - Respiratory Exam Respiratory Exam: absent: Rales, Rhonchi Additional comments: mild expiratory wheezing on right lung field - Cardiovascular Exam Cardiovascular Exam: REGULAR RHYTHM, RRR, +S1, +S2. absent: Gallop, JVD - GI/Abdominal Exam GI & Abdominal Exam: Soft, Normal Bowel Sounds. absent: Guarding, Tenderness, Rebound - Extremities Exam Extremities Exam: Normal Capillary Refill. absent: Calf Tenderness, Pedal Edema - Neurological Exam Neurological Exam: Alert, Awake, Oriented x3 - Psychiatric Exam Psychiatric exam: Normal Affect, Normal Mood Assessment and Plan - Assessment and Plan (Free Text) Assessment: Assessment: 86 yo M was admitted for right sided pneumothorax likely secondary to ruptured bleb. Patient is s/p chest tube placement on 05/13/17, he underwent talc pleurodesis with second chest tube placement on 05/21/17, Chest tubes were removed on 05/27/17. 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 -Continue Protonix 40 mg BID. -GI consulted: Dr. Bernardo. -CBC tomorrow AM. 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 -Biopsy was taken and f/u biopsy results. -General Surgery Dr. Jackson on board. -CT abdomen with PO & I.V. from 05/30/17 no signs of malignancy --Tumor markers AFP 2.5 WNL CEA 1.9 WNL CA-19-9 WNL CA 125 : 52 (Elevated) -Family meeting today with pt's daughter and son at 3 pm. Leukocytosis -WBC 12.7 -Afebrile -ID consult appreciated by Dr Lehman -Continue Zosyn 2.25 mg IV q8h (dose decreased due creatinine clearance) [abx started 05/21, Current Day 13] -F/U CBC in AM Distended Bladder w/ B/L hydroureteronephrosis on CT -CT on 05/30/17 also shows small B/L renal masses likely cysts. -Urology consult appreciated. -Has caldwell in place. -B/L renal US ordered. Hypokalemia -Potassium 3.0 -KCl 40 meq PO given -Repeat K tomorrow. C. difficle antigen positive, Toxin negative. -Asymptomatic. -No treatment needed as per Dr. Bernardo. Right-sided Pneumothorax, resolved -Likely secondary to ruptured bleb -S/p chest tube placement on 05/13/17 and S/p talc pleurodesis with second chest tube placement on 05/21/17 -Chest tubes removed on 05/27/17. -Thoracic surgery by Dr Akers on board, recommendations appreciated COPD, newly diagnosed, stable -Associated with 70+ pack year history -O2 via NC 2L/min prn if SOB -Pulmonology consulted with Dr Horowitz, recommendations appreciated -Atrovent QID HEIDY -Albuterol PRN Dysphagia, resolved -swallow screen Passed Deconditioning -Walk test -will need home oxygen. DVT prophylaxis -hold Lovenox 30mg for possible GI bleeding -SCD prn. Diet: -Regular diet
[2017-06-02] MEDS: Ipratropium 0.02% Inhal Soln (0.5 mg/2.5 ml) UD IH SCH (07:53)
--- NOTE | 2017-06-02 08:06 | CP.PCM.PN ---
Subjective - Date & Time of Evaluation Date of Evaluation: 06/02/17 Time of Evaluation: 06:50 - Subjective Subjective: General Surgery Dr. Jackson Pt S&E @bedside. NAEO. pt has no complaints. pt denies any recent blood BMs. Pt denies F/C, SOB, CP, N/V, abd pain. Pt tolerating regular diet. Objective - Vital Signs/Intake and Output Vital Signs (last 24 hours): Temp Pulse Resp BP Pulse Ox 97.9 F 83 18 129/72 98 06/02/17 08:03 06/02/17 08:03 06/02/17 08:03 06/02/17 08:03 06/02/17 08:03 Intake and Output: 06/02/17 06/02/17 06:59 18:59 Intake Total 850 Output Total 950 Balance -100 - Medications Medications: Current Medications Albuterol Sulfate (Albuterol 0.083% Inhal Magdalene (2.5 Mg/3 Ml) Ud) 2.5 mg INH RQ4 PRN PRN Reason: Shortness of Breath Last Admin: 05/22/17 08:40 Dose: 2.5 mg Docusate Sodium (Colace) 100 mg PO BID [facility] Last Admin: 06/01/17 16:19 Dose: Not Given Piperacillin Sod/Tazobactam Sod (Zosyn 2.25 Gm Iv Premix) 2.25 gm in 50 mls @ 50 mls/hr IVPB Q8 HEIDY PRN Reason: Protocol Last Admin: 06/02/17 00:04 Dose: 50 mls/hr Ipratropium [place] (Atrovent) 0.5 mg IH RQID [facility] Last Admin: 06/02/17 07:53 Dose: 0.5 mg Metoprolol Tartrate (Lopressor) 25 mg PO Q12 [facility] Last Admin: 06/01/17 20:21 Dose: 25 mg Nicotine (Nicoderm Cq) 1 patch TD DAILY [facility] Last Admin: 06/01/17 08:30 Dose: Not Given Pantoprazole Sodium (Protonix Inj) 40 mg IVP BID [facility] Last Admin: 06/01/17 16:22 Dose: 40 mg Sennosides (Senokot Tab) 17.2 mg PO HS [facility] Last Admin: 06/01/17 22:52 Dose: Not Given - Labs Labs: 06/02/17 04:20 06/02/17 04:20 PT 15.6 Seconds (9.8-13.1) H 05/30/17 04:47 INR 1.4 (0.9-1.2) H 05/30/17 04:47 APTT 30.3 Seconds (25.6-37.1) 05/30/17 04:47 - Constitutional Appears: Non-toxic, No Acute Distress - Head Exam Head Exam: NORMAL INSPECTION - Eye Exam Eye Exam: Normal appearance - ENT Exam ENT Exam: Mucous Membranes Moist - Respiratory Exam Respiratory Exam: NORMAL BREATHING PATTERN. absent: Accessory Muscle Use, Respiratory Distress - Cardiovascular Exam Cardiovascular Exam: absent: Bradycardia, Tachycardia - GI/Abdominal Exam GI & Abdominal Exam: Soft. absent: Distended, Tenderness - Extremities Exam Extremities Exam: Normal Inspection - Neurological Exam Neurological Exam: Alert, Awake, Oriented x3 - Psychiatric Exam Psychiatric exam: Normal Affect, Normal Mood - Skin Skin Exam: Dry, Intact, Normal Color, Warm Assessment and Plan - Assessment and Plan (Free Text) Assessment: 86 y/o M w/ GI bleed 2/2 gastric fungating mass seen on EGD, pathology still pending - plan to speak w/ daughter today regarding pt's treatment options 1. Surgical: Partial antrectomy 2. XRT vs Chemo pending final Dx - Cont Protonix for GI bleeding - Hold DVT PPx - cont to monitor H/H - monitor bowel fxn - cont medical management per PMD Pt discussed w/ Dr. Manuel Coyle DO PGY2
--- NOTE | 2017-06-02 08:51 | CP.PCM.PN ---
Subjective - Date & Time of Evaluation Date of Evaluation: 06/02/17 Time of Evaluation: 08:42 - Subjective Subjective: Interim events reviewed. Has caldwell catheter secondary to urinary retention. Offers no complaints of SOB or cough. Offers no complaints of abdominal discomfort, nausea or vomiting. Appetite is fair, PO intake is fair. Vital signs have been stable. EGD pathology report pending. Breath sounds are diminished, but present bilaterally. No audible wheezes or bronchial breath sounds. Subcut emphysema has resolved. Urinary retention may have been worsened by use of ipratropium. 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 He had tachycardia with the initial use of beta-adrenergic. Will switch to levalbuterol at low dose Q8H. Objective - Vital Signs/Intake and Output Vital Signs (last 24 hours): Temp Pulse Resp BP Pulse Ox 97.9 F 83 18 129/72 98 06/02/17 08:03 06/02/17 08:03 06/02/17 08:03 06/02/17 08:03 06/02/17 08:03 Intake and Output: 06/01/17 06/02/17 23:59 11:59 Intake Total 1300 850 Output Total 2800 950 Balance -1500 -100 - Medications Medications: Current Medications Albuterol Sulfate (Albuterol 0.083% Inhal Magdalene (2.5 Mg/3 Ml) Ud) 2.5 mg INH RQ4 PRN PRN Reason: Shortness of Breath Last Admin: 05/22/17 08:40 Dose: 2.5 mg Docusate Sodium (Colace) 100 mg PO BID [facility] Last Admin: 06/01/17 16:19 Dose: Not Given Piperacillin Sod/Tazobactam Sod (Zosyn 2.25 Gm Iv Premix) 2.25 gm in 50 mls @ 50 mls/hr IVPB Q8 HEIDY PRN Reason: Protocol Last Admin: 06/02/17 00:04 Dose: 50 mls/hr Ipratropium [place] (Atrovent) 0.5 mg IH RQID [facility] Last Admin: 06/02/17 07:53 Dose: 0.5 mg Metoprolol Tartrate (Lopressor) 25 mg PO Q12 [facility] Last Admin: 06/01/17 20:21 Dose: 25 mg Nicotine (Nicoderm Cq) 1 patch TD DAILY [facility] Last Admin: 06/01/17 08:30 Dose: Not Given Pantoprazole Sodium (Protonix Inj) 40 mg IVP BID [facility] Last Admin: 06/01/17 16:22 Dose: 40 mg Sennosides (Senokot Tab) 17.2 mg PO HS [facility] Last Admin: 06/01/17 22:52 Dose: Not Given - Labs Labs: 06/02/17 04:20 06/02/17 04:20 PT 15.6 Seconds (9.8-13.1) H 05/30/17 04:47 INR 1.4 (0.9-1.2) H 05/30/17 04:47 APTT 30.3 Seconds (25.6-37.1) 05/30/17 04:47
[2017-06-02] MEDS ORDERED: Levalbuterol 0.63 MG/3 ML Inhal Soln UD INH PRN (08:56)
[2017-06-02 10:23] LABS: PARTIAL THROMBOPLASTIN TIME 29.3 Seconds (25.6-37.1)
[2017-06-02] MEDS: Levalbuterol 0.63 MG/3 ML Inhal Soln UD INH SCH ×2 (15:48→23:47)
--- NOTE | 2017-06-02 18:45 | PN ---
DATE: SUBJECTIVE: The patient appears comfortable. He denies any chest pain. He is not in any apparent respiratory distress. PHYSICAL EXAMINATION: VITAL SIGNS: Blood pressure 110/61, heart rate 77, temperature 98.4, respirations 20. HEENT: Pale conjunctivae. CHEST: Bilateral rhonchi. HEART: S1 and S2, regular. ABDOMEN: Soft. EXTREMITIES: No edema. LABORATORY DATA: Today's potassium 3.0, hemoglobin and hematocrit 8.4 and 25.4, white count and platelet count are 12.7 and 348,000. ASSESSMENT: 1. Chronic obstructive lung disease. 2. Status post pleurodesis for right pneumothorax. 3. Fungating gastric mass with bleeding. 4. Frequent atrial ectopy on the monitor. RECOMMENDATIONS: Continue Lopressor 25 mg twice a day, Protonix 40 mg again twice a day, Xopenex inhaler and Zosyn at 2.25 g intravenously q. 8 hours. Ori Fitzpatrick MD
[2017-06-03] MEDS: Piperacill/Tazo 2.25gm in Dex 2.25 GM/50 ML BAG IVPB SCH ×3 (00:14→17:08)
[2017-06-03 06:14] LABS: HEMATOCRIT 24.3 % (35.0-51.0); MEAN CELL VOLUME 89.6 fl (80.0-94.0); MEAN CORPUSCULAR HEMOGLOBIN 30.3 pg (27.0-31.0); MEAN CORPUSCULAR HGB CONC 33.8 g/dL (33.0-37.0); RED CELL DISTRIBUTION WIDTH 15.5 % (11.5-14.5); WHITE BLOOD COUNT 10.7 K/uL (4.8-10.8)
[2017-06-03 06:36] LABS: BLOOD UREA NITROGEN 14 mg/dl (9-20); CALCIUM 7.8 mg/dL (8.4-10.2); CARBON DIOXIDE 36 mmol/L (22-30); CHLORIDE 103 mmol/L (98-107); GFR AFRICAN-AMERICAN > 60; GLUCOSE,RANDOM 86 mg/dL (75-110); POTASSIUM 3.4 MMOL/L (3.6-5.0); SODIUM 143 mmol/l (132-148)
[2017-06-03] MEDS: Levalbuterol 0.63 MG/3 ML Inhal Soln UD INH SCH ×3 (07:42→23:42)
--- NOTE | 2017-06-03 07:42 | CP.PCM.PN ---
Subjective - Date & Time of Evaluation Date of Evaluation: 06/03/17 Time of Evaluation: 07:10 - Subjective Subjective: Pt was seen and examined at bedside this AM. Pt reports his back was itching yesterday and relieved w/ loratidine 10 mg PO. Reports BM last night, denies seeing blood. Tolerating PO intake. Has caldwell in place. Denies abdominal pain, nausea, vomiting, fever, chills. Denies chest pain, dyspnea or cough. Objective - Vital Signs/Intake and Output Vital Signs (last 24 hours): Temp Pulse Resp BP Pulse Ox 98.1 F 102 H 18 117/59 L 95 06/03/17 05:11 06/03/17 05:11 06/03/17 05:11 06/03/17 05:11 06/03/17 05:11 - Medications Medications: Current Medications Docusate Sodium (Colace) 100 mg PO BID [facility] Last Admin: 06/02/17 16:11 Dose: Not Given Piperacillin Sod/Tazobactam Sod (Zosyn 2.25 Gm Iv Premix) 2.25 gm in 50 mls @ 50 mls/hr IVPB Q8 HEIDY PRN Reason: Protocol Last Admin: 06/03/17 00:14 Dose: 50 mls/hr Levalbuterol HCl (Xopenex) 0.63 mg INH RQ8 [facility] Last Admin: 06/02/17 23:47 Dose: 0.63 mg Levalbuterol HCl (Xopenex) 0.63 mg INH RQ4 PRN PRN Reason: Shortness of Breath Metoprolol Tartrate (Lopressor) 25 mg PO Q12 [facility] Last Admin: 06/02/17 21:51 Dose: 25 mg Nicotine (Nicoderm Cq) 1 patch TD DAILY [facility] Last Admin: 06/02/17 09:03 Dose: 1 patch Pantoprazole Sodium (Protonix Inj) 40 mg IVP BID [facility] Last Admin: 06/02/17 17:40 Dose: 40 mg Sennosides (Senokot Tab) 17.2 mg PO HS [facility] Last Admin: 06/02/17 21:53 Dose: Not Given - Labs Labs: 06/03/17 05:10 06/03/17 05:10 PT 13.1 Seconds (9.8-13.1) 06/02/17 09:00 INR 1.2 (0.9-1.2) 06/02/17 09:00 APTT 29.3 Seconds (25.6-37.1) 06/02/17 09:00 - Constitutional Appears: Non-toxic, No Acute Distress, Cachectic, Chronically Ill - ENT Exam ENT Exam: Mucous Membranes Moist - Neck Exam Neck Exam: Full ROM, Normal Inspection - Respiratory Exam Respiratory Exam: Clear to Ausculation Bilateral. absent: Rales, Rhonchi, Wheezes, Respiratory Distress - Cardiovascular Exam Cardiovascular Exam: REGULAR RHYTHM, RRR, +S1, +S2. absent: Gallop - GI/Abdominal Exam GI & Abdominal Exam: Soft, Normal Bowel Sounds. absent: Guarding, Tenderness, Rebound - Extremities Exam Extremities Exam: Normal Capillary Refill, Normal Inspection. absent: Calf Tenderness, Pedal Edema - Neurological Exam Neurological Exam: Alert, Awake, Oriented x3 - Psychiatric Exam Psychiatric exam: Normal Affect, Normal Mood - Skin Additional comments: slight non-tender erythematous diffuse area in the back, no discrete rash. no skin breakage. no swelling or induration. Likely due to friction and prolonged lying on bed. Assessment and Plan - Assessment and Plan (Free Text) Assessment: 86 yo M was initially admitted for right sided pneumothorax s/p chest tube placement on 05/13/17, he underwent talc pleurodesis with second chest tube placement on 05/21/17, Chest tubes were removed on 05/27/17. Now with acute GI bleed s/p 2 units PRBC now with suspicous mass on gastric antrum, awaiting bx results. Plan: Anemia due to Upper GI bleed- Acute -H&H:8.2/24.3 s/p 2 units of PRBC on 05/29/17. -Continue Protonix 40 mg BID. -GI consulted: Dr. Bernardo. -CBC tomorrow AM. 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 -Biopsy was taken and f/u biopsy results. -General Surgery Dr. Jackson on board. -CT abdomen with PO & I.V. from 05/30/17 no signs of malignancy --Tumor markers AFP 2.5 WNL CEA 1.9 WNL CA-19-9 WNL CA 125 : 52 (Elevated) -Family meeting today with pt's daughter at 12 pm. Daughter was unable to come yesterday. Leukocytosis -WBC 10.7 -Afebrile -ID consult appreciated by Dr Lehman -Continue Zosyn 2.25 mg IV q8h (dose decreased due creatinine clearance) [abx started 05/21, Current Day 13] -F/U CBC in AM Distended Bladder w/ B/L hydroureteronephrosis on CT -CT on 05/30/17 also shows small B/L renal masses likely cysts. -Urology consult appreciated. -Has caldwell in place. -B/L renal US done on 06/02/17. F/U results. Hypokalemia -Potassium 3.4 today -KCl 20 meq ordered. -Repeat K tomorrow. Erythema of Back -stable -likely due to friction. -will monitor. C. difficle antigen positive, Toxin negative. -Asymptomatic. -No treatment needed as per Dr. Bernardo. Right-sided Pneumothorax, resolved -Likely secondary to ruptured bleb -S/p chest tube placement on 05/13/17 and S/p talc pleurodesis with second chest tube placement on 05/21/17 -Chest tubes removed on 05/27/17. -Thoracic surgery by Dr Akers on board, recommendations appreciated COPD, newly diagnosed, stable -Associated with 70+ pack year history -O2 via NC 2L/min prn if SOB -Pulmonology consulted with Dr Horowitz, recommendations appreciated -Atrovent QID HEIDY -Albuterol PRN Dysphagia, resolved -swallow screen Passed Deconditioning -Walk test -will need home oxygen. DVT prophylaxis -hold Lovenox 30mg for possible GI bleeding -SCD prn. Diet: -Regular diet
[2017-06-03] MEDS ORDERED: Potassium Chloride 20 mEq/15 ml LIQ UD PO ONE (08:08)
--- NOTE | 2017-06-03 08:12 | CP.PCM.PN ---
Subjective - Date & Time of Evaluation Date of Evaluation: 06/03/17 Time of Evaluation: 07:00 - Subjective Subjective: General Surgery Dr. Jackson Pt S&E @bedside. Pt underwent US-guided kidney Bx yesterday. Pt tolerated the procedure well w/ no complications. NAEO. pt has no complaints. Pt denies F/C, N /V, D/C, melena, hematochezia. Pt tolerating regular diet. Family meeting scheduled for 1200 to discuss further treatment options. Objective - Vital Signs/Intake and Output Vital Signs (last 24 hours): Temp Pulse Resp BP Pulse Ox 98.1 F 102 H 18 117/59 L 95 06/03/17 05:11 06/03/17 05:11 06/03/17 05:11 06/03/17 05:11 06/03/17 05:11 - Medications Medications: Current Medications Docusate Sodium (Colace) 100 mg PO BID [facility] Last Admin: 06/02/17 16:11 Dose: Not Given Piperacillin Sod/Tazobactam Sod (Zosyn 2.25 Gm Iv Premix) 2.25 gm in 50 mls @ 50 mls/hr IVPB Q8 HEIDY PRN Reason: Protocol Last Admin: 06/03/17 00:14 Dose: 50 mls/hr Levalbuterol HCl (Xopenex) 0.63 mg INH RQ8 [facility] Last Admin: 06/03/17 07:42 Dose: 0.63 mg Levalbuterol HCl (Xopenex) 0.63 mg INH RQ4 PRN PRN Reason: Shortness of Breath Metoprolol Tartrate (Lopressor) 25 mg PO Q12 [facility] Last Admin: 06/02/17 21:51 Dose: 25 mg Nicotine (Nicoderm Cq) 1 patch TD DAILY [facility] Last Admin: 06/02/17 09:03 Dose: 1 patch Pantoprazole Sodium (Protonix Inj) 40 mg IVP BID [facility] Last Admin: 06/02/17 17:40 Dose: 40 mg Potassium Chloride (Potassium Chloride Oral Soln) 20 meq PO ONCE ONE Stop: 06/03/17 08:09 Sennosides (Senokot Tab) 17.2 mg PO HS [facility] Last Admin: 06/02/17 21:53 Dose: Not Given - Labs Labs: 06/03/17 05:10 06/03/17 05:10 PT 13.1 Seconds (9.8-13.1) 06/02/17 09:00 INR 1.2 (0.9-1.2) 06/02/17 09:00 APTT 29.3 Seconds (25.6-37.1) 06/02/17 09:00 - Constitutional Appears: Non-toxic, No Acute Distress - Head Exam Head Exam: NORMAL INSPECTION - Eye Exam Eye Exam: Normal appearance - ENT Exam ENT Exam: Mucous Membranes Moist - Respiratory Exam Respiratory Exam: NORMAL BREATHING PATTERN. absent: Accessory Muscle Use, Respiratory Distress - Cardiovascular Exam Cardiovascular Exam: absent: Bradycardia, Tachycardia - GI/Abdominal Exam GI & Abdominal Exam: Soft. absent: Distended, Guarding, Tenderness - Extremities Exam Extremities Exam: Normal Inspection - Neurological Exam Neurological Exam: Alert, Awake, Oriented x3 - Psychiatric Exam Psychiatric exam: Normal Affect, Normal Mood - Skin Skin Exam: Dry, Intact, Normal Color, Warm Assessment and Plan - Assessment and Plan (Free Text) Assessment: 86 y/o M w/ GI bleed 2/2 gastric fungating mass seen on EGD, pathology still pending - Family meeting scheduled for 1200 today - Cont Protonix for GI bleeding - Hold DVT PPx - cont to monitor H/H - monitor bowel fxn - cont medical management per PMD Pt discussed w/ Dr. Manuel Coyle DO PGY2
--- NOTE | 2017-06-03 08:37 | CON ---
CHIEF COMPLAINT: Difficulty in urination. HISTORY OF PRESENT ILLNESS: The patient was admitted to the hospital with multiple medical problems. He has had a pneumothorax and is now in the Progressive Care Unit, on monitor. He is still short of breath, on oxygen. He has a history of emphysema and has noted that he is having difficulty in urination. The staff straight catheterized the patient and found 900 mL of urine. In addition, he was bladder scanned that showed 1000 mL of urine. REVIEW OF SYSTEMS: RESPIRATORY: The patient has history of COPD and has a history of recent pneumothorax, which required chest tube. CARDIAC: The patient has no history of recent chest pain or [place]. GASTROINTESTINAL: The patient has no history of change in bowel habits. GENITOURINARY: The patient is complaining of difficulty in urination, has been found to have a large postvoid residual. SOCIAL AND FAMILY HISTORY: Noncontributory. PHYSICAL EXAMINATION: GENERAL: The patient is awake, alert, and oriented x 3. He appears quite frail. He is on oxygen. HEAD, EARS, EYES, NOSE, AND THROAT: Within normal limits. NECK: Supple. There is no bruits, no evidence of masses. CHEST: Hyperaerated. There are good breath sounds on both sides. HEART: Normal sinus rhythm. There is no murmur. ABDOMEN: There is no CVA tenderness. RECTAL: Shows a 2 to 3+ non-nodular prostate. GENITOURINARY: Testicles, epididymis, and scrotum are normal. He is a normal uncircumcised male. IMPRESSION: Urinary retention. SUGGESTIONS: Insert Brandt catheter. Brandt catheter should be left in place. If patient's medical condition improves, further evaluation may be carried out. Patient should also have a urine C and S on catheterization. Jeff Melgar MD
--- NOTE | 2017-06-03 10:12 | CP.PCM.PN ---
Subjective - Date & Time of Evaluation Date of Evaluation: 06/03/17 Time of Evaluation: 10:02 - Subjective Subjective: Seated upright in bed eating breakfast. Offers no complaints of SOB, cough or chest discomfort. Has GI and surgery following because of gastric mass found on EGD. Decision regarding surgical intervention pending. From a pulmonary standpoint he is stable. Right pneumothorax is resolved, chest tubes are out. 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 If surgery is to be done, there will need to be special attention by anesthesia to ventilation. There will always be some degree of risk using positive pressure ventilation and this requires close monitoring. The pleurodesis on the right should prevent any pneumothorax there, but the left side carries some degree of increased risk. Objective - Vital Signs/Intake and Output Vital Signs (last 24 hours): Temp Pulse Resp BP Pulse Ox 98.5 F 82 18 117/71 99 06/03/17 08:23 06/03/17 08:56 06/03/17 08:23 06/03/17 08:56 06/03/17 08:23 - Medications Medications: Current Medications Docusate Sodium (Colace) 100 mg PO BID [facility] Last Admin: 06/03/17 08:56 Dose: Not Given Piperacillin Sod/Tazobactam Sod (Zosyn 2.25 Gm Iv Premix) 2.25 gm in 50 mls @ 50 mls/hr IVPB Q8 [facility] PRN Reason: Protocol Last Admin: 06/03/17 09:04 Dose: 50 mls/hr Levalbuterol HCl (Xopenex) 0.63 mg INH RQ8 [facility] Last Admin: 06/03/17 07:42 Dose: 0.63 mg Levalbuterol HCl (Xopenex) 0.63 mg INH RQ4 PRN PRN Reason: Shortness of Breath Metoprolol Tartrate (Lopressor) 25 mg PO Q12 [facility] Last Admin: 06/03/17 08:56 Dose: 25 mg Nicotine (Nicoderm Cq) 1 patch TD DAILY [facility] Last Admin: 06/03/17 08:57 Dose: 1 patch Pantoprazole Sodium (Protonix Inj) 40 mg IVP BID [facility] Last Admin: 06/03/17 08:57 Dose: 40 mg Sennosides (Senokot Tab) 17.2 mg PO HS [facility] Last Admin: 06/02/17 21:53 Dose: Not Given - Labs Labs: 06/03/17 05:10 06/03/17 05:10 PT 13.1 Seconds (9.8-13.1) 06/02/17 09:00 INR 1.2 (0.9-1.2) 06/02/17 09:00 APTT 29.3 Seconds (25.6-37.1) 06/02/17 09:00
--- NOTE | 2017-06-03 11:42 | US ---
PROCEDURE: Ultrasound of the Kidneys HISTORY: B/L renal masses on CT COMPARISON: Correlations made to CT scan of the abdomen pelvis dated 05/30/2017. TECHNIQUE: Sonogram of the kidneys. FINDINGS: RIGHT KIDNEY: Measures: 8.7 x 4.7 x 3.8 cm. Normal in size, contour and echogenicity. Upper pole 1.0 x 0.9 x 0.8 centimeter cortical cyst. Midpole 1.0 x 1.3 x 0.9 centimeter cortical cyst. No stone, solid mass lesion or hydronephrosis visualized. LEFT KIDNEY: Measures: 9.4 x 4.9 x 4.8 cm. Normal in size, contour and echogenicity. No stone, solid mass lesion or hydronephrosis visualized. OTHER FINDINGS: None. IMPRESSION: Right renal simple cysts correspond to the CT findings. Left lower pole renal mass described on CT not visualized on the current examination.
--- NOTE | 2017-06-03 15:41 | CP.PCM.PN ---
Subjective - Date & Time of Evaluation Date of Evaluation: 06/03/17 Time of Evaluation: 09:00 - Subjective Subjective: no overnight events Objective - Vital Signs/Intake and Output Vital Signs (last 24 hours): Temp Pulse Resp BP Pulse Ox 97.9 F 92 H 18 102/68 98 06/03/17 12:09 06/03/17 12:09 06/03/17 12:09 06/03/17 12:09 06/03/17 12:09 - Medications Medications: Current Medications Docusate Sodium (Colace) 100 mg PO BID [facility] Last Admin: 06/03/17 08:56 Dose: Not Given Piperacillin Sod/Tazobactam Sod (Zosyn 2.25 Gm Iv Premix) 2.25 gm in 50 mls @ 50 mls/hr IVPB Q8 [facility] PRN Reason: Protocol Last Admin: 06/03/17 09:04 Dose: 50 mls/hr Levalbuterol HCl (Xopenex) 0.63 mg INH RQ8 [facility] Last Admin: 06/03/17 15:32 Dose: 0.63 mg Levalbuterol HCl (Xopenex) 0.63 mg INH RQ4 PRN PRN Reason: Shortness of Breath Metoprolol Tartrate (Lopressor) 25 mg PO Q12 [facility] Last Admin: 06/03/17 08:56 Dose: 25 mg Nicotine (Nicoderm Cq) 1 patch TD DAILY [facility] Last Admin: 06/03/17 08:57 Dose: 1 patch Pantoprazole Sodium (Protonix Inj) 40 mg IVP BID [facility] Last Admin: 06/03/17 08:57 Dose: 40 mg Sennosides (Senokot Tab) 17.2 mg PO HS [facility] Last Admin: 06/02/17 21:53 Dose: Not Given - Labs Labs: 06/03/17 05:10 06/03/17 05:10 PT 12.2 Seconds (9.8-13.1) 06/03/17 14:20 INR 1.1 (0.9-1.2) 06/03/17 14:20 APTT 27.0 Seconds (25.6-37.1) 06/03/17 14:20 - Head Exam Head Exam: NORMAL INSPECTION - Respiratory Exam Respiratory Exam: Rhonchi - Cardiovascular Exam Cardiovascular Exam: REGULAR RHYTHM - GI/Abdominal Exam GI & Abdominal Exam: Soft, Normal Bowel Sounds Assessment and Plan - Assessment and Plan (Free Text) Assessment: 86 yo male with gastric lesion awaiting path
[2017-06-04] MEDS: Piperacill/Tazo 2.25gm in Dex 2.25 GM/50 ML BAG IVPB SCH ×2 (00:39→10:20)
[2017-06-04 05:19] LABS: BASO # 0.1 K/uL (0.0-0.2); BASO % 0.5 % (0.0-2.0); EOS # 1.2 K/uL (0.0-0.7); EOS % 10.1 % (0.0-4.0); HEMATOCRIT 26.2 % (35.0-51.0); LYMPH # 0.9 K/uL (1.0-4.3); LYMPH % 7.5 % (20.0-40.0); MEAN CORPUSCULAR HEMOGLOBIN 29.2 pg (27.0-31.0); MEAN CORPUSCULAR HGB CONC 32.4 g/dL (33.0-37.0); MEAN PLATELET VOLUME 7.6 fl (7.2-11.7); MONO % 8.5 % (0.0-10.0); NEUT % 73.4 % (50.0-75.0); PLATELET COUNT 345 K/uL (130-400); RED CELL DISTRIBUTION WIDTH 15.7 % (11.5-14.5); WHITE BLOOD COUNT 12.2 K/uL (4.8-10.8)
[2017-06-04 05:38] LABS: ALB/GLOB RATIO 0.8 (1.0-2.1); ALKALINE PHOSPHATASE 58 U/L (38-126); ALT/SGPT 37 U/L (21-72); AST/SGOT 28 U/L (17-59); BILIRUBIN,TOTAL 0.3 mg/dl (0.2-1.3); BLOOD UREA NITROGEN 12 mg/dl (9-20); CARBON DIOXIDE 33 mmol/L (22-30); CHLORIDE 99 mmol/L (98-107); GFR AFRICAN-AMERICAN > 60; GLUCOSE,RANDOM 92 mg/dL (75-110); POTASSIUM 3.7 MMOL/L (3.6-5.0); SODIUM 137 mmol/l (132-148); TOTAL PROTEIN 5.9 G/DL (6.3-8.2)
[2017-06-04 06:33] LABS: EOSINOPHIL 4 % (0-7); NEUTROPHIL 89 % (42-75); TOTAL CELLS COUNTED 100
[2017-06-04] MEDS: Levalbuterol 0.63 MG/3 ML Inhal Soln UD INH SCH ×3 (07:27→23:39)
--- NOTE | 2017-06-04 07:34 | CP.PCM.PN ---
Subjective - Date & Time of Evaluation Date of Evaluation: 06/04/17 Time of Evaluation: 07:05 - Subjective Subjective: Pt was seen and examined at bedside this AM.Pt reports dark BM last night. Denies any BRBPR. Denies chest pain, dyspnea, dizziness,abdominal pain, nausea , vomiting, fever, chills. Pt is on NPO. Has caldwell in placed. Biopsy results was discussed with patient with Dr. Sepulveda and Dr. Jackson present in the room this morning. 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 Since the patient is not actively bleeding and has minimal symptoms , surgery is cancelled for now. Surgery will see patient outpatient as needed. Objective - Vital Signs/Intake and Output Vital Signs (last 24 hours): Temp Pulse Resp BP Pulse Ox 97.6 F 95 H 16 111/54 L 98 06/04/17 05:05 06/04/17 05:05 06/04/17 05:05 06/04/17 05:05 06/04/17 05:05 - Medications Medications: Current Medications Docusate Sodium (Colace) 100 mg PO BID [facility] Last Admin: 06/03/17 17:06 Dose: Not Given Piperacillin Sod/Tazobactam Sod (Zosyn 2.25 Gm Iv Premix) 2.25 gm in 50 mls @ 50 mls/hr IVPB Q8 [facility] PRN Reason: Protocol Last Admin: 06/04/17 00:39 Dose: 50 mls/hr Levalbuterol HCl (Xopenex) 0.63 mg INH RQ8 [facility] Last Admin: 06/04/17 07:27 Dose: 0.63 mg Levalbuterol HCl (Xopenex) 0.63 mg INH RQ4 PRN PRN Reason: Shortness of Breath Metoprolol Tartrate (Lopressor) 25 mg PO Q12 [facility] Last Admin: 06/03/17 21:03 Dose: 25 mg Nicotine (Nicoderm Cq) 1 patch TD DAILY [facility] Last Admin: 06/03/17 08:57 Dose: 1 patch Pantoprazole Sodium (Protonix Inj) 40 mg IVP BID [facility] Last Admin: 06/03/17 17:07 Dose: 40 mg Sennosides (Senokot Tab) 17.2 mg PO HS [facility] Last Admin: 06/03/17 21:06 Dose: Not Given - Labs Labs: 06/04/17 04:55 06/04/17 04:55 PT 12.2 Seconds (9.8-13.1) 06/03/17 14:20 INR 1.1 (0.9-1.2) 06/03/17 14:20 APTT 27.0 Seconds (25.6-37.1) 06/03/17 14:20 - Constitutional Appears: Cachectic - ENT Exam ENT Exam: Mucous Membranes Moist - Neck Exam Neck Exam: Full ROM, Normal Inspection - Respiratory Exam Respiratory Exam: Clear to Ausculation Bilateral. absent: Rales, Rhonchi, Wheezes - Cardiovascular Exam Cardiovascular Exam: REGULAR RHYTHM, RRR, +S1, +S2. absent: Gallop - GI/Abdominal Exam GI & Abdominal Exam: Soft, Normal Bowel Sounds. absent: Guarding, Tenderness - Extremities Exam Extremities Exam: Normal Capillary Refill. absent: Calf Tenderness, Pedal Edema - Neurological Exam Neurological Exam: Alert, Awake, Oriented x3 - Psychiatric Exam Psychiatric exam: Normal Affect, Normal Mood - Skin Additional comments: resolving erythematous area in the back. no signs of infection seen. Assessment and Plan - Assessment and Plan (Free Text) Assessment: 86 yo M was initially admitted for right sided pneumothorax s/p chest tube placement on 05/13/17, he underwent talc pleurodesis with second chest tube placement on 05/21/17, Chest tubes were removed on 05/27/17. Now with acute GI bleed s/p 2 units PRBC now with suspicous mass on gastric antrum, awaiting bx results. 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 Jackson on board. 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 -Since the patient is not actively bleeding and has minimal symptoms, surgery is cancelled for now. -CT abdomen with PO & I.V. from 05/30/17 no signs of malignancy -Tumor markers AFP 2.5 WNL CEA 1.9 WNL CA-19-9 WNL CA 125 : 52 (Elevated) Anemia due to Upper GI bleed- Acute -H&H:8.5/26.2 s/p 2 units of PRBC on 05/29/17. -Continue Protonix 40 mg BID. -GI consulted: Dr. Bernardo. -CBC tomorrow AM. Leukocytosis -WBC 12.2 -Afebrile -ID consult appreciated by Dr Lehman -Continue Zosyn 2.25 mg IV q8h (dose decreased due creatinine clearance) [abx started 05/21, Current Day 13] -F/U CBC in AM Distended Bladder w/ B/L hydroureteronephrosis on CT -CT on 05/30/17 also shows small B/L renal masses likely cysts. -Urology consult appreciated. -Has caldwell in place. -B/L renal US on 06/03/17: Rt renal simple cysts. Hypokalemia resolved -Potassium 3.7 today -Repeat K tomorrow. Erythema of Back resolving -stable -likely due to friction. -will monitor. C. difficle antigen positive, Toxin negative. -Asymptomatic. -No treatment needed as per Dr. Bernardo. Right-sided Pneumothorax, resolved -Likely secondary to ruptured bleb -S/p chest tube placement on 05/13/17 and S/p talc pleurodesis with second chest tube placement on 05/21/17 -Chest tubes removed on 05/27/17. -Thoracic surgery by Dr Akers on board, recommendations appreciated COPD, newly diagnosed, stable -Associated with 70+ pack year history -O2 via NC 2L/min prn if SOB -Pulmonology consulted with Dr Horowitz, recommendations appreciated -Atrovent QID HEID[facility] -Albuterol PRN Dysphagia, resolved -swallow screen Passed Deconditioning -Walk test -will need home oxygen. DVT prophylaxis -hold Lovenox 30mg for possible GI bleeding -SCD prn. Diet: -Modified chopped diet.
--- NOTE | 2017-06-04 15:27 | CP.PCM.PCO ---
Physician Communication Note - Physician Communication Note Physician Communication Note: No Sx at this time. will follow peripherally.
--- NOTE | 2017-06-04 17:13 | PN ---
DATE: SUBJECTIVE: Patient denies chest pain. The pathology report of the gastric mass was consistent with mild chronic gastritis, focally dilated glands. No dysplasia or malignancy seen. Immunostain for Helicobacter pylori was negative. PHYSICAL EXAMINATION: VITAL SIGNS: Blood pressure 90/52, heart rate 71, temperature 98.2, respirations 20. HEENT: Pale conjunctivae. CHEST: Bilateral rhonchi. HEART: S1 and S2, regular. EXTREMITIES: No edema. LABORATORY DATA: Hemoglobin and hematocrit 8.5 and 26.2. White count 12.2, platelet count 345,000. Today's, SMA-7 is within normal limits except for carbon dioxide of 33 and anion gap of 9. ASSESSMENT: 1. Chronic obstructive lung disease. 2. Frequent atrial ectopy. 3. Fungating benign gastric mass. RECOMMENDATIONS: Continue current Lopressor 25 mg twice a day, albuterol and Xopenex inhaler. Case was discussed with the patient's daughter, the primary physician, and Dr. Akers, the thoracic surgeon. The patient was declined a surgical intervention by the surgeon, Dr. Jackson, and radiation may be considered. Ori Fitzpatrick MD
[2017-06-04] MEDS ORDERED: Amoxicillin-Clav 500-125 mg Tab PO SCH (21:00)
[2017-06-05] MEDS: Levalbuterol 0.63 MG/3 ML Inhal Soln UD INH SCH ×3 (07:29→23:24)
--- NOTE | 2017-06-05 07:46 | CP.PCM.PN ---
Subjective - Date & Time of Evaluation Date of Evaluation: 06/05/17 Time of Evaluation: 07:30 - Subjective Subjective: Pt was seen and examined at bedside this AM. Pt reports no BM last night or this morning. No overnight events.Denies abdominal pain, nausea, vomiting or BRBPR. Denies chest pain, dyspnea, dizziness,fever, chills. Pt is tolerating PO. Has caldwell in placed. Objective - Vital Signs/Intake and Output Vital Signs (last 24 hours): Temp Pulse Resp BP Pulse Ox 97.6 F 80 16 108/54 L 95 06/05/17 05:20 06/05/17 05:20 06/05/17 05:20 06/05/17 05:20 06/05/17 05:20 Intake and Output: 06/05/17 06/05/17 06:59 18:59 Output Total 250 750 Balance -250 -750 - Medications Medications: Current Medications Amoxicillin/Clavulanate Potassium (Augmentin 500 Mg-125 Mg Tab) 1 tab PO Q12 [facility] PRN Reason: Protocol Last Admin: 06/04/17 22:51 Dose: 1 tab Docusate Sodium (Colace) 100 mg PO BID [facility] Last Admin: 06/04/17 16:34 Dose: 100 mg Levalbuterol HCl (Xopenex) 0.63 mg INH RQ8 [facility] Last Admin: 06/05/17 07:29 Dose: 0.63 mg Levalbuterol HCl (Xopenex) 0.63 mg INH RQ4 PRN PRN Reason: Shortness of Breath Metoprolol Tartrate (Lopressor) 25 mg PO Q12 [facility] Last Admin: 06/04/17 22:51 Dose: 25 mg Nicotine (Nicoderm Cq) 1 patch TD DAILY [facility] Last Admin: 06/04/17 10:19 Dose: 1 patch Pantoprazole Sodium (Protonix Ec Tab) 40 mg PO DAILY [facility] Sennosides (Senokot Tab) 17.2 mg PO HS [facility] Last Admin: 06/04/17 22:51 Dose: 17.2 mg - Labs Labs: 06/04/17 04:55 06/04/17 04:55 PT 12.2 Seconds (9.8-13.1) 06/03/17 14:20 INR 1.1 (0.9-1.2) 06/03/17 14:20 APTT 27.0 Seconds (25.6-37.1) 06/03/17 14:20 - Constitutional Appears: No Acute Distress, Cachectic - ENT Exam ENT Exam: Mucous Membranes Moist - Neck Exam Neck Exam: Full ROM, Normal Inspection - Respiratory Exam Respiratory Exam: absent: Rales, Rhonchi Additional comments: B/L mild wheezing - Cardiovascular Exam Cardiovascular Exam: REGULAR RHYTHM, RRR, +S1, +S2. absent: Gallop - GI/Abdominal Exam GI & Abdominal Exam: Soft, Normal Bowel Sounds. absent: Distended, Guarding, Tenderness - Extremities Exam Extremities Exam: Normal Capillary Refill. absent: Calf Tenderness, Pedal Edema - Neurological Exam Neurological Exam: Alert, Awake, Oriented x3 - Psychiatric Exam Psychiatric exam: Normal Affect, Normal Mood - Skin Additional comments: Erythema resolved in the back. Assessment and Plan - Assessment and Plan (Free Text) Assessment: 86 yo M was initially admitted for right sided pneumothorax s/p chest tube placement on 05/13/17, he underwent talc pleurodesis with second chest tube placement on 05/21/17, Chest tubes were removed on 05/27/17. Now with acute GI bleed s/p 2 units PRBC now with suspicous mass on gastric antrum, awaiting bx results. 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 Awaiting subacute rehab placement. 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 Jackson on board. 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 -Since the patient is not actively bleeding and has minimal symptoms, surgery is cancelled for now. -CT abdomen with PO & I.V. from 05/30/17 no signs of malignancy -Tumor markers AFP 2.5 WNL CEA 1.9 WNL CA-19-9 WNL CA 125 : 52 (Elevated) Anemia due to Upper GI bleed- Acute -H&H:8.5/26.2 on 06/04 s/p 2 units of PRBC on 05/29/17. -Continue Protonix 40 mg BID. -GI consulted: Dr. Bernardo. -CBC tomorrow AM. Leukocytosis -WBC 12.2 yesterday -Afebrile -ID consult appreciated by Dr Lehman -D/C Zosyn 2.25 mg (abx started 05/21/17, stopped on 06/04/17) -D/C Augmentin 500mg/125mg po BID today (received 2 dose on 06/04/17) -F/u vitals and CBC. If develops fever, will do arreguin cx. -F/U CBC in AM Distended Bladder w/ B/L hydroureteronephrosis on CT -CT on 05/30/17 also shows small B/L renal masses likely cysts. -Urology consult appreciated. -Has caldwell in place. -B/L renal US on 06/03/17: Rt renal simple cysts. C. difficle antigen positive, Toxin negative. -Asymptomatic. -No treatment needed as per Dr. Bernardo. Right-sided Pneumothorax, resolved -Likely secondary to ruptured bleb -S/p chest tube placement on 05/13/17 and S/p talc pleurodesis with second chest tube placement on 05/21/17 -Chest tubes removed on 05/27/17. -Thoracic surgery by Dr Akers on board, recommendations appreciated COPD, newly diagnosed, stable -Associated with 70+ pack year history -O2 via NC 2L/min prn if SOB -Pulmonology consulted with Dr Horowitz, recommendations appreciated -Atrovent QID HEIDY -Albuterol PRN Dysphagia, resolved -swallow screen Passed Deconditioning -Walk test -will need home oxygen. DVT prophylaxis -hold Lovenox 30mg for possible GI bleeding -SCD prn. Diet: -Modified chopped diet. Disposition: subacute rehab. Possible discharge tomorrow.
[2017-06-05] MEDS: Pantoprazole 40 mg EC Tab PO SCH (09:34)
--- NOTE | 2017-06-05 18:21 | PN ---
DATE: SUBJECTIVE: The patient denies any chest pain. He complains of bilateral leg pain. PHYSICAL EXAMINATION: VITAL SIGNS: Blood pressure 103/56, heart rate 70, temperature 98.1, respirations 18. HEENT: Pale conjunctivae. CHEST: Bilateral rhonchi. HEART: S1 and S2 regular. EXTREMITIES: No edema. ASSESSMENT: 1. Chronic obstructive lung disease. 2. Frequent atrial ectopy. 3. Status post right pleurodesis. 4. Fungating gastric mass. 5. Anemia. RECOMMENDATIONS: Continue current Lopressor, NicoDerm patch, Xopenex nebulizer. Obtain a venous Doppler of the lower extremities. Ori Fitzpatrick MD
[2017-06-06 05:51] LABS: HEMATOCRIT 27.2 % (35.0-51.0); MEAN CELL VOLUME 90.3 fl (80.0-94.0); MEAN CORPUSCULAR HEMOGLOBIN 29.9 pg (27.0-31.0); MEAN CORPUSCULAR HGB CONC 33.1 g/dL (33.0-37.0); RED CELL DISTRIBUTION WIDTH 15.7 % (11.5-14.5); WHITE BLOOD COUNT 9.6 K/uL (4.8-10.8)
[2017-06-06 06:15] LABS: BLOOD UREA NITROGEN 8 mg/dl (9-20); CALCIUM 8.1 mg/dL (8.4-10.2); CARBON DIOXIDE 35 mmol/L (22-30); CHLORIDE 103 mmol/L (98-107); GFR AFRICAN-AMERICAN > 60; GLUCOSE,RANDOM 92 mg/dL (75-110); POTASSIUM 4.1 MMOL/L (3.6-5.0); SODIUM 140 mmol/l (132-148)
[2017-06-06] MEDS: Levalbuterol 0.63 MG/3 ML Inhal Soln UD INH SCH ×2 (07:49→15:30)
--- NOTE | 2017-06-06 08:08 | CP.PCM.PN ---
Subjective - Date & Time of Evaluation Date of Evaluation: 06/06/17 Time of Evaluation: 07:30 - Subjective Subjective: Pt seen and examined at bedside this AM. Pt reports 2 BM last night and dark in color. No overnight events. Denies abdominal pain, nausea, vomiting or BRBPR. Denies chest pain, dyspnea, dizziness,fever, chills. Denies any lower extremities pain this morning. Denies calf pain. Pt is tolerating PO. Has caldwell in placed and on 2L NC O2. . Objective - Vital Signs/Intake and Output Vital Signs (last 24 hours): Temp Pulse Resp BP Pulse Ox 98 F 82 18 105/58 L 97 06/06/17 08:04 06/06/17 08:04 06/06/17 08:04 06/06/17 08:04 06/06/17 08:04 - Medications Medications: Current Medications Docusate Sodium (Colace) 100 mg PO BID [facility] Last Admin: 06/05/17 16:48 Dose: Not Given Levalbuterol HCl (Xopenex) 0.63 mg INH RQ8 [facility] Last Admin: 06/06/17 07:49 Dose: 0.63 mg Levalbuterol HCl (Xopenex) 0.63 mg INH RQ4 PRN PRN Reason: Shortness of Breath Metoprolol Tartrate (Lopressor) 25 mg PO Q12 [facility] Last Admin: 06/05/17 22:19 Dose: 25 mg Nicotine (Nicoderm Cq) 1 patch TD DAILY [facility] Last Admin: 06/05/17 09:34 Dose: 1 patch Pantoprazole Sodium (Protonix Ec Tab) 40 mg PO DAILY [facility] Last Admin: 06/05/17 09:34 Dose: 40 mg Sennosides (Senokot Tab) 17.2 mg PO HS [facility] Last Admin: 06/05/17 22:18 Dose: 17.2 mg - Labs Labs: 06/06/17 05:40 06/06/17 05:40 PT 12.2 Seconds (9.8-13.1) 06/03/17 14:20 INR 1.1 (0.9-1.2) 06/03/17 14:20 APTT 27.0 Seconds (25.6-37.1) 06/03/17 14:20 - Constitutional Appears: Non-toxic, Cachectic - ENT Exam ENT Exam: Mucous Membranes Moist - Neck Exam Neck Exam: Full ROM, Normal Inspection - Respiratory Exam Respiratory Exam: Clear to Ausculation Bilateral. absent: Rales, Rhonchi, Wheezes - Cardiovascular Exam Cardiovascular Exam: REGULAR RHYTHM, RRR, +S1, +S2. absent: Gallop - GI/Abdominal Exam GI & Abdominal Exam: Soft, Normal Bowel Sounds. absent: Guarding, Tenderness, Rebound - Extremities Exam Extremities Exam: Normal Capillary Refill, Normal Inspection. absent: Calf Tenderness, Pedal Edema - Neurological Exam Neurological Exam: Alert, Awake, Oriented x3 - Psychiatric Exam Psychiatric exam: Normal Affect, Normal Mood - Skin Skin Exam: Normal Color. absent: Rash Assessment and Plan - Assessment and Plan (Free Text) Assessment: 86 yo M was initially admitted for right sided pneumothorax s/p chest tube removed on 05/27/17. Now with acute GI bleed s/p 2 units PRBC. EGD showed mass on gastric antrum. 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 Awaiting subacute rehab placement. Plan: Anemia due to Upper GI bleed- Acute -H&H:9.0/27.2 today s/p 2 units of PRBC on 05/29/17. -Continue Protonix 40 mg PO daily. -GI consulted: Dr. Bernardo. -CBC tomorrow AM. 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 -Biopsy results: Juan gland hyperplasia, gastric metaplasia and chronic active inflammation. -General Surgery Dr. Jackson on board. -Since the patient is not actively bleeding and has minimal symptoms, surgery is cancelled for now. -CT abdomen with PO & I.V. from 05/30/17 no signs of malignancy -Tumor markers AFP 2.5 WNL CEA 1.9 WNL CA-19-9 WNL CA 125 : 52 (Elevated) Leukocytosis resolving -WBC 9.6 today. -Afebrile -ID consult appreciated by Dr Lehman -D/C Zosyn 2.25 mg (abx started 05/21/17, stopped on 06/04/17) -D/C Augmentin 500mg/125mg po BID today (received 2 dose on 06/04/17) -Not on abx now. -F/u vitals and CBC. If develops fever, will do arreguin cx. Distended Bladder w/ B/L hydroureteronephrosis on CT -CT on 05/30/17 also shows small B/L renal masses likely cysts. -Urology consult appreciated. -Has caldwell in place. -B/L renal US on 06/03/17: Rt renal simple cysts. Right-sided Pneumothorax, resolved -Likely secondary to ruptured bleb -S/p chest tube placement on 05/13/17 and S/p talc pleurodesis with second chest tube placement on 05/21/17 -Chest tubes removed on 05/27/17. -Thoracic surgery by Dr Akers on board, recommendations appreciated COPD, newly diagnosed, stable -Associated with 70+ pack year history -O2 via NC 2L/min prn if SOB -Pulmonology consulted with Dr Horowitz, recommendations appreciated -Atrovent QID HEIDY -Albuterol PRN Dysphagia, resolved -swallow screen Passed Deconditioning -Walk test -will need home oxygen. DVT prophylaxis -hold Lovenox 30mg for possible GI bleeding -SCD prn. Diet: -Modified chopped diet. Disposition: subacute rehab. Possible discharge today.
[2017-06-06] MEDS: Pantoprazole 40 mg EC Tab PO SCH (08:25)
--- NOTE | 2017-06-06 09:01 | OP ---
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 Patient presented with some GI bleeding, which is currently stable. I had a long discussion with him in the presence of , translated by a fluent Hungarian-speaking resident. At this time, the patient is really asymptomatic. There is a little bit of dysphagia, which sounds more upper GI, in the esophagus rather than in the duodenum. There is no active bleeding. Hemoglobin is stable at 8.5. This is a benign condition. There are 2 ways to go with this: 1. An operation. 2. Conservative management. Because of his age and general condition and the fact that he is presently asymptomatic, we will observe for now. The understanding being if he re-bleeds, he would get a gastrectomy or some variant thereof. For now, because of his age and general medical condition, we will observe. He understands, I believe. Michel Jackson MD
--- NOTE | 2017-06-06 09:17 | CP.PCM.PN ---
Subjective - Date & Time of Evaluation Date of Evaluation: 06/06/17 Time of Evaluation: 09:00 - Subjective Subjective: Seen on rounds in telemetry. Sitting up in bed, appears comfortable. Offers no specific complaints. Vital signs remain stable. No dependant edema, no cyanosis, no subcutaneous emphysema. Neck is supple and trachea midline. No JVD. Hyper-resonant percussion with both hemidiaphragms displaced caudally. Breath sounds are diminished bilaterally. No audible wheezes. Few dry lower lobe rales posteriorly. No bronchial breath sounds. Surgical dressing opened; wounds clean and dry suture lines clean. Stable respiratory status. No evidence of pneumothorax. Surgical wound should be left open to air. Wounds closed 10 days ago, sutures should be removed in 4 days. Objective - Vital Signs/Intake and Output Vital Signs (last 24 hours): Temp Pulse Resp BP Pulse Ox 98 F 82 18 105/58 L 97 06/06/17 08:04 06/06/17 08:24 06/06/17 08:04 06/06/17 08:24 06/06/17 08:04 - Medications Medications: Current Medications Docusate Sodium (Colace) 100 mg PO BID [facility] Last Admin: 06/06/17 08:24 Dose: 100 mg Levalbuterol HCl (Xopenex) 0.63 mg INH RQ8 [facility] Last Admin: 06/06/17 07:49 Dose: 0.63 mg Levalbuterol HCl (Xopenex) 0.63 mg INH RQ4 PRN PRN Reason: Shortness of Breath Metoprolol Tartrate (Lopressor) 25 mg PO Q12 [facility] Last Admin: 06/06/17 08:24 Dose: 25 mg Nicotine (Nicoderm Cq) 1 patch TD DAILY [facility] Last Admin: 06/06/17 08:25 Dose: 1 patch Pantoprazole Sodium (Protonix Ec Tab) 40 mg PO DAILY [facility] Last Admin: 06/06/17 08:25 Dose: 40 mg Sennosides (Senokot Tab) 17.2 mg PO HS [facility] Last Admin: 06/05/17 22:18 Dose: 17.2 mg - Labs Labs: 06/06/17 05:40 06/06/17 05:40 PT 12.2 Seconds (9.8-13.1) 06/03/17 14:20 INR 1.1 (0.9-1.2) 06/03/17 14:20 APTT 27.0 Seconds (25.6-37.1) 06/03/17 14:20
--- NOTE | 2017-06-06 12:52 | CP.PCM.DIS ---
Provider - Provider Date of Admission: 05/12/17 19:30 Attending physician: Adriana Sepulveda MD Primary care physician: [facility] Consults: Client Care Representative: Dr. Horowitz General Surgery: Dr Jackson Cardiothoracic surgeon: Dr. Mcclendon Infectious Disease: Dr. Knight Urologist: Dr. Melgar Packaging Tech: Dr. Bernardo Time Spent in preparation of Discharge (in minutes): 45 Diagnosis - Discharge Diagnosis (1) Gastric mass Status: Chronic (2) Pneumothorax Status: Resolved (3) Anemia due to acute blood loss Status: Acute (4) COPD (chronic obstructive pulmonary disease) with acute bronchitis Status: Acute Hospital Course - Lab Results Lab Results: Micro Results 06/01/17 17:22 Urine,Catheterized Urine Culture - Final No Growth (<1,000 CFU/ML) 05/25/17 Unknown Nose MRSA Culture (Admit) - Final MRSA NOT DETECTED 05/20/17 19:35 Blood-Venous Blood Culture - Final NO GROWTH AFTER 5 DAYS 05/20/17 19:35 Blood-Venous Gram Stain - Final TEST NOT PERFORMED 05/20/17 19:00 Other: Please Indicate Gram Stain - Final 05/20/17 19:00 Other: Please Indicate Wound Culture - Final No growth. 05/21/17 09:24 Urine,Clean Catch Urine Culture - Final No Growth (<1,000 CFU/ML) 05/21/17 13:17 Sputum Gram Stain - Final 05/21/17 13:17 Sputum Sputum Culture - Final 05/20/17 18:58 Nose MRSA Culture (Admit) - Final MRSA NOT DETECTED 05/16/17 17:49 Naris MRSA Culture (Admit) - Final MRSA NOT DETECTED 05/12/17 17:00 Blood Blood Culture - Final NO GROWTH AFTER 5 DAYS 05/12/17 17:00 Blood Gram Stain - Final TEST NOT PERFORMED 05/12/17 16:55 Blood Blood Culture - Final NO GROWTH AFTER 5 DAYS 05/12/17 16:55 Blood Gram Stain - Final TEST NOT PERFORMED 05/12/17 03:45 Nose MRSA Culture (Admit) - Final MRSA NOT DETECTED Most Recent Lab Values WBC 9.6 K/uL (4.8-10.8) 06/06/17 05:40 RBC 3.01 Mil/uL (4.40-5.90) L 06/06/17 05:40 Hgb 9.0 g/dL (12.0-18.0) L 06/06/17 05:40 Hct 27.2 % (35.0-51.0) L 06/06/17 05:40 MCV 90.3 fl (80.0-94.0) 06/06/17 05:40 MCH 29.9 pg (27.0-31.0) 06/06/17 05:40 MCHC 33.1 g/dL (33.0-37.0) 06/06/17 05:40 RDW 15.7 % (11.5-14.5) H 06/06/17 05:40 Plt Count 337 K/uL (130-400) 06/06/17 05:40 MPV 7.6 fl (7.2-11.7) 06/04/17 04:55 Neut % (Auto) 73.4 % (50.0-75.0) 06/04/17 04:55 Lymph % (Auto) 7.5 % (20.0-40.0) L 06/04/17 04:55 [place] % (Auto) 8.5 % (0.0-10.0) 06/04/17 04:55 Eos % (Auto) 10.1 % (0.0-4.0) H 06/04/17 04:55 Baso % (Auto) 0.5 % (0.0-2.0) 06/04/17 04:55 Neut # 9.0 K/uL (1.8-7.0) H 06/04/17 04:55 Lymph # 0.9 K/uL (1.0-4.3) L 06/04/17 04:55 [place] # 1.0 K/uL (0.0-0.8) H 06/04/17 04:55 Eos # 1.2 K/uL (0.0-0.7) H 06/04/17 04:55 Baso # 0.1 K/uL (0.0-0.2) 06/04/17 04:55 Neutrophils % (Manual) 89 % (42-75) H 06/04/17 04:55 Band Neutrophils % 1 % (0-2) 05/17/17 05:30 Lymphocytes % (Manual) 5 % (20-50) L 06/04/17 04:55 Monocytes % (Manual) 2 % (0-10) 06/04/17 04:55 Eosinophils % (Manual) 4 % (0-7) 06/04/17 04:55 Toxic Granulation Present 05/29/17 05:45 Platelet Estimate Normal (NORMAL) 06/04/17 04:55 Large Platelets Present 05/29/17 05:45 Giant Platelets Present 05/16/17 04:50 Hypochromasia (manual) Moderate 05/29/17 05:45 Anisocytosis (manual) Slight 06/04/17 04:55 Tear Drop Cells Slight 05/29/17 05:45 Ovalocytes Slight 05/29/17 05:45 PT 12.2 Seconds (9.8-13.1) 06/03/17 14:20 INR 1.1 (0.9-1.2) 06/03/17 14:20 APTT 27.0 Seconds (25.6-37.1) 06/03/17 14:20 pCO2 44 mm/Hg (35-45) 05/20/17 21:00 pO2 79 mm/Hg (80-100) L 05/20/17 21:00 HCO3 25.3 mmol/L (21-28) 05/20/17 21:00 ABG pH 7.38 (7.35-7.45) 05/20/17 21:00 ABG Total CO2 27.4 mmol/L (22-28) 05/20/17 21:00 ABG O2 Saturation 98.3 % (95-98) H 05/20/17 21:00 ABG O2 Content 14.8 ML/dL (15-23) L 05/20/17 21:00 ABG Base Excess 0.6 mmol/L (-2.0-3.0) 05/20/17 21:00 ABG Hemoglobin 11.1 g/dL (11.7-17.4) L 05/20/17 21:00 ABG Carboxyhemoglobin 1.9 % (0.5-1.5) H 05/20/17 21:00 POC ABG HHb (Measured) 1.6 % (0.0-5.0) 05/20/17 21:00 ABG Methemoglobin 2.0 % (0.0-3.0) 05/20/17 21:00 ABG O2 Capacity 15.1 mL/dL (16-24) L 05/20/17 21:00 Az Test Yes 05/20/17 21:00 VBG pH 7.28 (7.32-7.43) L 05/12/17 17:26 VBG pCO2 77 mmHg (40-60) H* 05/12/17 17:26 VBG HCO3 28.5 mmol/L 05/12/17 17:26 VBG Total CO2 38.6 mmol/L (22-28) H 05/12/17 17:26 VBG O2 Sat (Calc) 51.0 % (40-65) 05/12/17 17:26 VBG Base Excess 6.4 mmol/L (0.0-2.0) H 05/12/17 17:26 VBG Potassium 4.7 mmol/L (3.6-5.2) 05/12/17 17:26 A-a O2 Difference 80.0 mm/Hg 05/20/17 21:00 Hgb O2 Saturation 94.5 % (95.0-98.0) L 05/20/17 21:00 Sodium 141.0 mmol/L (132-148) 05/12/17 17:26 Chloride 103.0 mmol/L (98-107) 05/12/17 17:26 Glucose 188 mg/dL (75-110) H 05/12/17 17:26 Lactate 2.1 mmol/L (0.7-2.1) 05/12/17 17:26 Mechanical Rate 16 05/20/17 21:00 FiO2 30.0 % 05/20/17 21:00 Inspiratory BiPAP 10 05/20/17 21:00 Expiratory BiPAP 5 05/20/17 21:00 Crit Value Called To Dr shakir pagan 05/12/17 17:26 Crit Value Called By Onofre 05/12/17 17:26 Crit Value Read Back Y 05/12/17 17:26 Blood Gas Notified Time 1730 05/12/17 17:26 Sodium 140 mmol/l (132-148) 06/06/17 05:40 Potassium 4.1 MMOL/L (3.6-5.0) 06/06/17 05:40 Chloride 103 mmol/L (98-107) 06/06/17 05:40 Carbon Dioxide 35 mmol/L (22-30) H 06/06/17 05:40 Anion Gap 6 (10-20) L 06/06/17 05:40 BUN 8 mg/dl (9-20) L 06/06/17 05:40 Creatinine 0.7 mg/dl (0.8-1.5) L 06/06/17 05:40 Est GFR ( Amer) > 60 06/06/17 05:40 Est GFR (Non-Af Amer) > 60 06/06/17 05:40 POC Glucose (mg/dL) 168 mg/dL (65-110) H 05/12/17 16:52 Random Glucose 92 mg/dL (75-110) 06/06/17 05:40 Lactic Acid 1.3 MMOL/L (0.7-2.1) 05/15/17 12:15 Uric Acid 4.3 mg/Dl (3.5-8.5) 06/02/17 04:20 Calcium 8.1 mg/dL (8.4-10.2) L 06/06/17 05:40 Phosphorus 4.4 mg/dl (2.5-4.5) 05/12/17 17:00 Magnesium 1.8 MG/DL (1.6-2.3) 05/12/17 17:00 Total Bilirubin 0.3 mg/dl (0.2-1.3) 06/04/17 04:55 AST 28 U/L (17-59) 06/04/17 04:55 ALT 37 U/L (21-72) 06/04/17 04:55 Alkaline Phosphatase 58 U/L (38-126) 06/04/17 04:55 Troponin I < 0.0120 ng/mL (0.00-0.120) 05/12/17 17:00 NT-Pro-B Natriuret Pep 316 pg/ml (0-900) 05/12/17 17:00 Total Protein 5.9 G/DL (6.3-8.2) L 06/04/17 04:55 Albumin 2.7 g/dL (3.5-5.0) L 06/04/17 04:55 Globulin 3.2 gm/dL (2.2-3.9) 06/04/17 04:55 Albumin/Globulin Ratio 0.8 (1.0-2.1) L 06/04/17 04:55 Alpha Fetoprotein 2.5 IU/mL (0.0-7.22) 05/31/17 06:15 Carcinoembryonic Ag 1.9 ng/mL (0-3.0) 05/31/17 06:15 CA 19-9 Antigen 35.2 U/mL (0-37) 05/31/17 06:15 CA 125 Antigen 52.0 U/mL (0-35) H 05/31/17 06:15 Procalcitonin < 0.05 NG/ML (0.19-0.49) L 05/15/17 12:00 Venous Blood Potassium 4.7 mmol/L (3.6-5.2) 05/12/17 17:26 Stool Occult Blood Positive (NEGATIVE) H 05/29/17 11:17 C. difficile Ag & Toxin Positive antigen (NEGATIVE) 05/29/17 18:33 Influenza Typ A,B (EIA) Negative for flu a/b (NEGATIVE) 05/12/17 17:00 Blood Type O POSITIVE 06/04/17 04:55 Blood Type Confirm O POSITIVE 05/13/17 07:30 Antibody Screen Negative 06/04/17 04:55 Crossmatch See Detail 06/04/17 04:55 BBK History Checked Patient has bt 06/04/17 04:55 - Hospital Course Hospital Course: 86 yo M was initially admitted for right sided pneumothorax on 05/13/17 s/p chest tube placement on 05/13/17, he underwent talc pleurodesis with second chest tube placement on 05/21/17, Chest tubes were removed on 05/27/17. Pt had total of [address], [address] performed. Pt had acute GI bleeding while in hospital. Had 2 units of PRBC on 05/29/17. EGD on 05/30/17 showed large fungating mass with oozing bleeding, no active bleeding seen. Biopsy of the mass showed Juan gland hyperplasia, gastric metaplasia and chronic active inflammation. Pt's H&H on discharge is 9.0/27.2. Pelvis CT showed marked distended bladder w/ B/L hydroureteronephrosis and B/L small renal masses. Pt had caldwell placed on 06/01/17, continues to be in caldwell as recommend by urologist. Pt needs to have his caldwell catheter replaced on . Renal US on 06/02/17 showed right renal simple cyst but left sided mass as described by CT was not appreciated. Pt's medications on discharge to subacute rehab as follows: Pantoprazole 40 mg PO daily Metoprolol tartrate 25 mg po BID Xopenex 0.63mg INH RQ8 Senokot 17.2 mg PO HS Colace 100 mg PO BID - Date & Time of H&P Date of H&P: 06/06/17 Discharge Exam - Head Exam Head Exam: NORMAL INSPECTION Additional comments: cachetic - ENT Exam ENT Exam: Mucous Membranes Moist - Neck Exam Neck exam: Full Rom, Normal Inspection - Respiratory Exam Respiratory Exam: Clear to PA & Lateral. absent: Rales, Rhonchi, Wheezes, Respiratory Distress - Cardiovascular Exam Cardiovascular Exam: REGULAR RHYTHM, RRR, +S1, +S2. absent: Gallop - GI/Abdominal Exam GI & Abdominal Exam: Normal Bowel Sounds, Soft. absent: Guarding, Tenderness - Extremities Exam Extremities exam: normal capillary refill, normal inspection, pedal pulses present - Neurological Exam Neurological exam: Alert, Oriented x3 - Psychiatric Exam Psychiatric exam: Normal Affect, Normal Mood - Skin Skin Exam: Normal Color Discharge Plan - Follow Up Plan Condition: CRITICAL Disposition: REHAB FACILITY/REHAB UNIT Instructions: Spontaneous Pneumothorax (DC), Spontaneous Pneumothorax (GEN), Emphysema (DC), Emphysema (GEN) Additional Instructions: Pt will need additional 2 weeks of 21 mg patch qdaily, then 14 mg patch qd x 2 weeks, then apply 7 mg patch qd x 2 weeks. Pt will also need home oxygen when he is to discharged home. Pt had 6 minutes walk test done on 05/28/17 (before he had acute GI bleed) which showed ox 85% after the walk. Pt's H&H on discharge is 9.0/27.2. We recommend to check his CBC every week. Pt had caldwell placed on 06/01/17, continues to be in caldwell as recommend by urologist. Pt needs to have his caldwell catheter replaced on/before 07/01/17
--- NOTE | 2017-06-06 15:31 | PN ---
DATE: SUBJECTIVE: The patient denies chest pain. He complains of bilateral leg pain. PHYSICAL EXAMINATION: VITAL SIGNS: Blood pressure 105/58, heart rate 82, temperature 98, respiration 18. HEENT: Pale conjunctivae. CHEST: Bilateral rhonchi. HEART: S1, S2 regular. EXTREMITIES: No edema. LABORATORY DATA: Shows hemoglobin and hematocrit 9 and 27.2, white count and platelet count are within normal limits. Today's SMA-7 is unremarkable except for potassium 4.1, chloride 103, CO2 is 35, glucose 92, BUN 8, creatinine 0.7. ASSESSMENT: 1. Sinus tachycardia and frequent atrial ectopy. 2. Chronic obstructive lung disease. 3. Fungating gastric mass. 4. Anemia. 5. deep venous thrombosis. RECOMMENDATIONS: Continue Lopressor 25 mg twice a day, Xopenex inhaler. Patient is scheduled to undergo venous Doppler of lower extremities today. Ori Fitzpatrick MD
[2017-06-06 16:24] VITALS: BP 107/68; PULSE 83; RESP 16; TEMP 98.5; O2SAT 98
== END 2017-06-06 18:00 | DRG 199 ==
LOC: H.ER 16:31 → H.ERHOLD 19:30 → H.ICU/CCU 21:44 → H.TEL 05-16 15:44 → H.ICU/CCU 05-20 18:27 → H.TEL 05-25 18:15
PROVIDERS: ADMIT Family Medicine Geriatric Medicine; ATTEND Family Medicine Geriatric Medicine
PROC: 0W9930Z Drainage of Right Pleural Cavity with Drainage Device, Percutaneous Approach (ICD-10-PCS; principal; 2017-05-12)
PROC: 3E0234Z Introduction of Serum, Toxoid and Vaccine into Muscle, Percutaneous Approach (ICD-10-PCS; 2017-05-12)
PROC: 0W9930Z Drainage of Right Pleural Cavity with Drainage Device, Percutaneous Approach (ICD-10-PCS; 2017-05-13)
PROC: 5A0955Z Assistance with Respiratory Ventilation, Greater than 96 Consecutive Hours (ICD-10-PCS; 2017-05-15)
PROC: 0W9930Z Drainage of Right Pleural Cavity with Drainage Device, Percutaneous Approach (ICD-10-PCS; 2017-05-20)
PROC: 3E0L3GC Introduction of Other Therapeutic Substance into Pleural Cavity, Percutaneous Approach (ICD-10-PCS; 2017-05-20)
PROC: 0WP830Z Removal of Drainage Device from Chest Wall, Percutaneous Approach (ICD-10-PCS; 2017-05-20)
PROC: 30233N1 Transfusion of Nonautologous Red Blood Cells into Peripheral Vein, Percutaneous Approach (ICD-10-PCS; 2017-05-29)
PROC: 0DB98ZX Excision of Duodenum, Via Natural or Artificial Opening Endoscopic, Diagnostic (ICD-10-PCS; 2017-05-30)
PROC: 0DB68ZX Excision of Stomach, Via Natural or Artificial Opening Endoscopic, Diagnostic (ICD-10-PCS; 2017-05-30)
DX: J93.0 Spontaneous tension pneumothorax (principal); J95.821 Acute postprocedural respiratory failure; J44.0 Chronic obstructive pulmonary disease with (acute) lower respiratory infection; J94.8 Other specified pleural conditions; D62 Acute posthemorrhagic anemia; K92.2 Gastrointestinal hemorrhage, unspecified; J44.1 Chronic obstructive pulmonary disease with (acute) exacerbation; Z68.1 Body mass index [BMI] 19.9 or less, adult; N13.30 Unspecified hydronephrosis; R63.0 Anorexia; D63.8 Anemia in other chronic diseases classified elsewhere; J98.2 Interstitial emphysema; F17.210 Nicotine dependence, cigarettes, uncomplicated; J20.9 Acute bronchitis, unspecified; J43.9 Emphysema, unspecified; R63.4 Abnormal weight loss; R62.7 Adult failure to thrive; J95.812 Postprocedural air leak; Y83.8 Other surgical procedures as the cause of abnormal reaction of the patient, or of later complication, without mention of misadventure at the time of the procedure; R00.0 Tachycardia, unspecified; K31.9 Disease of stomach and duodenum, unspecified; R13.10 Dysphagia, unspecified; K29.50 Unspecified chronic gastritis without bleeding; E87.6 Hypokalemia; N28.1 Cyst of kidney, acquired; N32.89 Other specified disorders of bladder; T83.091A Other mechanical complication of indwelling urethral catheter, initial encounter; Y84.6 Urinary catheterization as the cause of abnormal reaction of the patient, or of later complication, without mention of misadventure at the time of the procedure; M79.605 Pain in left leg; M79.604 Pain in right leg; E88.09 Other disorders of plasma-protein metabolism, not elsewhere classified; R31.9 Hematuria, unspecified; Z23 Encounter for immunization; R33.9 Retention of urine, unspecified

== ENCOUNTER 2018-03-16 00:34 | Emergency (ER) | payer MEDICARE ==
[2018-03-16 00:34] VITALS: BMI 15.6
[2018-03-16 00:51] VITALS: BP 128/77; PULSE 89; RESP 18; TEMP 98.6; O2SAT 98
--- NOTE | 2018-03-16 01:07 | ED PDOC ---
HPI: Wound Care - HPI Time Seen by Provider: 03/16/18 00:50 Chief Complaint (Nursing): Abnormal Skin Integrity Chief Complaint (Provider): fall; head laceration History Per: Patient, Family (step-daughter) Exam Limitations: no limitations Additional Complaint(s): 87 y/o male brought in by EMS with step-daughter for evaluation of head laceration sustained prior to arrival. Patient states he was having a dream someone was chasing him and woke up startled, states he slipped while getting out of bed and fell on to hard floor. Patient denies LOC; states he got right back up and called step-daughter. Denies headache, dizziness, nausea/vomiting, vision changes, extremity numbness/weakness, neck/back pain. Past Medical History Reviewed: Historical Data, Nursing Documentation, Vital Signs Vital Signs: Last Vital Signs Temp 98.6 F 03/16/18 00:48 Pulse 89 03/16/18 00:48 Resp 18 03/16/18 00:48 BP 128/77 03/16/18 00:48 Pulse Ox 98 03/16/18 00:48 - Medical History PMH: Anemia, COPD (no prior diagnosis), Pneumonia Denies: HIV, Chronic Kidney Disease - Family History Family History: States: Unknown Family Hx - Home Medications Home Medications: Ambulatory Orders Medication Instructions Recorded Docusate [Colace] 100 mg PO BID cap 06/06/17 Levalbuterol [Xopenex] 0.63 mg INH RQ8 neb 06/06/17 Metoprolol Tartrate [Lopressor] 25 mg PO Q12 tab 06/06/17 Nicotine 21 mg/24 hr [Nicoderm Cq] 1 patch TD DAILY patch 06/06/17 Pantoprazole [Protonix EC Tab] 40 mg PO DAILY ect 06/06/17 Sennosides A and B [Senokot Tab] 17.2 mg PO HS tab 06/06/17 - Allergies Allergies/Adverse Reactions: Allergies Allergy/AdvReac Type Severity Reaction Status Date / Time No Known Allergies Allergy Verified 03/16/18 00:51 Review of Systems ROS Statement: Except As Marked, All Systems Reviewed And Found Negative Skin: Positive for: Other (scalp laceration) Physical Exam - Reviewed Nursing Documentation Reviewed: Yes Vital Signs Reviewed: Yes - Physical Exam Appears: Positive for: Well, Non-toxic, No Acute Distress Head Exam: Positive for: NORMAL INSPECTION, NORMOCEPHALIC. Negative for: ATRAUMATIC (2.5cm linear laceration right fronto-pareital scalp; no active bleeding. Minimal underlying edema) Skin: Positive for: Normal Color Eye Exam: Positive for: Normal appearance, EOMI, PERRL ENT: Positive for: Normal ENT Inspection Cardiovascular/Chest: Positive for: Regular Rate, Rhythm Respiratory: Positive for: Normal Breath Sounds Pulses-Radial (L): 2+ Pulses-Radial (R): 2+ Gastrointestinal/Abdominal: Positive for: Normal Exam Back: Positive for: Normal Inspection Extremity: Positive for: Normal ROM (abrasions/ecchymosis dorsal left elbow; FROM. Distal NV/motor intact) Neurologic/Psych: Positive for: Alert, Oriented (x3) - ECG O2 Sat by Pulse Oximetry: 98 - Progress ED Course And Treament: CT head, xray right elbow, lac repair, tenivac IM elbow abrasions cleaned with NS, bacitracin applied, bandage applied EXAM: CT Head Without Intravenous Contrast EXAM DATE/TIME: 03/16/2018 1:03 AM CLINICAL HISTORY: 87 years old, male; Injury or trauma; Fall; Initial encounter; Abrasion; Forehead; Additional info: Fall, laceration TECHNIQUE: Axial computed tomography images of the head/brain without intravenous contrast. All CT scans at this facility use at least one of these dose optimization techniques: automated exposure control; mA and/or kV adjustment per patient size (includes targeted exams where dose is matched to clinical indication); or iterative reconstruction. COMPARISON: No relevant prior studies available. FINDINGS: Brain: Mild volume loss No hemorrhage. Moderate white matter disease. No edema. Ventricles: Normal. No ventriculomegaly. Bones/joints: Normal. No acute fracture. Sinuses: Normal as visualized. No acute sinusitis. Mastoid air cells: Normal as visualized. No mastoid effusion. Soft tissues: Right frontal scalp swelling IMPRESSION: No intracranial hemorrhage.Please see discussion above. Procedure: Wound Repair - Time Performed Time Performed: 01:45 - Time Out Time Out: Side verified, Site verified, Patient ID confirmed, Sterile procedures obs. - Consent Obtained Consent obtained: Verbal - Performed by Performed by: Mid-level Provider - Indications Indication(s):: Laceration - Location Location:: Scalp Shape:: Linear Dimensions Length cm: 2.5cm Dimensions width cm: 0.5cm Depth:: Epidermis - Anesthetic Technique Anesthetic Technique: Topical Local/Regional Anesthetic:: Lidocaine 1% w/epi - Irrigated Irrigated with ml of normal saline: 200mL - Complexity Complexity:: Simple (one layer) - Wound repair method Sutures:: # (6), Size (5'0), Type (prolene), Technique (interrupted) - Muscle repiar layer closed with Muscle repair layer closed with:: Wound well approximated, Abx ointment applied , Dressing applied, Tetanus ordered - Patient tolerated procedure Patient Tolerated Procedure:: Well Medical Decision Making Medical Decision Making: Patient/step-daughter educated on wound care; advised suture removal in 5 days Advised ice application to affected area. Tylenol PRN pain Return precautions given Disposition - Clinical Impression Clinical Impression: Head injury, Scalp laceration, Abrasion of right elbow - Patient ED Disposition Is Patient to be Admitted: No Counseled Patient/Family Regarding: Studies Performed, Diagnosis, Need For Followup - Disposition Referrals: [facility] [Outside] Disposition: Routine/Home Disposition Time: 02:09 Condition: GOOD Instructions: Laceration Repair, Minor Head Injury, Skin Abrasions, Taking Care of Bruises Print Language: [place]
[2018-03-16] MEDS ORDERED: Tetanus/Diphtheria Toxoids 0.5 ml Syringe IM ONE ×2 (01:08→01:26)
[2018-03-16] MEDS ORDERED: Lidocaine/Epi 1% 1:100000 20 ML IJ ONE (01:08)
[2018-03-16] MEDS ORDERED: Lidocaine 1% w Epi 1:100,000 Inj ONE (01:13)
--- NOTE | 2018-03-16 08:36 | RAD ---
Date of service: 03/16/2018 PROCEDURE: Radiographs of the right elbow. HISTORY: fall, abrasions COMPARISON: No prior. FINDINGS: BONES: Four views of the right elbow were performed for right elbow pain and trauma. No fracture is seen. No lytic process is noted. No dislocation is noted. JOINTS: Mild degenerative changes. No joint effusion. SOFT TISSUES: Normal. JOINT EFFUSION: None. OTHER FINDINGS: None. IMPRESSION: No fracture.
--- NOTE | 2018-03-16 10:21 | CT ---
Date of service: 03/16/2018 PROCEDURE: CT HEAD WITHOUT CONTRAST. HISTORY: fall, laceration COMPARISON: None available. TECHNIQUE: Axial computed tomography images were obtained through the head/brain without intravenous contrast. Radiation dose: Total exam DLP = 812 mGy-cm. This CT exam was performed using one or more of the following dose reduction techniques: Automated exposure control, adjustment of the mA and/or kV according to patient size, and/or use of iterative reconstruction technique. FINDINGS: HEMORRHAGE: No intracranial hemorrhage. BRAIN: No mass effect or edema. Age related cerebral cortical atrophy is noted as well as small vessel changes in the white matter tracts. VENTRICLES: Unremarkable. No hydrocephalus. CALVARIUM: Unremarkable. PARANASAL SINUSES: Mild mucosal changes are seen in the sinuses. Mastoid air cells are well aerated. MASTOID AIR CELLS: Unremarkable as visualized. No inflammatory changes. OTHER FINDINGS: There is right frontal and temporal scalp soft tissue swelling appreciated. IMPRESSION: No evidence of intracranial hemorrhage or recent infarct. Soft tissue scalp swelling. Age related changes.
== END 2018-03-16 02:32 | disposition home or self-care (01) ==
LOC: H.ER 00:34
DX: S01.01XA Laceration without foreign body of scalp, initial encounter (principal); S50.311A Abrasion of right elbow, initial encounter; S09.0XXA Injury of blood vessels of head, not elsewhere classified, initial encounter; W06.XXXA Fall from bed, initial encounter; Y92.003 Bedroom of unspecified non-institutional (private) residence as the place of occurrence of the external cause; J44.9 Chronic obstructive pulmonary disease, unspecified

== ENCOUNTER 2018-06-01 07:53 | Emergency (ER) | payer MEDICARE ==
[2018-06-01 08:00] VITALS: BMI 15.0
[2018-06-01 08:01] VITALS: RESP 18; O2SAT 97
--- NOTE | 2018-06-01 09:06 | ED PDOC ---
HPI: Back Time Seen by Provider: 06/01/18 08:16 Chief Complaint (Nursing): Back Pain Chief Complaint (Provider): Back Pain History Per: Patient, Family History/Exam Limitations: no limitations Onset/Duration Of Symptoms: Days (x1 month) Current Symptoms Are (Timing): Constant Exacerbating Factor(s): Movement (lifting right arm ) Additional Complaint(s): Carroll Robertson is a 87 year old male with a history of shingles on his right side, pneumonia, and COPD, who presents to the emergency department accompanied by family complaining of constant right lateral rib pain, onset x1 month. He states pain is worsened when lifting his right arm. Patient states he has been taking tylenol with some relief. He reports that he does smoke but denies any shortness of breath or trauma. PMD: No provider Past Medical History Reviewed: Historical Data, Nursing Documentation, Vital Signs Vital Signs: Last Vital Signs Temp 97.6 F 06/01/18 08:00 Pulse 85 06/01/18 08:00 Resp 18 06/01/18 08:00 BP 150/70 06/01/18 08:00 Pulse Ox 97 06/01/18 08:00 - Medical History PMH: Anemia, COPD (no prior diagnosis), Pneumonia Denies: HIV, Chronic Kidney Disease - Surgical History Surgical History: No Surg Hx - Family History Family History: States: Unknown Family Hx - Social History Current smoker - smoking cessation education provided: Yes - Home Medications Home Medications: Ambulatory Orders Medication Instructions Recorded Docusate [Colace] 100 mg PO BID cap 06/06/17 Levalbuterol [Xopenex] 0.63 mg INH RQ8 neb 06/06/17 Metoprolol Tartrate [Lopressor] 25 mg PO Q12 tab 06/06/17 Nicotine 21 mg/24 hr [Nicoderm Cq] 1 patch TD DAILY patch 06/06/17 Pantoprazole [Protonix EC Tab] 40 mg PO DAILY ect 06/06/17 Sennosides A and B [Senokot Tab] 17.2 mg PO HS tab 06/06/17 Lidocaine 5% [Lidoderm] 1 ea TD DAILY PRN #7 patch 06/01/18 - Allergies Allergies/Adverse Reactions: Allergies Allergy/AdvReac Type Severity Reaction Status Date / Time No Known Allergies Allergy Verified 03/16/18 00:51 Review of Systems ROS Statement: Except As Marked, All Systems Reviewed And Found Negative Respiratory: Negative for: Shortness of Breath Musculoskeletal: Positive for: Other (right lateral rib pain) Physical Exam - Reviewed Nursing Documentation Reviewed: Yes Vital Signs Reviewed: Yes - Physical Exam Appears: Positive for: Non-toxic, No Acute Distress (appears cachectic) Head Exam: Positive for: ATRAUMATIC, NORMOCEPHALIC Cardiovascular/Chest: Positive for: Regular Rate, Rhythm. Negative for: Chest Non Tender (on right lateral ribs minimal tenderness to palpation; rash, erythema, edema), Murmur Respiratory: Positive for: Normal Breath Sounds. Negative for: Respiratory Distress Extremity: Positive for: Normal ROM Neurologic/Psych: Positive for: Alert, Oriented (x3) - ECG O2 Sat by Pulse Oximetry: 97 (RA) Pulse Ox Interpretation: Normal Medical Decision Making Medical Decision Making: Initial Time: 08:24 Impression: Rib Pain Plan: --Ribs x-ray 09:42 Ribs X-ray FINDINGS: RIGHT RIBS: No fracture or focal lesion visualized. LUNGS: No acute infiltrate. Biapical fibrotic changes are identified with volume loss of the right upper lobe retracting minor fissure cephalad. PLEURA: No pneumothorax or pleural fluid. CARDIOVASCULAR: Normal cardiac size. No pulmonary vascular congestion. No aortic atherosclerotic calcification present OTHER FINDINGS: None. IMPRESSION: Biapical fibrosis, right greater than left with volume loss of the right upper lobe retracting minor fissure cephalad. No right rib fracture. Pt given copy of XR for incidental findings. Scribe Attestation: Documented by Asad Shi, acting as a scribe for Mckenzie Mcfadden MD. Provider Scribe Attestation: All medical record entries made by the Scribe were at my direction and personally dictated by me. I have reviewed the chart and agree that the record accurately reflects my personal performance of the history, physical exam, medical decision making, and the department course for this patient. I have also personally directed, reviewed, and agree with the discharge instructions and disposition. Disposition - Clinical Impression Clinical Impression: Postherpetic neuralgia - Disposition Referrals: [facility] [Outside] Disposition: Routine/Home Disposition Time: 10:50 Condition: IMPROVED Prescriptions: Lidocaine 5% [Lidoderm] 1 ea TD DAILY PRN #7 patch PRN Reason: Pain, Moderate (4-7) Instructions: Neuropathic Pain Forms: [facility] (Kiswahili) Print Language: [place]
--- NOTE | 2018-06-01 09:46 | RAD ---
Date of service: 06/01/2018 PROCEDURE: Radiographs of the Chest and Right Ribs. HISTORY: R lateral rib pain COMPARISON: None available. TECHNIQUE: Frontal radiograph of the chest and multiple oblique radiographs of the right ribs were obtained. FINDINGS: RIGHT RIBS: No fracture or focal lesion visualized. LUNGS: No acute infiltrate. Biapical fibrotic changes are identified with volume loss of the right upper lobe retracting minor fissure cephalad. PLEURA: No pneumothorax or pleural fluid. CARDIOVASCULAR: Normal cardiac size. No pulmonary vascular congestion. No aortic atherosclerotic calcification present OTHER FINDINGS: None. IMPRESSION: Biapical fibrosis, right greater than left with volume loss of the right upper lobe retracting minor fissure cephalad. No right rib fracture.
[2018-06-01] MEDS ORDERED: Lidocaine 5% Patch TD STA (10:41)
[2018-06-01] MEDS ORDERED: Lidocaine 5% Patch TD ONE (10:46)
[2018-06-01 11:12] VITALS: BP 152/82; PULSE 78; TEMP 97.9
== END 2018-06-01 10:50 | disposition home or self-care (01) ==
LOC: H.ER 07:53
DX: B02.29 Other postherpetic nervous system involvement (principal)

== ENCOUNTER 2018-06-23 10:40 | Emergency (ER) | payer MEDICARE ==
[2018-06-23 10:50] VITALS: TEMP 97.7
[2018-06-23 10:51] VITALS: BMI 13.1
--- NOTE | 2018-06-23 11:38 | ED PDOC ---
HPI: General Adult Additional Complaint(s): 87 yo male with PMH of COPD presents to the ED c/o constipation for 4 days. Patient states that has been very difficult to complete a full defecation. States he had few watery "roopa" stools yesterday and also painful defecation. Denies fever, chills, nausea, vomiting or abdominal pain, no headaches, CP or sob. No urinary sx. PMD at [facility] [place] <Lina Greer - Last Filed: 06/23/18 12:14> Supervising Attending Note - Attestation: I have personally seen and examined this patient.: Yes I have fully participated in the care of the patient.: Yes I have reviewed all pertinent clinical information, including history, physical exam and plan: Yes - Notes: Notes:: Pt disempacted with good results. BUN/Creat 41/1.Pt tolearting PO and received 1 Liter IV fluids. Pt and family wish to go home <Rommel Todd - Last Filed: 06/23/18 13:47> Past Medical History Vital Signs: Last Vital Signs Temp 97.7 F 06/23/18 10:48 Pulse 102 H 06/23/18 10:48 Resp 16 06/23/18 10:48 BP 115/67 06/23/18 10:48 Pulse Ox 97 06/23/18 10:48 - Medical History PMH: Anemia, COPD (no prior diagnosis), Pneumonia Denies: HIV, Chronic Kidney Disease - Surgical History Surgical History: No Surg Hx - Family History Family History: States: Unknown Family Hx - Social History Current smoker - smoking cessation education provided: Yes Alcohol: None Drugs: Denies <Lina Greer - Last Filed: 06/23/18 12:14> Vital Signs: Last Vital Signs Temp 97.7 F 06/23/18 10:48 Pulse 102 H 06/23/18 10:48 Resp 16 06/23/18 10:48 BP 115/67 06/23/18 10:48 Pulse Ox 97 06/23/18 12:14 <Rommel Todd - Last Filed: 06/23/18 13:47> - Home Medications Home Medications: Ambulatory Orders Medication Instructions Recorded Docusate [Colace] 100 mg PO BID cap 06/06/17 Levalbuterol [Xopenex] 0.63 mg INH RQ8 neb 06/06/17 Metoprolol Tartrate [Lopressor] 25 mg PO Q12 tab 06/06/17 Nicotine 21 mg/24 hr [Nicoderm Cq] 1 patch TD DAILY patch 06/06/17 Pantoprazole [Protonix EC Tab] 40 mg PO DAILY ect 06/06/17 Sennosides A and B [Senokot Tab] 17.2 mg PO HS tab 06/06/17 Lidocaine 5% [Lidoderm] 1 ea TD DAILY PRN #7 patch 06/01/18 - Allergies Allergies/Adverse Reactions: Allergies Allergy/AdvReac Type Severity Reaction Status Date / Time No Known Allergies Allergy Verified 06/23/18 11:24 Review of Systems ROS Statement: Except As Marked, All Systems Reviewed And Found Negative <Lnia Greer - Last Filed: 06/23/18 12:14> Physical Exam - Reviewed Vital Signs Reviewed: Yes - Physical Exam Appears: Positive for: No Acute Distress Head Exam: Positive for: NORMAL INSPECTION Skin: Positive for: Warm, Dry. Negative for: Rash Eye Exam: Positive for: EOMI Cardiovascular/Chest: Positive for: Regular Rate, Rhythm. Negative for: Tach ycardia Respiratory: Positive for: Normal Breath Sounds. Negative for: Rales, Wheezing Gastrointestinal/Abdominal: Positive for: Bowel Sounds, Soft. Negative for: Tenderness, Distended Rectal: Positive for: Rectal Tone Is: (good), Other (impacted feces noted in rectal vault). 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 <Lina Greer - Last Filed: 06/23/18 12:14> - ECG O2 Sat by Pulse Oximetry: 97 - Progress ED Course And Treament: 87 yo male patient with constipation for 4 days Plan: - cbc, cmp, occult blood stool - UA - manual desimpaction - IV fluids - enema once - reeval <Lina Greer - Last Filed: 06/23/18 12:14> - Laboratory Results Result Diagrams: 06/23/18 12:10 06/23/18 12:10 <Rommel Todd - Last Filed: 06/23/18 13:47> Disposition - Disposition Disposition: Transfer of Care Disposition Time: 12:14 <Lina Greer - Last Filed: 06/23/18 12:14> - Patient ED Disposition Is Patient to be Admitted: No Counseled Patient/Family Regarding: Studies Performed, Diagnosis, Need For Followup - Disposition Disposition: Routine/Home Disposition Time: 13:47 <Rommel Todd - Last Filed: 06/23/18 13:47> - Clinical Impression Clinical Impression: Fecal impaction in rectum, Dehydration, mild - Disposition Condition: FAIR Instructions: Fecal Impaction, Dehydration, Adult (DC) Print Language: TURKISH
[2018-06-23] MEDS ORDERED: Sodium Chloride 0.9% 1,000 ML IV SCH (12:00)
[2018-06-23 12:18] LABS: BASO # 0.1 K/uL (0.0-0.2); BASO % 0.6 % (0.0-2.0); EOS % 0.2 % (0.0-4.0); HEMOGLOBIN 13.1 g/dL (12.0-18.0); LYMPH # 1.3 K/uL (1.0-4.3); LYMPH % 14.2 % (20.0-40.0); MEAN CORPUSCULAR HEMOGLOBIN 28.2 pg (27.0-31.0); MEAN CORPUSCULAR HGB CONC 31.7 g/dL (33.0-37.0); MEAN PLATELET VOLUME 9.4 fl (7.2-11.7); MONO # 0.6 K/uL (0.0-0.8); MONO % 7.1 % (0.0-10.0); NEUT # 7.1 K/uL (1.8-7.0); NEUT % 77.9 % (50.0-75.0); NRBC % 0.1 % (0.0-0.0); RBC 4.65 Mil/uL (4.40-5.90); WHITE BLOOD COUNT 9.1 K/uL (4.8-10.8)
[2018-06-23 12:34] LABS: ALB/GLOB RATIO 0.9 (1.0-2.1); ALT/SGPT 71 U/L (21-72); AST/SGOT 118 U/L (17-59); BLOOD UREA NITROGEN 42 mg/dl (9-20); CALCIUM 11.1 mg/dL (8.4-10.2); GFR NON-AFRICAN AMERICAN > 60
[2018-06-23 13:55] VITALS: BP 123/60; PULSE 65; RESP 18; O2SAT 98
== END 2018-06-23 14:12 | disposition home or self-care (01) ==
LOC: H.ER 10:40
DX: K56.41 Fecal impaction (principal); E86.0 Dehydration; J44.9 Chronic obstructive pulmonary disease, unspecified
CPT/HCPCS: 80053; 85025; 96360; 99285; J7030

== ENCOUNTER 2018-07-01 10:23 | Inpatient (IN) | payer MEDICARE ==
[2018-07-01] MEDS ORDERED: Albuterol-Ipratrop 3 mg / 0.5 (3 ml) UD IH STA ×2 (11:03→14:44)
[2018-07-01] MEDS ORDERED: Albuterol-Ipratrop 3 mg / 0.5 (3 ml) UD ONE (11:19)
--- NOTE | 2018-07-01 11:20 | ED PDOC ---
HPI: General Adult Time Seen by Provider: 07/01/18 10:49 Chief Complaint (Nursing): Weakness/Neurological Deficit Chief Complaint (Provider): Weakness all over History Per: Patient History/Exam Limitations: no limitations Onset/Duration Of Symptoms: Days (1 year) Additional Complaint(s): Pt. with weakness all over for 1 year. Also decreased appetite and losing weight. For 4 months has a cough. 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 No headaches, chest pain, dizziness, back pain, numbness, tingles. No fever. NIHSS Stroke Scale - Date/Time Evaluation Performed Date Performed: 07/01/18 Time Performed: 11:36 When Was NIHSS Performed: Baseline - How Severe is the Stroke Level of Consciousness: 0=Alert LOC to Questions: 0=Both comments correct LOC to commands: 0=Obeys both correctly Best Gaze: 0=Normal Visual: 0=No visual loss Facial: 0=Normal Motor Arm - Left: 0=No drift Motor Arm - Right: 0=No drift Motor Leg - Left: 0=No drift Motor Leg - Right: 0=No drift Limb Ataxia: 0=Absent Sensory: 0=Normal Best Language: 0=No aphasia Dysarthia: 0=Normal articulation rTPA Inclusion/Exclusion - Refusal of Treatment Patient Refused Treatment: No - Inclusion Criteria for Altepase Patient is 18 years or Older: Yes The Clinical Diagnosis of Ischemic Stroke That is Causing a Potentially Disabling Neurological Deficit: No Time of Onset is Well Established to be Less Than 270 Minute Before Treatment Would Begin: No Risk/Benefit Discussed With Patient/Family Member Present: No Past Medical History Reviewed: Nursing Documentation, Vital Signs Vital Signs: Last Vital Signs Temp 96.5 F L 07/01/18 10:27 Pulse 108 H 07/01/18 10:27 Resp 18 07/01/18 10:27 BP 126/67 07/01/18 10:27 Pulse Ox 96 07/01/18 10:27 - Medical History PMH: Anemia, COPD (no prior diagnosis), Pneumonia Denies: HIV, Chronic Kidney Disease - Family History Family History: States: Unknown Family Hx - Living Arrangements Living Arrangements: With Family - Home Medications Home Medications: Ambulatory Orders Medication Instructions Recorded Docusate [Colace] 100 mg PO BID cap 06/06/17 Levalbuterol [Xopenex] 0.63 mg INH RQ8 neb 06/06/17 Metoprolol Tartrate [Lopressor] 25 mg PO Q12 tab 06/06/17 Nicotine 21 mg/24 hr [Nicoderm Cq] 1 patch TD DAILY patch 06/06/17 Pantoprazole [Protonix EC Tab] 40 mg PO DAILY ect 06/06/17 Sennosides A and B [Senokot Tab] 17.2 mg PO HS tab 06/06/17 Lidocaine 5% [Lidoderm] 1 ea TD DAILY PRN #7 patch 06/01/18 - Allergies Allergies/Adverse Reactions: Allergies Allergy/AdvReac Type Severity Reaction Status Date / Time No Known Allergies Allergy Verified 06/23/18 11:24 Review of Systems ROS Statement: Except As Marked, All Systems Reviewed And Found Negative Constitutional: Positive for: Weakness Respiratory: Positive for: Cough, Shortness of Breath Neurological: Positive for: Weakness Physical Exam - Reviewed Nursing Documentation Reviewed: Yes Vital Signs Reviewed: Yes - Physical Exam Appears: Positive for: Uncomfortable Head Exam: Positive for: ATRAUMATIC, NORMAL INSPECTION, NORMOCEPHALIC Skin: Positive for: Normal Color, Warm, DRY Eye Exam: Positive for: EOMI, Normal appearance, PERRL ENT: Positive for: Normal ENT Inspection Neck: Positive for: Normal, Painless ROM Cardiovascular/Chest: Positive for: Regular Rate, Rhythm Respiratory: Positive for: Decreased Breath Sounds (b/l), Other (mild coarse breath sounds b/l) Gastrointestinal/Abdominal: Positive for: Normal Exam, Soft. Negative for: Tenderness Back: Positive for: Normal Inspection. Negative for: L CVA Tenderness, R CVA Tenderness Extremity: Positive for: Normal ROM. 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 Negative for: Motor/Sensory Deficits, Aphasia, Facial Droop - Laboratory Results Result Diagrams: 07/01/18 11:02 07/01/18 11:02 Interpretation Of Abn Labs: bun 42, elevated lactate - ECG ECG: Positive for: Interpreted By Me, Viewed By Me ECG Rhythm: Positive for: Normal QRS, Normal ST Segment, Sinus Rhythm O2 Sat by Pulse Oximetry: 96 Pulse Ox Interpretation: Normal - Radiology X-Ray: Read By Radiologist X-Ray Interpretation: No Acute Disease - CT Scan/US ct Other Rad Studies (CT/US): Read By Radiologist Other Rad Interpretation: no acute - Progress ED Course And Treament: 1512: Pt. states he has no PCP. Does not go to a doctor, despite previous documentation by [facility]. Based on pt. wishes, will call med pressure controller. Pt. lactate likely elevated from copd and albuterol. Oxygen level lower at 92%. Improved with supplemental oxygen. Will need obs for eval and tx. No infectious etiology for sepsis. Spoke with Dr. Sanchez. Will admit. - Critical Care Total Time (In Min): 30 Documented Critical Care: Time excludes all time spent performint seperately billable procedures Disposition - Clinical Impression Clinical Impression: Weakness, Dehydration, COPD exacerbation - Patient ED Disposition Is Patient to be Admitted: Yes Counseled Patient/Family Regarding: Studies Performed, Diagnosis - Disposition Disposition Time: 14:51 Condition: FAIR - Pt Status Changed To: Hospital Disposition Of: Observation - POA Present On Arrival: None
[2018-07-01 11:37] LABS: BASO # 0.1 K/uL (0.0-0.2); BASO % 0.7 % (0.0-2.0); EOS # 0.1 K/uL (0.0-0.7); EOS % 1.2 % (0.0-4.0); HEMOGLOBIN 13.7 g/dL (12.0-18.0); LYMPH # 1.8 K/uL (1.0-4.3); LYMPH % 18.8 % (20.0-40.0); MEAN CELL VOLUME 89.3 fl (80.0-94.0); MEAN CORPUSCULAR HEMOGLOBIN 28.5 pg (27.0-31.0); MEAN CORPUSCULAR HGB CONC 31.9 g/dL (33.0-37.0); MONO # 0.8 K/uL (0.0-0.8); MONO % 8.1 % (0.0-10.0); NEUT # 6.8 K/uL (1.8-7.0); NEUT % 71.2 % (50.0-75.0); NRBC % 0.2 % (0.0-0.0); RBC 4.82 Mil/uL (4.40-5.90); RED CELL DISTRIBUTION WIDTH 17.4 % (11.5-14.5); WHITE BLOOD COUNT 9.5 K/uL (4.8-10.8)
[2018-07-01 11:37] LABS: VENOUS BLOOD GAS BASE EXCESS 8.9 mmol/L (0.0-2.0); VENOUS BLOOD GAS PCO2 56 mmHg (40-60); VENOUS BLOOD GAS PO2 29 mm/Hg (30-55); VENOUS BLOOD PH 7.41 (7.32-7.43)
[2018-07-01] MEDS: Sodium Chloride 0.9% 500 ML IV STA ×2 (11:42→12:40)
[2018-07-01] MEDS ORDERED: Sodium Chloride 0.9% 1,000 ML IV STA (11:46)
[2018-07-01 12:08] LABS: INR 1.1
--- NOTE | 2018-07-01 12:09 | CT ---
Date of service: 07/01/2018 PROCEDURE: CT HEAD WITHOUT CONTRAST. HISTORY: Headache COMPARISON: Comparison made with prior CT scan brain 03/16/2018.. TECHNIQUE: Axial computed tomography images were obtained through the head/brain without intravenous contrast. Comparison made with Radiation dose: Total exam DLP = 745.05 mGy-cm. This CT exam was performed using one or more of the following dose reduction techniques: Automated exposure control, adjustment of the mA and/or kV according to patient size, and/or use of iterative reconstruction technique. FINDINGS: HEMORRHAGE: No intracranial hemorrhage. BRAIN: Moderate to fairly significant diffuse and confluent chronic periventricular white matter ischemic changes seen extending peripherally into the deep and subcortical regions both cerebral hemispheres. There are multiple small the lacunar type infarcts seen scattered about both basal nuclei. Note that the possibility of a small hyperacute infarct cannot be excluded based on this study. No obvious parenchymal nor extra-axial masses or collections Mild generalized volume loss. Vascular calcifications both carotid siphons and vertebral arteries. VENTRICLES: No obstructive hydrocephalus. CALVARIUM: Unremarkable. PARANASAL SINUSES: Minor aerosolized mucosal thickening seen within the sphenoid sinus. There is sclerosis and thickening of the posterolateral henley both maxillary antra.. MASTOID AIR CELLS: Unremarkable as visualized. No inflammatory changes. OTHER FINDINGS: None. IMPRESSION: No acute intracranial hemorrhage. 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 Moderate generalized volume loss.
[2018-07-01 12:11] LABS: PARTIAL THROMBOPLASTIN TIME 27.5 Seconds (25.6-37.1)
[2018-07-01 12:11] LABS: ALB/GLOB RATIO 0.9 (1.0-2.1); ALBUMIN 3.9 g/dL (3.5-5.0); ALT/SGPT 67 U/L (21-72); AST/SGOT 120 U/L (17-59); B-TYPE NATRIURETIC PEPTIDE 792 pg/ml (0-900); BLOOD UREA NITROGEN 42 mg/dl (9-20); GFR NON-AFRICAN AMERICAN > 60
--- NOTE | 2018-07-01 12:49 | RAD ---
Date of service: 07/01/2018 HISTORY: dyspnea COMPARISON: Chest radiograph dated 06/01/2018. FINDINGS: LUNGS: Stable chronic prominence of the bilateral interstitial markings. Hyperinflated lungs. No focal consolidation. PLEURA: Biapical pleural-parenchymal scarring, right worse than left. No significant pleural effusion identified, no pneumothorax apparent. CARDIOVASCULAR: Aortic atherosclerotic calcification present. Normal cardiac size. No pulmonary vascular congestion. OSSEOUS STRUCTURES: Unchanged. VISUALIZED UPPER ABDOMEN: Normal. OTHER FINDINGS: None. IMPRESSION: No active disease.
[2018-07-01 14:41] LABS: VENOUS BLOOD GAS BASE EXCESS 3.1 mmol/L (0.0-2.0); VENOUS BLOOD GAS PCO2 70 mmHg (40-60); VENOUS BLOOD GAS PO2 19 mm/Hg (30-55); VENOUS BLOOD PH 7.27 (7.32-7.43)
[2018-07-01] MEDS ORDERED: Albuterol-Ipratrop 3 mg / 0.5 (3 ml) UD INH STA (14:44)
[2018-07-01 15:13] LABS: ABG ALLEN TEST YES; ARTERIAL BLOOD GAS HCO3 25.7 mmol/L (21-28); ARTERIAL BLOOD GAS O2 SAT 99.4 % (95-98); ARTERIAL BLOOD GAS PCO2 51 mm/Hg (35-45); ARTERIAL BLOOD GAS PH 7.34 (7.35-7.45); ARTERIAL BLOOD GAS PO2 145 mm/Hg (80-100); ARTERIAL BLOOD GAS TCO2 29.1 mmol/L (22-28)
[2018-07-01 15:34] LABS: URINE BACTERIA OCC (<OCC); URINE BILIRUBIN NEGATIVE (NEGATIVE); URINE BLOOD SMALL (NEGATIVE); URINE CLARITY CLOUDY (Clear); URINE COLOR YELLOW (YELLOW); URINE GLUCOSE (UA) NEG (NEGATIVE); URINE HYALINE CAST 0-2 /hpf (0-2); URINE LEUKOCYTE ESTERASE LARGE Leu/uL (Negative); URINE PROTEIN 30 mg/dL (NEGATIVE); URINE UROBILINOGEN 0.2-1.0 mg/dL (0.2-1.0)
[2018-07-01] MEDS ORDERED: cefTRIAXone (Rocephin) 1 gm Inj IV ONE (16:08)
[2018-07-01] MEDS ORDERED: cefTRIAXone (Rocephin) 1 gm Inj ONE (16:15)
[2018-07-01] MEDS ORDERED: Lidocaine 5% Patch TD PRN (18:30)
[2018-07-01] MEDS: Sodium Chloride 0.45% 1,000 ML IV SCH (18:57)
[2018-07-01] MEDS: Albuterol-Ipratrop 3 mg / 0.5 (3 ml) UD INH SCH (19:26)
--- NOTE | 2018-07-01 21:20 | CARD ---
APPROVED REPORT Date of service: 07/01/2018 EKG Measurement Heart [id number] <Conclusion> Sinus rhythm with marked sinus arrhythmia Otherwise normal ECG
[2018-07-02] MEDS: MethylPREDNISolone 40 mg Vial IVP SCH ×3 (00:01→17:07)
[2018-07-02] MEDS ORDERED: Pneumococcal 23-Valent Vaccine IM ONE (05:49)
[2018-07-02] MEDS ORDERED: Influenza Vaccine (5 YR UP)/PF 60 MCG/0.5 ML SYR IM ONE (06:00)
[2018-07-02] MEDS: Sodium Chloride 0.45% 1,000 ML IV SCH ×2 (06:19→09:02)
[2018-07-02] MEDS: Albuterol-Ipratrop 3 mg / 0.5 (3 ml) UD INH SCH ×4 (07:15→19:19)
[2018-07-02] MEDS ORDERED: Sodium Chloride 0.45% 1,000 ML IV SCH (14:39)
[2018-07-02] MEDS ORDERED: cefTRIAXone (Rocephin) 2 gm Inj IVPB SCH (14:45)
[2018-07-02 19:32] VITALS: BMI 15.2
[2018-07-03] MEDS: MethylPREDNISolone 40 mg Vial IVP SCH ×3 (00:44→17:50)
[2018-07-03 06:04] LABS: HEMOGLOBIN 11.5 g/dL (12.0-18.0); MEAN CELL VOLUME 87.3 fl (80.0-94.0); MEAN CORPUSCULAR HEMOGLOBIN 27.5 pg (27.0-31.0); MEAN CORPUSCULAR HGB CONC 31.5 g/dL (33.0-37.0); RBC 4.19 Mil/uL (4.40-5.90); RED CELL DISTRIBUTION WIDTH 16.9 % (11.5-14.5); WHITE BLOOD COUNT 12.1 K/uL (4.8-10.8)
[2018-07-03 06:42] LABS: BLOOD UREA NITROGEN 28 mg/dl (9-20); CALCIUM 10.2 mg/dL (8.4-10.2); GFR NON-AFRICAN AMERICAN > 60
[2018-07-03] MEDS ORDERED: Iohexol 240 (50 ml) PO ONE ×2 (07:54→08:01)
[2018-07-03] MEDS: Albuterol-Ipratrop 3 mg / 0.5 (3 ml) UD INH SCH ×2 (08:00→11:33)
[2018-07-03] MEDS ORDERED: Iohexol 300 100 ML IJ ONE (13:15)
[2018-07-03] MEDS ORDERED: Sodium Chloride 0.9% 50 ML IV ONE (13:15)
[2018-07-03] MEDS: Sodium Chloride 0.45% 1,000 ML IV SCH (14:11)
--- NOTE | 2018-07-03 15:24 | CT ---
Date of service: 07/03/2018 PROCEDURE: CT Chest, Abdomen and Pelvis with intravenous contrast HISTORY: Weight loss COMPARISON: Comparison made with prior CT scan of the abdomen and CT scan of the chest dated 05/30/2017 and 05/23/2017 respectively. TECHNIQUE: IV dose administered: Radiation dose: Total exam DLP = 258.64 mGy-cm. This CT exam was performed using one or more of the following dose reduction techniques: Automated exposure control, adjustment of the mA and/or kV according to patient size, and/or use of iterative reconstruction technique. FINDINGS: CT CHEST WITH CONTRAST: LUNGS: Significant centrilobular, panlobular and paraseptal emphysematous changes. Large right apical mass lesion contiguous with paratracheal and precarinal adenopathy mentioned below. The larger right apical lesion contains eggshell like calcifications. 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 Clinical correlation recommended. Questionable small bilateral effusions and/or pleural thickening.. Questionable small mass in the left apical intracostal region. MEDIASTINUM: Heart size is within range of normal. No significant pericardial effusion. Ascending thoracic aorta measures approximately the 3.3 cm and descending thoracic aorta measures approximately 2.4 cm. Mild partially calcified atherosclerotic plaque along the thoracic aorta an abdominal aorta. Pulmonary trunk measures approximately 2.5 cm. LYMPH NODES: Large masslike density is present in the precarinal/lower pretracheal space which extends superiorly into the right paratracheal region- superior and right posterior mediastinum. The adenopathy is contiguous with a large right apical and supraclavicular heterogeneous mass. Findings may represent large thank os tumor.. Eggshell like calcifications are present within the right apical lesion. Questionable of intracostal mass left posterior lung apex. Biapical. There is left apical pleural thickening. PLEURA: Questionable small bilateral effusions and/or chronic pleural thickening. BONES: There are numerous lytic lesions are seen throughout the thoracic spine some of which are more conspicuous than others. Endplate fractures superior and inferior T10 segment. Chronic inferior endplate deformity T8 segment.. Age indeterminate anterior wedge compression fracture of the T3 segment.. There is bowing/buckling of the posterior cortices of T10 and T8 as well resulting in mild compressive effects on the ventral surface of the thecal sac. Follow-up MRI may be prudent.. There are also scattered lytic lesions throughout the lumbar spine with compression deformity superior L4 endplate. OTHER FINDINGS: None. CT ABDOMEN AND PELVIS: LIVER: Extensive diffuse metastatic lesions scattered throughout the hepatic parenchyma. GALLBLADDER AND BILE DUCTS: Minimal gallbladder wall thickening with questionable pericholecystic fluid. No obvious intraluminal gallbladder calculi. PANCREAS: Multiple on tiny pancreatic calcifications consistent with sequela of chronic pancreatitis. SPLEEN: Spleen exhibits normal size. ADRENALS: No gross adrenal lesions. KIDNEYS AND URETERS: Kidneys demonstrate symmetric nephrograms. Interval resolution bilateral hydronephrosis. Apparent previously noted bilateral renal cysts are poorly delineated on this exam. Previously noted 9 mm low-density mass lower pole left kidney poorly delineated. VASCULATURE: [id number] aortic atherosclerotic calcification or mural plaque present. Unremarkable. No aortic aneurysm. BOWEL: Evaluation of the bowel is limited due to incomplete opacification. The stomach is incompletely distended. Visualized loops of small bowel exhibit normal contour and caliber so far as can be seen however portions of the small bowel are incompletely opacified. There is a large amount of stool seen throughout the colon consistent with fecal retention/constipation.. APPENDIX: Appendix not seen with complete certainty. PERITONEUM: Unremarkable. No free fluid. No free air. Marked cachexia. LYMPH NODES: There may be adenopathy in the shekhar hepatis difficult to distinguish from tumor in the adjacent hepatic parenchyma. This lesion appears to compress the anterior aspect of the IVC. BLADDER: Urinary bladder is incompletely distended which may in part account for slight thick-walled appearance. Correlation with urinalysis recommended to exclude cystitis or other intrinsic/invasive wall lesion. REPRODUCTIVE: Prostate gland measures approximately 4 cm in transverse dimension. Changes of a TUR. BONES: There are numerous lytic lesions are seen throughout the thoracic spine some of which are more conspicuous than others. Endplate fractures superior and inferior T10 segment. Chronic inferior endplate deformity T8 segment.. Age indeterminate anterior wedge compression fracture of the T3 segment.. There is bowing/buckling of the posterior cortices of T10 and T8 as well resulting in mild compressive effects on the ventral surface of the thecal sac. Follow-up MRI may be prudent.. There are also scattered lytic lesions throughout the lumbar spine with compression deformity superior L4 endplate. OTHER FINDINGS: None. IMPRESSION: Significant centrilobular, panlobular and paraseptal emphysematous changes. Large right apical mass lesion contiguous with paratracheal and precarinal adenopathy mentioned below. The larger right apical lesion contains eggshell like calcifications. 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 Clinical correlation recommended. Questionable small bilateral effusions and/or pleural thickening.. Questionable small mass in the left apical intracostal region. 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 Findings consistent with constipation. See above discussion for additional details and findings. All these findings discussed with 4 Jeffery Rodriguez at approximately 3:15 p.m. with written down and read back verification.
[2018-07-03] MEDS: Levalbuterol 0.63 MG/3 ML Inhal Soln UD IH SCH (16:00)
--- NOTE | 2018-07-03 19:59 | CON ---
DATE: 07/03/2018 REFERRING PHYSICIAN: . REASON FOR CONSULTATION: Weight loss. HISTORY OF PRESENT ILLNESS: This is an 87-year-old man with a history of COPD, now comes in for weight loss and decreased appetite for some time, generalized weakness and cough. Currently, the patient is lying in bed comfortably, in no apparent distress. PAST MEDICAL HISTORY: As above. PAST SURGICAL HISTORY: As above. MEDICATIONS: Reviewed. REVIEW OF SYSTEMS: All other systems have been reviewed and negative apart from HPI. PHYSICAL EXAMINATION VITAL SIGNS: Here in the hospital, grossly unremarkable. GENERAL: A pleasant elderly female, lying in bed comfortably, in no apparent distress. HEENT: Head: Normocephalic and atraumatic. Eyes: Pupils are equally reactive to light bilaterally. No conjunctival pallor or icterus. NECK: Supple. Normal range of motion. No lymphadenopathy appreciated. LUNGS: Coarse breath sounds bilaterally. HEART: S1 and S2, regular rate and rhythm. No murmurs appreciated. ABDOMEN: Soft and nontender. Bowel sounds present. No rebound. No guarding. RECTAL: Deferred. EXTREMITIES: Pulses present bilaterally. SKIN: Warm, dry and intact. NEUROLOGIC: Alert and oriented x3. LABORATORY DATA: All labs and radiology have been reviewed. WBC 4.1, hemoglobin 11.5. LFTs are normal. Lactic acid is 3.2. CEA is 82, CA 19-9 is 98 and CA 125 is 103. ASSESSMENT AND PLAN: This is an 87-year-old male with weight loss and multiple tumor markers that are elevated. Plan for CT of chest, abdomen and pelvis. Thank you for the consult. Jeff Bernardo MD/ PhD
[2018-07-04] MEDS: Levalbuterol 0.63 MG/3 ML Inhal Soln UD IH SCH ×3 (00:37→15:44)
[2018-07-04] MEDS: MethylPREDNISolone 40 mg Vial IVP SCH ×3 (01:30→17:38)
[2018-07-04] MEDS: Sodium Chloride 0.45% 1,000 ML IV SCH ×2 (07:25→17:39)
--- NOTE | 2018-07-05 00:19 | CP.PCM.HP ---
History of Present Illness - History of Present Illness History of Present Illness: CC: Weakness and Weight Loss History of Present Illness: An 87yoM presented with Generalized weakness with loss of manager media, and significant weight loss due to poor appetite. Also decreased appetite and losing weight. Also C/o cough 4 months. Denies Night sweats, incarceration or recent travel outside the [facility]. Two weeks of decreased due to loss of Appetite Dyspnea. No fever headaches, chest pain, dizziness, back pain, numbness, tingles. Present on Admission - Present on Admission Any Indicators Present on Admission: No Review of Systems - Review of Systems All systems: reviewed and no additional remarkable complaints except Review of Systems: As per HPI Past Patient History - Infectious Disease Hx of Infectious Diseases: None - Past Medical History & Family History Past Medical History?: Yes Past Family History: Reviewed and not pertinent - Past Social History Smoking Status: Former Smoker Alcohol: None Drugs: Denies - CARDIAC Hx Cardiac Disorders: No - PULMONARY Hx Chronic Obstructive Pulmonary Disease (COPD): Yes (no prior diagnosis) Hx Pneumonia: Yes - NEUROLOGICAL Hx Neurological Disorder: No - HEENT Hx HEENT Problems: No - RENAL Hx Chronic Kidney Disease: No - ENDOCRINE/METABOLIC Hx Endocrine Disorders: No - HEMATOLOGICAL/ONCOLOGICAL Hx Anemia: Yes Hx Human Immunodeficiency Virus (HIV): No - INTEGUMENTARY Hx Dermatological Problems: Yes Other/Comment: shingles a month ago - MUSCULOSKELETAL/RHEUMATOLOGICAL Hx Musculoskeletal Disorders: No Hx Falls: No - GASTROINTESTINAL Hx Gastrointestinal Disorders: No Other/Comment: never had surgery - GENITOURINARY/GYNECOLOGICAL Hx Genitourinary Disorders: No - PSYCHIATRIC Hx Psychophysiologic Disorder: No Hx Substance Use: No - SURGICAL HISTORY Hx Surgeries: No - ANESTHESIA Hx Anesthesia: No Meds Allergies/Adverse Reactions: Allergies Allergy/AdvReac Type Severity Reaction Status Date / Time No Known Allergies Allergy Verified 06/23/18 11:24 Physical Exam - Constitutional Appears: Non-toxic, No Acute Distress, Cachectic - Head Exam Head Exam: ATRAUMATIC, NORMAL INSPECTION, NORMOCEPHALIC - Eye Exam Eye Exam: EOMI, Normal appearance, PERRL Pupil Exam: NORMAL ACCOMODATION, PERRL - ENT Exam ENT Exam: Mucous Membranes Moist, Normal Exam - Neck Exam Neck exam: Positive for: Normal Inspection - Respiratory Exam Respiratory Exam: Clear to Auscultation Bilateral, NORMAL BREATHING PATTERN - Cardiovascular Exam Cardiovascular Exam: REGULAR RHYTHM, +S1, +S2 - GI/Abdominal Exam GI & Abdominal Exam: Normal Bowel Sounds, Soft. absent: Tenderness - Extremities Exam Extremities exam: Positive for: full ROM, normal capillary refill, normal inspection - Back Exam Back exam: NORMAL INSPECTION - Neurological Exam Neurological exam: Alert, CN II-XII Intact, Normal Gait, Oriented x3, Reflexes Normal - Psychiatric Exam Psychiatric exam: Normal Affect, Normal Mood - Skin Skin Exam: Dry, Intact, Normal Color, Warm Results - Vital Signs Recent Vital Signs: Last Vital Signs Temp 98.2 F 07/05/18 00:14 Pulse 77 07/05/18 00:14 Resp 16 07/05/18 00:14 BP 136/74 07/05/18 00:14 Pulse Ox 100 07/05/18 00:14 - Labs Result Diagrams: 07/03/18 05:20 07/09/18 09:30 - Imaging and Cardiology Chest x-ray Status: Report reviewed by me Additional comment: Date of service: 07/01/2018 HISTORY: dyspnea COMPARISON: Chest radiograph dated 06/01/2018. FINDINGS: LUNGS: Stable chronic prominence of the bilateral interstitial markings. Hyperinflated lungs. No focal consolidation. PLEURA: Biapical pleural-parenchymal scarring, right worse than left. No significant pleural effusion identified, no pneumothorax apparent. CARDIOVASCULAR: Aortic atherosclerotic calcification present. Normal cardiac size. No pulmonary vascular congestion. OSSEOUS STRUCTURES: Unchanged. VISUALIZED UPPER ABDOMEN: Normal. OTHER FINDINGS: None. IMPRESSION: No active disease. CT scan - head Status: Report reviewed by me Additional comment: Date of service: 07/01/2018 PROCEDURE: CT HEAD WITHOUT CONTRAST. HISTORY: Headache COMPARISON: Comparison made with prior CT scan brain 03/16/2018.. TECHNIQUE: Axial computed tomography images were obtained through the head/brain without intravenous contrast. Comparison made with Radiation dose: Total exam DLP = 745.05 mGy-cm. This CT exam was performed using one or more of the following dose reduction aparna hniques: Automated exposure control, adjustment of the mA and/or kV according to patient size, and/or use of iterative reconstruction technique. FINDINGS: HEMORRHAGE: No intracranial hemorrhage. BRAIN: Moderate to fairly significant diffuse and confluent chronic periventricular white matter ischemic changes seen extending peripherally into the deep and subcortical regions both cerebral hemispheres. There are multiple small the lacunar type infarcts seen scattered about both basal nuclei. Note that the possibility of a small hyperacute infarct cannot be excluded based on this study. No obvious parenchymal nor extra-axial masses or collections Mild generalized volume loss. Vascular calcifications both carotid siphons and vertebral arteries. VENTRICLES: No obstructive hydrocephalus. CALVARIUM: Unremarkable. PARANASAL SINUSES: Minor aerosolized mucosal thickening seen within the sphenoid sinus. There is sclerosis and thickening of the posterolateral henley both maxillary antra.. MASTOID AIR CELLS: Unremarkable as visualized. No inflammatory changes. OTHER FINDINGS: None. IMPRESSION: No acute intracranial hemorrhage. 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 Moderate generalized volume loss. Assessment & Plan (1) Pulmonary cachexia due to chronic obstructive pulmonary disease Assessment and Plan: R/O Malignancy CT Chest/abdomen/Pelvis with Contrast. Encourage PO intake Dietary Consult Monitor weight. Status: Acute (2) Generalized weakness Status: Acute (3) COPD exacerbation Status: Acute Priority: Medium
--- NOTE | 2018-07-05 00:21 | CP.PCM.PN ---
Subjective - Date & Time of Evaluation Date of Evaluation: 07/02/18 Time of Evaluation: 07:20 Objective - Vital Signs/Intake and Output Vital Signs (last 24 hours): Temp Pulse Resp BP Pulse Ox 98.2 F 77 16 136/74 100 07/05/18 00:14 07/05/18 00:14 07/05/18 00:14 07/05/18 00:14 07/05/18 00:14 Intake and Output: 07/04/18 07/05/18 18:59 06:59 Intake Total 1750 Balance 1750 - Medications Medications: Current Medications Heparin Sodium (Porcine) (Heparin) 5,000 units SC Q8 HEIDY; Protocol Last Admin: 07/04/18 17:38 Dose: 5,000 units Vancomycin HCl 1 gm/ Sodium (Chloride) 250 mls @ 166.667 mls/hr IVPB DAILY HEIDY; Protocol Sodium Chloride (Sodium Chloride 0.45%) 1,000 mls @ 60 mls/hr IV .[id number] HEIDY Stop: 07/05/18 17:10 Last Admin: 07/04/18 17:39 Dose: 60 mls/hr Levalbuterol HCl (Xopenex) 0.63 mg IH RQ8 HEIDY Last Admin: 07/04/18 15:44 Dose: 0.63 mg Lidocaine (Lidoderm) 1 ea TD DAILY PRN PRN Reason: Pain, Mild (1-3) Methylprednisolone (Solu-Medrol) 40 mg IVP Q8 HEIDY Last Admin: 07/04/18 17:38 Dose: 40 mg - Labs Labs: 07/03/18 05:20 07/03/18 05:20 PT 12.0 Seconds (9.8-13.1) 07/01/18 11:30 INR 1.1 07/01/18 11:30 APTT 27.5 Seconds (25.6-37.1) 07/01/18 11:30
--- NOTE | 2018-07-05 00:22 | CP.PCM.PN ---
Subjective - Date & Time of Evaluation Date of Evaluation: 07/03/18 Time of Evaluation: 07:45 Objective - Vital Signs/Intake and Output Vital Signs (last 24 hours): Temp Pulse Resp BP Pulse Ox 98.2 F 77 16 136/74 100 07/05/18 00:14 07/05/18 00:14 07/05/18 00:14 07/05/18 00:14 07/05/18 00:14 Intake and Output: 07/04/18 07/05/18 18:59 06:59 Intake Total 1750 Balance 1750 - Medications Medications: Current Medications Heparin Sodium (Porcine) (Heparin) 5,000 units SC Q8 HEIDY; Protocol Last Admin: 07/04/18 17:38 Dose: 5,000 units Vancomycin HCl 1 gm/ Sodium (Chloride) 250 mls @ 166.667 mls/hr IVPB DAILY HEIDY; Protocol Sodium Chloride (Sodium Chloride 0.45%) 1,000 mls @ 60 mls/hr IV .[id number] HEIDY Stop: 07/05/18 17:10 Last Admin: 07/04/18 17:39 Dose: 60 mls/hr Levalbuterol HCl (Xopenex) 0.63 mg IH RQ8 HEIDY Last Admin: 07/04/18 15:44 Dose: 0.63 mg Lidocaine (Lidoderm) 1 ea TD DAILY PRN PRN Reason: Pain, Mild (1-3) Methylprednisolone (Solu-Medrol) 40 mg IVP Q8 HEIDY Last Admin: 07/04/18 17:38 Dose: 40 mg - Labs Labs: 07/03/18 05:20 07/03/18 05:20 PT 12.0 Seconds (9.8-13.1) 07/01/18 11:30 INR 1.1 07/01/18 11:30 APTT 27.5 Seconds (25.6-37.1) 07/01/18 11:30
--- NOTE | 2018-07-05 00:23 | CP.PCM.PN ---
Subjective - Date & Time of Evaluation Date of Evaluation: 07/04/18 Time of Evaluation: 08:15 Objective - Vital Signs/Intake and Output Vital Signs (last 24 hours): Temp Pulse Resp BP Pulse Ox 98.2 F 77 16 136/74 100 07/05/18 00:14 07/05/18 00:14 07/05/18 00:14 07/05/18 00:14 07/05/18 00:14 Intake and Output: 07/04/18 07/05/18 18:59 06:59 Intake Total 1750 Balance 1750 - Medications Medications: Current Medications Heparin Sodium (Porcine) (Heparin) 5,000 units SC Q8 HEIDY; Protocol Last Admin: 07/04/18 17:38 Dose: 5,000 units Vancomycin HCl 1 gm/ Sodium (Chloride) 250 mls @ 166.667 mls/hr IVPB DAILY HEIDY; Protocol Sodium Chloride (Sodium Chloride 0.45%) 1,000 mls @ 60 mls/hr IV .[id number] HEIDY Stop: 07/05/18 17:10 Last Admin: 07/04/18 17:39 Dose: 60 mls/hr Levalbuterol HCl (Xopenex) 0.63 mg IH RQ8 HEIDY Last Admin: 07/04/18 15:44 Dose: 0.63 mg Lidocaine (Lidoderm) 1 ea TD DAILY PRN PRN Reason: Pain, Mild (1-3) Methylprednisolone (Solu-Medrol) 40 mg IVP Q8 HEIDY Last Admin: 07/04/18 17:38 Dose: 40 mg - Labs Labs: 07/03/18 05:20 07/03/18 05:20 PT 12.0 Seconds (9.8-13.1) 07/01/18 11:30 INR 1.1 07/01/18 11:30 APTT 27.5 Seconds (25.6-37.1) 07/01/18 11:30
[2018-07-05] MEDS: MethylPREDNISolone 40 mg Vial IVP SCH ×3 (00:39→16:19)
[2018-07-05] MEDS: Levalbuterol 0.63 MG/3 ML Inhal Soln UD IH SCH ×3 (00:53→15:51)
[2018-07-05] MEDS: Sodium Chloride 0.45% 1,000 ML IV SCH (16:20)
[2018-07-06] MEDS: MethylPREDNISolone 40 mg Vial IVP SCH ×3 (00:13→16:46)
[2018-07-06] MEDS: Levalbuterol 0.63 MG/3 ML Inhal Soln UD IH SCH ×3 (00:59→15:08)
[2018-07-07] MEDS: Levalbuterol 0.63 MG/3 ML Inhal Soln UD IH SCH ×3 (00:12→15:13)
[2018-07-07] MEDS: MethylPREDNISolone 40 mg Vial IVP SCH (01:05)
--- NOTE | 2018-07-07 01:54 | CP.PCM.PN ---
Subjective - Date & Time of Evaluation Date of Evaluation: 07/05/18 Time of Evaluation: 07:00 Objective - Vital Signs/Intake and Output Vital Signs (last 24 hours): Temp Pulse Resp BP Pulse Ox 98.6 F 117 H 16 155/78 H 95 07/07/18 00:13 07/07/18 00:13 07/07/18 00:13 07/07/18 00:13 07/07/18 00:13 Intake and Output: 07/06/18 07/07/18 18:59 06:59 Intake Total 850 Output Total 750 Balance 100 - Medications Medications: Current Medications Vancomycin HCl 1 gm/ Sodium (Chloride) 250 mls @ 166.667 mls/hr IVPB DAILY HEIDY; Protocol Last Admin: 07/06/18 08:49 Dose: 166.667 mls/hr Levalbuterol HCl (Xopenex) 0.63 mg IH RQ8 HEIDY Last Admin: 07/07/18 00:12 Dose: 0.63 mg Lidocaine (Lidoderm) 1 ea TD DAILY PRN PRN Reason: Pain, Mild (1-3) - Labs Labs: 07/03/18 05:20 07/03/18 05:20 PT 12.0 Seconds (9.8-13.1) 07/01/18 11:30 INR 1.1 07/01/18 11:30 APTT 27.5 Seconds (25.6-37.1) 07/01/18 11:30
--- NOTE | 2018-07-07 19:08 | CP.PCM.PN ---
Subjective - Date & Time of Evaluation Date of Evaluation: 07/06/18 Time of Evaluation: 17:10 Objective - Vital Signs/Intake and Output Vital Signs (last 24 hours): Temp Pulse Resp BP Pulse Ox 97.6 F 105 H 18 131/74 95 07/07/18 19:04 07/07/18 19:04 07/07/18 19:04 07/07/18 19:04 07/07/18 19:04 - Medications Medications: Current Medications Vancomycin HCl 1 gm/ Sodium (Chloride) 250 mls @ 166.667 mls/hr IVPB DAILY HEIDY; Protocol Last Admin: 07/07/18 09:28 Dose: 166.667 mls/hr Levalbuterol HCl (Xopenex) 0.63 mg IH RQ8 HEIDY Last Admin: 07/07/18 15:13 Dose: 0.63 mg Lidocaine (Lidoderm) 1 ea TD DAILY PRN PRN Reason: Pain, Mild (1-3) - Labs Labs: 07/03/18 05:20 07/03/18 05:20 PT 12.0 Seconds (9.8-13.1) 07/01/18 11:30 INR 1.1 07/01/18 11:30 APTT 27.5 Seconds (25.6-37.1) 07/01/18 11:30
--- NOTE | 2018-07-07 19:09 | CP.PCM.PN ---
Subjective - Date & Time of Evaluation Date of Evaluation: 07/07/18 Time of Evaluation: 16:00 - Subjective Subjective: Seen and examined at the bed side. Decreased Appetite. For CT guided biopsy of Lung mass tomorrow. Objective - Vital Signs/Intake and Output Vital Signs (last 24 hours): Temp Pulse Resp BP Pulse Ox 97.6 F 105 H 18 131/74 95 07/07/18 19:04 07/07/18 19:04 07/07/18 19:04 07/07/18 19:04 07/07/18 19:04 - Medications Medications: Current Medications Vancomycin HCl 1 gm/ Sodium (Chloride) 250 mls @ 166.667 mls/hr IVPB DAILY HEIDY; Protocol Last Admin: 07/07/18 09:28 Dose: 166.667 mls/hr Levalbuterol HCl (Xopenex) 0.63 mg IH RQ8 HEIDY Last Admin: 07/07/18 15:13 Dose: 0.63 mg Lidocaine (Lidoderm) 1 ea TD DAILY PRN PRN Reason: Pain, Mild (1-3) - Labs Labs: 07/03/18 05:20 07/03/18 05:20 PT 12.0 Seconds (9.8-13.1) 07/01/18 11:30 INR 1.1 07/01/18 11:30 APTT 27.5 Seconds (25.6-37.1) 07/01/18 11:30 Assessment and Plan (1) COPD exacerbation Status: Acute (2) Generalized weakness Status: Acute (3) Pulmonary cachexia due to chronic obstructive pulmonary disease Status: Acute (4) Malignancy Status: Acute (5) Bone metastases Status: Acute - Assessment and Plan (Free Text) Plan: NPO Past midnight Continue Current Care
[2018-07-08] MEDS: Levalbuterol 0.63 MG/3 ML Inhal Soln UD IH SCH ×4 (00:05→23:12)
[2018-07-09] MEDS: Levalbuterol 0.63 MG/3 ML Inhal Soln UD IH SCH ×2 (07:30→15:32)
[2018-07-09 09:45] LABS: ALB/GLOB RATIO 0.9 (1.0-2.1); ALBUMIN 3.4 g/dL (3.5-5.0); ALT/SGPT 125 U/L (21-72); AST/SGOT 118 U/L (17-59); BLOOD UREA NITROGEN 37 mg/dl (9-20); CALCIUM 10.4 mg/dL (8.4-10.2); GFR NON-AFRICAN AMERICAN > 60
--- NOTE | 2018-07-09 11:45 | CP.PCM.PN ---
Subjective - Date & Time of Evaluation Date of Evaluation: 07/08/18 Time of Evaluation: 14:10 - Subjective Subjective: Seen and examined at the bed side. No new complaint. Patient rescheduled for U/S Guided Liver Mass biopsy for tomorrow. Will NPO past midnight. Objective - Vital Signs/Intake and Output Vital Signs (last 24 hours): Temp Pulse Resp BP Pulse Ox 97.6 F 97 H 18 125/74 93 L 07/09/18 08:16 07/09/18 09:00 07/09/18 08:16 07/09/18 08:16 07/09/18 08:16 - Medications Medications: Current Medications Vancomycin HCl 1 gm/ Sodium (Chloride) 250 mls @ 166.667 mls/hr IVPB DAILY HEIDY; Protocol Last Admin: 07/09/18 09:14 Dose: 166.667 mls/hr Levalbuterol HCl (Xopenex) 0.63 mg IH RQ8 HEIDY Last Admin: 07/09/18 07:30 Dose: 0.63 mg Lidocaine (Lidoderm) 1 ea TD DAILY PRN PRN Reason: Pain, Mild (1-3) - Labs Labs: 07/03/18 05:20 07/09/18 09:30 PT 12.0 Seconds (9.8-13.1) 07/01/18 11:30 INR 1.1 07/01/18 11:30 APTT 27.5 Seconds (25.6-37.1) 07/01/18 11:30 - Constitutional Appears: Well, No Acute Distress, Cachectic - Head Exam Head Exam: ATRAUMATIC, NORMAL INSPECTION, NORMOCEPHALIC - Eye Exam Eye Exam: EOMI, Normal appearance, PERRL Pupil Exam: NORMAL ACCOMODATION, PERRL - ENT Exam ENT Exam: Mucous Membranes Moist, Normal Exam - Neck Exam Neck Exam: Full ROM, Normal Inspection. absent: Lymphadenopathy - Respiratory Exam Respiratory Exam: Clear to Ausculation Bilateral, NORMAL BREATHING PATTERN - Cardiovascular Exam Cardiovascular Exam: REGULAR RHYTHM, +S1, +S2. absent: Murmur - GI/Abdominal Exam GI & Abdominal Exam: Soft, Normal Bowel Sounds. absent: Tenderness - Extremities Exam Extremities Exam: Full ROM, Normal Capillary Refill, Normal Inspection. 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
[2018-07-09] MEDS ORDERED: Midazolam 2 MG/2 ML VIAL ONE (12:19)
[2018-07-09] MEDS ORDERED: Lidocaine 1% Inj (20ml) ONE (12:31)
[2018-07-09] MEDS ORDERED: Absorbable Gelatin Sponge Size 12-7 ONE (12:31)
--- NOTE | 2018-07-09 12:38 | PCM.SURG1 ---
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
--- NOTE | 2018-07-09 14:28 | CT ---
PROCEDURE: Date of procedure: Procedure: Ultrasound-guided percutaneous core biopsy of liver mass, CPT 78233 Ultrasound guidance for biopsy, CPT 47315 Medications: The patient was sedated by the anesthesiologist with IV sedation and monitoring. HISTORY: Liver Masses TECHNIQUE: Following informed consent and procedure time-out, the patient was placed supine on bed and limited ultrasound showed multiple liver masses within the right hepatic lobe. After the patient abdomen was prepped and draped in the usual sterile fashion and the skin anesthetized with lidocaine, an 18 gauge core needle was advanced percutaneously under direct ultrasound guidance into a large mass. Upon confirmation of needle position, three core specimens were obtained and sent for routine pathology. The biopsy track was then embolized with Gelfoam. A post biopsy ultrasound performed showed no hematoma. A dressing was applied. IMPRESSION: Ultrasound-guided core biopsy of liver mass.
[2018-07-10] MEDS: Levalbuterol 0.63 MG/3 ML Inhal Soln UD IH SCH ×3 (00:55→15:29)
[2018-07-10 06:17] LABS: HEMOGLOBIN 12.8 g/dL (12.0-18.0); MEAN CELL VOLUME 92.3 fl (80.0-94.0); MEAN CORPUSCULAR HEMOGLOBIN 28.5 pg (27.0-31.0); MEAN CORPUSCULAR HGB CONC 30.8 g/dL (33.0-37.0); RBC 4.48 Mil/uL (4.40-5.90); RED CELL DISTRIBUTION WIDTH 18.1 % (11.5-14.5); WHITE BLOOD COUNT 10.6 K/uL (4.8-10.8)
[2018-07-10 12:06] VITALS: TEMP 97.3; O2SAT 99
[2018-07-10 15:52] VITALS: BP 90/58; PULSE 105; RESP 18
--- NOTE | 2018-07-11 23:29 | CP.PCM.DIS ---
Provider - Provider Date of Admission: 07/02/18 11:30 Attending physician: Jelly Sanchez MD Consults: 07/01/18 17:50 Nursing Referral for Wound Care Routine Comment: Physician Instructions: Reason For Exam: low chris scale 07/02/18 17:32 Gastroenterology Consult Routine Comment: Consulting Provider: Jeff Bernardo Consulting Physician: Jeff Bernardo Reason for Consult: increased tumor markers,weight loss Time Spent in preparation of Discharge (in minutes): 25 Diagnosis - Discharge Diagnosis (1) COPD exacerbation Status: Acute Priority: Medium (2) Generalized weakness Status: Acute (3) Pulmonary cachexia due to chronic obstructive pulmonary disease Status: Acute (4) Malignancy Status: Acute Comment: Pending Liver Biopsy (5) Bone metastases Status: Acute Hospital Course - Lab Results Lab Results: Micro Results 07/01/18 11:12 Blood Blood Culture - Final NO GROWTH AFTER 5 DAYS 07/01/18 11:12 Blood Gram Stain - Final TEST NOT PERFORMED 07/01/18 11:02 Blood Blood Culture - Final NO GROWTH AFTER 5 DAYS 07/01/18 11:02 Blood Gram Stain - Final TEST NOT PERFORMED 07/01/18 15:00 Urine Urine Culture - Final Methicillin Resistant S Aureus Most Recent Lab Values WBC 10.6 K/uL (4.8-10.8) 07/10/18 05:10 RBC 4.48 Mil/uL (4.40-5.90) 07/10/18 05:10 Hgb 12.8 g/dL (12.0-18.0) 07/10/18 05:10 Hct 41.4 % (35.0-51.0) 07/10/18 05:10 MCV 92.3 fl (80.0-94.0) D 07/10/18 05:10 MCH 28.5 pg (27.0-31.0) 07/10/18 05:10 MCHC 30.8 g/dL (33.0-37.0) L 07/10/18 05:10 RDW 18.1 % (11.5-14.5) H 07/10/18 05:10 Plt Count 173 K/uL (130-400) 07/10/18 05:10 MPV 9.0 fl (7.2-11.7) 07/01/18 11:02 Neut % (Auto) 71.2 % (50.0-75.0) 07/01/18 11:02 Lymph % (Auto) 18.8 % (20.0-40.0) L 07/01/18 11:02 [place] % (Auto) 8.1 % (0.0-10.0) 07/01/18 11:02 Eos % (Auto) 1.2 % (0.0-4.0) 07/01/18 11:02 Baso % (Auto) 0.7 % (0.0-2.0) 07/01/18 11:02 Neut # (Auto) 6.8 K/uL (1.8-7.0) 07/01/18 11:02 Lymph # (Auto) 1.8 K/uL (1.0-4.3) 07/01/18 11:02 [place] # (Auto) 0.8 K/uL (0.0-0.8) 07/01/18 11:02 Eos # (Auto) 0.1 K/uL (0.0-0.7) 07/01/18 11:02 Baso # (Auto) 0.1 K/uL (0.0-0.2) 07/01/18 11:02 PT 12.0 Seconds (9.8-13.1) 07/01/18 11:30 INR 1.1 07/01/18 11:30 APTT 27.5 Seconds (25.6-37.1) 07/01/18 11:30 pCO2 51 mm/Hg (35-45) H 07/01/18 15:05 pO2 145 mm/Hg (80-100) H 07/01/18 15:05 HCO3 25.7 mmol/L (21-28) 07/01/18 15:05 ABG pH 7.34 (7.35-7.45) L 07/01/18 15:05 ABG Total CO2 29.1 mmol/L (22-28) H 07/01/18 15:05 ABG O2 Saturation 99.4 % (95-98) H 07/01/18 15:05 ABG Base Excess 0.9 mmol/L (-2.0-3.0) 07/01/18 15:05 Az Test Yes 07/01/18 15:05 ABG Potassium 3.9 mmol/L (3.6-5.2) 07/01/18 15:05 VBG pH 7.27 (7.32-7.43) L 07/01/18 14:35 VBG pCO2 70 mmHg (40-60) H* 07/01/18 14:35 VBG HCO3 25.3 mmol/L 07/01/18 14:35 VBG Total CO2 34.2 mmol/L (22-28) H 07/01/18 14:35 VBG O2 Sat (Calc) 17.6 % (40-65) L 07/01/18 14:35 VBG Base Excess 3.1 mmol/L (0.0-2.0) H 07/01/18 14:35 VBG Potassium 4.3 mmol/L (3.6-5.2) 07/01/18 14:35 A-a O2 Difference 219.0 mm/Hg 07/01/18 15:05 Sodium 137.0 mmol/L (132-148) 07/01/18 15:05 Chloride 108.0 mmol/L (98-107) H 07/01/18 15:05 Glucose 127 mg/dL (75-110) H 07/01/18 15:05 Lactate 4.2 mmol/L (0.7-2.1) H* 07/01/18 15:05 FiO2 60.0 % 07/01/18 15:05 Crit Value Called To Rosalia rice 07/01/18 15:05 Crit Value Called By 23 07/01/18 15:05 Crit Value Read Back Y 07/01/18 15:05 Blood Gas Notified Time 1513 07/01/18 15:05 Sodium 136 mmol/l (132-148) 07/09/18 09:30 Potassium 4.4 MMOL/L (3.6-5.0) 07/09/18 09:30 Chloride 92 mmol/L (98-107) L 07/09/18 09:30 Carbon Dioxide 39 mmol/L (22-30) H 07/09/18 09:30 Anion Gap 9 (10-20) L 07/09/18 09:30 BUN 37 mg/dl (9-20) H 07/09/18 09:30 Creatinine 0.7 mg/dl (0.8-1.5) L 07/09/18 09:30 Est GFR ( Amer) > 60 07/09/18 09:30 Est GFR (Non-Af Amer) > 60 07/09/18 09:30 POC Glucose (mg/dL) 121 mg/dL (65-110) H 07/01/18 11:16 Random Glucose 90 mg/dL (75-110) 07/09/18 09:30 Lactic Acid 3.2 MMOL/L (0.7-2.1) H 07/02/18 12:12 Calcium 10.4 mg/dL (8.4-10.2) H 07/09/18 09:30 Phosphorus 3.8 mg/dl (2.5-4.5) 07/01/18 11:02 Magnesium 1.8 MG/DL (1.6-2.3) 07/01/18 11:02 Total Bilirubin 0.8 mg/dl (0.2-1.3) 07/09/18 09:30 AST 118 U/L (17-59) H 07/09/18 09:30 ALT 125 U/L (21-72) H D 07/09/18 09:30 Alkaline Phosphatase 240 U/L (38-126) H D 07/09/18 09:30 Troponin I 0.0170 ng/mL (0.00-0.120) 07/01/18 11:02 NT-Pro-B Natriuret Pep 792 pg/ml (0-900) 07/01/18 11:02 Total Protein 7.1 G/DL (6.3-8.2) 07/09/18 09:30 Albumin 3.4 g/dL (3.5-5.0) L 07/09/18 09:30 Globulin 3.6 gm/dL (2.2-3.9) 07/09/18 09:30 Albumin/Globulin Ratio 0.9 (1.0-2.1) L 07/09/18 09:30 Alpha Fetoprotein 2.6 IU/mL (0.0-7.22) 07/02/18 12:12 Carcinoembryonic Ag 82.3 ng/mL (0-3.0) H 07/02/18 12:12 CA 19-9 Antigen 898 U/mL (0-37) H D 07/02/18 12:12 CA 125 Antigen 103 U/mL (0-35) H D 07/02/18 12:12 TSH 3rd Generation 1.16 mIU/ML (0.46-4.68) 07/02/18 12:12 Arterial Blood Potassium 3.9 mmol/L (3.6-5.2) 07/01/18 15:05 Venous Blood Potassium 4.3 mmol/L (3.6-5.2) 07/01/18 14:35 Urine Color Yellow (YELLOW) 07/01/18 15:00 Urine Clarity Cloudy (Clear) 07/01/18 15:00 Urine pH 5.0 (5.0-8.0) 07/01/18 15:00 Ur Specific [place] 1.017 (1.003-1.030) 07/01/18 15:00 Urine Protein 30 mg/dL (NEGATIVE) 07/01/18 15:00 Urine Glucose (UA) Neg mg/dL (NEGATIVE) 07/01/18 15:00 Urine Ketones Negative mg/dL (NEGATIVE) 07/01/18 15:00 Urine Blood Small (NEGATIVE) 07/01/18 15:00 Urine Nitrate Positive (NEGATIVE) H 07/01/18 15:00 Urine Bilirubin Negative (NEGATIVE) 07/01/18 15:00 Urine Urobilinogen 0.2-1.0 mg/dL (0.2-1.0) 07/01/18 15:00 Ur Leukocyte Esterase Large Henrique/uL (Negative) 07/01/18 15:00 Urine RBC (Auto) 25 /hpf (0-3) H 07/01/18 15:00 Urine Microscopic WBC 332 /hpf (0-5) H 07/01/18 15:00 Urine Bacteria Occ (<OCC) H 07/01/18 15:00 Hyaline Casts 0-2 /hpf (0-2) 07/01/18 15:00 Influenza Typ A,B (EIA) Negative for flu a/b (NEGATIVE) 07/01/18 11:02 Discharge Exam - Head Exam Head Exam: ATRAUMATIC, NORMAL INSPECTION, NORMOCEPHALIC Discharge Plan - Follow Up Plan Condition: GUARDED Disposition: REHAB FACILITY/REHAB UNIT Instructions: Weakness (ED)
--- NOTE | 2018-07-13 23:56 | CP.PCM.PN ---
Subjective - Date & Time of Evaluation Date of Evaluation: 07/09/18 Time of Evaluation: 20:00 - Subjective Subjective: Seen and examined at the bed side. S/P U/S Guided Liver Mass biopsy. C/o Pain at the biopsy site. Objective - Vital Signs/Intake and Output Vital Signs (last 24 hours): Temp Pulse Resp BP Pulse Ox 97.3 F L 105 H 18 90/58 L 99 07/10/18 15:51 07/10/18 15:51 07/10/18 15:51 07/10/18 15:51 07/10/18 15:51 - Labs Labs: 07/10/18 05:10 07/09/18 09:30 PT 12.0 Seconds (9.8-13.1) 07/01/18 11:30 INR 1.1 07/01/18 11:30 APTT 27.5 Seconds (25.6-37.1) 07/01/18 11:30 Assessment and Plan (1) COPD exacerbation Status: Acute (2) Generalized weakness Status: Acute (3) Pulmonary cachexia due to chronic obstructive pulmonary disease Status: Acute (4) Malignancy Status: Acute (5) Bone metastases Status: Acute (6) S/P biopsy Status: Acute - Assessment and Plan (Free Text) Plan: Continue Current Care Follow up Pathology Result Oncology Consult
== END 2018-07-10 19:55 | DRG 191 ==
LOC: SUPCPDRO 10:23 → H.ER 10:23 → H.ERHOLD 15:19 → H.TEL 16:55 → OBSVTOIN 07-02 11:30 → H.TEL 07-04 08:05
PROVIDERS: ADMIT Internal Medicine; ATTEND Internal Medicine
PROC: 3E02340 Introduction of Influenza Vaccine into Muscle, Percutaneous Approach (ICD-10-PCS; 2018-07-02)
PROC: 0FD13ZX Extraction of Right Lobe Liver, Percutaneous Approach, Diagnostic (ICD-10-PCS; principal; 2018-07-09 14:00)
DX: J44.1 Chronic obstructive pulmonary disease with (acute) exacerbation (principal); C79.51 Secondary malignant neoplasm of bone; R64 Cachexia; Z68.1 Body mass index [BMI] 19.9 or less, adult; N39.0 Urinary tract infection, site not specified; E86.0 Dehydration; B95.62 Methicillin resistant Staphylococcus aureus infection as the cause of diseases classified elsewhere; R16.0 Hepatomegaly, not elsewhere classified; R53.1 Weakness; D64.9 Anemia, unspecified; Z23 Encounter for immunization; Z87.01 Personal history of pneumonia (recurrent); Z87.891 Personal history of nicotine dependence

== ENCOUNTER 2018-07-10 13:50 | Inpatient (IN) | payer MEDICARE ==
[2018-07-10 18:58] VITALS: BMI 13.9
[2018-07-10] MEDS: Levalbuterol 0.63 MG/3 ML Inhal Soln UD IH SCH (23:33)
[2018-07-11] MEDS: Levalbuterol 0.63 MG/3 ML Inhal Soln UD IH SCH ×3 (08:48→23:50)
--- NOTE | 2018-07-11 23:30 | CP.PCM.HP ---
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 Also decreased appetite and losing weight. 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 Present on Admission - Present on Admission Any Indicators Present on Admission: No Review of Systems - Review of Systems All systems: reviewed and no additional remarkable complaints except Review of Systems: as per HPI Past Patient History - Infectious Disease Hx of Infectious Diseases: None - Past Medical History & Family History Past Medical History?: Yes Past Family History: Reviewed and not pertinent - Past Social History Smoking Status: Former Smoker Alcohol: None Drugs: Denies - CARDIAC Hx Cardiac Disorders: No - PULMONARY Hx Chronic Obstructive Pulmonary Disease (COPD): Yes (no prior diagnosis) - NEUROLOGICAL Hx Neurological Disorder: No - HEENT Hx HEENT Problems: No - RENAL Hx Chronic Kidney Disease: No - ENDOCRINE/METABOLIC Hx Endocrine Disorders: No - HEMATOLOGICAL/ONCOLOGICAL Hx AIDS: No Hx Anemia: Yes Hx Human Immunodeficiency Virus (HIV): No - INTEGUMENTARY Hx Dermatological Problems: Yes Other/Comment: shingles a month ago - MUSCULOSKELETAL/RHEUMATOLOGICAL Hx Musculoskeletal Disorders: No Hx Falls: No - GASTROINTESTINAL Hx Gastrointestinal Disorders: No Other/Comment: never had surgery - GENITOURINARY/GYNECOLOGICAL Hx Genitourinary Disorders: No - PSYCHIATRIC Hx Psychophysiologic Disorder: No Hx Substance Use: No - SURGICAL HISTORY Hx Surgeries: No - ANESTHESIA Hx Anesthesia: No Meds Allergies/Adverse Reactions: Allergies Allergy/AdvReac Type Severity Reaction Status Date / Time No Known Allergies Allergy Verified 07/24/18 10:04 Physical Exam - Constitutional Appears: No Acute Distress, Cachectic, Chronically Ill - Head Exam Head Exam: ATRAUMATIC, NORMAL INSPECTION, NORMOCEPHALIC - Eye Exam Eye Exam: EOMI, Normal appearance, PERRL Pupil Exam: NORMAL ACCOMODATION, PERRL - ENT Exam ENT Exam: Mucous Membranes Moist, Normal Exam - Neck Exam Neck exam: Positive for: Normal Inspection - Respiratory Exam Respiratory Exam: Clear to Auscultation Bilateral, NORMAL BREATHING PATTERN - Cardiovascular Exam Cardiovascular Exam: REGULAR RHYTHM, +S1, +S2 - GI/Abdominal Exam GI & Abdominal Exam: Normal Bowel Sounds, Soft. absent: Tenderness - Extremities Exam Extremities exam: Positive for: normal capillary refill, normal inspection - Back Exam Back exam: NORMAL INSPECTION - Neurological Exam Neurological exam: Alert, CN II-XII Intact, Normal Gait, Oriented x3, Reflexes Normal - Psychiatric Exam Psychiatric exam: Normal Affect, Normal Mood - Skin Skin Exam: Dry, Intact, Normal Color, Warm Results - Vital Signs Recent Vital Signs: Last Vital Signs Temp 97.7 F 07/11/18 20:37 Pulse 74 07/11/18 20:37 Resp 20 07/11/18 20:37 BP 116/67 07/11/18 20:37 Pulse Ox 94 L 07/11/18 20:37 Assessment & Plan (1) Bone metastases Status: Acute Priority: High (2) COPD exacerbation Status: Chronic Priority: High (3) Dehydration Status: Resolved Priority: High (4) Generalized weakness Status: Acute (5) Physical deconditioning Status: Acute (6) Malignancy Status: Acute (7) Pulmonary cachexia due to chronic obstructive pulmonary disease Status: Acute (8) S/P biopsy Status: Acute - Assessment and Plan (Free Text) Plan: Continue supportive care Pending liver biopsy results Physical therapy and Occupational therapy Encourage feeding, & patient will need a feeder CMP/BMP D/w the Daughter, and RN.
[2018-07-12] MEDS: Levalbuterol 0.63 MG/3 ML Inhal Soln UD IH SCH ×3 (07:27→23:45)
[2018-07-13] MEDS: Levalbuterol 0.63 MG/3 ML Inhal Soln UD IH SCH ×2 (08:08→16:16)
[2018-07-14] MEDS: Levalbuterol 0.63 MG/3 ML Inhal Soln UD IH SCH ×3 (00:40→16:11)
--- NOTE | 2018-07-14 01:34 | CP.PCM.PN ---
Subjective - Date & Time of Evaluation Date of Evaluation: 07/12/18 Objective - Vital Signs/Intake and Output Vital Signs (last 24 hours): Temp Pulse Resp BP Pulse Ox 97.7 F 78 20 133/65 94 L 07/13/18 23:57 07/13/18 23:57 07/13/18 23:57 07/13/18 23:57 07/13/18 23:57 - Medications Medications: Current Medications Levalbuterol HCl (Xopenex) 0.63 mg IH RQ8 [facility] Last Admin: 07/14/18 00:40 Dose: 0.63 mg Lidocaine (Lidoderm) 1 ea TD DAILY PRN PRN Reason: Pain, moderate (4-7)
--- NOTE | 2018-07-14 01:35 | CP.PCM.PN ---
Subjective - Date & Time of Evaluation Date of Evaluation: 07/13/18 Objective - Vital Signs/Intake and Output Vital Signs (last 24 hours): Temp Pulse Resp BP Pulse Ox 97.7 F 78 20 133/65 94 L 07/13/18 23:57 07/13/18 23:57 07/13/18 23:57 07/13/18 23:57 07/13/18 23:57 - Medications Medications: Current Medications Levalbuterol HCl (Xopenex) 0.63 mg IH RQ8 [facility] Last Admin: 07/14/18 00:40 Dose: 0.63 mg Lidocaine (Lidoderm) 1 ea TD DAILY PRN PRN Reason: Pain, moderate (4-7)
--- NOTE | 2018-07-14 11:36 | CP.PCM.PN ---
Subjective - Date & Time of Evaluation Date of Evaluation: 07/14/18 Time of Evaluation: 11:05 Objective - Vital Signs/Intake and Output Vital Signs (last 24 hours): Temp Pulse Resp BP Pulse Ox 97.4 F L 92 H 18 173/85 H 96 07/14/18 08:20 07/14/18 08:20 07/14/18 08:20 07/14/18 08:20 07/14/18 08:20 - Medications Medications: Current Medications Levalbuterol HCl (Xopenex) 0.63 mg IH RQ8 [facility] Last Admin: 07/14/18 08:05 Dose: 0.63 mg Lidocaine (Lidoderm) 1 ea TD DAILY PRN PRN Reason: Pain, moderate (4-7) Assessment and Plan (1) Bone metastases Status: Acute (2) COPD exacerbation Status: Acute (3) Dehydration Status: Acute (4) Generalized weakness Status: Acute (5) Malignancy Status: Acute (6) Pulmonary cachexia due to chronic obstructive pulmonary disease Status: Acute (7) S/P biopsy Status: Acute
[2018-07-14] MEDS ORDERED: Proshield Plus GEL TOP SCH (17:00)
[2018-07-14] MEDS: Proshield Plus GEL TOP SCH (17:02)
[2018-07-15] MEDS: Proshield Plus GEL TOP SCH ×3 (00:16→16:50)
[2018-07-15] MEDS: Levalbuterol 0.63 MG/3 ML Inhal Soln UD IH SCH ×4 (00:45→23:56)
[2018-07-15] MEDS: Bacitracin OINT 15GM TOP SCH (09:14)
[2018-07-16] MEDS: Levalbuterol 0.63 MG/3 ML Inhal Soln UD IH SCH ×2 (07:48→15:23)
[2018-07-16] MEDS: Proshield Plus GEL TOP SCH (09:33)
[2018-07-16] MEDS: Bacitracin OINT 15GM TOP SCH (09:33)
[2018-07-17] MEDS: Levalbuterol 0.63 MG/3 ML Inhal Soln UD IH SCH ×4 (00:14→23:34)
--- NOTE | 2018-07-17 01:03 | CP.PCM.PN ---
Subjective - Date & Time of Evaluation Date of Evaluation: 07/15/18 Objective - Vital Signs/Intake and Output Vital Signs (last 24 hours): Temp Pulse Resp BP Pulse Ox 97.6 F 80 20 134/61 93 L 07/16/18 19:41 07/16/18 19:41 07/16/18 19:41 07/16/18 19:41 07/16/18 19:41 - Medications Medications: Current Medications Bacitracin (Bacitracin Oint) 1 applic TOP DAILY [facility] Last Admin: 07/16/18 09:33 Dose: 1 applic Dimethicone (Proshield Plus Skin Protectant) 1 applic TOP Q8 [facility] Last Admin: 07/16/18 09:33 Dose: 1 applic Levalbuterol HCl (Xopenex) 0.63 mg IH RQ8 [facility] Last Admin: 07/17/18 00:14 Dose: 0.63 mg Lidocaine (Lidoderm) 1 ea TD DAILY PRN PRN Reason: Pain, moderate (4-7) Assessment and Plan (1) Bone metastases Status: Acute (2) COPD exacerbation Status: Acute (3) Dehydration Status: Acute (4) Generalized weakness Status: Acute (5) Malignancy Status: Acute (6) Pulmonary cachexia due to chronic obstructive pulmonary disease Status: Acute (7) S/P biopsy Status: Acute
--- NOTE | 2018-07-17 01:08 | CP.PCM.PN ---
Subjective - Date & Time of Evaluation Date of Evaluation: 07/16/18 Objective - Vital Signs/Intake and Output Vital Signs (last 24 hours): Temp Pulse Resp BP Pulse Ox 97.6 F 80 20 134/61 93 L 07/16/18 19:41 07/16/18 19:41 07/16/18 19:41 07/16/18 19:41 07/16/18 19:41 - Medications Medications: Current Medications Bacitracin (Bacitracin Oint) 1 applic TOP DAILY [facility] Last Admin: 07/16/18 09:33 Dose: 1 applic Dimethicone (Proshield Plus Skin Protectant) 1 applic TOP Q8 [facility] Last Admin: 07/16/18 09:33 Dose: 1 applic Levalbuterol HCl (Xopenex) 0.63 mg IH RQ8 [facility] Last Admin: 07/17/18 00:14 Dose: 0.63 mg Lidocaine (Lidoderm) 1 ea TD DAILY PRN PRN Reason: Pain, moderate (4-7) Assessment and Plan (1) Bone metastases Status: Acute (2) COPD exacerbation Status: Acute (3) Dehydration Status: Acute (4) Generalized weakness Status: Acute (5) Malignancy Status: Acute (6) Pulmonary cachexia due to chronic obstructive pulmonary disease Status: Acute (7) S/P biopsy Status: Acute
[2018-07-17] MEDS: Bacitracin OINT 15GM TOP SCH (09:10)
[2018-07-17] MEDS: Proshield Plus GEL TOP SCH (09:10)
--- NOTE | 2018-07-17 17:01 | CP.PCM.PN ---
Subjective - Date & Time of Evaluation Date of Evaluation: 07/17/18 Time of Evaluation: 16:35 Objective - Vital Signs/Intake and Output Vital Signs (last 24 hours): Temp Pulse Resp BP Pulse Ox 97.9 F 86 20 129/72 96 07/17/18 15:42 07/17/18 15:42 07/17/18 15:42 07/17/18 15:42 07/17/18 15:42 - Medications Medications: Current Medications Bacitracin (Bacitracin Oint) 1 applic TOP DAILY [facility] Last Admin: 07/17/18 09:10 Dose: 1 applic Dimethicone (Proshield Plus Skin Protectant) 1 applic TOP Q8 [facility] Last Admin: 07/17/18 09:10 Dose: 1 applic Levalbuterol HCl (Xopenex) 0.63 mg IH RQ8 [facility] Last Admin: 07/17/18 15:57 Dose: 0.63 mg Lidocaine (Lidoderm) 1 ea TD DAILY PRN PRN Reason: Pain, moderate (4-7) Assessment and Plan (1) Bone metastases Status: Acute (2) COPD exacerbation Status: Acute (3) Dehydration Status: Acute (4) Generalized weakness Status: Acute (5) Malignancy Status: Acute (6) Pulmonary cachexia due to chronic obstructive pulmonary disease Status: Acute (7) S/P biopsy Status: Acute
[2018-07-18] MEDS: Levalbuterol 0.63 MG/3 ML Inhal Soln UD IH SCH ×2 (07:12→16:34)
[2018-07-18] MEDS: Proshield Plus GEL TOP SCH ×2 (09:24→16:39)
[2018-07-18] MEDS: Bacitracin OINT 15GM TOP SCH (09:24)
[2018-07-19] MEDS: Levalbuterol 0.63 MG/3 ML Inhal Soln UD IH SCH ×3 (00:20→15:08)
[2018-07-19] MEDS: Proshield Plus GEL TOP SCH ×3 (00:20→16:06)
[2018-07-19] MEDS: Bacitracin OINT 15GM TOP SCH (08:32)
--- NOTE | 2018-07-19 21:12 | CP.PCM.PN ---
Subjective - Date & Time of Evaluation Date of Evaluation: 07/18/18 Time of Evaluation: 07:20 Objective - Vital Signs/Intake and Output Vital Signs (last 24 hours): Temp Pulse Resp BP Pulse Ox 97.5 F L 75 20 103/59 L 100 07/19/18 20:16 07/19/18 20:16 07/19/18 20:16 07/19/18 20:16 07/19/18 20:16 - Medications Medications: Current Medications Bacitracin (Bacitracin Oint) 1 applic TOP DAILY [facility] Last Admin: 07/19/18 08:32 Dose: 1 applic Dimethicone (Proshield Plus Skin Protectant) 1 applic TOP Q8 [facility] Last Admin: 07/19/18 16:06 Dose: 1 applic Levalbuterol HCl (Xopenex) 0.63 mg IH RQ8 [facility] Last Admin: 07/19/18 15:08 Dose: 0.63 mg Lidocaine (Lidoderm) 1 ea TD DAILY PRN PRN Reason: Pain, moderate (4-7) Assessment and Plan (1) Bone metastases Status: Acute (2) COPD exacerbation Status: Acute (3) Dehydration Status: Acute (4) Generalized weakness Status: Acute (5) Malignancy Status: Acute (6) Pulmonary cachexia due to chronic obstructive pulmonary disease Status: Acute (7) S/P biopsy Status: Acute
--- NOTE | 2018-07-19 21:14 | CP.PCM.PN ---
Subjective - Date & Time of Evaluation Date of Evaluation: 07/19/18 Time of Evaluation: 16:05 Objective - Vital Signs/Intake and Output Vital Signs (last 24 hours): Temp Pulse Resp BP Pulse Ox 97.5 F L 75 20 103/59 L 100 07/19/18 20:16 07/19/18 20:16 07/19/18 20:16 07/19/18 20:16 07/19/18 20:16 - Medications Medications: Current Medications Bacitracin (Bacitracin Oint) 1 applic TOP DAILY [facility] Last Admin: 07/19/18 08:32 Dose: 1 applic Dimethicone (Proshield Plus Skin Protectant) 1 applic TOP Q8 [facility] Last Admin: 07/19/18 16:06 Dose: 1 applic Levalbuterol HCl (Xopenex) 0.63 mg IH RQ8 [facility] Last Admin: 07/19/18 15:08 Dose: 0.63 mg Lidocaine (Lidoderm) 1 ea TD DAILY PRN PRN Reason: Pain, moderate (4-7) Assessment and Plan (1) Bone metastases Status: Acute (2) COPD exacerbation Status: Acute (3) Dehydration Status: Acute (4) Generalized weakness Status: Acute (5) Malignancy Status: Acute (6) Pulmonary cachexia due to chronic obstructive pulmonary disease Status: Acute (7) S/P biopsy Status: Acute
[2018-07-20] MEDS: Levalbuterol 0.63 MG/3 ML Inhal Soln UD IH SCH ×4 (00:44→23:50)
[2018-07-20] MEDS: Proshield Plus GEL TOP SCH ×4 (01:16→17:47)
[2018-07-20] MEDS: Bacitracin OINT 15GM TOP SCH (09:04)
[2018-07-21] MEDS: Proshield Plus GEL TOP SCH ×4 (00:22→16:36)
--- NOTE | 2018-07-21 02:13 | CP.PCM.PN ---
Subjective - Date & Time of Evaluation Date of Evaluation: 07/20/18 Time of Evaluation: 08:05 Objective - Vital Signs/Intake and Output Vital Signs (last 24 hours): Temp Pulse Resp BP Pulse Ox 97.7 F 68 20 132/62 97 07/20/18 19:41 07/20/18 19:41 07/20/18 19:41 07/20/18 19:41 07/20/18 19:41 - Medications Medications: Current Medications Bacitracin (Bacitracin Oint) 1 applic TOP DAILY [facility] Last Admin: 07/20/18 09:04 Dose: 1 applic Dimethicone (Proshield Plus Skin Protectant) 1 applic TOP Q8 [facility] Last Admin: 07/21/18 00:22 Dose: 1 applic Levalbuterol HCl (Xopenex) 0.63 mg IH RQ8 [facility] Last Admin: 07/20/18 23:50 Dose: 0.63 mg Lidocaine (Lidoderm) 1 ea TD DAILY PRN PRN Reason: Pain, moderate (4-7) Assessment and Plan (1) Bone metastases Status: Acute (2) COPD exacerbation Status: Acute (3) Dehydration Status: Acute (4) Generalized weakness Status: Acute (5) Malignancy Status: Acute (6) Pulmonary cachexia due to chronic obstructive pulmonary disease Status: Acute (7) S/P biopsy Status: Acute
[2018-07-21] MEDS: Bacitracin OINT 15GM TOP SCH (08:00)
[2018-07-21] MEDS: Levalbuterol 0.63 MG/3 ML Inhal Soln UD IH SCH ×3 (08:47→23:30)
[2018-07-21] MEDS ORDERED: Sodium Chloride 0.9% 100 ML ONE (12:58)
[2018-07-21] MEDS: Lactated Ringer's 500 ML IV SCH ×2 (16:35→21:14)
[2018-07-21] MEDS: Lidocaine 5% Patch TD PRN (18:52)
[2018-07-22] MEDS: Proshield Plus GEL TOP SCH ×3 (00:36→17:39)
[2018-07-22] MEDS: Lactated Ringer's 500 ML IV SCH ×3 (03:14→18:39)
[2018-07-22] MEDS: Levalbuterol 0.63 MG/3 ML Inhal Soln UD IH SCH ×2 (07:12→15:33)
[2018-07-22] MEDS: Bacitracin OINT 15GM TOP SCH (10:30)
--- NOTE | 2018-07-22 12:53 | CP.PCM.CON ---
History of Present Illness - History of Present Illness History of Present Illness: Psychiatry consult CC: Depression HPI: 87 yo male admitted to TCU w/ generalized weakness, weight loss, stage IV cancer and urine C/S w/ MRSA. Patient interviewed w/ daughter, Belinda Dos Santos, present, who confirmed that the patient has been depressed w/ poor appetite. Patient is unable to talk, but shook his head yes when asked if he is depressed and also stated yes when asked if he wants to . No active suicidal ideation at this time. Daughter is not concerned that patient is an acute danger to himself or others. +Continued poor appetite and poor sleep. Patient's daughter was in agreement that he would benefit from treatment w/ an antidepressant. PPHx: No past psychiatric history ALL: NKDA Impression: 87 yo male w/ depressive disorder vs adjustment disorder w/ depressed mood. -Consider hospice referral if patient's family is in agreement -Recommend to start Remeron 7.5 mg PO HS -No acute psychiatric admission or 1:1 indicated at this time Past Patient History - Infectious Disease Hx of Infectious Diseases: None - Past Medical History & Family History Past Medical History?: Yes Past Family History: Reviewed and not pertinent - Past Social History Smoking Status: Former Smoker Alcohol: None Drugs: Denies - CARDIAC Hx Cardiac Disorders: No - PULMONARY Hx Chronic Obstructive Pulmonary Disease (COPD): Yes (no prior diagnosis) - NEUROLOGICAL Hx Neurological Disorder: No - HEENT Hx HEENT Problems: No - RENAL Hx Chronic Kidney Disease: No - ENDOCRINE/METABOLIC Hx Endocrine Disorders: No - HEMATOLOGICAL/ONCOLOGICAL Hx AIDS: No Hx Anemia: Yes Hx Human Immunodeficiency Virus (HIV): No - INTEGUMENTARY Hx Dermatological Problems: Yes Other/Comment: shingles a month ago - MUSCULOSKELETAL/RHEUMATOLOGICAL Hx Musculoskeletal Disorders: No Hx Falls: No - GASTROINTESTINAL Hx Gastrointestinal Disorders: No Other/Comment: never had surgery - GENITOURINARY/GYNECOLOGICAL Hx Genitourinary Disorders: No - PSYCHIATRIC Hx Psychophysiologic Disorder: No Hx Substance Use: No - SURGICAL HISTORY Hx Surgeries: No - ANESTHESIA Hx Anesthesia: No Meds Allergies/Adverse Reactions: Allergies Allergy/AdvReac Type Severity Reaction Status Date / Time No Known Allergies Allergy Verified 07/21/18 10:00 - Medications Medications: Current Medications Acetaminophen (Tylenol 325mg Tab) 650 mg PO Q6 PRN PRN Reason: Pain, Mild (1-3) Last Admin: 07/21/18 19:40 Dose: 650 mg Bacitracin (Bacitracin Oint) 1 applic TOP DAILY [facility] Last Admin: 07/22/18 10:30 Dose: 1 applic Dimethicone (Proshield Plus Skin Protectant) 1 applic TOP Q8 [facility] Last Admin: 07/22/18 10:30 Dose: 1 applic Lactated Ringer's (Lactated Ringer's 500ml) 500 mls @ 75 mls/hr IV .Q6H40M [facility] Last Admin: 07/22/18 10:30 Dose: Not Given Levalbuterol HCl (Xopenex) 0.63 mg IH RQ8 [facility] Last Admin: 07/22/18 07:12 Dose: 0.63 mg Lidocaine (Lidoderm) 1 ea TD DAILY PRN PRN Reason: Pain, moderate (4-7) Last Admin: 07/21/18 18:52 Dose: 1 ea Results - Vital Signs Recent Vital Signs: Last Vital Signs Temp 97.1 F L 07/22/18 10:06 Pulse 98 H 07/22/18 10:06 Resp 20 07/22/18 10:06 BP 148/74 07/22/18 10:06 Pulse Ox 96 07/22/18 10:25
[2018-07-23] MEDS: Levalbuterol 0.63 MG/3 ML Inhal Soln UD IH SCH ×3 (00:07→16:07)
[2018-07-23] MEDS: Lactated Ringer's 500 ML IV SCH ×3 (00:56→17:39)
[2018-07-23] MEDS: Proshield Plus GEL TOP SCH ×3 (01:22→17:39)
--- NOTE | 2018-07-23 01:37 | CP.PCM.PN ---
Subjective - Date & Time of Evaluation Date of Evaluation: 07/21/18 Time of Evaluation: 17:45 Objective - Vital Signs/Intake and Output Vital Signs (last 24 hours): Temp Pulse Resp BP Pulse Ox 97.3 F L 97 H 20 131/82 94 L 07/22/18 20:10 07/22/18 20:10 07/22/18 20:10 07/22/18 20:10 07/22/18 20:10 - Medications Medications: Current Medications Acetaminophen (Tylenol 325mg Tab) 650 mg PO Q6 PRN PRN Reason: Pain, Mild (1-3) Last Admin: 07/21/18 19:40 Dose: 650 mg Alprazolam (Xanax) 0.25 mg PO BID PRN PRN Reason: Anxiety Stop: 07/29/18 16:42 Bacitracin (Bacitracin Oint) 1 applic TOP DAILY [facility] Last Admin: 07/22/18 10:30 Dose: 1 applic Dimethicone (Proshield Plus Skin Protectant) 1 applic TOP Q8 [facility] Last Admin: 07/23/18 01:22 Dose: Not Given Lactated Ringer's (Lactated Ringer's 500ml) 500 mls @ 75 mls/hr IV .Q6H40M [facility] Last Admin: 07/23/18 00:56 Dose: Not Given Levalbuterol HCl (Xopenex) 0.63 mg IH RQ8 [facility] Last Admin: 07/23/18 00:07 Dose: 0.63 mg Lidocaine (Lidoderm) 1 ea TD DAILY PRN PRN Reason: Pain, moderate (4-7) Last Admin: 07/21/18 18:52 Dose: 1 ea Mirtazapine (Remeron) 7.5 mg PO HS [facility] Last Admin: 07/22/18 22:20 Dose: 7.5 mg Assessment and Plan (1) Bone metastases Status: Acute (2) COPD exacerbation Status: Acute (3) Dehydration Status: Acute (4) Generalized weakness Status: Acute (5) Malignancy Status: Acute (6) Pulmonary cachexia due to chronic obstructive pulmonary disease Status: Acute (7) S/P biopsy Status: Acute
--- NOTE | 2018-07-23 01:38 | CP.PCM.PN ---
Subjective - Date & Time of Evaluation Date of Evaluation: 07/22/18 Time of Evaluation: 13:40 Objective - Vital Signs/Intake and Output Vital Signs (last 24 hours): Temp Pulse Resp BP Pulse Ox 97.3 F L 97 H 20 131/82 94 L 07/22/18 20:10 07/22/18 20:10 07/22/18 20:10 07/22/18 20:10 07/22/18 20:10 - Medications Medications: Current Medications Acetaminophen (Tylenol 325mg Tab) 650 mg PO Q6 PRN PRN Reason: Pain, Mild (1-3) Last Admin: 07/21/18 19:40 Dose: 650 mg Alprazolam (Xanax) 0.25 mg PO BID PRN PRN Reason: Anxiety Stop: 07/29/18 16:42 Bacitracin (Bacitracin Oint) 1 applic TOP DAILY [facility] Last Admin: 07/22/18 10:30 Dose: 1 applic Dimethicone (Proshield Plus Skin Protectant) 1 applic TOP Q8 [facility] Last Admin: 07/23/18 01:22 Dose: Not Given Lactated Ringer's (Lactated Ringer's 500ml) 500 mls @ 75 mls/hr IV .Q6H40M [facility] Last Admin: 07/23/18 00:56 Dose: Not Given Levalbuterol HCl (Xopenex) 0.63 mg IH RQ8 [facility] Last Admin: 07/23/18 00:07 Dose: 0.63 mg Lidocaine (Lidoderm) 1 ea TD DAILY PRN PRN Reason: Pain, moderate (4-7) Last Admin: 07/21/18 18:52 Dose: 1 ea Mirtazapine (Remeron) 7.5 mg PO HS [facility] Last Admin: 07/22/18 22:20 Dose: 7.5 mg Assessment and Plan (1) Bone metastases Status: Acute (2) COPD exacerbation Status: Acute (3) Dehydration Status: Acute (4) Generalized weakness Status: Acute (5) Malignancy Status: Acute (6) Pulmonary cachexia due to chronic obstructive pulmonary disease Status: Acute (7) S/P biopsy Status: Acute
[2018-07-23] MEDS: Bacitracin OINT 15GM TOP SCH (10:13)
[2018-07-23] MEDS: Lidocaine 5% Patch TD PRN (18:21)
--- NOTE | 2018-07-23 22:36 | CP.PCM.PN ---
Subjective - Date & Time of Evaluation Date of Evaluation: 07/23/18 Time of Evaluation: 11:35 Objective - Vital Signs/Intake and Output Vital Signs (last 24 hours): Temp Pulse Resp BP Pulse Ox 97.5 F L 81 20 127/77 95 07/23/18 21:19 07/23/18 21:19 07/23/18 21:19 07/23/18 21:19 07/23/18 21:19 - Medications Medications: Current Medications Acetaminophen (Tylenol 325mg Tab) 650 mg PO Q6 PRN PRN Reason: Pain, Mild (1-3) Last Admin: 07/21/18 19:40 Dose: 650 mg Alprazolam (Xanax) 0.25 mg PO BID PRN PRN Reason: Anxiety Stop: 07/29/18 16:42 Bacitracin (Bacitracin Oint) 1 applic TOP DAILY [facility] Last Admin: 07/23/18 10:13 Dose: 1 applic Dimethicone (Proshield Plus Skin Protectant) 1 applic TOP Q8 [facility] Last Admin: 07/23/18 17:39 Dose: 1 applic Lactated Ringer's (Lactated Ringer's 500ml) 500 mls @ 75 mls/hr IV .[id number] [facility] Last Admin: 07/23/18 17:39 Dose: Not Given Levalbuterol HCl (Xopenex) 0.63 mg IH RQ8 [facility] Last Admin: 07/23/18 16:07 Dose: 0.63 mg Lidocaine (Lidoderm) 1 ea TD DAILY PRN PRN Reason: Pain, moderate (4-7) Last Admin: 07/23/18 18:21 Dose: 1 ea Mirtazapine (Remeron) 7.5 mg PO HS [facility] Last Admin: 07/23/18 21:59 Dose: 7.5 mg Assessment and Plan (1) Bone metastases Status: Acute (2) COPD exacerbation Status: Acute (3) Dehydration Status: Acute (4) Generalized weakness Status: Acute (5) Malignancy Status: Acute (6) Pulmonary cachexia due to chronic obstructive pulmonary disease Status: Acute (7) S/P biopsy Status: Acute
[2018-07-24] MEDS: Levalbuterol 0.63 MG/3 ML Inhal Soln UD IH SCH ×3 (00:29→15:51)
[2018-07-24] MEDS: Lactated Ringer's 500 ML IV SCH ×2 (02:45→05:31)
[2018-07-24] MEDS: Proshield Plus GEL TOP SCH ×2 (02:46→08:37)
[2018-07-24 08:34] VITALS: BP 124/72; PULSE 84; RESP 18; TEMP 97.2; O2SAT 96
[2018-07-24] MEDS: Bacitracin OINT 15GM TOP SCH (08:37)
--- NOTE | 2018-07-24 22:19 | CP.PCM.DIS ---
Provider - Provider Date of Admission: 07/10/18 18:59 Attending physician: Jelly Sanchez MD Consults: 07/22/18 12:46 Psychiatry Consult Routine Comment: Consulting Provider: Daily aMrtinez Consulting Physician: Daily Martinez Reason for Consult: depression 07/10/18 20:36 Case Management Referral Routine Comment: Physician Instructions: Reason For Exam: Reason for Referral: Discharge Planning 07/10/18 22:18 Nursing Referral for Wound Care Routine Comment: left fore arm skin tear. Physician Instructions: Reason For Exam: sacral redness 07/11/18 02:29 Pastoral Care Referral Routine Comment: Physician Instructions: Reason For Exam: more info on advance directives Time Spent in preparation of Discharge (in minutes): 30 Diagnosis - Discharge Diagnosis (1) Bone metastases Status: Acute (2) COPD exacerbation Status: Chronic Priority: Medium (3) Dehydration Status: Resolved (4) Generalized weakness Status: Acute (5) Malignancy Status: Acute (6) Pulmonary cachexia due to chronic obstructive pulmonary disease Status: Acute (7) S/P biopsy Status: Acute Comment: Stage IV Cancer (8) Lethargic Status: Acute Hospital Course - Lab Results Lab Results: Micro Results 07/11/18 16:30 Urine,Clean Catch Urine Culture - Final No Growth (<1,000 CFU/ML) Most Recent Lab Values POC Glucose (mg/dL) 100 mg/dL (65-110) 07/24/18 09:32 Discharge Exam - Head Exam Head Exam: ATRAUMATIC, NORMAL INSPECTION, NORMOCEPHALIC Discharge Plan - Follow Up Plan Condition: GOOD Disposition: Trans to Other Acute Care Hosp
== END 2018-07-24 16:32 | disposition hospice, inpatient (51) | DRG 945 ==
LOC: H.TCU 18:59
PROVIDERS: ADMIT Internal Medicine; ATTEND Internal Medicine
PROC: F07Z9FZ Gait Training/Functional Ambulation Treatment using Assistive, Adaptive, Supportive or Protective Equipment (ICD-10-PCS; principal; 2018-07-10)
PROC: F08Z4FZ Home Management Treatment using Assistive, Adaptive, Supportive or Protective Equipment (ICD-10-PCS; 2018-07-10)
PROC: F07M6FZ Therapeutic Exercise Treatment of Musculoskeletal System - Whole Body using Assistive, Adaptive, Supportive or Protective Equipment (ICD-10-PCS; 2018-07-11)
DX: R53.1 Weakness (principal); C79.51 Secondary malignant neoplasm of bone; J44.1 Chronic obstructive pulmonary disease with (acute) exacerbation; R64 Cachexia; Z68.1 Body mass index [BMI] 19.9 or less, adult; E86.0 Dehydration; F32.9 Major depressive disorder, single episode, unspecified; Z87.891 Personal history of nicotine dependence

== ENCOUNTER 2018-07-21 08:57 | Day surgery (SDC) | payer MEDICARE ==
[2018-07-21 10:00] VITALS: BMI 13.8
[2018-07-21] MEDS ORDERED: Lidocaine 1% Inj (20ml) ONE (13:31)
[2018-07-21] MEDS ORDERED: Absorbable Gelatin Sponge Size 12-7 ONE (14:06)
--- NOTE | 2018-07-21 14:17 | CP.SDSHP ---
Same Day Surgery H & P - History Proposed Procedure: CT guided biopsy of right apical mass. Pre-Op Diagnosis: Right apical mass - Allergies Allergies: Allergies No Known Allergies Allergy (Verified 07/21/18 10:00) - Physical Exam Vital Signs: Vital Signs 07/21/18 07/21/18 07/21/18 09:31 09:45 13:48 Temperature 97.3 F L Pulse Rate 81 81 93 H Respiratory 16 18 Rate Blood Pressure 135/72 139/50 L O2 Sat by Pulse 98 100 Oximetry Mental Status: Confused - Impression Impression: Pt with right lung mass and multiple liver lesions. Pt underwent previous liver mass biopsy that showed no malignant cells. Plan CT guided lung mass biopsy. Risks and benefits explained to Pt and daughter. Pt. Evaluated Today:Candidate for Anesthesia & Procedure: Yes (ASA 3 Malampati 3) - Date & Time Date: 07/21/18 Time: 13:30 Short Stay Discharge - Short Stay Discharge Admitting Diagnosis/Reason for Visit: COPD Disposition: HOME/ ROUTINE
--- NOTE | 2018-07-21 14:19 | PCM.SURG1 ---
Surgeon's Initial Post Op Note - Surgeon's Notes Surgeon: Ishan Tovar MD Early Childhood Teacher: NONE Type of Anesthesia: IV Sedation Pre-Operative Diagnosis: Right lung mass Operative Findings: CT showed pleural thicking right lung apex. Post-Operative Diagnosis: Right lung mass Operation Performed: CT guided biopsy. A 20-g biopsy needle advanced into mass and two 20-guage core specimen obtained. Specimen/Specimens Removed: 20-g core x 2 Estimated Blood Loss: EBL {In ML}: 1 Blood Products Given: N/A Drains Used: No Drains Post-Op Condition: Fair Date of Surgery/Procedure: 07/21/18 Time of Surgery/Procedure: 14:10
--- NOTE | 2018-07-21 15:04 | CT ---
PROCEDURE: Date of procedure: 07/21/2018 Procedure: 1. CT-guided lung mass biopsy, CPT [address] Guidance for biopsy, [address] Radiation: 443.37 MGy-cm Medications: The patient was sedated by anesthesiologist along with physiologic monitoring. HISTORY: Right upper lobe lung mass TECHNIQUE: Following informed consent, the Pt's chest was marked. The Pt was placed prone on the CT table and procedure time out was performed. A noncontrast CT scan was performed. Noncontrast CT scan confirmed the presence of right apical mass with significant pleural thickening. A skin localizer was placed on the patient's right back and a repeat CT scan was performed. The skin was marked, prepped, and draped in the usual sterile fashion. After the skin was anesthetized with lidocaine and the patient sedated by the anesthesiologist, a 20 gauge core needle was advanced percutaneously under direct CT guidance into the mass. Upon confirmation of needle position, two 20-gauge core specimens were obtained and sent for routine pathology. The needle was removed and a xeroform dressing was applied. A post biopsy CT scan showed no pneumothorax. IMPRESSION: CT guided core biopsy right lung apical mass.
[2018-07-21] MEDS ORDERED: Lactated Ringer's 1,000 ML IV SCH (15:15)
[2018-07-21 15:30] VITALS: TEMP 98
--- NOTE | 2018-07-21 15:53 | RAD ---
Date of service: 07/21/2018 HISTORY: Status post right lung mass biopsy COMPARISON: Comparison made with chest radiograph 07/01/[address]-guided lung biopsy 07/21/2018 1348 hr. As well as prior CT scan chest 07/03/2018. FINDINGS: LUNGS: Previously noted large right apical masslike density is redemonstrated though less well seen as compared to high-resolution CT chest. Significant centrilobular emphysematous changes are also less well seen. No discernible pneumothorax is identified. PLEURA: No significant pleural effusion identified, no pneumothorax apparent. CARDIOVASCULAR: [id number] aortic atherosclerotic calcification present. Normal cardiac size. No pulmonary vascular congestion. OSSEOUS STRUCTURES: No significant abnormalities. VISUALIZED UPPER ABDOMEN: Normal. OTHER FINDINGS: None. IMPRESSION: Large right apical mass and significant centrilobular emphysematous changes. No discernible pneumothorax.
[2018-07-21 16:03] VITALS: RESP 18
[2018-07-21 17:39] VITALS: BP 128/58; PULSE 75; O2SAT 94
== END 2018-07-21 17:35 ==
LOC: H.OPSURG 08:57
PROVIDERS: ATTEND Internal Medicine
DX: J44.9 Chronic obstructive pulmonary disease, unspecified (principal); I10 Essential (primary) hypertension; K76.9 Liver disease, unspecified
CPT/HCPCS: 32405; 71045; 77012; 88305; J3010; J7120

== ENCOUNTER 2018-07-24 09:52 | Inpatient (IN) | payer MEDICARE, OTHER ==
[2018-07-24 09:52] VITALS: BMI 13.8
[2018-07-24] MEDS ORDERED: Sodium Chloride 0.9% 1,000 ML IV STA (10:43)
--- NOTE | 2018-07-24 12:21 | ED PDOC ---
HPI: General Adult Time Seen by Provider: 07/24/18 10:06 Chief Complaint (Nursing): Weakness/Neurological Deficit Chief Complaint (Provider): Inpatient Hospice Admission History Per: Patient (nods, not verbally), Family (daughter) History/Exam Limitations: no limitations Onset/Duration Of Symptoms: Gradual Current Symptoms Are (Timing): Still Present Additional Complaint(s): 87 year old male, DNR/DNI with stage 4 cancer, presents to the ED with daughter from home as per PMD for inpatient hospice admission. Daughter notes patient has been increasingly lethargic with decreased solid and liquid PO intake at home. On evaluation, pt is not speaking but nodding yes or no to questions and understands that he is coming for hospice care as a DNR/DNI patient as per his lisa menjivar at bedside. At this time he appears comfortable with stable vitals on the monitor. PMD: Jelly Sanchez Past Medical History Reviewed: Historical Data, Nursing Documentation, Vital Signs Vital Signs: Last Vital Signs Temp 98.6 F 07/24/18 10:05 Pulse 105 H 07/24/18 10:05 Resp 16 07/24/18 10:05 BP 125/70 07/24/18 10:05 Pulse Ox 97 07/24/18 10:05 - Medical History PMH: Anemia, COPD (no prior diagnosis), Pneumonia Denies: HIV, Chronic Kidney Disease Other PMH: cancer - Surgical History Surgical History: No Surg Hx - Family History Family History: States: Unknown Family Hx - Social History Current smoker - smoking cessation education provided: No Alcohol: None Drugs: Denies - Home Medications Home Medications: Ambulatory Orders Medication Instructions Recorded RX: Lidocaine 5% [Lidoderm] 1 ea TD DAILY PRN #7 patch 06/01/18 RX: Levalbuterol [Xopenex] 0.63 mg IH RQ8 neb 07/10/18 Acetaminophen [Tylenol 325mg tab] 650 mg PO Q6 PRN 07/24/18 Bacitracin OINT 1 appl TOP DAILY 07/24/18 Dimethicone [Proshield Plus Skin 1 appl TOP Q8 07/24/18 Protectant] Mirtazapine [Remeron] 7.5 mg PO HS 07/24/18 - Allergies Allergies/Adverse Reactions: Allergies Allergy/AdvReac Type Severity Reaction Status Date / Time No Known Allergies Allergy Verified 07/24/18 10:04 Review of Systems ROS Statement: Except As Marked, All Systems Reviewed And Found Negative Constitutional: Positive for: Other (increasingly lethargic) Physical Exam - Reviewed Nursing Documentation Reviewed: Yes Vital Signs Reviewed: Yes - Physical Exam Appears: Negative for: Uncomfortable (pt is comfortable but cachectic) Head Exam: Positive for: ATRAUMATIC, NORMAL INSPECTION, NORMOCEPHALIC Skin: Positive for: Warm, Dry Eye Exam: Positive for: Normal appearance, EOMI, PERRL ENT: Positive for: Other (mucus membranes dry) Neck: Positive for: Normal, Painless ROM, Supple Cardiovascular/Chest: Positive for: Regular Rate, Rhythm Respiratory: Positive for: Normal Breath Sounds. Negative for: Respiratory Distress Gastrointestinal/Abdominal: Positive for: Normal Exam, Soft. Negative for: Tenderness Back: Positive for: Normal Inspection Extremity: Negative for: Tenderness, Swelling Neurologic/Psych: Positive for: Alert (and awake) Comments: pt nods yes and no to questions, and denies any pain - ECG O2 Sat by Pulse Oximetry: 97 (RA) Pulse Ox Interpretation: Normal Medical Decision Making Medical Decision Making: Time: 1010 Initial Impression: admission for hospice Initial Plan: --Admit order and consult placed --Normal saline IV for comfort --Continue to follow DNR/DNI orders Scribe Attestation: Documented by Rani Cotter, acting as a scribe for Riana Dimas MD. Provider Scribe Attestation: All medical record entries made by the Scribe were at my direction and personally dictated by me. I have reviewed the chart and agree that the record accurately reflects my personal performance of the history, physical exam, medical decision making, and the department course for this patient. I have also personally directed, reviewed, and agree with the discharge instructions and disposition Disposition - Clinical Impression Clinical Impression: Episode of generalized weakness, Dehydration, Brain cancer - Disposition Disposition Time: 10:20 Condition: FAIR
[2018-07-24] MEDS ORDERED: Potassium Chloride 20 mEq ER Tab PO ONE (16:08)
[2018-07-24] MEDS ORDERED: Morphine 4 MG/ML VIAL IVP PRN (17:53)
--- NOTE | 2018-07-24 18:22 | RAD ---
Date of service: 07/24/2018 HISTORY: routine order COMPARISON: 07/21/2018. FINDINGS: LUNGS: Pleural parenchymal changes in the apices right greater than left. No active pulmonary disease. PLEURA: No significant pleural effusion identified, no pneumothorax apparent. CARDIOVASCULAR: No atherosclerotic calcification present Normal. OSSEOUS STRUCTURES: No significant abnormalities. VISUALIZED UPPER ABDOMEN: Normal. OTHER FINDINGS: None. IMPRESSION: No active disease. No significant interval change compared to the prior examination(s).
[2018-07-25] MEDS: Sodium Chloride 0.9% 1,000 ML IV SCH (09:41)
[2018-07-26] MEDS: Albuterol-Ipratrop 3 mg / 0.5 (3 ml) UD INH PRN (00:34)
--- NOTE | 2018-07-26 01:30 | CP.PCM.HP ---
History of Present Illness - History of Present Illness History of Present Illness: CC: Lethargy and AMS History of present illness: An 87 years old male with his history of COPD chronic smoker diagnosed with stage IV cancer with possible lung primary and cachectic was at TCU for physical and occupational therapy due to generalized weakness and physical deconditioning. This morning patient was found to be lethargic and refusing to feed. Patient was transferred to the ER for work. Patient admitted for possible stage IV lung cancer and lethargy, and altered mental status. Possible etiology includes infectious versus metastatic lesion to the brain. Discussed with the patient and next of kin, and agreeable DNR/DNI. Family want conservative management, and agreeable to speak to palliative and hospice care team as the family are leaning to comfort care. Present on Admission - Present on Admission Any Indicators Present on Admission: No Review of Systems - Review of Systems All systems: reviewed and no additional remarkable complaints except Review of Systems: As per HPI Past Patient History - Infectious Disease Hx of Infectious Diseases: None - Past Medical History & Family History Past Medical History?: Yes Past Family History: Reviewed and not pertinent - Past Social History Smoking Status: Former Smoker Alcohol: None Drugs: Denies - CARDIAC Hx Cardiac Disorders: No - PULMONARY Hx Chronic Obstructive Pulmonary Disease (COPD): Yes (no prior diagnosis) Hx Pneumonia: Yes - NEUROLOGICAL Hx Neurological Disorder: No - HEENT Hx HEENT Problems: No - RENAL Hx Chronic Kidney Disease: No - ENDOCRINE/METABOLIC Hx Endocrine Disorders: No - HEMATOLOGICAL/ONCOLOGICAL Hx Anemia: Yes Hx Human Immunodeficiency Virus (HIV): No - INTEGUMENTARY Hx Dermatological Problems: Yes Other/Comment: shingles a month ago - MUSCULOSKELETAL/RHEUMATOLOGICAL Hx Musculoskeletal Disorders: No Hx Falls: No - GASTROINTESTINAL Hx Gastrointestinal Disorders: No Other/Comment: never had surgery - GENITOURINARY/GYNECOLOGICAL Hx Genitourinary Disorders: No - PSYCHIATRIC Hx Psychophysiologic Disorder: No Hx Substance Use: No - SURGICAL HISTORY Hx Surgeries: No - ANESTHESIA Hx Anesthesia: Yes Hx Anesthesia Reactions: No Meds Allergies/Adverse Reactions: Allergies Allergy/AdvReac Type Severity Reaction Status Date / Time No Known Allergies Allergy Verified 07/24/18 10:04 Physical Exam - Constitutional Appears: Cachectic, Chronically Ill Additional comments: Lethargic - Head Exam Head Exam: ATRAUMATIC, NORMAL INSPECTION, NORMOCEPHALIC - Eye Exam Eye Exam: EOMI, Normal appearance, PERRL Pupil Exam: NORMAL ACCOMODATION, PERRL - ENT Exam ENT Exam: Mucous Membranes Moist, Normal Exam - Neck Exam Neck exam: Positive for: Full Rom, Normal Inspection - Respiratory Exam Respiratory Exam: Clear to Auscultation Bilateral, NORMAL BREATHING PATTERN - Cardiovascular Exam Cardiovascular Exam: REGULAR RHYTHM, +S1, +S2 - GI/Abdominal Exam GI & Abdominal Exam: Normal Bowel Sounds, Soft. absent: Tenderness - Extremities Exam Extremities exam: Positive for: normal capillary refill, normal inspection - Back Exam Back exam: NORMAL INSPECTION - Neurological Exam Neurological exam: Altered Additional comments: Lethargic - Psychiatric Exam Psychiatric exam: Normal Affect, Normal Mood - Skin Skin Exam: Dry, Intact, Normal Color, Warm Results - Vital Signs Recent Vital Signs: Last Vital Signs Temp 97.9 F 07/25/18 23:36 Pulse 83 07/25/18 23:36 Resp 20 07/25/18 23:36 BP 114/76 07/25/18 23:36 Pulse Ox 93 L 07/25/18 23:36 - Imaging and Cardiology Chest x-ray Status: Report reviewed by me Additional comment: Date of service: 07/24/2018 HISTORY: routine order COMPARISON: 07/21/2018. FINDINGS: LUNGS: Pleural parenchymal changes in the apices right greater than left. No active pulmonary disease. PLEURA: No significant pleural effusion identified, no pneumothorax apparent. CARDIOVASCULAR: No atherosclerotic calcification present Normal. OSSEOUS STRUCTURES: No significant abnormalities. VISUALIZED UPPER ABDOMEN: Normal. OTHER FINDINGS: None. IMPRESSION: No active disease. No significant interval change compared to the prior exami nation(s). Assessment & Plan (1) Metastatic lung carcinoma Assessment and Plan: R/O Brain Mets Status: Acute (2) Lethargic Assessment and Plan: ?Etiology Status: Acute Priority: High (3) COPD (chronic obstructive pulmonary disease) Status: Acute Priority: Low (4) Failure to thrive in adult Status: Acute Priority: High (5) Poor feeding Status: Chronic Priority: High (6) DNI (do not intubate) Status: Acute (7) Stage IV pressure ulcer of sacral region Status: Acute Priority: High - Assessment and Plan (Free Text) Plan: Wound Care daily Consult with Wound care Nurse Wound Culture Reposition every 2 hours IV fluid DuoNeb as needed Morphine 2 mg IV every 4 hours as needed pain/dyspnea Palliative care and hospice care consult Oncology consult with Dr. Gonzales
[2018-07-26] MEDS: Sodium Chloride 0.9% 1,000 ML IV SCH (05:22)
[2018-07-26 16:46] VITALS: RESP 20
--- NOTE | 2018-07-26 21:47 | CP.PCM.PN ---
Subjective - Date & Time of Evaluation Date of Evaluation: 07/26/18 Time of Evaluation: 18:35 - Subjective Subjective: Seen and examined at the bed side. Evaluated by Hospice care team, and accepted for inpatient Hospice. Objective - Vital Signs/Intake and Output Vital Signs (last 24 hours): Temp Pulse Resp BP Pulse Ox 97.2 F L 81 20 159/81 H 99 07/26/18 17:00 07/26/18 17:00 07/26/18 17:00 07/26/18 17:00 07/26/18 17:00 - Medications Medications: Current Medications Acetaminophen (Tylenol 325mg Tab) 650 mg PO Q6 PRN PRN Reason: Pain, moderate (4-7) Albuterol/Ipratropium (Duoneb 3 Mg/0.5 Mg (3 Ml) Ud) 3 ml INH RQ6 PRN PRN Reason: Shortness of Breath Last Admin: 07/26/18 00:34 Dose: 3 ml Mirtazapine (Remeron) 15 mg PO HS [facility] Last Admin: 07/25/18 22:09 Dose: 15 mg Morphine Sulfate (Morphine) 2 mg IVP Q4 PRN PRN Reason: Pain, severe (8-10) Assessment and Plan (1) Metastatic lung carcinoma Status: Acute (2) Lethargic Status: Acute (3) COPD (chronic obstructive pulmonary disease) Status: Acute (4) Failure to thrive in adult Status: Acute (5) Poor feeding Status: Chronic (6) DNI (do not intubate) Status: Acute (7) Stage IV pressure ulcer of sacral region Status: Acute - Assessment and Plan (Free Text) Assessment: To Be discharged to Hospice care
[2018-07-27] MEDS: Albuterol-Ipratrop 3 mg / 0.5 (3 ml) UD INH PRN (08:56)
[2018-07-27 09:06] VITALS: BP 156/81; PULSE 82; TEMP 97.8; O2SAT 98
--- NOTE | 2018-07-27 22:51 | CP.PCM.HP ---
Past Patient History - Infectious Disease Hx of Infectious Diseases: None - Past Medical History & Family History Past Medical History?: Yes Past Family History: Reviewed and not pertinent - Past Social History Smoking Status: Former Smoker Alcohol: None Drugs: Denies - CARDIAC Hx Cardiac Disorders: No - PULMONARY Hx Chronic Obstructive Pulmonary Disease (COPD): Yes (no prior diagnosis) Hx Pneumonia: Yes - NEUROLOGICAL Hx Neurological Disorder: No - HEENT Hx HEENT Problems: No - RENAL Hx Chronic Kidney Disease: No - ENDOCRINE/METABOLIC Hx Endocrine Disorders: No - HEMATOLOGICAL/ONCOLOGICAL Hx Anemia: Yes Hx Human Immunodeficiency Virus (HIV): No - INTEGUMENTARY Hx Dermatological Problems: Yes Other/Comment: shingles a month ago - MUSCULOSKELETAL/RHEUMATOLOGICAL Hx Musculoskeletal Disorders: No Hx Falls: No - GASTROINTESTINAL Hx Gastrointestinal Disorders: No Other/Comment: never had surgery - GENITOURINARY/GYNECOLOGICAL Hx Genitourinary Disorders: No - PSYCHIATRIC Hx Psychophysiologic Disorder: No Hx Substance Use: No - SURGICAL HISTORY Hx Surgeries: No - ANESTHESIA Hx Anesthesia: Yes Hx Anesthesia Reactions: No Meds Allergies/Adverse Reactions: Allergies Allergy/AdvReac Type Severity Reaction Status Date / Time No Known Allergies Allergy Verified 07/24/18 10:04 Results - Vital Signs Recent Vital Signs: Last Vital Signs Temp 97.8 F 07/27/18 09:06 Pulse 82 07/27/18 09:06 Resp 20 07/27/18 09:06 BP 156/81 H 07/27/18 09:06 Pulse Ox 98 07/27/18 09:06 Assessment & Plan (1) Metastatic lung carcinoma Status: Acute (2) Lethargic Status: Acute Priority: High (3) COPD (chronic obstructive pulmonary disease) Status: Acute Priority: Low (4) Failure to thrive in adult Status: Acute Priority: High (5) Poor feeding Status: Chronic Priority: High (6) DNI (do not intubate) Status: Acute (7) Stage IV pressure ulcer of sacral region Status: Acute Priority: High
--- NOTE | 2018-07-27 22:51 | CP.PCM.DIS ---
Provider - Provider Date of Admission: 07/24/18 10:20 Attending physician: Jelly Sanchez MD Consults: 07/24/18 17:57 Wound Care [Nursing Referral for Wound Care] Routine Comment: Physician Instructions: Reason For Exam: sacral wound 07/26/18 02:10 Hematology Oncology Consult Routine Comment: Consulting Provider: Michel Gonzales Consulting Physician: Michel Gonzales Reason for Consult: Stage IV Cancer Time Spent in preparation of Discharge (in minutes): 25 Diagnosis - Discharge Diagnosis (1) Metastatic lung carcinoma Status: Acute (2) Lethargic Status: Acute Priority: High (3) COPD (chronic obstructive pulmonary disease) Status: Acute Priority: Low (4) Failure to thrive in adult Status: Acute Priority: High (5) Poor feeding Status: Chronic Priority: High (6) DNI (do not intubate) Status: Acute (7) Stage IV pressure ulcer of sacral region Status: Acute Priority: High Hospital Course - Lab Results Lab Results: Micro Results 07/24/18 18:40 Blood Blood Culture - Preliminary NO GROWTH AFTER 3 DAYS 07/26/18 08:30 Sacral Gram Stain - Final 07/26/18 08:30 Sacral Wound Culture - Preliminary Gram Negative Martínez Staphylococcus Aureus Discharge Exam - Head Exam Head Exam: ATRAUMATIC, NORMAL INSPECTION, NORMOCEPHALIC Discharge Plan - Follow Up Plan Condition: SERIOUS Disposition: HOSPICE - MEDICAL FACILITY Instructions: Lung Cancer Referrals: Michel Gonzales MD [Staff Provider] -
== END 2018-07-27 11:31 | disposition hospice, inpatient (51) | DRG 180 ==
LOC: H.ER 09:52 → H.ERHOLD 10:20 → H.MEDSURG1 16:20
PROVIDERS: ADMIT Internal Medicine; ATTEND Internal Medicine
DX: C34.90 Malignant neoplasm of unspecified part of unspecified bronchus or lung (principal); L89.154 Pressure ulcer of sacral region, stage 4; R64 Cachexia; Z68.1 Body mass index [BMI] 19.9 or less, adult; E86.0 Dehydration; J44.9 Chronic obstructive pulmonary disease, unspecified; R62.7 Adult failure to thrive; R63.3 Feeding difficulties; Z66 Do not resuscitate; Z87.891 Personal history of nicotine dependence; R53.83 Other fatigue

== ENCOUNTER 2018-07-27 11:32 | Inpatient (IN) | payer OTHER ==
[2018-07-27] MEDS ORDERED: Morphine 100 MG in Sodium Chloride 0.9% 100 ML IV SCH (12:30)
--- NOTE | 2018-07-27 22:52 | CP.PCM.HP ---
History of Present Illness - History of Present Illness History of Present Illness: CC: Admission inpatient Hospice for Stage IV Lung Cancer History of Present Illness: An 87 years old male with his history of COPD chronic smoker diagnosed with stage IV cancer with possible lung primary and cachectic was at TCU for physical and occupational therapy due to generalized weakness and physical deconditioning. He was found to be Lethargic and Refusing to feed. Today the Hospice care Team evaluated the patient and accepted to inpatient Hospice. Family at the bed side. Patient on PRN Morphine and Ativan. Present on Admission - Present on Admission Any Indicators Present on Admission: No Review of Systems - Review of Systems All systems: reviewed and no additional remarkable complaints except Past Patient History - Infectious Disease Hx of Infectious Diseases: None - Past Medical History & Family History Past Medical History?: Yes - Past Social History Smoking Status: Former Smoker - CARDIAC Hx Cardiac Disorders: No - PULMONARY Hx Chronic Obstructive Pulmonary Disease (COPD): Yes (no prior diagnosis) Hx Pneumonia: Yes - NEUROLOGICAL Hx Neurological Disorder: No - HEENT Hx HEENT Problems: No - RENAL Hx Chronic Kidney Disease: No - ENDOCRINE/METABOLIC Hx Endocrine Disorders: No - HEMATOLOGICAL/ONCOLOGICAL Hx Anemia: Yes Hx Human Immunodeficiency Virus (HIV): No - INTEGUMENTARY Hx Dermatological Problems: Yes Other/Comment: shingles a month ago - MUSCULOSKELETAL/RHEUMATOLOGICAL Hx Musculoskeletal Disorders: No Hx Falls: No - GASTROINTESTINAL Hx Gastrointestinal Disorders: No Other/Comment: never had surgery - GENITOURINARY/GYNECOLOGICAL Hx Genitourinary Disorders: No - PSYCHIATRIC Hx Psychophysiologic Disorder: No Hx Substance Use: No - SURGICAL HISTORY Hx Surgeries: No - ANESTHESIA Hx Anesthesia: Yes Hx Anesthesia Reactions: No Meds Allergies/Adverse Reactions: Allergies Allergy/AdvReac Type Severity Reaction Status Date / Time No Known Allergies Allergy Verified 07/24/18 10:04 Results - Vital Signs Recent Vital Signs: Last Vital Signs Temp Pulse 111 H 07/27/18 16:51 Resp 8 L 07/27/18 16:51 BP Pulse Ox 81 L 07/27/18 16:51 Assessment & Plan (1) Bone metastases Status: Acute Priority: High (2) COPD (chronic obstructive pulmonary disease) Status: Acute Priority: Low (3) DNI (do not intubate) Status: Acute (4) Failure to thrive in adult Status: Acute Priority: High (5) Malignancy Status: Acute (6) Metastatic lung carcinoma Status: Acute (7) Physical deconditioning Status: Acute (8) Stage IV pressure ulcer of sacral region Status: Acute Priority: High (9) Admission for hospice care Status: Acute - Assessment and Plan (Free Text) Plan: Continue Comfort Care
[2018-07-28 08:16] VITALS: BP 72/40; PULSE 73; RESP 12; O2SAT 91
--- NOTE | 2018-07-28 09:55 | CP.PCM.PRO ---
Pronouncement of Note - Clinical Findings Physical Exam: No Response Verbal/Painful Stimuli, Absent Peripheral Puls es{Carotid & Femoral}, Absent Heart & Breath Sounds, No Pupillary Light Reflex, No Corneal Reflex, Pupils Fixed & Dilated, Absence of Vital Signs - Pronouncement Time Time of Pronouncement of : 09:34 - Notifications Pronouncement Notifications: Family Notified, Atending Notified Hospital Recruiter Notified: No - Autopsy Autopsy Requested: No - [place] [id number]
--- NOTE | 2018-07-28 22:42 | CP.PCM.DIS ---
Provider - Provider Date of Admission: 07/27/18 11:32 Attending physician: Jelly Sanchez MD Time Spent in preparation of Discharge (in minutes): 25 Diagnosis - Discharge Diagnosis (1) Bone metastases Status: Acute Priority: High (2) COPD (chronic obstructive pulmonary disease) Status: Acute Priority: Low (3) DNI (do not intubate) Status: Acute (4) Failure to thrive in adult Status: Acute Priority: High (5) Malignancy Status: Acute (6) Metastatic lung carcinoma Status: Acute (7) Physical deconditioning Status: Acute (8) Stage IV pressure ulcer of sacral region Status: Acute Priority: High (9) Admission for hospice care Status: Acute (10) Status: Acute Discharge Plan - Follow Up Plan Condition: GOOD Disposition: WITH WITHOUT AUTOPSY
== END 2018-07-28 09:45 | DRG 180 ==
LOC: H.ERHOLD 11:32 → H.MEDSURG1 12:04
PROVIDERS: ADMIT Internal Medicine; ATTEND Internal Medicine
DX: C34.90 Malignant neoplasm of unspecified part of unspecified bronchus or lung (principal); L89.154 Pressure ulcer of sacral region, stage 4; C79.51 Secondary malignant neoplasm of bone; J44.9 Chronic obstructive pulmonary disease, unspecified; Z87.01 Personal history of pneumonia (recurrent); Z87.891 Personal history of nicotine dependence; Z86.19 Personal history of other infectious and parasitic diseases; Z51.5 Encounter for palliative care; R62.7 Adult failure to thrive